=== PATIENT | female | born 1950 | race Caucasian/White ===

== ENCOUNTER 2025-06-10 11:03 | Outpatient (AMB) | payer OTHER, SELFPAY ==
--- NOTE | 2025-06-10 11:08 | MHC.PC.OV ---
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: No Accompanied by: Self / Same As Patient Allergies Sulfa (Sulfonamide Antibiotics) Allergy (Mild, Verified 06/10/25 11:14) Hives Medication List - Last Reconciled 06/10/25 by Jcarlos Ogden MD cholecalciferol (vitamin D3) 50 mcg PO DAILY letrozole 2.5 mg PO DAILY metoprolol succinate ER 50 mg PO DAILY nystatin topical BID oxycodone 5 mg PO Q3H PRN torsemide 20 mg PO DAILY Tobacco use date assessed: 06/10/25 Fall risk assessment: No Falls in past year Dental Screening Dental Screen Date: 06/10/25 Did you have a dental visit in the last 12 months?: Yes Did you have a dental problem in the last 6 months where you did not have access to dental care?: Yes Was dental information given to patient?: Patient has dentist HPI HPI Comments History of Present Illness Details History of Present Illness The patient is a 74-year-old female presenting to [facility] for management of multiple chronic conditions. Lymphedema: The patient has lymphedema affecting her right arm, the same side as her prior lumpectomies and lymph node removal, and she wears a compression sleeve. She also experiences lymphedema in her legs; it was previously worse in the left leg but is now more prominent in the right leg. 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 Aortic Valve Disease: The patient has a history of a heart murmur, identified as aortic valve stenosis and insufficiency. About a month ago, an EKG suggested a possible past myocardial infarction, but a subsequent echocardiogram showed no problems. Her previous water plant pump operator supervisor did not believe the condition was concerning at that time. Generalized Debility and Impaired Mobility: The patient reports having low stamina, which limits her activities. She has improved from being wheelchair-bound to using a walker and has recently transitioned to using a 3-point cane. History of Breast Cancer: The patient has a history of cancer, for which she underwent right-sided lumpectomies and lymph node removal. She is on letrozole, a hormone-based medication, and another medication referred to as Pasquali, which she states makes her feel anxious. Past Medical History: The patient has no history of diabetes, hypertension, or seizures. Surgical History: - Right-sided lumpectomies - Right-sided lymph node removal Medications: - Letrozole, indication: cancer - Pasquali, indication: cancer Social History: - Housing: The patient lives with a friend, who is her [id number]. - Functional Status: The patient has low stamina, which limits her from partaking in activities. - Mobility: The patient uses a 3-point cane, having previously used a wheelchair and a walker. Diagnostic Results: - Echocardiogram (one month ago): Reportedly showed no problems. - EKG (one month ago): Reportedly suggested a possible past myocardial infarction. Past Medical History - History of cancer, status post right lumpectomies and lymph node removal - Lymphedema of the right arm and bilateral lower extremities - Aortic valve stenosis and insufficiency with associated heart murmur - The patient denies a history of diabetes, hypertension, or seizures. Health Maintenance - A comprehensive lab panel was ordered, including a complete blood count, comprehensive metabolic panel, hemoglobin A1c, lipid panel, TSH, folate, B12, vitamin D, hepatitis B, hepatitis C, and HIV screening. - Discussed need for a handicap parking placard. - Discussed obtaining a lymphedema compression device. [facility] Medical History (Updated 06/10/25 @ 12:44 by Jcarlos Ogden MD) Weakness of both lower extremities Gait abnormality Lymphedema Aortic valve disease Breast cancer in female Family History (Updated 06/10/25 @ 11:21 by Kumar Vera MA) Father No problems noted. Mother Heart problem Social History Housing: House Patient Tobacco Use Status: Never used Tobacco service: No Current occupational status: retired Cognitive needs: No Hearing needs: No Vision needs: Yes (reading glasses) Questionnaire PHQ-9 Over the last 2 weeks, how often have you been bothered by any of the following problems? 1. Little interest or pleasure in doing things: not at all 2. Feeling down, depressed, or hopeless: not at all 3. Trouble falling or staying asleep, or sleeping too much: more than half the days 4. Feeling tired or having little energy: more than half the days 5. Poor appetite or overeating: not at all 6. Feeling bad about yourself - or that you are a failure or have let yourself or your family down: not at all 7. Trouble concentrating on things, such as reading the newspaper or watching television: not at all 8. Moving or speaking so slowly that other people could have noticed. Or the opposite - being so fidgety or restless that you have been moving around a lot more than usual: not at all 9. Thoughts that you would be better off or of hurting yourself in some way: not at all Total score: 4 Source: Developed by Drs. Ranjith Campo, Andra Lopez, Ramses Mckeon and colleagues, with an educational scot from [employer]. Thrive Questionnaire Date Thrive assessed: 06/05/25 I am a: Patient What is your living situation today?: I have a steady place to live Within the past 12 months, did the food you bought not last and you didn't have the money to get more?: Sometimes True Within the past 12 months, did you worry whether your food would run out before you got money to buy more?: Often true Do you have trouble paying for medicines?: Yes Do you have trouble getting transportation to medical appointments?: No Do you have trouble paying your heating and electricity bill?: Yes Do you have trouble taking care of your child, family member or friend?: I choose not to answer this question Do you have trouble with day-to-day activities such as bathing, preparing meals, shopping, managing finances, etc.?: Yes Are you currently unemployed and looking for a job?: No Are you interested in more education?: No Please select the resources that you would like help with: Utilities, Care for elder or disabled and Daily support Currently or been in a relationship where the following occur: No concerns reported THRIVE Score: 3 AUDIT C Alcohol Use Questionnaire (AUDIT-C) 3. How often do you have six or more drinks on one occasion?: Never Total Score: 0 TOM-7 AMB Questionnaire TOM-7 Feeling nervous, anxious, or on edge: 0 = Not at all Not being able to stop or control worryin = Not at all Worrying too much about different things: 0 = Not at all Trouble relaxin = Not at all Being so restless that it is hard to sit still: 0 = Not at all Becoming easily annoyed or irritable: 0 = Not at all Feeling afraid as if something awful might happen: 0 = Not at all Total TOM-7 score (0-4 normal; 5-9 mild; 10-14 moderate; 15-21 severe): 0 Source: Developed by Drs. Ranjith Campo, Andra Lopez, Ramses Mckeon and colleagues, with an educational scot from [employer]. Review of Systems Narrative Review of Systems - Constitutional: Reports low stamina. - Psychiatric: Reports feeling anxious, attributed to a side effect of her medication. - Neurological: Denies a history of seizures. - Sleep: Reports variable sleep quality; some nights are good and some are not. - Integumentary: Reports lines on her nails. - Genitourinary: Reports urinary urgency, sometimes requiring briefs. - Gastrointestinal: Reports bowel function is perfect. - Cardiovascular: Denies history of hypertension. - Endocrine: Denies history of diabetes. 10-point ROS reviewed and negative except as noted in HPI Physical exam (Primary Care) BMI result Body Mass Index 33.8 Tobacco/Smoking Status: Tobacco use Status Tobacco use date assessed 06/10/25 06/10/25 11:10 Patient Tobacco Use Status Never used Tobacco 06/10/25 11:10 PHQ-9: PHQ-9 Score PHQ-9: Total score 4 06/10/25 11:10 Thrive Assessment: Date of Thrive Assessment Date Thrive assessed 06/05/25 06/10/25 11:10 Currently or been in a relationship where the following occur: No concerns reported Narrative Physical Exam General: Well-appearing, in no acute distress. Uses a 3-point cane for mobility. Vital signs: Within normal limits. HEENT: Normocephalic, atraumatic. PERRLA, EOMI. Conjunctiva clear, sclera anicteric. Oropharynx clear, mucous membranes moist. TMs intact bilaterally. Neck: Supple, no lymphadenopathy, no thyromegaly, no JVD or carotid bruits. Cardiovascular: RRR, normal S1/S2, no murmurs, rubs, or gallops. Peripheral pulses 2+ and symmetric. No edema. Heart murmur present. History of aortic valve stenosis and insufficiency. Respiratory: Lungs clear to auscultation bilaterally, no wheezes, rales, or rhonchi. Normal effort. Abdomen: Soft, non-tender, non-distended. Normoactive bowel sounds. No hepatosplenomegaly, no masses. MSK: Full range of motion, no joint swelling or deformity. high stepping gait. Uses a 3-point cane. lymphedema sleeve on right arm Skin: Warm, dry, intact. No rashes, lesions, or pallor. Neuro: Alert and oriented x3. Cranial nerves II-XII intact. Strength 5/5 throughout. Sensation intact. Reflexes 2+ symmetric. Normal coordination and gait. Psych: Appropriate mood and affect. Normal judgment and insight. Coding Level of Care Code New Pt Level 4 (30800) Diagnoses Breast cancer in female C50.919 Aortic valve disease I35.9 Lymphedema I89.0 Gait abnormality R26.9 Weakness of both lower extremities R29.898 Assessment & Plan Assessment & Plan (1) Breast cancer in female: Code(s): C50.919 - Malignant neoplasm of unspecified site of unspecified female breast Category: Medical (2) Aortic valve disease: Code(s): I35.9 - Nonrheumatic aortic valve disorder, unspecified Category: Medical (3) Lymphedema: Code(s): I89.0 - Lymphedema, not elsewhere classified Category: Medical (4) Gait abnormality: Code(s): R26.9 - Unspecified abnormalities of gait and mobility Category: Medical (5) Weakness of both lower extremities: Code(s): R29.898 - Other symptoms and signs involving the musculoskeletal system Category: Medical Plan Consent The patient and her tuyere fitter were advised of the plan to perform comprehensive lab work, and they consented to proceed with the blood draw today. Patient was informed and verbally consented to the use of an ambient scribe for clinic note documentation during this visit. Plan 1. Establishment Of Care / Health Maintenance - Will obtain comprehensive baseline labs today, including CBC, CMP, electrolytes, HbA1c, lipids, TSH, folate, B12, vitamin D, and screening for Hepatitis B, Hepatitis C, and HIV. - Forms for release of information from previous providers Dr. Yessy Perez and Dr. Boyd Disla will be provided to the patient to sign. - Will complete paperwork for a handicap parking placard. - Patient to follow-up in two weeks to review lab results and medical records. 2. Lymphedema - Will monitor for and respond to any requests from the insurance company to provide clinical justification for a lymphedema compression machine. - Patient to continue current management, including wearing her right arm compression sleeve. 3. Aortic Valve Disease - The patient's history of aortic stenosis and insufficiency is noted. - Further management is deferred pending review of water plant pump operator supervisor records and new lab results, given the recent reassuring echocardiogram. 4. History Of Breast Cancer - Patient will continue her current oncology treatment regimen. - The patient was advised to share the results of today's blood work with her oncologist. Discussion Notes I discussed with the patient and her tuyere fitter that this visit would focus on establishing care, understanding her complex history, and gathering necessary information. I explained the rationale for ordering a comprehensive lab panel to get a baseline on her overall health, including blood counts, organ function, and vitamin levels. We reviewed the need to obtain records from her previous providers to ensure continuity of care and addressed the paperwork for a handicap placard. I acknowledged their concerns about obtaining the lymphedema compression machine through her new insurance and agreed to assist if contacted for medical information. I recommended she follow up in two weeks, at which point I hope to have the lab results and her prior records to develop a more complete plan. Patient Instructions - Please go to the lab here in the office today to have your blood drawn for the ordered tests. - At the checkout desk, please sign the release of information forms so we can request your medical records from your previous doctors. - We will provide you with the completed paperwork for a handicap parking placard. - We will assist with providing information to your insurance company for the lymphedema compression machine if they contact us. - Please schedule a follow-up appointment to return in two weeks to review your lab results. Medical Decision Making The patient is a 74-year-old female with a complex medical history presenting to establish primary care. Olivares issues include sequelae of breast cancer treatment, such as chronic lymphedema, and comorbid aortic valve disease. Given her recent change in providers and insurance, the initial goal is to gather comprehensive baseline data and obtain outside records for continuity. A comprehensive lab panel was ordered to assess for hematologic, metabolic, endocrine, or nutritional abnormalities that could contribute to her reported debility. Her cardiac status with aortic stenosis and insufficiency is noted; however, given a recent unremarkable echocardiogram, immediate cardiology referral is deferred pending review of specialist records. Support will be provided for durable medical equipment authorization for her lymphedema and for a handicap placard to address her limited mobility. Follow-up in two weeks is scheduled to review all collected data and formulate a comprehensive, long-term care plan. Total Time Statement 30 min Total time spent caring for the patient today includes pre-visit chart review, documentation, review of laboratory and diagnostic imaging results, medication reconciliation, medically necessary evaluation, counseling on diagnoses, care coordination, ordering appropriate tests and medications, review of tests performed by other providers, reporting test results to the patient, and communication with other healthcare providers. Orders: Orders Complete Blood Count Auto Diff Today Z13.9 - Encounter for screening, unspecified Syphilis Screen Today Z13.9 - Encounter for screening, unspecified TSH reflex Free T4 Today Z13.9 - Encounter for screening, unspecified UA CC w/rflx Micro + Cult Today Z13.9 - Encounter for screening, unspecified Hemoglobin A1c Today Z13.9 - Encounter for screening, unspecified Vitamin D 1,25 dihydroxy Today Z13.9 - Encounter for screening, unspecified Hepatitis B Surface Antibody Today Z13.9 - Encounter for screening, unspecified Hepatitis B Surface Antigen Today Z13.9 - Encounter for screening, unspecified Comprehensive Met. Panel Today Z13.9 - Encounter for screening, unspecified Hepatitis C Antibody Today Z13.9 - Encounter for screening, unspecified HIV Ab/Ag Today Z13.9 - Encounter for screening, unspecified Lipid Panel Today Z13.9 - Encounter for screening, unspecified Vitamin B12 and Folate Today Z13.9 - Encounter for screening, unspecified Magnesium Today Z13.9 - Encounter for screening, unspecified
[2025-06-10 11:13] VITALS: BP 139/65; PULSE 67; RESP 16; TEMP 36.5; O2SAT 95; BMI 33.8
== END 2025-06-10 11:56 | disposition home or self-care (01) ==
PROVIDERS: PCP Student in an Organized Health Care Education/Training Program; Visit Provider Student in an Organized Health Care Education/Training Program
DX: C50.919 Malignant neoplasm of unspecified site of unspecified female breast (principal); I35.9 Nonrheumatic aortic valve disorder, unspecified; I89.0 Lymphedema, not elsewhere classified; R26.9 Unspecified abnormalities of gait and mobility; R29.898 Other symptoms and signs involving the musculoskeletal system

== ENCOUNTER 2025-06-10 11:03 | Outpatient (REF) | payer OTHER, SELFPAY ==
[2025-06-10 18:03] LABS: MANUAL DIFF FLAG NO
[2025-06-10 18:15] LABS: Appearance Urine Clear; Glucose Urine UA Negative (Negative); PH 5.0 (5.0-9.0); Specific Gravity - Urine 1.015 (1.005-1.025); UMIC TRIGGER UACC YES
[2025-06-10 18:23] LABS: Hematocrit 37.8 % (37.0-47.0); Hemoglobin 12.7 g/dl (12.0-16.0); Imm Gran Abs Auto 0.02 X10*3/uL (0.00-0.03); Imm Gran Pct Auto 0.3 % (0.0-0.4); Lymphocytes Absolute Auto 1.8 X10*3/uL (1.2-4.9); Mean Corpuscular HGB Conc 33.6 g/dl (31.0-35.0); Mean Corpuscular Hemoglobin 31.1 pg (27.0-33.0); Mean Corpuscular Volume 92.4 fL (80.0-98.0); NRBC Abs Auto 0.000 X10*3/uL (0.0-0.012); NRBC Pct Auto 0.0 /100WBC (0.0-0.2); Platelet Count 307 X10*3/uL (160-400); Red Blood Count 4.09 X10*6/uL (4.20-5.50); White Blood Count 7.0 X10*3/uL (4.8-10.8)
[2025-06-10 18:57] LABS: Alanine Aminotransferase 27 U/L (0-31); Albumin Level 4.6 g/dL (3.5-5.0); Alkaline Phosphatase 142 U/L (39-117); Anion Gap 13 (12-20); Aspartate Amino Transferase 28 U/L (5-31); Blood Urea Nitrogen 17 mg/dL (9-16); Calcium 8.8 mg/dL (8.4-10.2); Carbon Dioxide 27 mmol/L (22-29); Chloride 95 mmol/L (96-108); Cholesterol 268 mg/dL (<200); Estimated Glomerular Filt Rate > 60; HDL Cholesterol 44 mg/dL (>40); Magnesium 2.3 mg/dL (1.6-2.6); Potassium 4.4 mmol/L (3.3-5.1); Sodium 131 mmol/L (135-145); Total Protein 7.4 g/dL (6.5-8.0); Triglycerides 277 mg/dL (<150)
[2025-06-10 19:08] LABS: Folate 11.0 ng/mL (> or = 4.0); Vitamin B12 363 pg/mL (200-900)
[2025-06-11 06:43] LABS: Syphilis Screen Nonreactive (Nonreactive)
[2025-06-11 07:32] LABS: HBS Num1 0.06 mIU/mL (0-7.99); HBsAGNum1 0.50 S/CO (0.00-0.99); HIV Num 1 0.08 S/CO (0.00-0.99); Hepatitis B Surface Antigen Negative (Negative); ~HepC Num1 0.10 S/CO (0.00-0.79); ~Hepatitis B Surface Antibody NONREACTIVE (Nonreactive); ~Hepatitis C Antibody Nonreactive (Nonreactive)
[2025-06-15 16:09] LABS: VITAMIN D (1,25 OH) D3 69 pg/mL; Vit D (1,25-Dihydroxy) Total 69 pg/mL (18-72); Vitamin D (1,25 OH) D2 <8 pg/mL
== END 2025-06-10 11:04 | disposition home or self-care (01) ==
LOC: HO.HKASLDS 11:03
PROVIDERS: PCP Student in an Organized Health Care Education/Training Program; Visit Provider Student in an Organized Health Care Education/Training Program
DX: I89.0 Lymphedema, not elsewhere classified (principal); I35.9 Nonrheumatic aortic valve disorder, unspecified; R26.9 Unspecified abnormalities of gait and mobility; R29.898 Other symptoms and signs involving the musculoskeletal system; Z85.3 Personal history of malignant neoplasm of breast; Z13.1 Encounter for screening for diabetes mellitus
CPT/HCPCS: 36415; 80053; 80061; 81001; 82607; 82652; 82746; 83036; 83735; 84443; 85025; 86706; 86780; 86803; 87340; 87389; 96127; 99202

== ENCOUNTER 2025-06-26 14:52 | Outpatient (AMB) | payer OTHER, SELFPAY ==
--- NOTE | 2025-06-26 14:55 | MHC.PC.OV ---
Vital Signs 06/26/25 15:02 Height 5 ft 1.42 in Weight 185 lb BMI 34.5 BP 122/57 L Blood Pressure Location Lt brachial Position Sitting Respiration 16 Pulse 64 Pulse Source Pulse Oximeter Temp 98.1 F Temp Source Oral Pulse Oximetry (%) 96 Oxygen Delivery Method Room Air Intake Visit Reasons: 2 wk - lab review Intake Note: Patient present for lab review follow up. Specialist Icu Required: No Allergies Sulfa (Sulfonamide Antibiotics) Allergy (Mild, Verified 06/26/25 14:59) Hives Tobacco use date assessed: 06/10/25 Fall risk assessment: No Falls in past year Last assessed Fall Risk: 06/26/25 Dental Screening Dental Screen Date: 06/10/25 HPI HPI Comments History of Present Illness Details History of Present Illness The patient is a 74 year old female presenting for a follow-up visit to review laboratory results. Metastatic cancer to bone: The patient has a history of cancer that has metastasized to her bones. She is under the care of an oncologist, Dr. Disla, and recently underwent her 3-month follow-up scans. A recent CAT scan showed her vital organs, including heart, intestines, kidneys, and liver, are all clear of disease. She is awaiting comparison of her new scans to old scans, which were done at a different facility, to determine disease stability. For bone strengthening, she receives infusions of a medication referred to as Cosmex, and has had one treatment so far, after which she experienced transient flu-like symptoms. Lymphedema: The patient has a history of lymphedema and previously used an air pump system with sleeves for her arms, torso, and legs under a prior insurance plan. Following a change in insurance, the treatment was discontinued, and there is a need to re-initiate the process to obtain the device. Hyperlipidemia: Recent labs revealed elevated triglycerides, total cholesterol, and LDL cholesterol. Statin medication has not been initiated due to her age and overall clinical picture. Hyponatremia: The patient has a history of hyponatremia, with levels normally around 128-129 mEq/L. Her most recent sodium level was 131 mEq/L, which is an improvement. Medications: - Cosmex infusion for bone strengthening Social History: - Functional Status: The patient reports feeling great and good. - Supports: The patient is accompanied to her appointments by a clinical education manager. Diagnostic Results: - Labs (06/10): - White blood cells: Normal. - Red blood cells: 4.09 (low, reference range >4.20). - Hemoglobin, hematocrit, MCV: Normal. - Sodium: 131 mEq/L (low, reference range begins at 135). - Potassium: Normal. - Renal function: Normal. - Hemoglobin A1c: 5.5%. - Calcium: 8.8 mg/dL. - Magnesium: 2.3 mg/dL. - Liver function tests: Total bilirubin, AST, ALT are normal; alkaline phosphatase is elevated at 142 U/L (normal 39-117). - Total protein, albumin: Normal. - Lipids: Triglycerides, total cholesterol, and LDL are elevated. - HDL cholesterol: 44 mg/dL (normal >40). - Vitamin B12: 363 pg/mL (normal 200-900). - Vitamin D: 69 ng/mL (normal 18-72). - Folate: Normal. - Thyroid function tests: Normal. - Urinalysis: Normal. - Infectious disease screen: Negative for syphilis, hepatitis B, hepatitis C, and HIV. - Imaging: - Recent 3-month follow-up scans were completed; results are pending comparison with prior images by her oncologist. - CAT scan shows no metastasis to vital organs. Past Medical History - Metastatic cancer to bone - Lymphedema Health Maintenance - Status: Her laboratory results are noted to be excellent for her age. - Cancer Surveillance: Undergoes imaging scans every 3 months. - Bone Health: Receives Cosmex infusions for bone strengthening. - Hyperlipidemia management: Deferring statin therapy is recommended at this time due to age and overall clinical context. - Infectious Disease Screening: Negative for syphilis, hepatitis B, hepatitis C, and HIV. - Follow-up: Recommended to follow up in 3 months. [facility] Medical History (Updated 06/26/25 @ 16:01 by Jcarlos Ogden MD) Hyperlipidemia Hyponatremia Metastatic cancer to bone Weakness of both lower extremities Gait abnormality Lymphedema Aortic valve disease Breast cancer in female Family History Father No problems noted. Mother Heart problem Social History (Updated 06/26/25 @ 15:02 by Dhaavl Zapata CMA) Housing: House Alcohol intake: never Patient Tobacco Use Status: Never used Tobacco e-Cigarette/Vaping Use: Never Used service: No Current occupational status: retired Cognitive needs: No Hearing needs: No Vision needs: Yes (reading glasses) Questionnaire Thrive Questionnaire Date Thrive assessed: 06/05/25 I am a: Patient What is your living situation today?: I have a steady place to live Within the past 12 months, did the food you bought not last and you didn't have the money to get more?: Sometimes True Within the past 12 months, did you worry whether your food would run out before you got money to buy more?: Often true Do you have trouble paying for medicines?: Yes Do you have trouble getting transportation to medical appointments?: No Do you have trouble paying your heating and electricity bill?: Yes Do you have trouble taking care of your child, family member or friend?: I choose not to answer this question Do you have trouble with day-to-day activities such as bathing, preparing meals, shopping, managing finances, etc.?: Yes Are you currently unemployed and looking for a job?: No Are you interested in more education?: No Currently or been in a relationship where the following occur: No concerns reported THRIVE Score: 3 Review of Systems Narrative Review of Systems - General: Reports feeling great and good. 10-point ROS reviewed and negative except as noted in HPI Physical exam (Primary Care) Vital Signs: Last Vital Signs Temp 98.1 F 06/26/25 15:02 Pulse 64 06/26/25 15:02 Resp 16 06/26/25 15:02 BP 122/57 L 06/26/25 15:02 Pulse Ox 96 06/26/25 15:02 Oxygen Delivery Method Room Air 06/26/25 15:02 BMI result Body Mass Index 34.5 Tobacco/Smoking Status: Tobacco use Status Tobacco use date assessed 06/10/25 06/26/25 14:58 Patient Tobacco Use Status Never used Tobacco 06/26/25 15:02 e-Cigarette/Vaping Use Never Used 06/26/25 15:04 Thrive Assessment: Date of Thrive Assessment Date Thrive assessed 06/05/25 06/26/25 14:58 Currently or been in a relationship where the following occur: No concerns reported Narrative Physical Exam General: Well-appearing, in no acute distress. Vital signs: Within normal limits. HEENT: Normocephalic, atraumatic. PERRLA, EOMI. Conjunctiva clear, sclera anicteric. Oropharynx clear, mucous membranes moist. TMs intact bilaterally. Neck: Supple, no lymphadenopathy, no thyromegaly, no JVD or carotid bruits. Cardiovascular: RRR, normal S1/S2, no murmurs, rubs, or gallops. Peripheral pulses 2+ and symmetric. No edema. Respiratory: Lungs clear to auscultation bilaterally, no wheezes, rales, or rhonchi. Normal effort. Abdomen: Soft, non-tender, non-distended. Normoactive bowel sounds. No hepatosplenomegaly, no masses. MSK: Full range of motion, no joint swelling or deformity. Normal gait. Skin: Warm, dry, intact. No rashes, lesions, or pallor. Neuro: Alert and oriented x3. Cranial nerves II-XII intact. Strength 5/5 throughout. Sensation intact. Reflexes 2+ symmetric. Normal coordination and gait. Psych: Appropriate mood and affect. Normal judgment and insight. Coding Level of Care Code Est Pt Level 3 (63181) Diagnoses Breast cancer in female C50.919 Metastatic cancer to bone C79.51 Lymphedema I89.0 Hyponatremia E87.1 Hyperlipidemia E78.5 Assessment & Plan Assessment & Plan (1) Breast cancer in female: Code(s): C50.919 - Malignant neoplasm of unspecified site of unspecified female breast Category: Medical (2) Metastatic cancer to bone: Code(s): C79.51 - Secondary malignant neoplasm of bone Category: Medical (3) Lymphedema: Code(s): I89.0 - Lymphedema, not elsewhere classified Category: Medical (4) Hyponatremia: Code(s): E87.1 - Hypo-osmolality and hyponatremia Category: Medical (5) Hyperlipidemia: Code(s): E78.5 - Hyperlipidemia, unspecified Category: Medical Plan Consent The patient discussed her upcoming second bone-strengthening infusion ( Cosmex ). She recalled that after her first infusion, she felt lousy with flu-like symptoms for a day but was fine afterward. Understanding the temporary nature of the side effects, she agreed to proceed with the next treatment. Patient was informed and verbally consented to the use of an ambient scribe for clinic note documentation during this visit. Plan 1. Metastatic Cancer To Bone - The patient will continue to follow with her oncologist, Dr. Disla. - Recent lab results will be faxed to Dr. Disla's office. - Awaiting review of recent 3-month scans by her oncologist, who will compare them to prior imaging to assess for disease progression. - The patient will proceed with her second Cosmex bone-strengthening infusion. 2. Hyperlipidemia - No pharmacologic intervention with statins will be initiated at this time, given the patient's age and overall clinical context. - The patient was advised to continue her current lifestyle and regimen, as it is proving effective. 3. Lymphedema - Will re-initiate the process to obtain a lymphedema air pump system. - The patient/caregiver was instructed to set up the practice's patient portal to facilitate communication and documentation for the equipment request. 4. Follow-Up Care - The patient was advised to schedule a follow-up appointment in three months to continue monitoring. - The patient was also informed she could return sooner if any issues arise. Discussion Notes I reviewed the recent laboratory results with the patient and her clinical education manager. I emphasized that her overall results are excellent, particularly for her age, with normal WBC, renal function, and hemoglobin A1c. I noted the improved sodium level at 131, up from her baseline of 128-129, a mildly low RBC count with otherwise normal indices, and an expectedly elevated alkaline phosphatase due to her bone metastases. We discussed her elevated cholesterol, and I recommended against initiating statin therapy given her age and overall clinical picture, to which she was agreeable. We discussed her upcoming second bone-strengthening infusion ( Cosmex ). I acknowledged her previous experience of feeling lousy with flu-like symptoms for a day post-treatment, and she confirmed she is prepared for and agrees to proceed with the next round. I advised her to continue her current health regimen as it is clearly effective and recommended a follow-up visit in three months for continued monitoring. Patient Instructions - Please set up an account on our patient portal. This will make it easier for us to communicate and handle requests, such as for your lymphedema pump. - Continue with your current diet and activities. Whatever you are doing is working very well, as shown by your excellent lab results. - We will proceed with restarting the process to get you a lymphedema pump. - Proceed with your next scheduled Cosmex infusion to help keep your bones strong. Remember that you may feel lousy with flu-like symptoms for about a day afterward, just like last time. - Make sure to follow up with your cancer doctor, Dr. Disla, to go over the results of your recent scans. - Please schedule a follow-up appointment to see me again in about three months. You can always come in sooner if you need anything. Medical Decision Making The patient is a 74-year-old female with a history of metastatic cancer to the bone who presents for a review of her recent lab work. Her laboratory results are remarkably stable and, in many cases, excellent, showing no evidence of diabetes, stable renal function, and improved hyponatremia (131 mEq/L from a baseline of 128-129). The mildly low RBC count is noted but is not clinically significant at this time, with normal hemoglobin and MCV. Her elevated alkaline phosphatase is an expected finding consistent with her known bone metastases. Regarding her hyperlipidemia, the decision was made to defer statin therapy. Given her age and complex oncologic history, the risks and potential side effects of statins are not justified for primary prevention, and the focus remains on her overall quality of life and management of her existing conditions. The plan is to continue supportive care, including bone-strengthening infusions to reduce fracture risk and re-initiating the request for a lymphedema pump to manage symptoms. A close follow-up interval of three months is appropriate to monitor her complex medical issues. Total Time Statement 20 min Total time spent caring for the patient today includes pre-visit chart review, documentation, review of laboratory and diagnostic imaging results, medication reconciliation, medically necessary evaluation, counseling on diagnoses, care coordination, ordering appropriate tests and medications, review of tests performed by other providers, reporting test results to the patient, and communication with other healthcare providers.
[2025-06-26 15:02] VITALS: BP 122/57; PULSE 64; RESP 16; TEMP 36.7; O2SAT 96; BMI 34.5
== END 2025-06-26 15:21 | disposition home or self-care (01) ==
PROVIDERS: PCP Student in an Organized Health Care Education/Training Program; Visit Provider Student in an Organized Health Care Education/Training Program
DX: C50.919 Malignant neoplasm of unspecified site of unspecified female breast (principal); C79.51 Secondary malignant neoplasm of bone; I89.0 Lymphedema, not elsewhere classified; E87.1 Hypo-osmolality and hyponatremia; E78.5 Hyperlipidemia, unspecified

== ENCOUNTER → 2025-06-26 14:52 | Outpatient (BNVA) | payer OTHER, SELFPAY | PROVIDERS: Visit Provider Student in an Organized Health Care Education/Training Program | DX: Z71.2 Person consulting for explanation of examination or test findings (principal); C50.919 Malignant neoplasm of unspecified site of unspecified female breast; C79.51 Secondary malignant neoplasm of bone; I89.0 Lymphedema, not elsewhere classified; E87.1 Hypo-osmolality and hyponatremia | CPT/HCPCS: 99212 ==

== ENCOUNTER 2025-07-07 13:24 | Outpatient (AMB) | payer OTHER, SELFPAY ==
[2025-07-07 13:27] VITALS: BP 179/74; PULSE 75; RESP 16; TEMP 36.8; O2SAT 96; BMI 33.9
--- NOTE | 2025-07-07 13:27 | AM.OFFWIN_ITS ---
Intake Vital Signs 07/07/25 13:27 07/07/25 13:44 Height 5 ft 1.42 in Weight 182 lb BMI 33.9 BP 179/74 H 158/60 H Blood Pressure Location Lt brachial Lt brachial Position Sitting Sitting Respiration 16 Pulse 75 Pulse Source Pulse Oximeter Temp 98.2 F Temp Source Oral Pulse Oximetry (%) 96 Oxygen Delivery Method Room Air Intake Visit Reasons: EP - Yellow Phlegm, Coughing, SinusDiscomfort Intake Note: EP complains of productive coughing with (sputum yellow), chest congestion, nasal block and discharge since last Monday. Patient Tobacco Use Status: Never used Tobacco Allergies Sulfa (Sulfonamide Antibiotics) Allergy (Mild, Verified 07/07/25 13:38) Hives Do you need a note to return to daycare/school/sports/work: No HPI HPI Comments History of Present Illness Details History of Present Illness The patient is a 74 year old female with a past medical history of metastatic breast cancer and aortic valve disease who presents with a family friend for cough and congestion. - The patient has been feeling unwell si nce Saturday 06/30, with symptoms worsening on Monday. - She reports a very bad cough productiv e of yellow mucus, chest pressure, sinus pressure and pain - She also reports yellow nasal discharg e as well. - She denies any fevers, shortness of br eath, nausea, vomiting, or diarrhea. - She is unaware of any sick contacts. - For symptom management, she has been t aking Tylenol and Coricidin Cold and Cough every six hours, with the last dose at 6 a.m. - She also reports left ear discomfort - Family friend, Esteban, requesting a course of antibiotics due to her immunocompromised state Review of Systems Constitutional: Negative for fevers, chills HENT: Reports congestion, rhinorrhea, and right ear discomfort. Denies sore throat Respiratory: Reports cough and chest tightness. Denies shortness of breath Gastrointestinal: Negative for abdominal pain, nausea, vomiting, diarrhea Musculoskeletal: Negative for myalgias Neurological: Reports headaches Physical Exam General Appearance: Normal appearance, well developed. No acute distress ENT: External ears normal. Right ear canal fully impacted with ear wax, unable to visualize tympanic membrane. Left ear canal clear with middle ear effusion present. No erythema or bulging of TM. Clear nasal drainage noted. Oropharynx clear without erythema or exudate. Head: Normocephalic, atraumatic Pulmonary: No respiratory distress. Speaking in full sentences. Patient noted to have ronchi of the right upper and middle lobes. Cardiac: Regular rate and rhythm. Systolic murmur auscultated. Musculoskeletal: Moving all extremities spontaneously and against gravity Mental Status: Alert and Oriented x 3 Psychiatric: Normal mood. Normal affect. [facility] Medical History (Updated 06/26/25 @ 16:01 by Jcarlos Ogden MD) Hyperlipidemia Hyponatremia Metastatic cancer to bone Weakness of both lower extremities Gait abnormality Lymphedema Aortic valve disease Breast cancer in female Family History Father No problems noted. Mother Heart problem Social History (Updated 06/26/25 @ 15:02 by Dhaval Zapata CMA) Housing: House Alcohol intake: never Patient Tobacco Use Status: Never used Tobacco e-Cigarette/Vaping Use: Never Used service: No Current occupational status: retired Cognitive needs: No Hearing needs: No Vision needs: Yes (reading glasses) Physical Exam Vital Signs: Last Vital Signs Temp 98.2 F 07/07/25 13:27 Pulse 75 07/07/25 13:27 Resp 16 07/07/25 13:27 BP 158/60 H 07/07/25 13:44 Pulse Ox 96 07/07/25 13:27 Oxygen Delivery Method Room Air 07/07/25 13:27 BMI result Body Mass Index 33.9 Assessment & Plan Assessment & Plan (1) Acute respiratory infection: Code(s): J22 - Unspecified acute lower respiratory infection (2) Right ear impacted cerumen: Code(s): H61.21 - Impacted cerumen, right ear Plan - The patient is a 74-year-old female presenting with a productive cough and congestion - Auscultation reveals rhonchi in the right upper and middle lobe - Chest xray performed shows an elevated right hemidiaphragm with increased density projecting over the proximal thoracic spine on the lateral view, questionable upper lobe infiltrate versus nodule versus bone finding. - Reviewed chest CT report from [facility] performed on 06/17/2025. At that time she was noted to have right upper lobe subpleural scarring and right middle lobe linear atelectasis. - Discussed with patient and family friend that findings from chest xray may be related to findings from Chest CT. - Given her symptoms, immunocompromised state, and patient request, will treat with a 5 day course of Doxycycline to cover for potential infiltrates - Patient advised to avoid direct sunlight while taking medication and to sit up for 30 minutes post administration of medication. Advised to avoid taking antacids, multivitamis, and supplements containing iron, calcium, Mg, or zinc within 2 hour of taking Doxycycline. - Recommended follow up with her PCP to consider repeat imaging - Given that the onset of symptoms was more than six days ago, testing for COVID, flu, or RSV is not considered beneficial as it would not alter the treatment plan. - Advised if new fevers, worsening cough, or shortness of breath develop, recommended preop medical evaluation. 2. Cerumen Impaction - Patient noted to have right impacted cerumen - Will avoiding irrigation of the ear as she is not feeling well currently - It was recommended she use Debrox drops to help soften the wax. - Advised to return for ear irrigation if she develops ear discomfort or hearing difficulty Patient was informed and verbally consented to the use of an ambient scribe for clinic note documentation during the visit. Orders: Orders XR chest 2V Today R05.9 - Cough, unspecified Medications: New doxycycline hyclate 100 mg PO BID 10 tabs 0RF Coding Level of Care Code Est Pt Level 3 (75791) Diagnoses Acute respiratory infection J22 Right ear impacted cerumen H61.21
[2025-07-07 13:44] VITALS: BP 158/60
--- OUTSIDE RECORDS SUMMARY | 2025-07-07 19:25 | XMS_ITS | Encounter Summary ---
Author Organization [facility] Address [address] [place] [address] Care Team Providers Care Code Official Name Role Phone Mehdi Nugent MD Unavailable [phone] Yessy Faustin DO Primary Care Provider Olga Dodson MD Unavailable [phone] Yessy Faustin DO Unavailable Yessy Faustin DO Unavailable Encounter Details Date Type Department Care Team (Late st Contact Info) Description 11/28/2024 Scanned Document [facility] at Home 12[address] [facility] [address] [place] [address] Provider, Generic Social History Tobacco Use Types Packs/Day Years Used Date Smoking Tobacco: Never Smokeless Tobacco: Never Alcohol Use Standard Drinks/Week Comments Never 0 (1 standard drink = 0.6 oz pur e alcohol) Comments No Sex and Gender Information Value Date Recorded Sex Assigned at Female 08/21/2022 1:23 PM EST Legal Sex Female 12:24 AM EDT Gender Identity Female 08/21/2022 1:23 PM EST Sexual Orientation Choose not to disclose 2022 1:23 PM EST documented as of this encounter Plan of Treatment Upcoming Encounters Date Type Department Care Team (Late st Contact Info) Description 11/10/2025 11:30 AM EDT Office Visit [facility] Department of Cardiology [place] [address] [facility] [address] [place] [phone] Onofre Malik PA [address] [place] [address] 11/14/2025 2:00 PM EDT Office Visit [facility] Department of Internal Medicine [address] 1st [place] [address] Yessy Faustin DO [address] [address] documented as of this encounter Visit Diagnoses Not on filedocumented in this encounter Care Teams Code Official Relationship Specialty Start Date End Date Yessy Faustin DO [address] [place] [address] PCP - General Internal Medicine 08/21/22 Yessy Faustin DO [address] [place] [address] PCP - Carson [facility] ELISHA Attributed 01/22/24 02/20/25 Yessy Faustin DO [address] [place] [address] PCP - Carson Strickland MA Attributed 02/21/25 Mehdi Nugent MD [address] [address] Physician Hematology Oncology 06/08/21 Olga Dodson MD [address] [place] [address] Surgery, General 08/24/22 documented as of this encounter
--- OUTSIDE RECORDS SUMMARY | 2025-07-07 19:25 | XMS_ITS | Encounter Summary ---
Author Organization [facility] Address [address] [place] [address] Care Team Providers Care Monkey Breeder Name Role Phone Mehdi Nugent MD Unavailable Yessy Faustin DO Primary Care Provider Olga Dodson MD Unavailable [phone] Yessy Faustin DO Unavailable Yessy Faustin DO Unavailable Encounter Details Date Type Department Care Team (Late st Contact Info) Description 11/26/2024 Scanned Document [facility] at Home 1290 [facility] [address] [place] [phone] Sparkle Castle, DIRECTOR OF VOCATIONAL GUIDANCE 18 [facility] 1 [place], [place] [id number] Social History Tobacco Use Types Packs/Day Years [...] Description 11/10/2025 11:30 AM EDT Office Visit [facility] Department of Cardiology [place] [address] [facility] [address] [place] [address] Onofre Malik PA [address] [place] [address] 11/14/2025 2:00 PM EDT Office Visit [facility] Department of Internal Medicine [address] 1st [place] [address] Yessy Faustin DO 18 [place] [address] documented as of this encounter Procedures Procedure Name Priority Date/Time Associated Diagnosis Comments HOME CARE SIGNED ORDERS 11/26/2024 3:12 PM EDT HOME CARE SIGNED ORDERS 11/26/2024 3:12 PM EDT documented in this encounter Results * HOME CARE SIGNED ORDERS (11/26/2024 3:12 PM EDT) Sparkle Castle DIRECTOR OF VOCATIONAL GUIDANCE HX AMB PROCEDURES NO RESULTS RO UTING Final Result * HOME CARE SIGNED ORDERS (11/26/2024 3:12 PM EDT) Sparkle Castle DIRECTOR OF VOCATIONAL GUIDANCE HX AMB PROCEDURES NO RESULTS RO UTING Final Result documented in this encounter Visit Diagnoses Not on filedocumented in this encounter Care Teams Monkey Breeder Relationship Specialty Start Date End Date Yessy Faustin DO [address] [place], [place] [address] PCP - General Internal Medicine 08/21/22 Yessy Faustin DO [address] [place] [address] PCP - [facility] Attributed 01/22/24 02/20/25 Yessy Faustin DO [address] [place], [place] [phone] PCP - Carson Strickland MA Attributed 02/21/25 Mehdi Nugent MD 183 [place] [address] Physician Hematology Oncology 06/08/21 Olga Dodson MD [address] [place] [address] Surgery, General 08/24/22 documented as of this encounter
--- OUTSIDE RECORDS SUMMARY | 2025-07-07 19:25 | XMS_ITS | Encounter Summary ---
Author Organization [facility] Address [address] [place] [address] Care Team Providers Care Lockstitch Pocket Setter Name Role Phone Mehdi Nugent MD Unavailable [phone] Yessy Faustin DO Primary Care Provider Olga Dodson MD Unavailable [phone] Yessy Faustin DO Unavailable Yessy Faustin DO Unavailable Encounter Details Date Type Department Care Team (Late st Contact Info) Description 12/09/2024 Scanned Document [facility] at Home 1290 [facility] [address] [place] [address] Provider, Generic Social History Tobacco [...] Office Visit [facility] Department of Cardiology [place] 160 [facility] [place] [facility] [address] [place] [address] Onofre Malik PA [address] [place] [address] 11/14/2025 2:00 PM EDT Office Visit [facility] Department of Internal Medicine [address] 1st [place] [phone] Yessy Faustin DO [address] [address] documented as of this encounter Visit Diagnoses Not on filedocumented in this encounter Care Teams Lockstitch Pocket Setter Relationship Specialty Start Date End Date Yessy Faustin DO [address] [place] [address] PCP - General Internal Medicine 08/21/22 Yessy Faustin DO [address] [place] [address] PCP - Carson [facility] ELISHA Attributed 01/22/24 02/20/25 Yessy Faustin DO [address] [place] [address] PCP - Carson Strickland MA Attributed 02/21/25 Mehdi Nugent MD [address] [address] Physician Hematology Oncology 06/08/21 Olga Dodson MD 201 [place] [address] Surgery, General 08/24/22 documented as of this encounter
--- OUTSIDE RECORDS SUMMARY | 2025-07-07 19:25 | XMS_ITS | Encounter Summary ---
Author Organization [facility] Address [address] [place] [address] Care Team Providers Care Employee Development Director Name Role Phone Mehdi Nugent MD Unavailable [phone] Yessy Faustin DO Primary Care Provider [phone] Olga Dodson MD Unavailable [phone] Yessy Faustin DO Unavailable Yessy Faustin DO Unavailable Encounter Details Date Type Department Care Team (Late st Contact Info) Description 11/26/2024 Scanned Document [facility] at Home 1290 [facility] [address] [place] [address] Provider, Generic Social History Tobacco [...] Office Visit [facility] Department of Cardiology [place] [address] [facility] [address] [place] [phone] Onofre Malik PA [address] [place] [address] 11/14/2025 2:00 PM EDT Office Visit [facility] Department of Internal Medicine [address] 1st [place] [address] Yessy Faustin DO [address] [address] documented as of this encounter Visit Diagnoses Not on filedocumented in this encounter Care Teams Employee Development Director Relationship Specialty Start Date End Date Yessy Faustin DO [address] [place] [address] PCP - General Internal Medicine 08/21/22 Yessy Faustin DO [address] [place] [address] PCP - Carson [facility] ELISHA Attributed 01/22/24 02/20/25 Yessy Faustin DO [address] [place] [address] PCP - Carson Strickland MA Attributed 02/21/25 Mehdi Nugent MD [address] [address] Physician Hematology Oncology 06/08/21 Olga Dodson MD 201 [place] [address] Surgery, General 08/24/22 documented as of this encounter
--- OUTSIDE RECORDS SUMMARY | 2025-07-07 19:25 | XMS_ITS | Encounter Summary ---
Author Organization [facility] Address [address] [place] [address] Care Team Providers Care Toll Lineman Name Role Phone Mehdi Nugent MD Unavailable [phone] Yessy Faustin DO Primary Care Provider Olga Dodson MD Unavailable [phone] Yessy Faustin DO Unavailable Yessy Faustin DO Unavailable Encounter Details Date Type Department Care Team (Late st Contact Info) Description 11/27/2024 Scanned Document [facility] at Home 1290 [facility] [address] [place] [address] Provider, Generic Social History Tobacco [...] Office Visit [facility] Department of Cardiology [place] [address] [facility] [address] [place] [address] Onofre Malik PA [address] [place] [address] 11/14/2025 2:00 PM EDT Office Visit [facility] Department of Internal Medicine [address] 1st [place] [address] Yessy Faustin DO [address] [address] documented as of this encounter Visit Diagnoses Not on filedocumented in this encounter Care Teams Toll Lineman Relationship Specialty Start Date End Date Yessy Faustin DO [address] [place] [address] PCP - General Internal Medicine 08/21/22 Yessy Faustin DO [address] [place] [address] PCP - Carson [facility] ELISHA Attributed 01/22/24 02/20/25 Yessy Faustin DO [address] [place] [address] PCP - Carson Strickland MA Attributed 02/21/25 Mehdi Nugent MD [address] [address] Physician Hematology Oncology 06/08/21 Olga Dodson MD 201 [place] [address] Surgery, General 08/24/22 documented as of this encounter
--- OUTSIDE RECORDS SUMMARY | 2025-07-07 19:25 | XMS_ITS | Encounter Summary ---
Author Organization [facility] Address [address] [place] [address] Care Team Providers Care Maintenance Service Dispatcher Name Role Phone Mehdi Nugent MD Unavailable [phone] Yessy Faustin DO Primary Care Provider Olga Dodson MD Unavailable [phone] Yessy Faustin DO Unavailable Yessy Faustin DO Unavailable Encounter Details Date Type Department Care Team (Late st Contact Info) Description 12/05/2024 Scanned Document [facility] at Home 1290 [facility] [address] [place] [address] Provider, Generic Social History Tobacco [...] Office Visit [facility] Department of Cardiology [place] [address] [facility] [address] [place] [address] Onofre Malik PA [address] [place] [address] 11/14/2025 2:00 PM EDT Office Visit [facility] Department of Internal Medicine [address] 1st [place] [address] Yessy Faustin DO [address] [address] documented as of this encounter Visit Diagnoses Not on filedocumented in this encounter Care Teams Maintenance Service Dispatcher Relationship Specialty Start Date End Date Yessy Faustin DO [address] [place] [address] PCP - General Internal Medicine 08/21/22 Yessy Faustin DO [address] [place] [address] PCP - Carson [facility] ELISHA Attributed 01/22/24 02/20/25 Yessy Faustin DO [address] [place] [address] PCP - Carson Strickland MA Attributed 02/21/25 Mehdi Nugent MD [address] [address] Physician Hematology Oncology 06/08/21 Olga Dodson MD 201 [place] [address] Surgery, General 08/24/22 documented as of this encounter
--- OUTSIDE RECORDS SUMMARY | 2025-07-07 19:25 | XMS_ITS | Encounter Summary ---
Author Organization [facility] Address [address] [place] [address] Care Team Providers Care Program Trainer Name Role Phone Mehdi Nugent MD Unavailable [phone] Yessy Faustin DO Primary Care Provider [phone] Olga Dodson MD Unavailable [phone] Yessy Faustin DO Unavailable Yessy Faustin DO Unavailable Encounter Details Date Type Department Care Team (Late st Contact Info) Description 11/27/2024 Scanned Document [facility] at Home 1290 [facility] [address] [place] [phone] Yessy Faustin DO [address] [address] Social History Tobacco Use Types Packs/Day Years [...] Description 11/10/2025 11:30 AM EDT Office Visit [facility] Department of Cardiology [place] [address] [facility] [address] [place] [address] Onofre Malik PA [address] [place] [address] 11/14/2025 2:00 PM EDT Office Visit [facility] Department of Internal Medicine [address] 1st [place] [address] Yessy Faustin DO 18 [place] [address] documented as of this encounter Procedures Procedure Name Priority Date/Time Associated Diagnosis Comments HOME CARE SIGNED ORDERS 11/27/2024 4:01 PM EDT HOME CARE SIGNED ORDERS 11/27/2024 4:01 PM EDT documented in this encounter Results * HOME CARE SIGNED ORDERS (11/27/2024 4:01 PM EDT) us Yessy Faustin DO HX AMB PROCEDURES NO RESULTS ROU TING Final Result * HOME CARE SIGNED ORDERS (11/27/2024 4:01 PM EDT) us Yessy Faustin DO HX AMB PROCEDURES NO RESULTS ROU TING Final Result documented in this encounter Visit Diagnoses Not on filedocumented in this encounter Care Teams Program Trainer Relationship Specialty Start Date End Date Yessy Faustin DO [address] [place], [place] [address] PCP - General Internal Medicine 08/21/22 Yessy Faustin DO [address] [place] [address] PCP - Starailyn [facility] MA Attributed 01/22/24 02/20/25 Yessy Faustin DO [address] [place], [place] [address] PCP - Carson Strickland MA Attributed 02/21/25 Mehdi Nugent MD 183 [place] [address] Physician Hematology Oncology 06/08/21 Olga Dodson MD 201 [place] [address] Surgery, General 08/24/22 documented as of this encounter
--- OUTSIDE RECORDS SUMMARY | 2025-07-07 19:25 | XMS_ITS | Clinical Summary ---
Author Organization [address] Address [address] [facility] [address] [place] [address] Care Team Providers Care Transportation Attendant Name Role Phone Unavailable Primary Care Provider Unavailabl e Allergies Active Allergy Reactions Criticality Noted Date Comments Sulfa (Sulfonamide Antibiotics) Rash High 09/22 Medications metoprolol succinate XL (TOPROL-XL) 50 mg 24 hr tablet Take 1 tablet (50 mg total) by mouth daily. Take with or immediately following a meal. Active polyethylene glycol (MIRALAX) 17 gram packet Take 1 packet (17 g total) by mouth daily. Mix in 8 ounces of water, juice, soda, coffee or tea prior to taking. Active ondansetron (ZOFRAN-ODT) 8 mg disintegrating tabletIndications: Malignant neoplasm of overlapping sites of right breast in female, estrogen receptor positive (HC Code) (HC CODE) Place 1 tablet (8 mg total) onto the tongue every 8 (eight) hours as needed for nausea or vomiting. 60 tablet 1 09/18/19 25 Active letrozole (FEMARA) 2.5 mg tabletIndications: Malignant neoplasm of overlapping sites of right breast in female, estrogen receptor positive (HC Code) (HC CODE) Take 1 tablet (2.5 mg total) by mouth daily. 90 tablet 3 04/17/2025 10:20 AM EDT 09/19/19 25 Active cholecalciferol, vitamin D3, 25 mcg (1,000 unit) tablet Take 1 tablet (1,000 Units total) by mouth daily. Active MAGNESIUM ORAL Take by mouth. Active CALCIUM CARBONATE ORAL Take by mouth 2 (two) times daily. Active albuterol sulfate 90 mcg/actuation HFA aerosol inhaler INHALE 2 PUFFS INTO THE LUNGS EVERY 4 HOURS NEEDED FOR WHEEZE 6.7 g 12/21/19 25 Active ribociclib (KISQALI) 200 mg/day (200 mg x 1) tabletIndications: Malignant neoplasm of upper-outer quadrant of right breast in female, estrogen receptor positive (HC Code) (HC CODE) Take 1 tablet (200 mg total) by mouth daily for 21 days and 7 days off every 28 days. Swallow whole, do not crush. 21 tablet 12/27/2024 9:40 AM EDT 12/22/19 25 Active ribociclib (KISQALI) 200 mg/day (200 mg x 1) tabletIndications: Malignant neoplasm of upper-outer quadrant of right breast in female, estrogen receptor positive (HC Code) (HC CODE) Take 1 tablet (200 mg total) by mouth once daily for 21 days on and 7 days off every 28 days. Swallow whole, do not crush. 21 tablet 01/27/2025 9:36 AM EDT 01/23/20 25 Active nystatin (MYCOSTATIN) 100,000 unit/gram powder Apply 1 Application topically 2 (two) times daily. 60 g 1 02/08/20 25 Active furosemide (LASIX) 20 mg tablet Take 1 tablet (20 mg total) by mouth daily. X 3 days only. 10 tablet 02/08/20 25 Active ribociclib (KISQALI) 200 mg/day (200 mg x 1) tabletIndications: Malignant neoplasm of upper-outer quadrant of right breast in female, estrogen receptor positive (HC Code) (HC CODE) Take 1 tablet (200 mg total) by mouth daily for 21 days on and 7 days off every 28 days. Swallow whole, do not crush. 21 tablet 02/21/2025 9:08 AM EDT 02/14/20 25 Active ribociclib (KISQALI) 200 mg/day (200 mg x 1) tabletIndications: Malignant neoplasm of upper-outer quadrant of right breast in female, estrogen receptor positive (HC Code) (HC CODE) Take 1 tablet (200 mg total) by mouth daily for 21 days on and 7 days off every 28 days. Swallow whole, do not crush. 21 tablet 03/26/2025 12:52 PM EDT 03/18/20 25 Active ribociclib (KISQALI) 200 mg/day (200 mg x 1) tabletIndications: Malignant neoplasm of upper-outer quadrant of right breast in female, estrogen receptor positive (HC Code) (HC CODE) Take 1 tablet (200 mg total) by mouth daily for 21 days on and 7 days off every 28 days. Swallow whole, do not crush. 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 (HC Code) 10/13/2024 Malignant neoplasm of upper- outer quadrant of right breast in female, estrogen receptor positive (HC Code) 09/11/2024 Encounters Date Type Department Care Team Description 06/09/2025 Orders Only YANELY HEWITT [address] [address] Yanely Ponce MD Dementia, unspecified dementia severity, unspecified dementia type, unspecified whether behavioral, psychotic, or mood disturbance or anxiety (HC Code) (HC CODE) (Primary Dx) 06/03/[address] [address] Natividad Florentino APRN Advice Only 05/05/2025 Telephone Palliative Care Program at [address] [address] Natividad Florentino APRN Medication Problem 04/28/2025 Specialty Pharmacy [facility] [address] [place] [address] Calvin Zapata CPHT 04/25/2025 Telephone Cancer Center at [address] [address] Natividad Florentino APRN Results 04/24/2025 Orders Only [facility] at [place] [id number] Sheikh Yulissa Isabel, PharmD Malignant neoplasm of upper-outer quadrant of right breast in female, estrogen receptor positive (HC Code) (HC CODE) (Primary Dx) 04/23/2025 Orders Only [facility] at [facility] [address] [place] [address] Malik Jennings MD from Last 3 Months Family History Medical History Relation Name Comments Lung cancer Brother Relation Name Status Comments Brother Social History Tobacco Use Types Packs/Day Years Used Date Smoking Tobacco: Never Tobacco Cessation:Counseling Given: Not Answered Alcohol Use Standard Drinks/Week Comments Never 0 (1 standard drink = 0.6 oz pur e alcohol) [facility] Utilities Answer Date Recorded In the past 12 months has th e electric, gas, oil, or water company threatened to shut off services in your home? No 11/27/2024 Hunger Vital Sign Answer Date Recorded Within the past 12 months, y ou worried that your food would run out before you got the money to buy more. Never true 11/28/19 25 Within the past 12 months, t he food you bought just didn't last and you didn't have money to get more. Never true 11/27/2024 PRAPARE - Transportation Answer Date Re corded In the past 12 months, has l ack of transportation kept you from medical appointments or from getting medications? No 11/27/2024 Lack of Transportation (Non-Medical) Not on file 11/27/2024 Housing Stability Answer Date Recorded What is your living situation today? I h ave a place to live today, but I am worried about losing it in the future 11/27/2024 Housing Stability Not on file 11/27/2024 Interpersonal Safety Answer Date Record ed Is there anyone in your life that is hurting or threatening you in anyway? no 11/27/2024 Physical Indicators of Abuse Not on file 01/2025 Comments Unknown Sex and Gender Information Value Date Recorded Sex Assigned at Not on file Legal Sex Female 1:54 PM EST Gender Identity Not on file Sexual Orientation Not on file Last Filed Vital Signs Vital Sign Reading Time Taken Comments Blood Pressure 131/81 02/28/2025 9:27 AM EDT Pulse 66 02/28/2025 9:27 AM EDT Temperature 36.3 C (97.3 F) 02/28/2025 9:27 AM EDT Respiratory Rate 20 02/28/2025 9:27 AM EDT Oxygen Saturation 100% 02/28/2025 9:2 7 AM EDT Inhaled Oxygen Concentration - - Weight 80.8 kg (178 lb 2.1 oz) 02/28/2025 9:27 AM EDT patient weight 9 lbs up Height 153 cm (5' 0.24 ) 01/07/2025 2:1 9 PM EDT Body Mass Index 34.52 01/07/2025 2:19 PM EDT Plan of Treatment Health Maintenance Due Date Last Done Comments Covid-19 vaccine series (#1) 11/23/1955 HIV screening 11/23/1964 Lipid disorder screening 1991 Colon cancer screening, Colonoscopy 11/23/1996 RSV Immunization (1 - Risk 50-74 years 1-dose series) 11/23/2001 Shingles vaccine (Shingrix) (2 of 2 - Shingrix (RZV) 2 Dose Standard Series) 02/03/2015 12/04/2014 Breast cancer screening 05/07/2023 05/07/20 21, 05/07/2021, 05/07/2021, Additional history exists Tetanus adult (Td q 10,TDAP once) 11/20/2024 11/20/2014, 07/24/2014 Influenza vaccine 02/21/2025 Diabetes screening 02/29/2028 02/28/2025, 0 02/28/2025, 02/28/2025, Additional history exists Pneumococcal Vaccine (50+ years) Completed 02/19/2019, 07/24/2018, 12/01/2016, Additional history exists Osteoporosis screening (bone density) Completed 11/17/2022, 11/17/2022 Hepatitis C screening Completed 09/17/2024 Cervical cancer screening Discontinued Meningococcal B Vaccine Aged Out No l onger eligible based on patient's age to complete this topic Meningococcal Vaccine Aged Out No eric alannah eligible based on patient's age to complete this topic Goals Goal Patient Goal Type Associated Problems Recent Progress Patient-Stated? Author RxSp Therapeutic Goal General Not started(10/14 1:20 PM EDT) No Carey Matthews, PharmD Note: Oncology: Improve or maintain quality of life MTPs must be opened for patients not making appropriate progress towards their established therapeutic goals. Patient's progress towards goal: 09/20 new start kisqali/letrozole RxSp Therapeutic Goal General Not started(10/14 1:20 PM EDT) No Carey Matthews PharmD Note: Oncology: Minimize toxicity by monitoring labs, side effects and recommend preventive measures when appropriate (anemia, neutropenia, thrombocytopenia, etc.) MTPs must be opened for patients not making appropriate progress towards their established therapeutic goals. Patient's progress towards goal: 09/20 new start kisqali/letrozole RxSp Therapeutic Goal General Not started(10/14 1:20 PM EDT) No Carey Matthews PharmD Note: Oncology: Increase or maintain treatment adherence MTPs must be opened for patients not making appropriate progress towards their established therapeutic goals. Patient's progress towards goal: 09/20 new start kisqali/letrozole Procedures Procedure Name Priority Date/Time Associated Diagnosis Comments COMPREHENSIVE METABOLIC PANEL Routine 02/28/2025 9:15 AM EDT Malignant neoplasm of upper-outer quadrant of right breast in female, estrogen receptor positive (HC Code) HEPATITIS C AB WITH REFLEX TO HCV PCR Routine 09/17/2024 2:46 PM EST Malignant neoplasm of right breast in female, estrogen receptor positive, unspecified site of breast (HC Code) HM DEXA SCAN 11/17/2022 12:00 AM EDT MAMMO DIAGNOSTIC DILAN BILATERAL 05/07/2021 12:00 AM EDT from Last 3 Months or Most Recently Relevant to Health Maintenance Results * (ABNORMAL) Comprehensive metabolic panel (02/28/2025 9:15 AM EDT) Sodium 129(L) 136 - 144 mmol/L 02/28/2025 9:37 AM EDT [facility] Potassium 4.4 3.3 - 5.1 mmol/L 02/28/2025 9:37 AM EDT [facility] Chloride 96(L) 98 - 107 mmol/L 02/28/2025 9:37 AM EDT [facility] CO2 23 20 - 30 mmol/L 02/28/2025 9:37 AM [facility] Anion Gap 10 7 - 17 02/28/2025 9:37 AM [facility] Glucose 98 70 - 100 mg/dL 02/28/2025 9:37 AM [facility] BUN 11 8 - 23 mg/dL 02/28/2025 9:37 AM [facility] Creatinine 0.62 0.40 - 1.30 mg/dL 02/28/2025 9:37 AM [facility] Calcium 8.9 8.8 - 10.2 mg/dL 02/28/2025 9:37 AM [facility] BUN/Creatinine Ratio 17.7 8.0 - 23.0 02/28/2025 9:37 AM [facility] Total Protein 6.5 5.9 - 8.3 g/dL 9:37 AM [facility] Albumin 3.8 3.6 - 5.1 g/dL 02/28/2025 9:37 AM [facility] Total Bilirubin 0.5 <=1.2 mg/dL 02/29/20 9:37 AM [facility] Alkaline Phosphatase 136(H) 9 - 122 U/L 02/28/2025 9:37 AM [facility] Alanine Aminotransferase (ALT) 10 10 - 35 U/L 02/28/2025 9:37 AM [facility] Comment:Calcium dobesilate c an cause artificially low ALT results at therapeutic concentrations Aspartate Aminotransferase (AST) 12 10 - 35 U/L 02/28/2025 9:37 AM [facility] Globulin 2.7 2.0 - 3.9 g/dL 02/28/2025 9:37 AM [facility] A/G Ratio 1.4 1.0 - 2.2 02/28/2025 9:37 AM [facility] AST/ALT Ratio 1.2 Reference Range Not Established 02/28/2025 9:37 AM [facility] eGFR (Creatinine) >60 >=60 mL/min/1.73m2 02/28/2025 9:37 AM [facility] Comment: [facility] utilizes CKD-EPI Creatinine 2020 to report eGFR. Values < 60 mL/min/1.73 m2 may indicate CKD if present for more than three months AND creatinine is at steady state. The eGFR provides a rough estimate of kidney function. For further guidance, please refer to the CKD: Adult Crack Off Person Signature pathway. Creatinine Delta 0.04 See Comment 9:37 AM EDT [facility] Comment: Delta creatinine is the difference between the current creatinine and the most recent prior creatinine (if available within the previous 12 months). It is intended to detect significant changes in kidney function for patients whose creatinine is <5 mg/dL. A delta is not calculated for patients whose baseline creatinine is >=5 mg/dL or those who do not have a baseline within the last year. The following deltas will flag as critical (triggering a call from the laboratory): a) Deltas >= +1.5 mg/dL for patients with baseline creatinine <= 1.5 mg/dL. b) Deltas >= +3 mg/dL for patients with baseline creatinine between 1.5 and 5 mg/dL. Blood Venipuncture / Unknown 02/28/2025 9:15 AM EDT 02/28/2025 9:18 AM EDT Malik Jennings MD LAB BLOOD ORDERABLES nal Result [facility] [address] [place] [address], [facility] [phone] * Hepatitis C Ab with reflex to HCV PCR (09/17/2024 2:46 PM EST) [facility] Hepatitis C Antibody Negative Negative 09/17/2024 9:27 PM EST [facility] Comment:A negative result do es not exclude HCV infection, since antibodies are not detectable for 4-8 weeks after initial infection, or may not develop in compromised hosts. In high-risk individuals, repeat antibody testing in 2 months and/or HCV RNA PCR should be considered. Blood Venipuncture / Unknown 09/17/2024 2:46 PM EST 09/17/2024 2:51 PM EST us Malik Jennings MD LAB BLOOD ORDERABLES Fi nal Result Performing Organization Address City/State/[facility] Co de Phone Number [facility]ICINE [address] [place] [id number] [place] [address] * HM DEXA SCAN (11/17/2022 12:00 AM EDT) Anatomical Region Laterality Modality Other us Provider Not In System HEALTH MAINTENANCE Final Result * Mammography Diagnostic Dilan Bilateral (05/07/2021 12:00 AM EDT) Anatomical Region Laterality Modality Breast Bilateral Mammography us Provider Not In System IMG MAMMOGRAPHY ORDERABLE S Final Result from Last 3 Months or Most Recently Relevant to Health Maintenance Insurance [facility] MEDIC[facility]
--- OUTSIDE RECORDS SUMMARY | 2025-07-07 19:25 | XMS_ITS | Encounter Summary ---
Author Organization [facility] Address [address] [place] [address] Care Team Providers Care Hydroelectric Operator Name Role Phone Unavailable Primary Care Provider Unavailabl e Encounter Details Date Type Department Care Team ([facility] st Contact Info) Description 09/17/2024 Abstract [facility] at [address] [id number] Malik Jennings MD [address] [place] [phone] Social History Tobacco Use Types Packs/Day Years Used Date Smoking Tobacco: Never Alcohol Use Standard Drinks/Week Comments Never 0 (1 standard drink = 0.6 oz pur e alcohol) Comments Unknown Sex and Gender Information Value Date Recorded Sex Assigned at Not on file Legal Sex Female 1:54 PM EST Gender Identity Not on file Sexual Orientation Not on file documented as of this encounter Plan of Treatment Not on file documented as of this encounter Goals Goal Patient Goal Type Associated Problems [...] EDT) No Carey Matthews, PharmD Note: Oncology: Minimize toxicity by monitoring labs, side effects and recommend preventive measures when appropriate (anemia, neutropenia, thrombocytopenia, etc.) MTPs must be opened for patients not making appropriate progress towards their established therapeutic goals. Patient's progress towards goal: 09/20 new start kisqali/letrozole RxSp Therapeutic Goal General Not started(10/14 1:20 PM EDT) Carey Bowman PharmD Note: Oncology: Increase or maintain treatment adherence MTPs must be opened for patients not making appropriate progress towards their established therapeutic goals. Patient's progress towards goal: 09/20 new start kisqali/letrozole documented as of this encounter Visit Diagnoses Not on filedocumented in this encounter
--- OUTSIDE RECORDS SUMMARY | 2025-07-07 19:25 | XMS_ITS | Encounter Summary ---
Author Organization [facility] Address [address] [place] [address] Care Team Providers Care Transportation Associate Name Role Phone Mehdi Nugent MD Unavailable [phone] Yessy Faustin DO Primary Care Provider Olga Dodson MD Unavailable [phone] Yessy Faustin DO Unavailable Yessy Faustin DO Unavailable Encounter Details Date Type Department Care Team (Late st Contact Info) Description 11/29/2024 Scanned Document [facility] Department of Internal Medicine [address] [place] [address] Yessy Faustin DO [address] [address] Social History Tobacco Use Types [...] Description 11/10/2025 11:30 AM EDT Office Visit [facility] Department of Cardiology [place] [address] [place] [address] Onofre Malik PA [address] [place] [address] 11/14/2025 2:00 PM EDT Office Visit [facility] Department of Internal Medicine [address] [place] [address] Yessy Faustin DO [address] [place] [address] documented as of this encounter Visit Diagnoses Not on filedocumented in this encounter Care Teams Transportation Associate Relationship Specialty Start Date End Date Yessy Faustin DO [address] [place] [address] PCP - General Internal Medicine 08/21/22 Yessy Faustin DO [address] [place] [address] PCP - Carson [facility] Attributed 01/22/24 02/20/25 Yessy Faustin DO [address] [place] [address] PCP - Carson Strickland MA Attributed 02/21/25 Mehdi Nugent MD [address] [address] Physician Hematology Oncology 06/08/21 Olga Dodson MD [address] [place] [address] Surgery, General 08/24/22 documented as of this encounter
--- OUTSIDE RECORDS SUMMARY | 2025-07-07 19:25 | XMS_ITS | Clinical Summary ---
Author Organization [employer] [facility] Prior to 12/21/[address] [place] [address] Care Team Providers Care Promotional Advertising Assistant Name Role Phone Unavailable Primary Care Provider Unavailabl e Social History Tobacco Use Types Packs/Day Years Used Date Smoking Tobacco: Never Assessed Sex and Gender Information Value Date Recorded Sex Assigned at Not on file Gender Identity Not on file Sexual Orientation Not on file Job Start Date Occupation Industry Not on file Not on file Not on file Plan of Treatment Health Maintenance Due Date Last Done Comments Hepatitis C Screening 1950 COVID-19 Vaccine (#1) 05/26/1951 Depression Screening 1963 Preventative Health Evaluation 11/23/1969 Colon Cancer Screening (Colonoscopy) 11/23/1996 Breast Cancer Screening (Mammogram) 11/23/2001 Shingrix-Zoster Vaccine (1 of 2) 11/23/2001 Fall Risk Assessment 11/23/2016 Osteoporosis Screening (DEXA Scan) 11/23/2016 Pneumococcal Vaccine (2 of 2 - PPSV23 or PCV20) 07/24/2017 07/24/2016 DTap / Tdap / Td (2 - Tdap) 07/24/2024 07/24/2014 Influenza Vaccine (#1) 2025 RSV Adult > 60+ Yrs or Pregn ant (1 - 1-dose 75+ series) 11/23/2026 Hepatitis B Vaccines Aged Out No long er eligible based on patient's age to complete this topic RSV Ped < 20 months Aged Out No longe r eligible based on patient's age to complete this topic
--- OUTSIDE RECORDS SUMMARY | 2025-07-07 19:25 | XMS_ITS | Encounter Summary ---
Author Organization [facility] Address [address] [place] [phone] Care Team Providers Care Waste Baler Name Role Phone Unavailable Primary Care Provider Unavailabl e Encounter Details Date Type Department Care Team ([facility] Contact Info) Description 09/25/2024 Scanned Document INTERFACE DEFAULT [address] [place] [phone] System, Provider Not In Social History Tobacco Use Types Packs/Day Years [...] started(10/14 1:20 PM EDT) No Carey Matthews, Ovidio Note: Oncology: Improve or maintain quality of life MTPs must be opened for patients not making appropriate progress towards their established therapeutic goals. Patient's progress towards goal: 09/20 new start kisqali/letrozole RxSp Therapeutic Goal General Not started(10/14 1:20 PM EDT) No Carey Matthews, PharmJez Note: Oncology: Minimize toxicity by monitoring labs, side effects and recommend preventive measures when appropriate (anemia, neutropenia, thrombocytopenia, etc.) MTPs must be opened for patients not making appropriate progress towards their established therapeutic goals. Patient's progress towards goal: 09/20 new start kisqali/letrozole RxSp Therapeutic Goal General Not started(10/14 1:20 PM EDT) Carey Bowman, Ovidio Note: Oncology: Increase or maintain treatment adherence MTPs must be opened for patients not making appropriate progress towards their established therapeutic goals. Patient's progress towards goal: 09/20 new start kisqali/letrozole documented as of this encounter Visit Diagnoses Not on filedocumented in this encounter
--- OUTSIDE RECORDS SUMMARY | 2025-07-07 19:25 | XMS_ITS | Encounter Summary ---
Author Organization [facility] Address [address] [place] [address] Care Team Providers Care Metal Sprayer Machined [employer] Name Role Phone Mehdi Nugent MD Unavailable Yessy Faustin DO Primary Care Provider Olga Dodson MD Unavailable [phone] Yessy Faustin DO Unavailable Yessy Faustin DO Unavailable Encounter Details Date Type Department Care Team (Late st Contact Info) Description 11/27/[address] [facility] [address] [facility] [address] [place] [phone] [place], [employer] [address] [facility] [place] [address] [place], [place] [phone] Social History Tobacco Use Types Packs/Day Years [...] Description 11/10/2025 11:30 AM EDT Office Visit [facility] Department of Cardiology [place] [address] [facility] [address] [place] [address] Onofre Malik PA [address] [place] [address] 11/14/2025 2:00 PM EDT Office Visit [facility] Department of Internal Medicine [address] [place] [address] Yessy Faustin DO 18 [place] [address] documented as of this encounter Procedures Procedure Name Priority Date/Time Associated Diagnosis Comments HOME CARE SIGNED ORDERS 11/27/2024 4:01 PM EDT HOME CARE SIGNED ORDERS 11/27/2024 4:01 PM EDT documented in this encounter Results * HOME CARE SIGNED ORDERS (11/27/2024 4:01 PM EDT) [employer] HX AMB PROCEDURES NO RESULTS RO UTING Final Result * HOME CARE SIGNED ORDERS (11/27/2024 4:01 PM EDT) [employer] HX AMB PROCEDURES NO RESULTS RO UTING Final Result documented in this encounter Visit Diagnoses Not on filedocumented in this encounter Care Teams Metal [employer] Relationship Specialty Start Date End Date Yessy Faustin DO [address] [place], [place] [phone] PCP - General Internal Medicine 08/21/22 Yessy Faustin DO [address] [place] [address] PCP - Carson [facility] MA Attributed 01/22/24 02/20/25 Yessy Faustin DO [address] [place], [place] [phone] PCP - Carson Strickland MA Attributed 02/21/25 Mehdi Nugent MD [address] [place] [address] Physician Hematology Oncology 06/08/21 Olga Dodson MD [address] [place] [address] Surgery, General 08/24/22 documented as of this encounter
--- OUTSIDE RECORDS SUMMARY | 2025-07-07 19:25 | XMS_ITS | Encounter Summary ---
Author Organization [facility] Address [address] [place] [address] Care Team Providers Care Inspector Electromechanical Name Role Phone Unavailable Primary Care Provider Unavailabl e Encounter Details Date Type Department Care Team ([facility] st Contact Info) Description 09/19/2024 Documentation [facility] ONC PHOTOENGRAVING PRINTER [address] [place] [address] Holly Chance, PharmD Social History Tobacco Use Types Packs/Day Years [...] on file documented as of this encounter Miscellaneous Notes * Pharmacy Note - Anticancer Treatment - Holly Chance, AtulD - 09/19/2024 10:53 AM EST PHARMACIST: ANTICANCER TREATMENT NOTE Hematology/Oncology Diagnosis: Breast Cancer Oncologist: Malik Jennings MD Oncology Treatment History: Lumpectomy, Chemotherapy, XRT, Letrozole Past Medical History: Past Medical History: Diagnosis Date Breast cancer (HC Code) Hypertension Status post chemotherapy Current Treatment Protocol/Regimen Name: Ribociclib and Letrozole Treatment plan medications: Letrozole 2.5mg daily Ribociclib 200mg day 1-21 Cycle repeats every 28 days Supportive Care: Emesis prophylaxis: Zofran Signed consent: Documented in [employer] media files Patient Description: 73 y.o. female Weight: 78.4 kg IBW: 47.846 kg Adj Wt: 60.0676 kg Height: 5'1.02 BSA: 1.84m2 BMI: 32.63 Monitoring Parameters CBC and CMP reviewed CBC: Recent Results (from the past 52 weeks) CBC auto differential Collection Time: 09/17/24 2:46 PM Result Value Ref Range WBC 17.6 (H) 4.0 - 11.0 x1000/??L RBC 4.52 4.00 - 6.00 M/??L Hemoglobin 13.3 11.7 - 15.5 g/dL Hematocrit 38.20 35.00 - 45.00 % MCV 84.5 80.0 - 100.0 fL MCH 29.4 27.0 - 33.0 pg MCHC 34.8 31.0 - 36.0 g/dL RDW-CV 11.9 11.0 - 15.0 % Platelets 413 150 - 420 x1000/??L MPV 9.0 8.0 - 12.0 fL Neutrophils 84.2 (H) 39.0 - 72.0 % Lymphocytes 8.1 (L) 17.0 - 50.0 % Monocytes 6.8 4.0 - 12.0 % Eosinophils 0.1 0.0 - 5.0 % Basophil 0.1 0.0 - 1.4 % Immature Granulocytes 0.7 0.0 - 1.0 % nRBC 0.0 0.0 - 1.0 % Absolute Lymphocyte Count 1.43 0.60 - 3.70 x 1000/??L Monocyte Absolute Count 1.20 (H) 0.00 - 1.00 x 1000/??L Eosinophil Absolute Count 0.01 0.00 - 1.00 x 1000/??L Basophil Absolute Count 0.02 0.00 - 1.00 x 1000/??L Absolute Immature Granulocyte Count 0.13 0.00 - 0.30 x 1000/??L Absolute nRBC 0.00 0.00 - 1.00 x 1000/??L ANC (Abs Neutrophil Count) 14.85 (H) 2.00 - 7.60 x 1000/??L CMP: Recent Results (from the past 52 weeks) Comprehensive metabolic panel Collection Time: 09/17/24 2:46 PM Result Value Ref Range Sodium 125 (L) 136 - 144 mmol/L Potassium 4.5 3.3 - 5.1 mmol/L Chloride 91 (L) 98 - 107 mmol/L CO2 22 20 - 30 mmol/L Anion Gap 12 7 - 17 Glucose 125 (H) 70 - 100 mg/dL BUN 17 8 - 23 mg/dL Creatinine 0.44 0.40 - 1.30 mg/dL Calcium 9.2 8.8 - 10.2 mg/dL BUN/Creatinine Ratio 38.6 (H) 8.0 - 23.0 Total Protein 6.9 5.9 - 8.3 g/dL Albumin 4.0 3.6 - 5.1 g/dL Total Bilirubin 0.3 <=1.2 mg/dL Alkaline Phosphatase 182 (H) 9 - 122 U/L Alanine Aminotransferase (ALT) 25 10 - 35 U/L Aspartate Aminotransferase (AST) 25 10 - 35 U/L Globulin 2.9 2.0 - 3.9 g/dL A/G Ratio 1.4 1.0 - 2.2 AST/ALT Ratio 1.0 Reference Range Not Established eGFR (Creatinine) >60 >=60 mL/min/1.73m2 Creatinine Delta eClCr = 68.9 ml/min (Cockcroft-Gault equation, wt = 60.0676 kg, SCr = 0.7) Medications: Current Outpatient Medications on File Prior to Visit Medication Sig Dispense Refill dexAMETHasone (DECADRON) 4 mg tablet Take 1 tablet (4 mg total) by mouth 2 (two) times daily with breakfast and dinner. Take with food. ezetimibe (ZETIA) 10 mg tablet Take 1 tablet (10 mg total) by mouth daily. gabapentin (NEURONTIN) 100 mg capsule Take 1 capsule (100 mg total) by mouth 3 (three) times daily with meals. lidocaine 4 % topical patch Place 1 patch onto the skin every 24 hours. Remove & Discard patch within 12 hours or as directed by metoprolol succinate XL (TOPROL-XL) 50 mg 24 hr tablet Take 1 tablet (50 mg total) by mouth daily. Take with or immediately following a meal. morphine (MS CONTIN) 15 mg 12 hr extended release tablet Take 1 tablet (15 mg total) by mouth 2 (two) times daily. ondansetron (ZOFRAN-ODT) [address] 1 tablet (8 mg total) onto the tongue every 8 (eight) hours as needed for nausea or vomiting. 60 tablet 1 oxyCODONE (OXY-IR) 5 mg capsule Take 1 capsule (5 mg total) by mouth every 4 (four) hours as needed. polyethylene glycol (MIRALAX) 17 gram packet Take 1 packet (17 g total) by mouth daily. Mix in 8 ounces of water, juice, soda, coffee or tea prior to taking. senna-docusate (SENNOSIDES-DOCUSATE SODIUM) 8.6-50 mg tablet Take 1 tablet by mouth daily. No current facility-administered medications on file prior to visit. Drug interaction assessment: Treatment plan and current medication list evaluated for drug-drug interactions. No clinically relevant interactions found at this time. Anticancer Therapy note completed by: Electronically Signed by Holly Chance PharmD, September 19, 2024 documented in this encounter Plan of Treatment Not on file documented as of this encounter Goals Goal Patient Goal Type Associated Problems Recent Progress Patient-Stated? Author RxSp Therapeutic Goal General Not started(10/14 1:20 PM EDT) No Carey Matthews PharmD Note: Oncology: Improve or maintain quality [...]
--- OUTSIDE RECORDS SUMMARY | 2025-07-07 19:25 | XMS_ITS | Encounter Summary ---
Author Organization [facility] Address [address] [place] [address] Care Team Providers Care Hop Weigher Name Role Phone Mehdi Nugent MD Unavailable [phone] Yessy Faustin DO Primary Care Provider [phone] Olga Dodson MD Unavailable [phone] Yessy Faustin DO Unavailable Yessy Faustin DO Unavailable Encounter Details Date Type Department Care Team (Late st Contact Info) Description 12/11/2024 Scanned Document [facility] 12[address] [facility] [address]B [place] [address] Provider, Generic Social History Tobacco [...] Office Visit [facility] Department of Cardiology [place] [address] [facility] [address] [place] [phone] Onofre Malik PA [address] [place] [address] 11/14/2025 2:00 PM EDT Office Visit [facility] Department of Internal Medicine [address] 1st [place] [address] Yessy Faustin DO [address] [address] documented as of this encounter Visit Diagnoses Not on filedocumented in this encounter Care Teams Hop Weigher Relationship Specialty Start Date End Date Yessy Faustin DO [address] [place] [address] PCP - General Internal Medicine 08/21/22 Yessy Faustin DO [address] [place] [address] PCP - Carson [facility] ELISHA Attributed 01/22/24 02/20/25 Yessy Faustin DO [address] [place] [address] PCP - [facility] Strickland MA Attributed 02/21/25 Mehdi Nugent MD [address] [address] Physician Hematology Oncology 06/08/21 Olga Dodson MD [address] [place] [address] Surgery, General 08/24/22 documented as of this encounter
--- OUTSIDE RECORDS SUMMARY | 2025-07-07 19:25 | XMS_ITS | Encounter Summary ---
Author Organization [facility] Address [address] [place] [address] Care Team Providers Care Cigar Packing Examiner Name Role Phone Mehdi Nugent MD Unavailable [phone] Yessy Faustin DO Primary Care Provider [phone] Olga Dodson MD Unavailable [phone] Yessy Faustin DO Unavailable Yessy Faustin DO Unavailable Encounter Details Date Type Department Care Team (Late st Contact Info) Description 12/19/[address] [facility] Department of Internal Medicine [address] 1st [place] [address] Yessy Faustin DO [address] [address] Social History Tobacco Use Types [...] Description 11/10/2025 11:30 AM EDT Office Visit [facility] Department of Cardiology [place] [address] [place] [address] Onofre Malik PA [address] [place] [address] 11/14/2025 2:00 PM EDT Office Visit [facility] Department of Internal Medicine [address] 1st [place] [address] Yessy Faustin DO [address] [place] [address] documented as of this encounter Visit Diagnoses Not on filedocumented in this encounter Care Teams Cigar Packing Examiner Relationship Specialty Start Date End Date Yessy Faustin DO [address] [place] [address] PCP - General Internal Medicine 08/21/22 Yessy Faustin DO [address] [place] [address] PCP - [facility] TELLO Attributed 01/22/24 02/20/25 Yessy Faustin DO [address] [place] [address] PCP - Carson Strickland MA Attributed 02/21/25 Mehdi Nugent MD [address] [address] Physician Hematology Oncology 06/08/21 Olga Dodson MD [address] [place] [address] Surgery, General 08/24/22 documented as of this encounter
--- OUTSIDE RECORDS SUMMARY | 2025-07-07 19:25 | XMS_ITS ---
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 No medications schedul ed. No medications scheduled. TH Ribociclib + Anastrozole or Exemestane* Plan Start Date:09/17/2024 Plan Provider:Malik Jennings MD Linked Problems Malignant neoplasm of upper- outer quadrant of right breast in female, estrogen receptor positive (HC Code) (HC CODE) Treatment Medications Current Day (Day 1 , Cycle 8 - Planned for 04/02/2025) Next Day (Day 1, Cycle 9 - Planned for 04/30/2025) letrozole (FEMARA)ribociclib (KISQALI) 200 mg/day (200 mg x 1) ribociclib (KISQALI) 200 mg/day (200 mg x 1) tablet ribociclib (KISQALI) 200 mg/day (200 mg x 1) tablet Past Treatment and Therapy Plans No past plan information found.
--- OUTSIDE RECORDS SUMMARY | 2025-07-07 19:25 | XMS_ITS | Encounter Summary ---
Author Organization [facility] Address [address] [place] [address] Care Team Providers Care Rail Car Repairer Name Role Phone Unavailable Primary Care Provider Unavailabl e Encounter Details Date Type Department Care Team ([facility] Contact Info) Description 10/02/2024 Scanned Document INTERFACE DEFAULT [address] [place] [id number] System, Provider Not In Social History Tobacco [...]
--- OUTSIDE RECORDS SUMMARY | 2025-07-07 19:25 | XMS_ITS | Encounter Summary ---
Author Organization [facility] Address [address] [place] [address] Care Team Providers Care Chief Engineer Waterworks Name Role Phone Mehdi Nugent MD Unavailable [phone] Yessy Faustin DO Primary Care Provider Olga Dodson MD Unavailable [phone] Yessy Faustin DO Unavailable Yessy Faustin DO Unavailable Encounter Details Date Type Department Care Team (Late st Contact Info) Description 11/28/2024 Scanned Document [facility] 1290 [facility] [address] [place] [phone] Yessy Faustin DO [address] [address] Social History Tobacco Use Types [...] Description 11/10/2025 11:30 AM EDT Office Visit [facility] Department of Cardiology [place] [address] [facility] [address] [place] [address] Onofre Malik PA [address] [place] [address] 11/14/2025 2:00 PM EDT Office Visit [facility] Department of Internal Medicine [address] 1st [place] [address] Yessy Faustin DO [address] [place] [address] documented as of this encounter Procedures Procedure Name Priority Date/Time Associated Diagnosis Comments HOME CARE SIGNED ORDERS 11/28/2024 3:34 PM EDT documented in this encounter Results * HOME CARE SIGNED ORDERS (11/28/2024 3:34 PM EDT) Yessy Faustin DO HX AMB PROCEDURES NO RESULTS ROU TING Final Result documented in this encounter Visit Diagnoses Not on filedocumented in this encounter Care Teams Chief Engineer Waterworks Relationship Specialty Start Date End Date Yessy Faustin DO [address] [place], [place] [phone] PCP - General Internal Medicine 08/21/22 Yessy Faustin DO [address] [place], [place] [phone] PCP - [facility] [place] TELLO Attributed 01/22/24 02/20/25 Yessy Faustin DO [address] [place] [address] PCP - [facility] Strickland MA Attributed 02/21/25 Mehdi Nugent MD [address] [place] [address] Physician Hematology Oncology 06/08/21 Olga Dodson MD [address] [place] [address] Surgery, General 08/24/22 documented as of this encounter
--- OUTSIDE RECORDS SUMMARY | 2025-07-07 19:25 | XMS_ITS | Encounter Summary ---
Author Organization [facility] Address [address] [place] [address] Care Team Providers Care Flatcar Whacker Name Role Phone Pcp, No Primary Care Provider Unavailabl e Mehdi Nugent MD Unavailable [phone] Yessy Faustin DO Primary Care Provider Olga Dodson MD Unavailable [phone] Yessy Faustin DO Unavailable Yessy Faustin DO Unavailable Encounter Details Date Type Department Care Team ([facility] Contact Info) Description 05/05/2021 Scanned Document [facility] Breast Care & Surgery [place] [address] [place] [phone] Olga Dodson MD [address] [address] Social History Tobacco Use Types Packs/Day Years Used Date Smoking Tobacco: Never Assessed Alcohol Use Standard Drinks/Week Comments Never 0 (1 standard drink = 0.6 oz pur e alcohol) Comments Unknown Sex and Gender Information Value Date Recorded Sex Assigned at Female 08/21/2022 1:23 PM EST Legal Sex Female 12:24 AM EDT Gender Identity Female 08/21/2022 1:23 PM EST Sexual Orientation Choose not to disclose 2022 1:23 PM EST COVID-19 Exposure Response Date Recorded In the last month, have you been in contact with someone who was confirmed or suspected to have Coronavirus / COVID-19? No / Unsure 05/04/2021 11:00 AM EDT documented as of this encounter Plan of Treatment Upcoming Encounters Date Type Department Care Team ([facility] Contact Info) Description 11/10/2025 11:30 AM EDT Office Visit [facility] Department of Cardiology [place] [address] [place] [address] Onofre Malik PA [address] [place] [address] 11/14/2025 2:00 PM EDT Office Visit [facility] Department of Internal Medicine [place] [address] 1st [place] [address] Yessy Faustin DO [address] [address] documented as of this encounter Visit Diagnoses Not on filedocumented in this encounter Care Teams Flatcar Whacker Relationship Specialty Start Date End Date Pcp, No [address] [place] [address] PCP - General 04/21/21 08/20/22 Yessy Faustin DO [address] [place] [address] PCP - General Internal Medicine 08/21/22 Yessy Faustin DO [address] [place] [address] PCP - [facility] ELISHA Attributed 01/22/24 02/20/25 Yessy Fasutin DO [address] [place] [address] PCP - Carson Strickland MA Attributed 02/21/25 Mehdi Nugent MD [address] [place] [address] Physician Hematology Oncology 06/08/21 Olga Dodson MD [address] [place] [address] Surgery, General 08/24/22 documented as of this encounter
--- OUTSIDE RECORDS SUMMARY | 2025-07-07 19:25 | XMS_ITS | Encounter Summary ---
Author Organization [facility] Address [address] [place] [address] Care Team Providers Care Plater Printed Circuit Board Panels Name Role Phone Mehdi Nugent MD Unavailable [phone] Yessy Faustin DO Primary Care Provider Olga Dodson MD Unavailable [phone] Yessy Faustin DO Unavailable Yessy Faustin DO Unavailable Encounter Details Date Type Department Care Team (Late st Contact Info) Description 11/28/2024 Scanned Document [facility] 1290 [facility] 4B [place] [phone] [place]le [place], PATIENT ACCOUNT SPECIALIST 18 [facility] 1 [place], [place] [address] Social History Tobacco Use Types Packs/Day Years [...] Description 11/10/2025 11:30 AM EDT Office Visit [facility] Department of Cardiology [place] [address] [facility] [address] [place] [address] Onofre Malik PA [address] [place] [address] 11/14/2025 2:00 PM EDT Office Visit [facility] Department of Internal Medicine [address] 1st [place] [address] Yessy Faustin DO 18 [place] [address] documented as of this encounter Procedures Procedure Name Priority Date/Time Associated Diagnosis Comments HOME CARE SIGNED ORDERS 11/28/2024 3:34 PM EDT HOME CARE SIGNED ORDERS 11/28/2024 3:34 PM EDT documented in this encounter Results * HOME CARE SIGNED ORDERS (11/28/2024 3:34 PM EDT) [place]le [place] PATIENT ACCOUNT SPECIALIST HX AMB PROCEDURES NO RESULTS RO UTING Final Result * HOME CARE SIGNED ORDERS (11/28/2024 3:34 PM EDT) [place] PATIENT ACCOUNT SPECIALIST HX AMB PROCEDURES NO RESULTS RO UTING Final Result documented in this encounter Visit Diagnoses Not on filedocumented in this encounter Care Teams Plater Printed Circuit Board Panels Relationship Specialty Start Date End Date Yessy Faustin DO [address] [place], [place] [phone] PCP - General Internal Medicine 08/21/22 Yessy Faustin DO [address] [place] [address] PCP - Carson [facility] MA Attributed 01/22/24 02/20/25 Yessy Faustin DO [address] [place], [place] [phone] PCP - [facility] Strickland MA Attributed 02/21/25 Mehdi Nugent MD 183 [place] [address] Physician Hematology Oncology 06/08/21 Olga Dodson MD [address] [place] [address] Surgery, General 08/24/22 documented as of this encounter
--- OUTSIDE RECORDS SUMMARY | 2025-07-07 19:25 | XMS_ITS | Encounter Summary ---
Author Organization [facility] Address [address] [place] [address] Care Team Providers Care Management Associate Name Role Phone Mehdi Nugent MD Unavailable [phone] Yessy Faustin DO Primary Care Provider [phone] Olga Dodson MD Unavailable [phone] Yessy Faustin DO Unavailable Yessy Faustin DO Unavailable Encounter Details Date Type Department Care Team (Late st Contact Info) Description 11/29/2024 Scanned Document [facility] Department of Internal Medicine [address] 1st [place] [address] Yessy Faustin DO [address] [address] Social History Tobacco Use Types [...] Description 11/10/2025 11:30 AM EDT Office Visit [facility] Department of Cardiology [place] [address] [place] [address] Onofre Malik PA [address] [place] [address] 11/14/2025 2:00 PM EDT Office Visit [facility] Department of Internal Medicine [address] 1st [place] [address] Yessy Faustin DO [address] [place] [address] documented as of this encounter Visit Diagnoses Not on filedocumented in this encounter Care Teams Management Associate Relationship Specialty Start Date End Date Yessy Faustin DO [address] [place] [address] PCP - General Internal Medicine 08/21/22 Yessy Faustin DO [address] [place] [address] PCP - Carson [place] TELLO Attributed 01/22/24 02/20/25 Yessy Faustin DO [address] [place] [address] PCP - Carson Strickland MA Attributed 02/21/25 Mehdi Nugent MD [address] [address] Physician Hematology Oncology 06/08/21 Olga Dodson MD 201 [place] [address] Surgery, General 08/24/22 documented as of this encounter
--- OUTSIDE RECORDS SUMMARY | 2025-07-07 19:26 | XMS_ITS | Encounter Summary ---
Author Organization [facility] Address [address] [place] [address] Care Team Providers Care Worksite Wellness Practitioner Name Role Phone Unavailable Primary Care Provider Unavailabl e Encounter Details Date Type Department Care Team ([facility] st Contact Info) Description 09/06/2024 Scanned Document INTERFACE DEFAULT [address] [place] [address] System, Provider Not In Social History Tobacco Use Types Packs/Day Years Used Date Smoking Tobacco: Never Assessed Comments Unknown Sex and Gender Information Value Date Recorded Sex Assigned at Not on file Legal Sex Female 1:54 PM EST Gender Identity Not on file Sexual Orientation Not on file documented as of this encounter Plan of Treatment Not on file documented as of this encounter Visit Diagnoses Not on filedocumented in this encounter
--- OUTSIDE RECORDS SUMMARY | 2025-07-07 19:26 | XMS_ITS | Encounter Summary ---
Author Organization [facility] Address [address] [place] [address] Care Team Providers Care Dumper Bulk System Name Role Phone Mehdi Nugent MD Unavailable [phone] Yessy Faustin DO Primary Care Provider Olga Dodson MD Unavailable [phone] Yessy Faustin DO Unavailable Yessy Faustin DO Unavailable Encounter Details Date Type Department Care Team (Late st Contact Info) Description 12/19/2024 Scanned Document [facility] 12[address] [facility] [address] [place] [address] Provider, Generic Social History Tobacco [...] Office Visit [facility] Department of Cardiology [place] 160 [facility] [address] [place] [phone] Onofre Malik PA [address] [place] [address] 11/14/2025 2:00 PM EDT Office Visit [facility] Department of Internal Medicine [address] 1st [place] [address] Yessy Faustin DO [address] [address] documented as of this encounter Visit Diagnoses Not on filedocumented in this encounter Care Teams Dumper Bulk System Relationship Specialty Start Date End Date Yessy Faustin DO [address] [place] [address] PCP - General Internal Medicine 08/21/22 Yessy Faustin DO [address] [place] [address] PCP - Carson [facility] ELISHA Attributed 01/22/24 02/20/25 Yessy Faustin DO [address] [place] [address] PCP - [facility] Strickland MA Attributed 02/21/25 Mehdi Nugent MD [address] [address] Physician Hematology Oncology 06/08/21 Olga Dodson MD [address] [place] [address] Surgery, General 08/24/22 documented as of this encounter
--- OUTSIDE RECORDS SUMMARY | 2025-07-07 19:26 | XMS_ITS | Encounter Summary ---
Author Organization [facility] Address [address] [place] [address] Care Team Providers Care Account Manager Trainee Name Role Phone Mehdi Nugent MD Unavailable [phone] Yessy Faustin DO Primary Care Provider [phone] Olga Dodson MD Unavailable [phone] Yessy Faustin DO Unavailable Yessy Faustin DO Unavailable Encounter Details Date Type Department Care Team (Late st Contact Info) Description 01/01/2025 External Communication [facility] at Home 1290 [facility] 4B [place] [phone] Yessy Faustin DO [address] [phone] Social History Tobacco Use Types Packs/Day Years [...] Description 11/10/2025 11:30 AM EDT Office Visit [facility] Department of Cardiology [place] 160 [facility] [address] [place] [address] Onofre Malik PA 289 [place] [address] 11/14/2025 2:00 PM EDT Office Visit [facility] Department of Internal Medicine [address] 1st [place] [address] Yessy Faustin DO [address] [place] [address] documented as of this encounter Visit Diagnoses Not on filedocumented in this encounter Care Teams Account Manager Trainee Relationship Specialty Start Date End Date Yessy Faustin DO [address] [place] [address] PCP - General Internal Medicine 08/21/22 Yessy Faustin DO [address] [place] [address] PCP - Carson Mark TELLO Attributed 01/22/24 02/20/25 Yessy Faustin DO [address] [place] [address] PCP - Carson Strickland MA Attributed 02/21/25 Mehdi Nugent MD [address] [address] Physician Hematology Oncology 06/08/21 Olga Dodson MD 201 [place] [address] Surgery, General 08/24/22 documented as of this encounter
--- OUTSIDE RECORDS SUMMARY | 2025-07-07 19:26 | XMS_ITS | Encounter Summary ---
Author Organization [facility] Address [address] [place] [address] Care Team Providers Care Geometry Teacher Name Role Phone Unavailable Primary Care Provider Unavailabl e Encounter Details Date Type Department Care Team ([facility] st Contact Info) Description 09/02/2020 [facility] En[facility] Medicine [address] [place] [id number] Steve Ponce MD 9 [facility] 204 [place] [address] Sclerosing mesenteritis (HC Code) (Primary Dx) Social History Tobacco Use Types Packs/Day Years Used Date Smoking Tobacco: Never Assessed Comments Unknown Sex and Gender Information Value Date Recorded Sex Assigned at Not on file Legal Sex Female 1:54 PM EST Gender Identity Not on file Sexual Orientation Not on file documented as of this encounter Plan of Treatment Not on file documented as of this encounter Visit Diagnoses Diagnosis 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
--- OUTSIDE RECORDS SUMMARY | 2025-07-07 19:26 | XMS_ITS | Encounter Summary ---
Author Organization [facility] Address [address] [place] [address] Care Team Providers Care Crew Team Member Name Role Phone Mehdi Nugent MD Unavailable Yessy Faustin DO Primary Care Provider Olga Dodson MD Unavailable [phone] Yessy Faustin DO Unavailable Yessy Faustin DO Unavailable Encounter Details Date Type Department Care Team (Late st Contact Info) Description 01/01/2025 Scanned Document [facility] at Home 1290 [facility] 4B [place] [phone] [place], ADDICTION PSYCHIATRIST 18 [facility] 1 [place], [place] [id number] Social History Tobacco Use Types Packs/Day Years [...] Description 11/10/2025 11:30 AM EDT Office Visit [facility] Department of Cardiology [place] 160 [facility] [address] [place] [address] Onofre Malik PA 289 [place] [address] 11/14/2025 2:00 PM EDT Office Visit [facility] Department of Internal Medicine [address] 1st [place] [address] Yessy Faustin DO 18 [place] [address] documented as of this encounter Procedures Procedure Name Priority Date/Time Associated Diagnosis Comments HOME CARE SIGNED ORDERS 01/01/2025 12:51 PM EDT HOME CARE SIGNED ORDERS 01/01/2025 12:51 PM EDT documented in this encounter Results * HOME CARE SIGNED ORDERS (01/01/2025 12:51 PM EDT) [place] ADDICTION PSYCHIATRIST HX AMB PROCEDURES NO RESULTS RO UTING Final Result * HOME CARE SIGNED ORDERS (01/01/2025 12:51 PM EDT) [place] ADDICTION PSYCHIATRIST HX AMB PROCEDURES NO RESULTS RO UTING Final Result documented in this encounter Visit Diagnoses Not on filedocumented in this encounter Care Teams Crew Team Member Relationship Specialty Start Date End Date Yessy Faustin DO [address] [place], [place] [address] PCP - General Internal Medicine 08/21/22 Yessy Faustin DO [address] [place] [address] PCP - Carson [facility] MA Attributed 01/22/24 02/20/25 Yessy Faustin DO [address] [place], [place] [phone] PCP - Carson Strickland MA Attributed 02/21/25 Mehdi Nugent MD 183 [place] [address] Physician Hematology Oncology 06/08/21 Olga Dodson MD [address] [place] [address] Surgery, General 08/24/22 documented as of this encounter
--- OUTSIDE RECORDS SUMMARY | 2025-07-07 19:26 | XMS_ITS | Encounter Summary ---
Author Organization [facility] Address 100 [place] [address] Care Team Providers Care Tobacco Stripper Hand Name Role Phone Mehdi Nugent MD Unavailable [phone] Yessy Faustin DO Primary Care Provider Olga Dodson MD Unavailable [phone] Yessy Faustin DO Unavailable Yessy Faustin DO Unavailable Encounter Details Date Type Department Care Team (Late st Contact Info) Description 12/23/2024 Scanned Document [facility] at Home 1290 [facility] 4B [place] [address] Provider, Generic Social History Tobacco [...] Office Visit [facility] Department of Cardiology [place] 160 [facility] [address] [place] [address] Onofre Malik PA [address] [place] [address] 11/14/2025 2:00 PM EDT Office Visit [facility] Department of Internal Medicine [address] 1st [place] [address] Yessy Faustin DO [address] [address] documented as of this encounter Visit Diagnoses Not on filedocumented in this encounter Care Teams Tobacco Stripper Hand Relationship Specialty Start Date End Date Yessy Faustin DO [address] [place] [address] PCP - General Internal Medicine 08/21/22 Yessy Faustin DO [address] [place] [address] PCP - Carson [facility] ELISHA Attributed 01/22/24 02/20/25 Yessy Faustin DO [address] [place] [address] PCP - Carson Strickland MA Attributed 02/21/25 Mehdi Nugent MD [address] [address] Physician Hematology Oncology 06/08/21 Olga Dodson MD 201 [place] [address] Surgery, General 08/24/22 documented as of this encounter
--- OUTSIDE RECORDS SUMMARY | 2025-07-07 19:26 | XMS_ITS | Encounter Summary ---
Author Organization [facility] Address 100 [place] [address] Care Team Providers Care Flash Developer Name Role Phone Mehdi Nugent MD Unavailable [phone] Yessy Faustin DO Primary Care Provider [phone] Olga Dodson MD Unavailable [phone] Yessy Faustin DO Unavailable Yessy Faustin DO Unavailable Encounter Details Date Type Department Care Team (Late st Contact Info) Description 12/03/2024 Scanned Document [facility] at Home 1290 [facility] 4B [place] [address] Provider, Generic Social History Tobacco [...] Office Visit [facility] Department of Cardiology [place] 160 [facility] [address] [place] [address] Onofre Malik PA [address] [place] [address] 11/14/2025 2:00 PM EDT Office Visit [facility] Department of Internal Medicine [address] 1st [place] [address] Yessy Faustin DO [address] [address] documented as of this encounter Visit Diagnoses Not on filedocumented in this encounter Care Teams Flash Developer Relationship Specialty Start Date End Date Yessy Faustin DO [address] [place] [address] PCP - General Internal Medicine 08/21/22 Yessy Faustin DO [address] [place] [address] PCP - Carson [facility] ELISHA Attributed 01/22/24 02/20/25 Yessy Faustin DO [address] [place] [address] PCP - Carson Strickland MA Attributed 02/21/25 Mehdi Nugent MD [address] [address] Physician Hematology Oncology 06/08/21 Olga Dodson MD 201 [place] [address] Surgery, General 08/24/22 documented as of this encounter
--- OUTSIDE RECORDS SUMMARY | 2025-07-07 19:26 | XMS_ITS | Encounter Summary ---
Author Organization [facility] Address [address] [place] [address] Care Team Providers Care Aviation Maintenance Instructor Name Role Phone Mehdi Nugent MD Unavailable [phone] Yessy Faustin DO Primary Care Provider [phone] Olga Dodson MD Unavailable [phone] Yessy Faustin DO Unavailable Yessy Faustin DO Unavailable Encounter Details Date Type Department Care Team (Late st Contact Info) Description 01/01/2025 Scanned Document [facility] Department of Internal Medicine [address] 1st [place] [address] Yessy Faustin DO [address] [address] Social History Tobacco Use Types [...] Visit [facility] Department of Cardiology [place] [address] [place] [address] Onofre Malik PA 289 [place] [address] 11/14/2025 2:00 PM EDT Office Visit [facility] Department of Internal Medicine [address] 1st [place] [address] Yessy Faustin DO [address] [place] [address] documented as of this encounter Visit Diagnoses Not on filedocumented in this encounter Care Teams Aviation Maintenance Instructor Relationship Specialty Start Date End Date Yessy Faustin DO [address] [place] [address] PCP - General Internal Medicine 08/21/22 Yessy Faustin DO [address] [place] [address] PCP - Carson Mark TELLO Attributed 01/22/24 02/20/25 Yessy Faustin DO [address] [place] [address] PCP - Carson Strickland MA Attributed 02/21/25 Mehdi Nugent MD [address] [address] Physician Hematology Oncology 06/08/21 Olga Dodson MD 201 [place] [address] Surgery, General 08/24/22 documented as of this encounter
--- OUTSIDE RECORDS SUMMARY | 2025-07-07 19:26 | XMS_ITS | Encounter Summary ---
Author Organization [facility] Address 100 [place] [address] Care Team Providers Care Chef Assistant Name Role Phone Mehdi Nugent MD Unavailable [phone] Yessy Faustin DO Primary Care Provider [phone] Olga Dodson MD Unavailable [phone] Yessy Faustin DO Unavailable Yessy Faustin DO Unavailable Encounter Details Date Type Department Care Team (Late st Contact Info) Description 01/01/2025 Scanned Document [facility] at Home 1290 [facility] 4B [place] [address] Provider, Generic Social History Tobacco [...] Office Visit [facility] Department of Cardiology [place] 160 [facility] [address] [place] [address] Onofre Malik PA [address] [place] [address] 11/14/2025 2:00 PM EDT Office Visit [facility] Department of Internal Medicine [address] 1st [place] [address] Yessy Faustin DO [address] [address] documented as of this encounter Visit Diagnoses Not on filedocumented in this encounter Care Teams Chef Assistant Relationship Specialty Start Date End Date Yessy Faustin DO [address] [place] [address] PCP - General Internal Medicine 08/21/22 Yessy Faustin DO [address] [place] [address] PCP - Carson [facility] ELISHA Attributed 01/22/24 02/20/25 Yessy Faustin DO [address] [place] [address] PCP - Carson Strickland MA Attributed 02/21/25 Mehdi Nugent MD [address] [address] Physician Hematology Oncology 06/08/21 Olga Dodson MD 201 [place] [address] Surgery, General 08/24/22 documented as of this encounter
--- OUTSIDE RECORDS SUMMARY | 2025-07-07 19:26 | XMS_ITS | Encounter Summary ---
Author Organization [facility] Address 100 [place] [address] Care Team Providers Care Jacquard Card Lacer Name Role Phone Mehdi Nugent MD Unavailable [phone] Yessy Faustin DO Primary Care Provider [phone] Olga Dodson MD Unavailable [phone] Yessy Faustin DO Unavailable Yessy Faustin DO Unavailable Encounter Details Date Type Department Care Team (Late st Contact Info) Description 10/11/2024 Scanned Document [facility] at Home 1290 [facility] 4B [place] [address] Provider, Generic Social History Tobacco [...] Office Visit [facility] Department of Cardiology [place] 160 [facility] [address] [place] [address] Onofre Malik PA [address] [place] [address] 11/14/2025 2:00 PM EDT Office Visit [facility] Department of Internal Medicine [address] 1st [place] [address] Yessy Faustin DO [address] [address] documented as of this encounter Visit Diagnoses Not on filedocumented in this encounter Care Teams Jacquard Card Lacer Relationship Specialty Start Date End Date Yessy Faustin DO [address] [place] [address] PCP - General Internal Medicine 08/21/22 Yessy Faustin DO [address] [place] [address] PCP - Carson [facility] ELISHA Attributed 01/22/24 02/20/25 Yessy Faustin DO [address] [place] [address] PCP - Carson Strickland MA Attributed 02/21/25 Mehdi Nugent MD [address] [address] Physician Hematology Oncology 06/08/21 Olga Dodson MD 201 [place] [address] Surgery, General 08/24/22 documented as of this encounter
--- OUTSIDE RECORDS SUMMARY | 2025-07-07 19:26 | XMS_ITS | Encounter Summary ---
Author Organization [facility] Address 100 [place] [address] Care Team Providers Care Sheet Metal Duct Installer Name Role Phone Mehdi Nugent MD Unavailable [phone] Yessy Faustin DO Primary Care Provider Olga Dodson MD Unavailable [phone] Yessy Faustin DO Unavailable Yessy Faustin DO Unavailable Encounter Details Date Type Department Care Team (Late st Contact Info) Description 12/04/2024 Scanned Document [facility] at Home 1290 [facility] 4B [place] [address] Provider, Generic Social History Tobacco [...] Office Visit [facility] Department of Cardiology [place] 160 [facility] [address] [place] [address] Onofre Malik PA [address] [place] [address] 11/14/2025 2:00 PM EDT Office Visit [facility] Department of Internal Medicine [address] 1st [place] [address] Yessy Faustin DO [address] [address] documented as of this encounter Visit Diagnoses Not on filedocumented in this encounter Care Teams Sheet Metal Duct Installer Relationship Specialty Start Date End Date Yessy Faustin DO [address] [place] [address] PCP - General Internal Medicine 08/21/22 Yessy Faustin DO [address] [place] [address] PCP - Carson [facility] ELISHA Attributed 01/22/24 02/20/25 Yessy Faustin DO [address] [place] [address] PCP - Carson Strickland MA Attributed 02/21/25 Mehdi Nugent MD [address] [address] Physician Hematology Oncology 06/08/21 Olga Dodson MD 201 [place] [address] Surgery, General 08/24/22 documented as of this encounter
--- OUTSIDE RECORDS SUMMARY | 2025-07-07 19:26 | XMS_ITS | Encounter Summary ---
Author Organization [facility] Address [address] [place] [address] Care Team Providers Care Double Needle Operator Name Role Phone Mehdi Nugent MD Unavailable [phone] Yessy Faustin DO Primary Care Provider [phone] Olga Dodson MD Unavailable [phone] Yessy Faustin DO Unavailable Encounter Details Date Type Department Care Team (Late st Contact Info) Description 06/10/[address] [facility] Department of Internal Medicine [address] 1st [place] [address] Yessy Faustin DO [address] [address] Social History Tobacco Use Types Packs/Day Years [...] AM EDT Office Visit [facility] Department of Cardiology [place] [address] [place] [address] Onofre Malik PA [address] [place] [address] 11/14/2025 2:00 PM EDT Office Visit [facility] Department of Internal Medicine [address] 1st [place] [address] Yessy Faustin DO 18 [place] [address] documented as of this encounter Visit Diagnoses Not on filedocumented in this encounter Care Teams Double Needle Operator Relationship Specialty Start Date End Date Yessy Faustin DO [address] [place] [address] PCP - General Internal Medicine 08/21/22 Yessy Faustin DO [address] [place] [address] PCP - Carson Strickland MA Attributed 02/21/25 Mehdi Nugent MD 183 [place] [address] Physician Hematology Oncology 06/08/21 Olga Dodson MD 201 [place] [address] Surgery, General 08/24/22 documented as of this encounter
--- OUTSIDE RECORDS SUMMARY | 2025-07-07 19:26 | XMS_ITS | Encounter Summary ---
Author Organization [facility] Address [address] [place] [address] Care Team Providers Care Legislative Correspondent Name Role Phone Unavailable Primary Care Provider Unavailabl e Encounter Details Date Type Department Care Team ([facility] st Contact Info) Description 09/13/2024 Scanned Document INTERFACE DEFAULT [address] [place] [address] System, Provider Not In Social History Tobacco [...]
--- OUTSIDE RECORDS SUMMARY | 2025-07-07 19:26 | XMS_ITS | Encounter Summary ---
Author Organization [facility] Address 100 [place] [address] Care Team Providers Care Sed Special Education Teacher Name Role Phone Mehdi Nugent MD Unavailable [phone] Yessy Faustin DO Primary Care Provider Olga Dodson MD Unavailable [phone] Yessy Faustin DO Unavailable Yessy Faustin DO Unavailable Encounter Details Date Type Department Care Team (Late st Contact Info) Description 12/24/2024 Scanned Document [facility] at Home 1290 [facility] 4B [place] [address] Provider, Generic Social History Tobacco [...] Office Visit [facility] Department of Cardiology [place] 160 [facility] [address] [place] [address] Onofre Malik PA [address] [place] [address] 11/14/2025 2:00 PM EDT Office Visit [facility] Department of Internal Medicine [address] 1st [place] [address] Yessy Faustin DO [address] [address] documented as of this encounter Visit Diagnoses Not on filedocumented in this encounter Care Teams Sed Special Education Teacher Relationship Specialty Start Date End Date Yessy Faustin DO [address] [place] [address] PCP - General Internal Medicine 08/21/22 Yessy Faustin DO [address] [place] [address] PCP - Carson [facility] ELISHA Attributed 01/22/24 02/20/25 Yessy Faustin DO [address] [place] [address] PCP - Carson Strickland MA Attributed 02/21/25 Mehdi Nugent MD [address] [address] Physician Hematology Oncology 06/08/21 Olga Dodson MD 201 [place] [address] Surgery, General 08/24/22 documented as of this encounter
--- OUTSIDE RECORDS SUMMARY | 2025-07-07 19:26 | XMS_ITS | Encounter Summary ---
Author Organization [facility] Address 100 [place] [address] Care Team Providers Care Kitman Name Role Phone Mehdi Nugent MD Unavailable [phone] Yessy Faustin DO Primary Care Provider [phone] Olga Dodson MD Unavailable [phone] Yessy Faustin DO Unavailable Yessy Faustin DO Unavailable Encounter Details Date Type Department Care Team (Late st Contact Info) Description 01/09/2025 Scanned Document [facility] at Home 1290 [facility] 4B [place] [address] Provider, Generic Social History Tobacco [...] Office Visit [facility] Department of Cardiology [place] 160 [facility] [address] [place] [address] Onofre Malik PA [address] [place] [address] 11/14/2025 2:00 PM EDT Office Visit [facility] Department of Internal Medicine [address] 1st [place] [address] Yessy Faustin DO [address] [address] documented as of this encounter Visit Diagnoses Not on filedocumented in this encounter Care Teams Kitman Relationship Specialty Start Date End Date Yessy Faustin DO [address] [place] [address] PCP - General Internal Medicine 08/21/22 Yessy Faustin DO [address] [place] [address] PCP - Carson [facility] ELISHA Attributed 01/22/24 02/20/25 Yessy Faustin DO [address] [place] [address] PCP - Carson Strickland MA Attributed 02/21/25 Mehdi Nugent MD [address] [address] Physician Hematology Oncology 06/08/21 Olga Dodson MD 201 [place] [address] Surgery, General 08/24/22 documented as of this encounter
--- OUTSIDE RECORDS SUMMARY | 2025-07-07 19:26 | XMS_ITS | Encounter Summary ---
Author Organization [facility] Address 100 [place] [address] Care Team Providers Care Auto Body Repair Estimator Name Role Phone Mehdi Nugent MD Unavailable [phone] Yessy Faustin DO Primary Care Provider Olga Dodson MD Unavailable [phone] Yessy Faustin DO Unavailable Yessy Faustin DO Unavailable Encounter Details Date Type Department Care Team (Late st Contact Info) Description 10/14/2024 Scanned Document [facility] at Home 1290 [facility] 4B [place] [address] Provider, Generic Social History Tobacco [...] Office Visit [facility] Department of Cardiology [place] 160 [facility] [address] [place] [address] Onofre Malik PA [address] [place] [address] 11/14/2025 2:00 PM EDT Office Visit [facility] Department of Internal Medicine [address] 1st [place] [address] Yessy Faustin DO [address] [address] documented as of this encounter Visit Diagnoses Not on filedocumented in this encounter Care Teams Auto Body Repair Estimator Relationship Specialty Start Date End Date Yessy Faustin DO [address] [place] [address] PCP - General Internal Medicine 08/21/22 Yessy Faustin DO [address] [place] [address] PCP - Carson [facility] ELISHA Attributed 01/22/24 02/20/25 Yessy Faustin DO [address] [place] [address] PCP - Carson Strickland MA Attributed 02/21/25 Mehdi Nugent MD [address] [address] Physician Hematology Oncology 06/08/21 Olga Dodson MD 201 [place] [address] Surgery, General 08/24/22 documented as of this encounter
--- OUTSIDE RECORDS SUMMARY | 2025-07-07 19:26 | XMS_ITS | Encounter Summary ---
Author Organization [facility] Address [address] [place] [address] Care Team Providers Care Sausage Meat Trimmer Name Role Phone Mehdi Nugent MD Unavailable [phone] Yessy Faustin DO Primary Care Provider Olga Dodson MD Unavailable [phone] Yessy Faustin DO Unavailable Yessy Faustin DO Unavailable Encounter Details Date Type Department Care Team (Late st Contact Info) Description 10/15/2024 Scanned Document [facility] 1290 [facility] 4B [place] [address] Provider, Generic Social History Tobacco [...] Office Visit [facility] Department of Cardiology [place] 160 [facility] [address] [place] [address] Onofre Malik PA [address] [place] [address] 11/14/2025 2:00 PM EDT Office Visit [facility] Department of Internal Medicine [address] 1st [place] [address] Yessy Faustin DO [address] [address] documented as of this encounter Visit Diagnoses Not on filedocumented in this encounter Care Teams Sausage Meat Trimmer Relationship Specialty Start Date End Date Yessy Faustin DO [address] [place] [address] PCP - General Internal Medicine 08/21/22 Yessy Faustin DO [address] [place] [address] PCP - Carson [facility] Attributed 01/22/24 02/20/25 Yessy Faustin DO [address] [place] [address] PCP - Carson Strickland MA Attributed 02/21/25 Mehdi Nugent MD [address] [address] Physician Hematology Oncology 06/08/21 Olga Dodson MD 201 [place] [address] Surgery, General 08/24/22 documented as of this encounter
--- OUTSIDE RECORDS SUMMARY | 2025-07-07 19:26 | XMS_ITS | Encounter Summary ---
Author Organization [facility] Address [address] [place] [address] Care Team Providers Care Cloth Inspector Name Role Phone Mehdi Nugent MD Unavailable [phone] Yessy Faustin DO Primary Care Provider Olga Dodosn MD Unavailable [phone] Yessy Faustin DO Unavailable Yessy Faustin DO Unavailable Encounter Details Date Type Department Care Team (Late st Contact Info) Description 12/02/[address] [facility] 1290 [facility] 4B [place] [address] Provider, Generic Social History Tobacco [...] Office Visit [facility] Department of Cardiology [place] 160 [facility] [address] [place] [address] Onofre Malik PA [address] [place] [address] 11/14/2025 2:00 PM EDT Office Visit [facility] Department of Internal Medicine [address] 1st [place] [address] Yessy Faustin DO [address] [address] documented as of this encounter Visit Diagnoses Not on filedocumented in this encounter Care Teams Cloth Inspector Relationship Specialty Start Date End Date Yessy Faustin DO [address] [place] [address] PCP - General Internal Medicine 08/21/22 Yessy Faustin DO [address] [place] [address] PCP - Carson [facility] Attributed 01/22/24 02/20/25 Yessy Faustin DO [address] [place] [address] PCP - Carson Strickland MA Attributed 02/21/25 Mehdi Nugent MD [address] [address] Physician Hematology Oncology 06/08/21 Olga Dodson MD 201 [place] [address] Surgery, General 08/24/22 documented as of this encounter
--- OUTSIDE RECORDS SUMMARY | 2025-07-07 19:26 | XMS_ITS | Encounter Summary ---
Author Organization [facility] Address [address] [place] [address] Care Team Providers Care Customer Success Associate Name Role Phone Mehdi Nugent MD Unavailable [phone] Yessy Faustin DO Primary Care Provider Olga Dodson MD Unavailable [phone] Yessy Faustin DO Unavailable Yessy Faustin DO Unavailable Encounter Details Date Type Department Care Team (Late st Contact Info) Description 11/29/2024 Scanned Document [facility] 1290 [facility] 4B [place] [address] Provider, Generic Social History Tobacco [...] Office Visit [facility] Department of Cardiology [place] 160 [facility] [address] [place] [address] Onofre Malik PA [address] [place] [address] 11/14/2025 2:00 PM EDT Office Visit [facility] Department of Internal Medicine [address] 1st [place] [address] Yessy Faustin DO [address] [address] documented as of this encounter Visit Diagnoses Not on filedocumented in this encounter Care Teams Customer Success Associate Relationship Specialty Start Date End Date Yessy Faustin DO [address] [place] [address] PCP - General Internal Medicine 08/21/22 Yessy Faustin DO [address] [place] [address] PCP - Carson [facility] EL[facility] Attributed 01/22/24 02/20/25 Yessy Faustin DO [address] [place] [address] PCP - Carson Strickland MA Attributed 02/21/25 Mehdi Nugent MD [address] [address] Physician Hematology Oncology 06/08/21 Olga Dodson MD 201 [place] [address] Surgery, General 08/24/22 documented as of this encounter
--- OUTSIDE RECORDS SUMMARY | 2025-07-07 19:27 | XMS_ITS | Encounter Summary ---
Author Organization [facility] Address 100 [place] [address] Care Team Providers Care Bleacher Operator Name Role Phone Mehdi Nugent MD Unavailable [phone] Yessy Faustin DO Primary Care Provider Olga Dodson MD Unavailable [phone] Yessy Faustin DO Unavailable Yessy Faustin DO Unavailable Encounter Details Date Type Department Care Team (Late st Contact Info) Description 10/17/2024 Scanned Document [facility] 1290 [facility] 4B [place] [address] Provider, Generic Social History Tobacco [...] Office Visit [facility] Department of Cardiology [place] 160 [facility] [address] [place] [address] Onofre Malik PA [address] [place] [address] 11/14/2025 2:00 PM EDT Office Visit [facility] Department of Internal Medicine [address] 1st [place] [address] Yessy Faustin DO [address] [address] documented as of this encounter Visit Diagnoses Not on filedocumented in this encounter Care Teams Bleacher Operator Relationship Specialty Start Date End Date Yessy Faustin DO [address] [place] [address] PCP - General Internal Medicine 08/21/22 Yessy Faustin DO [address] [place] [address] PCP - Carson [facility] Attributed 01/22/24 02/20/25 Yessy Faustin DO [address] [place] [address] PCP - Carson Strickland MA Attributed 02/21/25 Mehdi Nugent MD [address] [address] Physician Hematology Oncology 06/08/21 Olga Dodson MD 201 [place] [address] Surgery, General 08/24/22 documented as of this encounter
--- OUTSIDE RECORDS SUMMARY | 2025-07-07 19:27 | XMS_ITS | Encounter Summary ---
Author Organization [facility] Address [address] [place] [address] Care Team Providers Care Therapeutic Case Manager Name Role Phone Mehdi Nugent MD Unavailable [phone] Yessy Faustin DO Primary Care Provider [phone] Olga Dodson MD Unavailable [phone] Yessy Faustin DO Unavailable Yessy Faustin DO Unavailable Encounter Details Date Type Department Care Team (Late st Contact Info) Description 10/18/2024 Scanned Document [facility] at [facility] 1290 [facility] 4B [place] [address] Provider, Generic Social History Tobacco [...] Office Visit [facility] Department of Cardiology [place] 160 [facility] [address] [place] [address] Onofre Malik PA [address] [place] [address] 11/14/2025 2:00 PM EDT Office Visit [facility] Department of Internal Medicine [address] 1st [place] [address] Yessy Faustin DO [address] [address] documented as of this encounter Visit Diagnoses Not on filedocumented in this encounter Care Teams Therapeutic Case Manager Relationship Specialty Start Date End Date Yessy Faustin DO [address] [place] [address] PCP - General Internal Medicine 08/21/22 Yessy Faustin DO [address] [place] [address] PCP - Carson [facility] Attributed 01/22/24 02/20/25 Yessy Faustin DO [address] [place] [address] PCP - Carson Strickland MA Attributed 02/21/25 Mehdi Nugent MD [address] [address] Physician Hematology Oncology 06/08/21 Olga Dodson MD 201 [place] [address] Surgery, General 08/24/22 documented as of this encounter
--- OUTSIDE RECORDS SUMMARY | 2025-07-07 19:27 | XMS_ITS | Encounter Summary ---
Author Organization [facility] Address [address] [place] [address] Care Team Providers Care Broadcast Technician Name Role Phone Mehdi Nugent MD Unavailable [phone] Yessy Faustin DO Primary Care Provider Olga Dodson MD Unavailable [phone] Yessy Faustin DO Unavailable Yessy Faustin DO Unavailable Encounter Details Date Type Department Care Team (Late st Contact Info) Description 10/16/2024 Scanned Document [facility] 1290 [facility] 4B [place] [phone] Yessy Faustin DO [address] [address] Social History Tobacco Use Types [...] 11/10/2025 11:30 AM EDT Office Visit [facility] Department of Cardiology [place] 160 [facility] [address] [place] [address] Onofre Malik PA [address] [place] [address] 11/14/2025 2:00 PM EDT [facility] Department of Internal Medicine [address] 1st [place] [address] Yessy Faustin DO [address] [place] [address]265 documented as of this encounter Procedures Procedure Name Priority Date/Time Associated Diagnosis Comments HOME CARE SIGNED ORDERS 10/16/2024 7:59 AM EDT documented in this encounter Results * HOME CARE SIGNED ORDERS (10/16/2024 7:59 AM EDT) Yessy Faustin DO HX AMB PROCEDURES NO RESULTS ROU TING Final Result documented in this encounter Visit Diagnoses Not on filedocumented in this encounter Care Teams Broadcast Technician Relationship Specialty Start Date End Date Yessy Faustin DO [address] [place], [place] [phone] PCP - General Internal Medicine 08/21/22 Yessy Faustin DO [address] [place], [place] [address] PCP - Carson [facility] Attributed 01/22/24 02/20/25 Yessy Faustin DO [address] [place] [address] PCP - Carson Strickland MA Attributed 02/21/25 Mehdi Nugent MD [address] [place] [address] Physician Hematology Oncology 06/08/21 Olga Dodson MD [address] [place] [address] Surgery, General 08/24/22 documented as of this encounter
--- OUTSIDE RECORDS SUMMARY | 2025-07-07 19:27 | XMS_ITS | Encounter Summary ---
Author Organization [facility] Address [address] [place] [address] Care Team Providers Care Television Newscast Director Name Role Phone Mehdi Nugent MD Unavailable [phone] Yessy Faustin DO Primary Care Provider Olga Dodson MD Unavailable [phone] Yessy Faustin DO Unavailable Yessy Faustin DO Unavailable Encounter Details Date Type Department Care Team (Late st Contact Info) Description 10/10/2024 Scanned Document [facility] 1290 [facility] 4B [place] [address] Provider, Generic Social History Tobacco [...] Office Visit [facility] Department of Cardiology [place] 160 [facility] [address] [place] [address] Onofre Malik PA [address] [place] [address] 11/14/2025 2:00 PM EDT Office Visit [facility] Department of Internal Medicine [address] 1st [place] [address] Yessy Faustin DO [address] [address] documented as of this encounter Visit Diagnoses Not on filedocumented in this encounter Care Teams Television Newscast Director Relationship Specialty Start Date End Date Yessy Faustin DO [address] [place] [address] PCP - General Internal Medicine 08/21/22 Yessy Faustin DO [address] [place] [address] PCP - Carson [facility] EL[facility]HA Attributed 01/22/24 02/20/25 Yessy Faustin DO [address] [place] [address] PCP - Carson Strickland MA Attributed 02/21/25 Mehdi Nugent MD [address] [address] Physician Hematology Oncology 06/08/21 Olga Dodson MD 201 [place] [address] Surgery, General 08/24/22 documented as of this encounter
--- OUTSIDE RECORDS SUMMARY | 2025-07-07 19:27 | XMS_ITS | Encounter Summary ---
Author Organization [facility] Address [address] [place] [address] Care Team Providers Care Flavor Extractor Name Role Phone Mehdi Nugent MD Unavailable [phone] Yessy Faustin DO Primary Care Provider Olga Dodson MD Unavailable [phone] Yessy Faustin DO Unavailable Yessy Faustin DO Unavailable Encounter Details Date Type Department Care Team (Late st Contact Info) Description 10/16/2024 External Communication [facility] 1290 [facility] 4B [place] [address] Yessy Faustin DO [address] [address] Social History Tobacco Use Types [...] Description 11/10/2025 11:30 AM EDT Office Visit [facility] Department of Cardiology [place] 160 [facility] [address] [place] [address] Onofre Malik PA [address] [place] [address] 11/14/2025 2:00 PM EDT Office Visit [facility] Department of Internal Medicine [address] 1st [place] [address] Yessy Faustin DO [address] [place] [address] documented as of this encounter Visit Diagnoses Not on filedocumented in this encounter Care Teams Flavor Extractor Relationship Specialty Start Date End Date Yessy Faustin DO [address] [place] [address] PCP - General Internal Medicine 08/21/22 Yessy Faustin DO [address] [place] [address] PCP - Carson [facility] Attributed 01/22/24 02/20/25 Yessy Faustin DO [address] [place] [address] PCP - Carson Strickland MA Attributed 02/21/25 Mehdi Nugent MD [address] [address] [address] Physician Hematology Oncology 06/08/21 Olga Dodson MD 201 [place] [address] Surgery, General 08/24/22 documented as of this encounter
--- OUTSIDE RECORDS SUMMARY | 2025-07-07 19:29 | XMS_ITS | Encounter Summary ---
Author Organization [facility] Address [address] [place] [address] Care Team Providers Care Support Services Coordinator Name Role Phone Mehdi Nugent MD Unavailable [phone] Yessy Faustin DO Primary Care Provider [phone] Olga Dodson MD Unavailable [phone] Yessy Faustin DO Unavailable Yessy Faustin DO Unavailable Encounter Details Date Type Department Care Team (Late st Contact Info) Description 10/25/2024 Scanned Document [facility] 1290 [facility] 4B [place] [address] Provider, Generic Social History Tobacco [...] Office Visit [facility] Department of Cardiology [place] 160 [facility] [address] [place] [address] Onofre Malik PA [address] [place] [address] 11/14/2025 2:00 PM EDT Office Visit [facility] Department of Internal Medicine [address] 1st [place] [address] Yessy Faustin DO [address] [address] documented as of this encounter Visit Diagnoses Not on filedocumented in this encounter Care Teams Support Services Coordinator Relationship Specialty Start Date End Date Yessy Faustin DO [address] [place] [address] PCP - General Internal Medicine 08/21/22 Yessy Faustin DO [address] [place] [address] PCP - Carson [facility] EL[facility]HA Attributed 01/22/24 02/20/25 Yessy Faustin DO [address] [place] [address] PCP - Carson Strickland MA Attributed 02/21/25 Mehdi Nugent MD [address] [address] Physician Hematology Oncology 06/08/21 Olga Dodson MD 201 [place] [address] Surgery, General 08/24/22 documented as of this encounter
--- OUTSIDE RECORDS SUMMARY | 2025-07-07 19:29 | XMS_ITS | Encounter Summary ---
Author Organization [facility] Address [address] [place] [address] Care Team Providers Care Serials Librarian Name Role Phone Mehdi Nugent MD Unavailable [phone] Yessy Faustin DO Primary Care Provider [phone] Olga Dodson MD Unavailable [phone] Yessy Faustin DO Unavailable Yessy Faustin DO Unavailable Encounter Details Date Type Department Care Team (Late st Contact Info) Description 10/22/2024 Scanned Document [facility] 1290 [facility] 4B [place] [phone] Yessy Faustin DO [address] [id number] Social History Tobacco Use Types Packs/Day Years [...] Description 11/10/2025 11:30 AM EDT Office Visit [facility] Department of Cardiology [place] 160 [facility] [address] [place] [address] Onofre Malik PA [address] [place] [address] 11/14/2025 2:00 PM EDT Office Visit [facility] Department of Internal Medicine [address] 1st [place] [address] Yessy Faustin DO 18 [place] [phone] documented as of this encounter Procedures Procedure Name Priority Date/Time Associated Diagnosis Comments HOME CARE SIGNED ORDERS 10/22/2024 7:51 AM EDT documented in this encounter Results * HOME CARE SIGNED ORDERS (10/22/2024 7:51 AM EDT) Yessy Faustin DO HX AMB PROCEDURES NO RESULTS ROU TING Final Result documented in this encounter Visit Diagnoses Not on filedocumented in this encounter Care Teams Serials Librarian Relationship Specialty Start Date End Date Yessy Faustin DO [address] [place], [place] [phone] PCP - General Internal Medicine 08/21/22 Yessy Faustin DO [address] [place], [place] [phone] PCP - Carson Mark TELLO Attributed 01/22/24 02/20/25 Yessy Faustin DO [address] [place] [address] PCP - Carson Strickland MA Attributed 02/21/25 Mehdi Nugent MD [address] [place] [address] Physician Hematology Oncology 06/08/21 Olga Dodson MD [address] [place] [address] Surgery, General 08/24/22 documented as of this encounter
--- OUTSIDE RECORDS SUMMARY | 2025-07-07 19:29 | XMS_ITS | Encounter Summary ---
Author Organization [facility] Address [address] [place] [address] Care Team Providers Care Signaling Design Engineer Name Role Phone Mehdi Nugent MD Unavailable [phone] Yessy Faustin DO Primary Care Provider Olga Dodson MD Unavailable [phone] Yessy Faustin DO Unavailable Yessy Faustin DO Unavailable Encounter Details Date Type Department Care Team (Late st Contact Info) Description 10/23/2024 Scanned Document [facility] 1290 [facility] 4B [place] [address] Provider, Generic Social History Tobacco [...] Office Visit [facility] Department of Cardiology [place] 160 [facility] [address] [place] [address] Onofre Malik PA [address] [place] [address] 11/14/2025 2:00 PM EDT Office Visit [facility] Department of Internal Medicine [address] 1st [place] [address] Yessy Faustin DO [address] [address] documented as of this encounter Visit Diagnoses Not on filedocumented in this encounter Care Teams Signaling Design Engineer Relationship Specialty Start Date End Date Yessy Faustin DO [address] [place] [address] PCP - General Internal Medicine 08/21/22 Yessy Faustin DO [address] [place] [address] PCP - Carson [facility] EL[facility]HA Attributed 01/22/24 02/20/25 Yessy Faustin DO [address] [place] [address] PCP - Carson Strickland MA Attributed 02/21/25 Mehdi Nugent MD [address] [address] Physician Hematology Oncology 06/08/21 Olga Dodson MD 201 [place] [address] Surgery, General 08/24/22 documented as of this encounter
--- OUTSIDE RECORDS SUMMARY | 2025-07-07 19:32 | XMS_ITS | Encounter Summary ---
Author Organization [facility] Address [address] [place] [address] Care Team Providers Care Printing Grey Cloth Tender Name Role Phone Mehdi Nugent MD Unavailable [phone] Yessy Faustin DO Primary Care Provider Olga Dodson MD Unavailable [phone] Yessy Faustin DO Unavailable Yessy Faustin DO Unavailable Encounter Details Date Type Department Care Team (Late st Contact Info) Description 10/29/2024 Scanned Document [facility] Department of Internal Medicine [address] 1st [place] [address] Yessy Faustin DO [address] [address] Social History Tobacco Use Types [...] Visit [facility] Department of Cardiology [place] [address] [place] [address] Onofre Malik PA 289 [place] [address] 11/14/2025 2:00 PM EDT Office Visit [facility] Department of Internal Medicine [address] 1st [place] [address] Yessy Faustin DO [address] [place] [address] documented as of this encounter Visit Diagnoses Not on filedocumented in this encounter Care Teams Printing Grey Cloth Tender Relationship Specialty Start Date End Date Yessy Faustin DO [address] [place] [address] PCP - General Internal Medicine 08/21/22 Yessy Faustin DO [address] [place] [address] PCP - Carson Mark TELLO Attributed 01/22/24 02/20/25 Yessy Faustin DO [address] [place] [address] PCP - Carson Strickland MA Attributed 02/21/25 Mehdi Nugent MD [address] [address] Physician Hematology Oncology 06/08/21 Olga Dodson MD 201 [place] [address] Surgery, General 08/24/22 documented as of this encounter
--- OUTSIDE RECORDS SUMMARY | 2025-07-07 19:32 | XMS_ITS | Encounter Summary ---
Author Organization [facility] Address [address] [place] [address] Care Team Providers Care Loft Worker Name Role Phone Mehdi Nugent MD Unavailable [phone] Yessy Faustin DO Primary Care Provider Olga Dodson MD Unavailable [phone] Yessy Faustin DO Unavailable Yessy Faustin DO Unavailable Encounter Details Date Type Department Care Team (Late st Contact Info) Description 10/25/2024 External Communication [facility] at [facility] [address] [facility] 4B [place] [address] Yessy Faustin DO [address] [id number] Social History Tobacco Use Types Packs/Day Years [...] Visit [facility] Department of Cardiology [place] 160 [facility] [address] [place] [address] Onofre Malik PA 289 [place] [address] 11/14/2025 2:00 PM EDT Office Visit [facility] Department of Internal Medicine [address] 1st [place] [address] Yessy Faustin DO [address] [place] [address] documented as of this encounter Visit Diagnoses Not on filedocumented in this encounter Care Teams Loft Worker Relationship Specialty Start Date End Date Yessy Faustin DO [address] [place] [address] PCP - General Internal Medicine 08/21/22 Yessy Faustin DO [address] [place] [address] PCP - Carson Mark TELLO Attributed 01/22/24 02/20/25 Yessy Faustin DO [address] [place] [address] PCP - Carson Strickland MA Attributed 02/21/25 Mehdi Nugent MD [address] [address] Physician Hematology Oncology 06/08/21 Olga Dodson MD 201 [place] [address] Surgery, General 08/24/22 documented as of this encounter
--- OUTSIDE RECORDS SUMMARY | 2025-07-07 19:33 | XMS_ITS | Encounter Summary ---
Author Organization [facility] Address [address] [place] [address] Care Team Providers Care Optical Technician Name Role Phone Mehdi Nugent MD Unavailable [phone] Yessy Faustin DO Primary Care Provider [phone] Olga Dodson MD Unavailable [phone] Yessy Faustin DO Unavailable Yessy Faustin DO Unavailable Encounter Details Date Type Department Care Team (Late st Contact Info) Description 10/29/2024 Scanned Document [facility] at Home [address] [facility] [address] [place] [address] Provider, Generic Social History Tobacco [...] Office Visit [facility] Department of Cardiology [place] 160 [facility] [address] [place] [address] Onofre Malik PA [address] [place] [address] 11/14/2025 2:00 PM EDT Office Visit [facility] Department of Internal Medicine [address] 1st [place] [address] Yessy Faustin DO [address] [address] documented as of this encounter Visit Diagnoses Not on filedocumented in this encounter Care Teams Optical Technician Relationship Specialty Start Date End Date Yessy Faustin DO [address] [place] [address] PCP - General Internal Medicine 08/21/22 Yesys Faustin DO [address] [place] [address] PCP - Carson [facility] ELISHA Attributed 01/22/24 02/20/25 Yessy Faustin DO [address] [place] [address] PCP - Carson Strickland MA Attributed 02/21/25 Mehdi Nugent MD [address] [address] Physician Hematology Oncology 06/08/21 Olga Dodson MD [address] [place] [address] Surgery, General 08/24/22 documented as of this encounter
--- OUTSIDE RECORDS SUMMARY | 2025-07-07 19:33 | XMS_ITS | Clinical Summary ---
Author Organization [facility] Address [address] [facility] [address] [place] [address] Phone Care Team Providers Care Cylinder Loader Name Role Phone Natalia Yi MD Primary Care Provide r Natalia Yi MD Unavailable Allergies Active Allergy Reactions Criticality Noted Date Comments Sulfa (Sulfonamide Antibiotics) 05/24 Medications multivitamins capsule Take 1 capsule by mouth daily. Active Active Problems Problem Noted Date Diagnosed Date Malignant neoplasm of right breast 06/10/2015 Family History Medical History Relation Comments Breast cancer Neg Hx Ovarian cancer Neg Hx Social History Tobacco Use Types Packs/Day Years Used Date Smoking Tobacco: Never Smokeless Tobacco: Never Alcohol Use Standard Drinks/Week Comments No 0 (1 standard drink = 0.6 oz pur e alcohol) Education Answer Date Recorded Are you interested in more education? Not on esthela e 11/18/2022 Are you concerned about learning? Not on file 11/18/2022 No 11/18/2022 No 11/18/2022 Digital Access Answer Date Recorded No 12/19/2022 No 12/19/2022 Reliable internet access at home? Not on file 12/19/2022 Device with a working camera? Not on file Comments Unknown Sex and Gender Information Value Date Recorded Sex Assigned at Not on file Legal Sex Female 4:11 PM EST Gender Identity Not on file Sexual Orientation Not on file Last Filed Vital Signs Vital Sign Reading Time Taken Comments Blood Pressure 149/86 06/10/2015 3:07 PM EST Pulse 77 06/10/2015 3:07 PM EST Temperature 36.5 C (97.7 F) 06/10/2015 3:07 PM EST Respiratory Rate - - Oxygen Saturation - - Inhaled Oxygen Concentration - - Weight 71 kg (156 lb 8 oz) 06/10/2015 3:18 PM ES T Height 162.6 cm (5' 4 ) 06/10/2015 3:18 PM EST Body Mass Index 26.86 06/10/2015 3:18 PM EST Plan of Treatment Health Maintenance Due Date Last Done Comments Adult Td,Tdap Booster 1950 LIPID PANEL 1951 DEPRESSION SCREENING 1963 SMOKING Hx and SMOKELESS TOBACCO SCREENING 11/23/1964 HEPATITIS C SCREENING 11/23/1969 PNEUMOCOCCAL VACCINES (50+ years) (1 of 2 - PCV) 11/23/1970 ZOSTER VACCINES (1 of 2) 11/23/1970 COLOGUARD 11/23/1996 COLONOSCOPY 11/23/1996 COLORECTAL CANCER SCREENING 11/23/1996 FIT TEST 11/23/1996 FOBT 11/23/1996 SIGMOIDOSCOPY 11/23/1996 VIRTUAL COLONOSCOPY 11/23/1996 OSTEOPOROSIS SCREENING INITIAL (ONE-TIME) 11/23/2016 MAMMOGRAM 06/10/2017 06/10/2015, 05/24, 06/10/2015, Additional history exists INFLUENZA VACCINE (#1) 2025 COVID-19 VACCINE ( - season) 2025 RSV VACCINE (1 - 1-dose 75+ series) 11/23/2026 HEPATITIS A VACCINES Aged Out No long er eligible based on patient's age to complete this topic HIB VACCINES Aged Out No longer eligi ble based on patient's age to complete this topic MENINGOCOCCAL VACCINES (ACWY) Aged Out No longer eligible based on patient's age to complete this topic MENINGOCOCCAL VACCINES (B) Aged Out N o longer eligible based on patient's age to complete this topic Medical Devices Not on file Procedures Procedure Name Priority Date/Time Associated Diagnosis Comments BI MAMMOGRAM OUTSIDE (NO INTERPRETATION) Routine 06/10/2015 10:45 AM EST from Last 3 Months or Most Recently Relevant to Health Maintenance Results * Mammogram Outside (No Interpretation) (06/10/2015 10:45 AM EST) Narrative KRIS - 06/10/2015 10:40 AM EST This study is for PACS storage only and not for interpretation. us Holly Segundo MD IMG OUTSIDE IMAGING W/ OUT INTERPRETATION Final Result MICHAEL_ELISABETHH from Last 3 Months or Most Recently Relevant to Health Maintenance Insurance [employer] [place] [address] [place] [address] [employer] [facility] [place] [address] [place] [address] [place] [address] [employer] Advance Directives For more information, please contact: [phone] (9AM - 5PM [facility], Monday-Monday) Documents on File Type Date Recorded Patient Rehabilitation Services Counselor Expl [facility] [employer] Proxy 06/10/2015 10:42 AM Care Teams Cylinder Loader Relationship Specialty Start Date End Date Natalia Yi MD [address] [place] [address] PCP - General Internal Medicine 05/26/15 Natalia Yi MD [address] [place] [address] Referring Physician Internal Medicine 11/06/15 Additional Source Comments The information contained in this document represents components of the legal health record. It is not the complete legal health record.[facility]
--- OUTSIDE RECORDS SUMMARY | 2025-07-07 19:33 | XMS_ITS | Encounter Summary ---
Author Organization [facility] Address [address] [place] [address] Care Team Providers Care Ems Educator Name Role Phone Mehdi Nugent MD Unavailable [phone] Yessy Faustin DO Primary Care Provider Olga Dodson MD Unavailable [phone] Yessy Faustin DO Unavailable Yessy Faustin DO Unavailable Encounter Details Date Type Department Care Team (Late st Contact Info) Description 10/31/2024 Scanned Document [facility] at Home [address] [facility] [address]B [place] [phone] Yessy Faustin DO [address] [id number] Social History Tobacco Use Types Packs/Day Years [...] Description 11/10/2025 11:30 AM EDT Office Visit [facility] Department of Cardiology [place] 160 [facility] [address] [place] [address] Onofre Malik PA [address] [place] [address] 11/14/2025 2:00 PM EDT [facility] Department of Internal Medicine [address] 1st [place] [address] Yessy Faustin DO [address] [place] [id number] documented as of this encounter Procedures Procedure Name Priority Date/Time Associated Diagnosis Comments HOME CARE SIGNED ORDERS 10/31/2024 9:41 AM EDT documented in this encounter Results * HOME CARE SIGNED ORDERS (10/31/2024 9:41 AM EDT) Yessy Faustin DO HX AMB PROCEDURES NO RESULTS ROU TING Final Result documented in this encounter Visit Diagnoses Not on filedocumented in this encounter Care Teams Ems Educator Relationship Specialty Start Date End Date Yessy Faustin DO [address] [place], [place] [phone] PCP - General Internal Medicine 08/21/22 Yessy Faustin DO [address] [place], [place] [phone] PCP - Carson [facility] Attributed 01/22/24 02/20/25 Yessy Faustin DO [address] [place] [address] PCP - Carson Strickland MA Attributed 02/21/25 Mehdi Nugent MD [address] [place] [address] Physician Hematology Oncology 06/08/21 Olga Dodson MD [address] [place] [address] Surgery, General 08/24/22 documented as of this encounter
--- OUTSIDE RECORDS SUMMARY | 2025-07-07 19:33 | XMS_ITS | Encounter Summary ---
Author Organization [facility] Address [address] [place] [address] Care Team Providers Care Mechanical Maintenance Instructor Name Role Phone Unavailable Primary Care Provider Unavailabl e Encounter Details Date Type Department Care Team ([facility] Contact Info) Description 10/18/2024 Scanned Document INTERFACE DEFAULT [address] [place] [phone] System, Provider Not In Social History Tobacco [...]
--- OUTSIDE RECORDS SUMMARY | 2025-07-07 19:33 | XMS_ITS | Encounter Summary ---
Author Organization [facility] Address [address] [place] [address] Care Team Providers Care Cytology Technologist Name Role Phone Mehdi Nugent MD Unavailable [phone] Yessy Faustin DO Primary Care Provider [phone] Olga Dodson MD Unavailable [phone] Yessy Faustin DO Unavailable Yessy Faustin DO Unavailable Encounter Details Date Type Department Care Team (Late st Contact Info) Description 11/21/2024 Scanned Document [facility] at Home 12[address] [facility] [address] [place] [address] Provider, Generic Social History Tobacco [...] Office Visit [facility] Department of Cardiology [place] 160 [facility] [address] [place] [address] Onofre Malik PA [address] [place] [address] 11/14/2025 2:00 PM EDT Office Visit [facility] Department of Internal Medicine [address] 1st [place] [address] Yessy Faustin DO [address] [address] documented as of this encounter Visit Diagnoses Not on filedocumented in this encounter Care Teams Cytology Technologist Relationship Specialty Start Date End Date Yessy Faustin DO [address] [place] [address] PCP - General Internal Medicine 08/21/22 Yessy Faustin DO [address] [place] [address] PCP - Carson [facility] ELISHA Attributed 01/22/24 02/20/25 Yessy Faustin DO [address] [place] [address] PCP - Carson Strickland MA Attributed 02/21/25 Mehdi Nugent MD [address] [address] Physician Hematology Oncology 06/08/21 Olga Dodson MD 201 [place] [address] Surgery, General 08/24/22 documented as of this encounter
--- OUTSIDE RECORDS SUMMARY | 2025-07-07 19:33 | XMS_ITS | Encounter Summary ---
Author Organization [facility] Address [address] [place] [address] Care Team Providers Care Unhairing Inspector Name Role Phone Mehdi Nugent MD Unavailable [phone] Yessy Faustin DO Primary Care Provider Olga Dodson MD Unavailable [phone] Yessy Faustin DO Unavailable Yessy Faustin DO Unavailable Encounter Details Date Type Department Care Team (Late st Contact Info) Description 10/03/2024 Scanned Document [facility] at Home 12[address] [facility] [address] [place] [address] Provider, Generic Social History Tobacco [...] Office Visit [facility] Department of Cardiology [place] 160 [facility] [address] [place] [phone] Onofre Malik PA [address] [place] [address] 11/14/2025 2:00 PM EDT Office Visit [facility] Department of Internal Medicine [address] 1st [place] [address] Yessy Faustin DO [address] [address] documented as of this encounter Visit Diagnoses Not on filedocumented in this encounter Care Teams Unhairing Inspector Relationship Specialty Start Date End Date Yessy Faustin DO [address] [place] [address] PCP - General Internal Medicine 08/21/22 Yessy Faustin DO [address] [place] [address] PCP - Carson [facility] ELISHA Attributed 01/22/24 02/20/25 Yessy Faustin DO [address] [place] [address] PCP - Carson Strickland MA Attributed 02/21/25 Mehdi Nugent MD [address] [address] Physician Hematology Oncology 06/08/21 Olga Dodson MD 201 [place] [address] Surgery, General 08/24/22 documented as of this encounter
--- OUTSIDE RECORDS SUMMARY | 2025-07-07 19:33 | XMS_ITS | Encounter Summary ---
Author Organization [facility] Address [address] [place] [address] Care Team Providers Care Accredited Pharmacy Technician Name Role Phone Mehdi Nugent MD Unavailable [phone] Yessy Faustin DO Primary Care Provider Olga Dodson MD Unavailable [phone] Yessy Faustin DO Unavailable Yessy Faustin DO Unavailable Encounter Details Date Type Department Care Team (Late st Contact Info) Description 11/08/2024 Scanned Document [facility] Department of Internal Medicine [address] 1st [place] [address] Yessy Faustin DO [address] [address] Social History Tobacco Use Types [...] Description 11/10/2025 11:30 AM EDT Office Visit [facility] Department of Cardiology [place] [address] [place] [address] Onofre Malik PA [address] [place] [address] 11/14/2025 2:00 PM EDT Office Visit [facility] Department of Internal Medicine [address] 1st [place] [address] Yessy Faustin DO [address] [place] [address] documented as of this encounter Visit Diagnoses Not on filedocumented in this encounter Care Teams Accredited Pharmacy Technician Relationship Specialty Start Date End Date Yessy Faustin DO [address] [place] [address] PCP - General Internal Medicine 08/21/22 Yessy Faustin DO [address] [place] [address] PCP - Carson [facility] Attributed 01/22/24 02/20/25 Yessy Faustin DO [address] [place] [address] PCP - Carson Strickland MA Attributed 02/21/25 Mehdi Nugent MD [address] [address] Physician Hematology Oncology 06/08/21 Olga Dodson MD 201 [place] [address] Surgery, General 08/24/22 documented as of this encounter
--- OUTSIDE RECORDS SUMMARY | 2025-07-07 19:33 | XMS_ITS | Encounter Summary ---
Author Organization [facility] Address [address] [place] [address] Care Team Providers Care Validation Software Facilitator Name Role Phone Mehdi Nugent MD Unavailable [phone] Yessy Faustin DO Primary Care Provider Olga Dodson MD Unavailable [phone] Yessy Faustin DO Unavailable Yessy Faustin DO Unavailable Encounter Details Date Type Department Care Team (Late st Contact Info) Description 10/01/2024 Scanned Document [facility] at Home 1290 [facility] [address] [place] [address] Provider, Generic Social History [...] Office Visit [facility] Department of Cardiology [place] 160 [facility] [address] [place] [address] Onofre Malik PA [address] [place] [address] 11/14/2025 2:00 PM EDT Office Visit [facility] Department of Internal Medicine [address] 1st [place] [address] Yessy Faustin DO [address] [address] documented as of this encounter Visit Diagnoses Not on filedocumented in this encounter Care Teams Validation Software Facilitator Relationship Specialty Start Date End Date Yessy Faustin DO [address] [place] [address] PCP - General Internal Medicine 08/21/22 Yessy Faustin DO [address] [place] [address] PCP - Carson [facility] ELISHA Attributed 01/22/24 02/20/25 Yessy Faustin DO [address] [place] [address] PCP - Carson Strickland MA Attributed 02/21/25 Mehdi Nugent MD [address] [address] Physician Hematology Oncology 06/08/21 Olga Dodson MD 201 [place] [address] Surgery, General 08/24/22 documented as of this encounter
--- OUTSIDE RECORDS SUMMARY | 2025-07-07 19:33 | XMS_ITS | Encounter Summary ---
Author Organization [facility] Address [address] [place] [address] Care Team Providers Care Garbage Stoker Name Role Phone Mehdi Nugent MD Unavailable [phone] Yessy Faustin DO Primary Care Provider Olga Dodson MD Unavailable [phone] Yessy Faustin DO Unavailable Yessy Faustin DO Unavailable Encounter Details Date Type Department Care Team (Late st Contact Info) Description 11/18/2024 Scanned Document [facility] at Home 12[address] [facility] [address]B [place] [address] Provider, Generic Social History Tobacco [...] Office Visit [facility] Department of Cardiology [place] 160 [facility] [address] [place] [address] Onofre Malik PA [address] [place] [address] 11/14/2025 2:00 PM EDT Office Visit [facility] Department of Internal Medicine [address] 1st [place] [address] Yessy Faustin DO [address] [address] documented as of this encounter Visit Diagnoses Not on filedocumented in this encounter Care Teams Garbage Stoker Relationship Specialty Start Date End Date Yessy Faustin DO [address] [place] [address] PCP - General Internal Medicine 08/21/22 Yessy Faustin DO [address] [place] [address] PCP - Carson [facility] ELISHA Attributed 01/22/24 02/20/25 Yessy Faustin DO [address] [place] [address] PCP - Carson Strickland MA Attributed 02/21/25 Mehdi Nugent MD [address] [address] Physician Hematology Oncology 06/08/21 Olga Dodson MD 201 [place] [address] Surgery, General 08/24/22 documented as of this encounter
--- OUTSIDE RECORDS SUMMARY | 2025-07-07 19:33 | XMS_ITS | Encounter Summary ---
Author Organization [facility] Address [address] [place] [address] Care Team Providers Care Computer Terminal Operator Name Role Phone Mehdi Nugent MD Unavailable [phone] Yessy Faustin DO Primary Care Provider Olga Dodson MD Unavailable [phone] Yessy Faustin DO Unavailable Yessy Faustin DO Unavailable Encounter Details Date Type Department Care Team (Late st Contact Info) Description 10/04/2024 Scanned Document [facility] at Home 1290 [facility] [address]B [place] [address] Provider, Generic Social History Tobacco [...] Office Visit [facility] Department of Cardiology [place] 160 [facility] [address] [place] [address] Onofre Malik PA [address] [place] [address] 11/14/2025 2:00 PM EDT Office Visit [facility] Department of Internal Medicine [address] 1st [place] [address] Yessy Faustin DO [address] [address] documented as of this encounter Visit Diagnoses Not on filedocumented in this encounter Care Teams Computer Terminal Operator Relationship Specialty Start Date End Date Yessy Faustin DO [address] [place] [address] PCP - General Internal Medicine 08/21/22 Yessy Faustin DO [address] [place] [address] PCP - Carson [facility] ELISHA Attributed 01/22/24 02/20/25 Yessy Faustin DO [address] [place] [address] PCP - Carson Strickland MA Attributed 02/21/25 Mehdi Nugent MD [address] [address] Physician Hematology Oncology 06/08/21 Olga Dodson MD 201 [place] [address] Surgery, General 08/24/22 documented as of this encounter
--- OUTSIDE RECORDS SUMMARY | 2025-07-07 19:33 | XMS_ITS | Encounter Summary ---
Author Organization [facility] Address [address] [place] [address] Care Team Providers Care Vtc Technician Name Role Phone Mehdi Nugent MD Unavailable [phone] Yessy Faustin DO Primary Care Provider Olga Dodson MD Unavailable [phone] Yessy Faustin DO Unavailable Yessy Faustin DO Unavailable Encounter Details Date Type Department Care Team (Late st Contact Info) Description 11/16/2024 Scanned Document [facility] at Home 12[address] [facility] [address] [place] [address] Provider, Generic Social History Tobacco [...] Office Visit [facility] Department of Cardiology [place] 160 [facility] [address] [place] [address] Onofre Malik PA [address] [place] [address] 11/14/2025 2:00 PM EDT Office Visit [facility] Department of Internal Medicine [address] 1st [place] [address] Yessy Faustin DO [address] [address] documented as of this encounter Visit Diagnoses Not on filedocumented in this encounter Care Teams Vtc Technician Relationship Specialty Start Date End Date Yessy Faustin DO [address] [place] [address] PCP - General Internal Medicine 08/21/22 Yessy Faustin DO [address] [place] [address] PCP - Carson [facility] ELISHA Attributed 01/22/24 02/20/25 Yessy Faustin DO [address] [place] [address] PCP - Carson Strickland MA Attributed 02/21/25 Mehdi Nugent MD [address] [address] Physician Hematology Oncology 06/08/21 Olga Dodson MD 201 [place] [address] Surgery, General 08/24/22 documented as of this encounter
--- OUTSIDE RECORDS SUMMARY | 2025-07-07 19:33 | XMS_ITS | Encounter Summary ---
Author Organization [facility] Address [address] [place] [address] Care Team Providers Care Pressing Machine Operator Name Role Phone Mehdi Nugent MD Unavailable [phone] Yessy Faustin DO Primary Care Provider [phone] Olga Dodson MD Unavailable [phone] Yessy Faustin DO Unavailable Yessy Faustin DO Unavailable Encounter Details Date Type Department Care Team (Late st Contact Info) Description 11/20/[address] [facility] at Home 1290 [facility] [address] [place] [address] Provider, Generic Social History Tobacco [...] Office Visit [facility] Department of Cardiology [place] 160 [facility] [address] [place] [address] Onofre Malik PA [address] [place] [address] 11/14/2025 2:00 PM EDT Office Visit [facility] Department of Internal Medicine [address] 1st [place] [address] Yessy Faustin DO [address] [address] documented as of this encounter Visit Diagnoses Not on filedocumented in this encounter Care Teams Pressing Machine Operator Relationship Specialty Start Date End Date Yessy Faustin DO [address] [place] [address] PCP - General Internal Medicine 08/21/22 Yessy Faustin DO [address] [place] [address] PCP - Carson [facility] ELISHA Attributed 01/22/24 02/20/25 Yessy Faustin DO [address] [place] [address] PCP - Carson Strickland MA Attributed 02/21/25 Mehdi Nugent MD [address] [address] Physician Hematology Oncology 06/08/21 Olga Dodson MD 201 [place] [address] Surgery, General 08/24/22 documented as of this encounter
--- OUTSIDE RECORDS SUMMARY | 2025-07-07 19:33 | XMS_ITS | Encounter Summary ---
Author Organization [facility] Address [address] [place] [address] Care Team Providers Care Biofuels Engineering Manager Name Role Phone Mehdi Nugent MD Unavailable [phone] Yessy Faustin DO Primary Care Provider Olga Dodson MD Unavailable [phone] Yessy Faustin DO Unavailable Yessy Faustin DO Unavailable Encounter Details Date Type Department Care Team (Late st Contact Info) Description 11/06/2024 Scanned Document [facility] Department of Internal Medicine [address] 1st [place] [address] Yessy Faustin DO [address] [address] Social History Tobacco Use Types [...] 11:30 AM EDT Office Visit [facility] Department of Cardiology [place] [address] [place] [address] Onofre Malik PA 289 [place] [address] 11/14/2025 2:00 PM EDT Office Visit [facility] Department of Internal Medicine [address] 1st [place] [address] Yessy Faustin DO [address] [place] [address] documented as of this encounter Visit Diagnoses Not on filedocumented in this encounter Care Teams Biofuels Engineering Manager Relationship Specialty Start Date End Date Yessy Faustin DO [address] [place] [address] PCP - General Internal Medicine 08/21/22 Yessy Faustin DO [address] [place] [address] PCP - [facility] TELLO Attributed 01/22/24 02/20/25 Yessy Faustin DO [address] [place] [address] PCP - [facility] Strickland MA Attributed 02/21/25 Mehdi Nugent MD [address] [address] Physician Hematology Oncology 06/08/21 Olga Dodson MD 201 [place] [address] Surgery, General 08/24/22 documented as of this encounter
--- OUTSIDE RECORDS SUMMARY | 2025-07-07 19:33 | XMS_ITS | Encounter Summary ---
Author Organization [facility] Address [address] [place] [address] Care Team Providers Care Pmo Lead Name Role Phone Mehdi Nugent MD Unavailable [phone] Yessy Faustin DO Primary Care Provider Olga Dodson MD Unavailable [phone] Yessy Faustin DO Unavailable Yessy Faustin DO Unavailable Encounter Details Date Type Department Care Team (Late st Contact Info) Description 11/26/2024 Scanned Document [facility] at [facility] 1290 [facility] 4B [place] [phone] Yessy Faustin DO [address] [address] Social History Tobacco Use Types [...] Description 11/10/2025 11:30 AM EDT Office Visit [facility] Department of Cardiology [place] 160 [facility] [address] [place] [address] Onofre Malik PA 289 [place] [address] 11/14/2025 2:00 PM EDT Office Visit [facility] Department of Internal Medicine [address] 1st [place] [address] Yessy Faustin DO 18 [place] [address] documented as of this encounter Procedures Procedure Name Priority Date/Time Associated Diagnosis Comments HOME CARE SIGNED ORDERS 11/26/2024 3:12 PM EDT HOME CARE SIGNED ORDERS 11/26/2024 3:12 PM EDT documented in this encounter Results * HOME CARE SIGNED ORDERS (11/26/2024 3:12 PM EDT) us Yessy Faustin DO HX AMB PROCEDURES NO RESULTS ROU TING Final Result * HOME CARE SIGNED ORDERS (11/26/2024 3:12 PM EDT) us Yessy Faustin DO HX AMB PROCEDURES NO RESULTS ROU TING Final Result documented in this encounter Visit Diagnoses Not on filedocumented in this encounter Care Teams Pmo Lead Relationship Specialty Start Date End Date Yessy Faustin DO [address] [place], [place] [phone] PCP - General Internal Medicine 08/21/22 Yessy Faustin DO [address] [place] [address] PCP - Carson [facility] MA Attributed 01/22/24 02/20/25 Yessy Faustin DO [address] [place], [place] [address] PCP - [facility] Strickland MA Attributed 02/21/25 Mehdi Nugent MD 183 [place] [address] Physician Hematology Oncology 06/08/21 Olga Dodson MD 201 [place] [address] Surgery, General 08/24/22 documented as of this encounter
--- OUTSIDE RECORDS SUMMARY | 2025-07-07 19:33 | XMS_ITS | Encounter Summary ---
Author Organization [facility] Address [address] [place] [address] Care Team Providers Care Pick Pulling Machine Tender Name Role Phone Mehdi Nugent MD Unavailable [phone] Yessy Faustin DO Primary Care Provider [phone] Olga Dodson MD Unavailable [phone] Yessy Faustin DO Unavailable Yessy Faustin DO Unavailable Encounter Details Date Type Department Care Team (Late st Contact Info) Description 10/25/2024 Scanned Document [facility] 1290 [facility] 4B [place] [phone] Yessy Faustin DO [address] [id number] Social History Tobacco Use Types Packs/Day Years [...] Description 11/10/2025 11:30 AM EDT Office Visit [facility] Department of Cardiology [place] 160 [facility] [address] [place] [address] Onofre Malik PA 289 [place] [address] 11/14/2025 2:00 PM EDT Office Visit [facility] Department of Internal Medicine [address] 1st [place] [address] Yessy Faustin DO 18 [place] [address] documented as of this encounter Procedures Procedure Name Priority Date/Time Associated Diagnosis Comments HOME CARE SIGNED ORDERS 10/25/2024 5:06 PM EDT documented in this encounter Results * HOME CARE SIGNED ORDERS (10/25/2024 5:06 PM EDT) Yessy Faustin DO HX AMB PROCEDURES NO RESULTS ROU TING Final Result documented in this encounter Visit Diagnoses Not on filedocumented in this encounter Care Teams Pick Pulling Machine Tender Relationship Specialty Start Date End Date Yessy Faustin DO [address] [place], [place] [phone] PCP - General Internal Medicine 08/21/22 Yessy Faustin DO [address] [place], [place] [phone] PCP - Carson Mark TELLO Attributed 01/22/24 02/20/25 Yessy Faustin DO [address] [place] [address] PCP - Carson Strickland MA Attributed 02/21/25 Mehdi Nugent MD [address] [place] [address] Physician Hematology Oncology 06/08/21 Olga Dodson MD [address] [place] [address] Surgery, General 08/24/22 documented as of this encounter
--- OUTSIDE RECORDS SUMMARY | 2025-07-07 19:33 | XMS_ITS | Encounter Summary ---
Author Organization [facility] Address [address] [place] [address] Care Team Providers Care Criminal Lawyer Name Role Phone Mehdi Nugent MD Unavailable [phone] Yessy Faustin DO Primary Care Provider Olga Dodson MD Unavailable [phone] Yessy Faustin DO Unavailable Yessy Faustin DO Unavailable Encounter Details Date Type Department Care Team (Late st Contact Info) Description 10/31/2024 External Communication [facility] at Home 1290 [facility] 4B [place] [phone] Yessy Faustin DO [address] [phone] Social History Tobacco Use Types Packs/Day Years [...] Description 11/10/2025 11:30 AM EDT Office Visit [facility] Department of Cardiology [place] 160 [facility] [address] [place] [address] Onofre Malik PA 289 [place] [address] 11/14/2025 2:00 PM EDT Office Visit [facility] Department of Internal Medicine [address] 1st [place] [address] Yessy Faustin DO [address] [place] [address] documented as of this encounter Visit Diagnoses Not on filedocumented in this encounter Care Teams Criminal Lawyer Relationship Specialty Start Date End Date Yessy Faustin DO [address] [place] [address] PCP - General Internal Medicine 08/21/22 Yessy Faustin DO [address] [place] [address] PCP - Carson Mark TELLO Attributed 01/22/24 02/20/25 Yessy Faustin DO [address] [place] [address] PCP - Carson Strickland MA Attributed 02/21/25 Mehdi Nugent MD [address] [address] Physician Hematology Oncology 06/08/21 Olga Dodson MD 201 [place] [address] Surgery, General 08/24/22 documented as of this encounter
--- OUTSIDE RECORDS SUMMARY | 2025-07-07 19:33 | XMS_ITS | Encounter Summary ---
Author Organization [facility] Address 100 [place] [address] Care Team Providers Care Vice President And Portfolio Manager Name Role Phone Mehid Nugent MD Unavailable [phone] Yessy Faustin DO Primary Care Provider Olga Dodson MD Unavailable [phone] Yessy Faustin DO Unavailable Yessy Faustin DO Unavailable Encounter Details Date Type Department Care Team (Late st Contact Info) Description 11/19/2024 Scanned Document [facility] at Home 1290 [facility] 4B [place] [address] Provider, Generic Social History Tobacco [...] Office Visit [facility] Department of Cardiology [place] 160 [facility] [address] [place] [address] Onofre Malik PA [address] [place] [address] 11/14/2025 2:00 PM EDT Office Visit [facility] Department of Internal Medicine [address] 1st [place] [address] Yessy Faustin DO [address] [address] documented as of this encounter Visit Diagnoses Not on filedocumented in this encounter Care Teams Vice President And Portfolio Manager Relationship Specialty Start Date End Date Yessy Faustin DO [address] [place] [address] PCP - General Internal Medicine 08/21/22 Yessy Faustin DO [address] [place] [address] PCP - Carson [facility] EL[facility]HA Attributed 01/22/24 02/20/25 Yessy Faustin DO [address] [place] [address] PCP - Carson Strickland MA Attributed 02/21/25 Mehdi Nugent MD [address] [address] Physician Hematology Oncology 06/08/21 Olga Dodson MD 201 [place] [address] Surgery, General 08/24/22 documented as of this encounter
--- OUTSIDE RECORDS SUMMARY | 2025-07-07 19:33 | XMS_ITS | Encounter Summary ---
Author Organization [facility] Address 100 [place] [address] Care Team Providers Care Manager Home Improvement Name Role Phone Mehdi Nugent MD Unavailable [phone] Yessy Faustin DO Primary Care Provider Olga Dodson MD Unavailable [phone] Yessy Faustin DO Unavailable Yessy Faustin DO Unavailable Encounter Details Date Type Department Care Team (Late st Contact Info) Description 11/01/2024 Scanned Document [facility] 1290 [facility] 4B [place] [address] Provider, Generic Social History Tobacco [...] Office Visit [facility] Department of Cardiology [place] 160 [facility] [address] [place] [address] Onofre Malik PA [address] [place] [address] 11/14/2025 2:00 PM EDT Office Visit [facility] Department of Internal Medicine [address] 1st [place] [address] Yessy Faustin DO [address] [address] documented as of this encounter Visit Diagnoses Not on filedocumented in this encounter Care Teams Manager Home Improvement Relationship Specialty Start Date End Date Yessy Faustin DO [address] [place] [address] PCP - General Internal Medicine 08/21/22 Yessy Faustin DO [address] [place] [address] PCP - Carson [facility] ELISHA Attributed 01/22/24 02/20/25 Yessy Faustin DO [address] [place] [address] PCP - Carson Strickland MA Attributed 02/21/25 Mehdi Nugent MD [address] [address] Physician Hematology Oncology 06/08/21 Olga Dodson MD 201 [place] [address] Surgery, General 08/24/22 documented as of this encounter
--- OUTSIDE RECORDS SUMMARY | 2025-07-07 19:33 | XMS_ITS | Encounter Summary ---
Author Organization [facility] Address [address] [place] [address] Care Team Providers Care Stockroom Supervisor Name Role Phone Mehdi Nugent MD Unavailable [phone] Yessy Faustin DO Primary Care Provider Olga Dodson MD Unavailable [phone] Yessy Faustin DO Unavailable Yessy Faustin DO Unavailable Encounter Details Date Type Department Care Team (Late st Contact Info) Description 10/04/2024 Scanned Document [facility] at Home 1290 [facility] 4B [place] [address] Yessy Faustin DO [address] [address] Social History Tobacco Use Types [...] Description 11/10/2025 11:30 AM EDT Office Visit [facility] Department of Cardiology [place] 160 [facility] [address] [place] [address] Onofre Malik PA 289 [place] [address] 11/14/2025 2:00 PM EDT Office Visit [facility] Department of Internal Medicine [address] 1st [place] [address] Yessy Faustin DO 18 [place] [phone] documented as of this encounter Procedures Procedure Name Priority Date/Time Associated Diagnosis Comments HOME CARE SIGNED ORDERS 10/04/2024 8:02 AM EDT documented in this encounter Results * HOME CARE SIGNED ORDERS (10/04/2024 8:02 AM EDT) Yessy Faustin DO HX AMB PROCEDURES NO RESULTS ROU TING Final Result documented in this encounter Visit Diagnoses Not on filedocumented in this encounter Care Teams Stockroom Supervisor Relationship Specialty Start Date End Date Yessy Faustin DO [address] [place], [place] [phone] PCP - General Internal Medicine 08/21/22 Yessy Faustin DO [address] [place], [place] [phone] PCP - Carson Mark TELLO Attributed 01/22/24 02/20/25 Yessy Faustin DO [address] [place] [address] PCP - Carson Strickland MA Attributed 02/21/25 Mehdi Nugent MD [address] [place] [address] Physician Hematology Oncology 06/08/21 Olga Dodson MD [address] [place] [address] Surgery, General 08/24/22 documented as of this encounter
--- OUTSIDE RECORDS SUMMARY | 2025-07-07 19:33 | XMS_ITS | Encounter Summary ---
Author Organization [facility] Address [address] [place] [address] Care Team Providers Care Bead Wire Taper Name Role Phone Unavailable Primary Care Provider Unavailabl e Encounter Details Date Type Department Care Team ([facility] Contact Info) Description 11/01/2024 Scanned Document INTERFACE DEFAULT [address] [place] [phone] System, Provider Not In Social History Tobacco [...]
--- OUTSIDE RECORDS SUMMARY | 2025-07-07 19:33 | XMS_ITS | Encounter Summary ---
Author Organization [facility] Address [address] [place] [address] Care Team Providers Care Plan Checker Name Role Phone Unavailable Primary Care Provider Unavailabl e Encounter Details Date Type Department Care Team ([facility] Contact Info) Description 10/22/2024 Scanned Document INTERFACE DEFAULT [address] [place] [id number] System, Provider Not In Social History Tobacco [...]
--- OUTSIDE RECORDS SUMMARY | 2025-07-07 19:33 | XMS_ITS | Encounter Summary ---
Author Organization [facility] Address [address] [place] [address] Care Team Providers Care Tube Turner Name Role Phone Mehdi Nugent MD Unavailable [phone] Yessy Faustin DO Primary Care Provider Olga Dodson MD Unavailable [phone] Yessy Faustin DO Unavailable Yessy Faustin DO Unavailable Encounter Details Date Type Department Care Team (Late st Contact Info) Description 11/13/2024 Scanned Document [facility] 1290 [facility] 4[address] [place] [phone] Yessy Faustin DO [address] [phone] Social History Tobacco Use Types Packs/Day Years [...] [facility] Department of Cardiology [place] 160 [facility] [address] [place] [address] Onofre Malik PA 289 [place] [address] 11/14/2025 2:00 PM EDT Office Visit [facility] Department of Internal Medicine [address] 1st [place] [address] Yessy Faustin DO 18 [place] [address] documented as of this encounter Procedures Procedure Name Priority Date/Time Associated Diagnosis Comments HOME CARE SIGNED ORDERS 11/13/2024 2:49 PM EDT documented in this encounter Results * HOME CARE SIGNED ORDERS (11/13/2024 2:49 PM EDT) Yessy Faustin DO HX AMB PROCEDURES NO RESULTS ROU TING Final Result documented in this encounter Visit Diagnoses Not on filedocumented in this encounter Care Teams Tube Turner Relationship Specialty Start Date End Date Yessy Faustin DO [address] [place], [place] [phone] PCP - General Internal Medicine 08/21/22 Yessy Faustin DO [address] [place], [place] [phone] PCP - Carson Mark TELLO Attributed 01/22/24 02/20/25 Yessy Faustin DO [address] [place] [address] PCP - Carson Strickland MA Attributed 02/21/25 Mehdi Nugent MD [address] [place] [address] Physician Hematology Oncology 06/08/21 Olga Dodson MD [address] [place] [address] Surgery, General 08/24/22 documented as of this encounter
--- OUTSIDE RECORDS SUMMARY | 2025-07-07 19:33 | XMS_ITS | Clinical Summary ---
Author Organization [facility] Address [address] [place] [id number] Care Team Providers Care Volunteer Recruitment Coordinator Name Role Phone Mehdi Nugent MD Unavailable [phone] Yessy Faustin DO Primary Care Provider Olga Dodson MD Unavailable [phone] Yessy Faustin DO Unavailable Allergies Active Allergy Reactions Criticality Noted Date Comments Chlorthalidone Myalgia/Myositis/Art hralgia/Arthritis Low 07/03/2024 Lisinopril Cough Low 07/03/2024 Losartan Potassium-Hctz Myalgia/Myositis /Art hralgia/Arthritis Low 07/03/2024 Sulfa Antibiotics Hives Medium 05/04/2021 Its been several years Medications letrozole (FEMARA) 2.5 MG tabletIndication s:Malignant neoplasm of right breast in female, estrogen receptor positive, unspecified site of breast (HCC) Take 1 tablet (2.5 mg total) by mouth daily 90 tablet 3 2 Active oxyCODONE (OXY-IR) 5 MG capsule Take 5 mg by mouth every 4 (four) hours as needed. 5 Active dexAMETHasone (DECADRON) 4 MG tablet Please see attached for detailed directions 5 Active morphine (MS CONTIN) 15 MG ER (extended release) tablet 1 tablet by Mouth/Oral Cavity route every 12 hours. 5 Active traZODone (DESYREL) 50 MG tablet Take 25-50 mg by mouth. 5 Active ribociclib (KISQALI) 200 mg tablet Take 200 mg by mouth 5 Active torsemide (DEMADEX) 20 MG tabletIndication s:Localized edema Take 1 tablet (20 mg total) by mouth daily. 90 tablet 3 Active metoPROLOL SUCCINATE (TOPROL-XL) 50 MG 24 hr tabletIndication s:Hypertension, unspecified type Take 1 tablet (50 mg total) by mouth daily. 90 tablet 1 5 Active Active Problems Problem Noted Date Diagnosed Date Malignant neoplasm metastatic to bone 11/10/2024 Statin intolerance 11/10/2024 Compression fracture of L5 vertebra with routine healing 11/10/2024 Lumbar radiculopathy 09/04/2024 Atherosclerosis of aorta 05/05/2024 Mixed hyperlipidemia 05/05/2024 Hyponatremia 04/03/2023 SIADH (syndrome of inappropriate ADH production) 03/07/2023 Carpal tunnel syndrome 10/03/2022 HTN (hypertension) 10/03/2022 Nonrheumatic aortic valve stenosis 10/03/2022 Regional lymph node metastasis present Invasive lobular carcinoma of breast in female 0 09/14/2022 Resolved Problems Problem Noted Date Diagnosed Date Resolved Date Medicare annual wellness visit, subsequent 11/10/2024 12/09/2024 BMI 29.0-29.9,adult 11/10/2024 05/15/20 Compression fracture of L5 v ertebra with routine healing 11/10/2024 05/15/2025 Compression fracture of L5 v ertebra with routine healing 11/10/2024 05/15/2025 Compression fracture of L5 v ertebra with routine healing 11/10/2024 05/15/2025 Compression fracture of L5 v ertebra with routine healing 11/10/2024 05/15/2025 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 09/25/2024 09/25/2024 Hospital discharge follow-up 09/25/2024 05/15/2025 Acute cystitis without hematuria 10/05/2023 05/15/2025 UTI symptoms 10/05/2023 09/25/2024 Medicare annual wellness visit, subsequent 10/05/2023 11/06/2023 BMI 34.0-34.9,adult 10/05/2023 09/26/19 Chest pain 10/19/2022 09/25/2024 Right knee pain 10/03/2022 09/25/2024 Malignant neoplasm of right breast 06/10/2015 05/15/2025 Encounters Date Type Department Care Team Description 06/10/2025 Scanned Document [facility] Department of Internal Medicine [address] 1[address] [place] [address] Yessy Faustin DO 05/12/2025 2:45 PM EDT Office Visit [facility] [address] [place] [address] Yessy Faustin, Invasive lobular carcinoma of breast in female (HCC) (Primary Dx); Nonrheumatic aortic valve stenosis; Primary hypertension; Hyponatremia; Mixed hyperlipidemia; Atherosclerosis of aorta; Statin intolerance; Compression fracture of L5 vertebra with routine healing 05/12/2025 11:00 AM EDT Office Visit [facility] Department of Cardiology [place] [address] [place] [phone] Onofre Malik PA Lymphedema (Primary Dx); Aortic valve stenosis, etiology of cardiac valve disease unspecified; Aortic valve insufficiency, etiology of cardiac valve disease unspecified from Last 3 Months Immunizations Immunization Administration Dates Next Due DTaP 07/24/2014 Pneumococcal Conjugate 13-Valent 07/24/2016 Pneumococcal Polysaccharide 23-Valent 07/24/2018 Zoster Vaccine Live/Attenuated (Zostavax) 2014 Family History Medical History Relation Name Comments No Known Problems Brother No Known Problems Daughter No Known Problems Father No Known Problems Maternal Aunt No Known Problems Maternal Grandfather No Known Problems Maternal Grandmother No Known Problems Maternal Uncle Heart disease Mother No Known Problems Paternal Aunt No Known Problems Paternal Grandfather No Known Problems Paternal Grandmother No Known Problems Paternal Uncle No Known Problems Sister No Known Problems Son Relation Name Status Comments Brother Daughter Father Maternal Aunt Maternal Grandfather Maternal Grandmother Maternal Uncle Mother Paternal Aunt Paternal Grandfather Paternal Grandmother Paternal Uncle Sister Son Social History Tobacco Use Types Packs/Day Years Used Date Smoking Tobacco: Never Smokeless Tobacco: Never Tobacco Cessation:Counseling Given: Not Answered Alcohol Use Standard Drinks/Week Comments Never 0 (1 standard drink = 0.6 oz pur e alcohol) Comments No Sex and Gender Information Value Date Recorded Sex Assigned at Female 08/21/2022 1:23 PM EST Legal Sex Female 12:24 AM EDT Gender Identity Female 08/21/2022 1:23 PM EST Sexual Orientation Choose not to disclose 2022 1:23 PM EST Last Filed Vital Signs Vital Sign Reading Time Taken Comments Blood Pressure 120/70 05/12/2025 3:07 PM EDT Pulse 70 05/12/2025 2:51 PM EDT Temperature 36.3 C (97.3 F) 05/12/2025 2:51 PM EDT Respiratory Rate 18 03/29/2023 12:50 PM EDT Oxygen Saturation 98% 05/12/2025 11:14 AM EDT Inhaled Oxygen Concentration - - Weight 82.6 kg (182 lb) 05/12/2025 2:51 PM EDT Height 154.9 cm (5' 1 ) 03/19/2025 8:16 AM EDT Body Mass Index 34.39 03/19/2025 8:16 AM EDT Plan of Treatment Upcoming Encounters Date Type Department Care Team (Late st Contact Info) Description 11/10/2025 11:30 AM EDT Office Visit [facility] Department of Cardiology [place] [address] [place] [address] Onofre Malik PA [address] [place] [address] 11/14/2025 2:00 PM EDT Office Visit [facility] Department of Internal Medicine [place] [address]st [place] [phone] Yessy Faustin DO 18 [facility] 1 [place] [address] Health Maintenance Due Date Last Done Comments Advance Care Planning 1950 COVID-19 Vaccine (#1) 05/26/1952 Chronic Controlled Substance Toxicology Screening 11/23/1969 Controlled Substance Agreement Initial and Annual Review 11/23/1969 Colonoscopy 11/23/1996 RSV Vaccine 50 years and older and Patients (1 - Risk 50-74 years 1-dose series) 11/23/2001 Zoster (Shingles) Vaccine (1 of 2) 09/18/2014 07/24/2014 Mammogram 05/07/2023 05/07/2021, 04/23, 05/06/2021, Additional history exists DTaP/Tdap/Td Vaccines (2 - Tdap) 07/24/2024 07/24/2014 DXA Bone Density (Females,Ages 65 and older) 11/17/2024 11/17/2022 Influenza Vaccine 02/21/2025 Chronic Controlled Substance User PDMP Review 08/10/2025 05/12/2025, 01/31/2025, 01/05/2025 Pneumococcal Vaccines 50+ Completed 07/24/2018, 07/2016 Hepatitis C Virus Screening Completed 09/17/2024 Hepatitis B Vaccines Aged Out No long er eligible based on patient's age to complete this topic Procedures Procedure Name Priority Date/Time Associated Diagnosis Comments ECHOCARDIOGRAM (TTE) COMPREHENSIVE (CONTRAST PRN) Routine 04/15/2025 9:45 AM EDT Localized edema DEXA BONE DENSITY AXIAL SKELETON, 1 OR MORE SITES Routine 11/17/2022 5:26 PM EDT Screening for osteoporosis MM MAMMO DIAGNOSTIC W/ TOMOSYNTHESIS-BILATERA L Routine 05/07/2021 1:53 PM EDT Lump or mass in breast Personal history of malignant neoplasm of breast from Last 3 Months or Most Recently Relevant to Health Maintenance Results * ECHOCARDIOGRAM COMPREHENSIVE (04/15/2025 9:45 AM EDT) Anatomical Region Laterality Modality Heart Ultrasound 04/15/2025 4:26 PM EDT Narrative 04/15/2025 4:26 PM EDT To view the final report click the scan hyperlink below. Procedure Note Zora Crum MD - 04/15/2025 To view the final report click the scan hyperlink below. us Zora Crum MD CV ECHO ORDERABLES Final Resul t * DEXA Bone Density axial skeleton, 1 or more sites (11/17/2022 5:26 PM EDT) Anatomical Region Laterality Modality Digital Radiogra phy 11/16/2022 3:00 PM EDT 11/16/2022 3:00 PM EDT Impressions 11/17/2022 5:26 PM EDT 1. DIAGNOSIS: Osteopenia based on the lowest T-score value of -1.1 in the femoral neck applying World Health Organization criteria. 2. 10-YEAR FRACTURE RISK PREDICTION, FRAX: Major osteoporotic fracture (clinical spine, forearm, hip or shoulder) 8.7%. Hip fracture 1.0%. 3. Treatment Recommendations: NOF guidelines recommend consideration for treatment in postmenopausal women and men age 50 and older presenting with the following: -A hip or vertebral (clinical or morphometric) fracture. -T-score less than or equal to -2.5 at the femoral neck or spine after appropriate evaluation to exclude secondary causes. -Low bone mass at the hip or spine and a 10-year fracture probability by FRAX of greater than or equal to 3% for hip fracture or greater than or equal to 20% for major osteoporotic fracture based on the [place] adapted WHO algorithm. 4. Other Recommendations: All treatment decisions require clinical judgment and consideration of individual patient factors, including patient preferences, comorbidities, previous drug use, risk factors not captured in the FRAX model (e.g. frailty, falls, vitamin D deficiency, increased bone turnover, interval significant decline in bone density) and possible under or overestimation of fracture risk by FRAX. Additional medical evaluation for secondary cause of low bone mineral density may be appropriate. FUTURE SCAN RECOMMENDATION: People with diagnosed cases of osteoporosis or at high risk for fracture should have regular bone mineral density tests. For patients eligible for Medicare, routine testing is allowed once every 2 years. The testing frequency can be increased to one year for patients who have rapidly progressing disease, those who are receiving or discontinuing medical therapy to restore bone mass, or have additional risk factors. Thank you for referring your patient to us, Kelle Jessica MD [phone] (Electronically Signed - 11/17/2022 17:26) Narrative 11/17/2022 5:26 PM EDT EXAMINATION: BONE DENSITOMETRY CLINICAL INDICATION: Encounter for screening for osteoporosis. COMPARISON: This is the patients baseline examination. TECHNIQUE: Using a [employer] Advance DXA system (software version: 14.10) manufactured by [employer], dual-energy x-ray absorptiometry was performed of the lumbar spine and left hip. The images are of good technical quality. Summary results are attached. FINDINGS: AP SPINE L1-L2 (excluding L3 and L4): The data of L1-L4 has been changed to exclude the L3 and L4 vertebral bodies, because significant degenerative change at these levels may cause overestimation of lumbar spine density. BMD 1.245 g/cm2, Z-score 2.3, T-score 0.6, normal. LEFT FEMUR, NECK: BMD 0.882 g/cm2, Z-score 0.6, T-score -1.1, osteopenia. LEFT FEMUR, TOTAL: BMD 1.072 g/cm2, Z-score 2.0, T-score 0.5, normal. IDENTIFIED RISK FACTORS: Early menopause, height loss, low calcium intake, secondary osteoporosis. HISTORY OF FRACTURE: None listed. MEDICATIONS: Calcium supplements or multivitamin, vitamin D. Procedure Note Kelle Jessica MD - 11/17/2022 EXAMINATION: BONE DENSITOMETRY CLINICAL INDICATION: Encounter for screening for osteoporosis. COMPARISON: This is the patients baseline examination. TECHNIQUE: Using a [employer] DXA system (software version:14.10) manufactured by [employer], dual-energy x-ray absorptiometrywas performed of the lumbar spine and left hip. The images are of goodtechnical quality. Summary results are attached. FINDINGS: AP SPINE L1-L2 (excluding L3 and L4): The data of L1-L4 has been changedto exclude the L3 and L4 vertebral bodies, because significant degenerative change at these levels may cause overestimation of lumbar spine density. BMD 1.245 g/cm2, Z-score 2.3, T-score 0.6, normal. LEFT FEMUR, NECK: BMD 0.882 g/cm2, Z-score 0.6, T-score -1.1, osteopenia. LEFT FEMUR, TOTAL: BMD 1.072 g/cm2, Z-score 2.0, T-score 0.5, normal. IDENTIFIED RISK FACTORS: Early menopause, height loss, low calcium intake, secondary osteoporosis. HISTORY OF FRACTURE: None listed. MEDICATIONS: Calcium supplements or multivitamin, vitamin D. IMPRESSION: 1. DIAGNOSIS: Osteopenia based on the lowest T-score value of -1.1 inthe femoral neck applying World Health Organization criteria. 2. 10-YEAR FRACTURE RISK PREDICTION, FRAX: Major osteoporotic fracture (clinical spine, forearm, hip or shoulder) 8.7%. Hip fracture 1.0%. 3. Treatment Recommendations: NOF guidelines recommend consideration for treatment in postmenopausal women and men age 50 and older presenting withthe following: -A hip or vertebral (clinical or morphometric) fracture. -T-score less than or equal to -2.5 at the femoral neck or spine after appropriate evaluation to exclude secondary causes. -Low bone mass at the hip or spine and a 10-year fracture probability byFRAX of greater than or equal to 3% for hip fracture or greater than or equalto 20% for major osteoporotic fracture based on the [place] adapted WHOalgorithm. 4. Other Recommendations: All treatment decisions require clinicaljudgment and consideration of individual patient factors, including patient preferences, comorbidities, previous drug use, risk factors not capturedin the FRAX model (e.g. frailty, falls, vitamin D deficiency, increasedbone turnover, interval significant decline in bone density) and possible underor overestimation of fracture risk by FRAX. Additional medical evaluationfor secondary cause of low bone mineral density may be appropriate. FUTURE SCAN RECOMMENDATION: People with diagnosed cases of osteoporosis or at high risk for fracture should have regular bone mineral density tests. For patients eligiblefor Medicare, routine testing is allowed once every 2 years. The testingfrequency can be increased to one year for patients who have rapidly progressing disease, those who are receiving or discontinuing medical therapy torestore bone mass, or have additional risk factors. Thank you for referring your patient to us, Kelle Jessica MD [phone] (Electronically Signed - 11/17/2022 17:26) us Yessy Faustin DO G DXA ORDERABLES Final Result * (ABNORMAL) MM Breast w/ tomosynthesis diagnostic-Bilateral (05/07/2021 1:53 PM EDT) Anatomical Region Laterality Modality Breast Bilateral Mammography 05/07/2021 2:55 PM EDT Addenda Addendum by Steve Mcbride MD on 05/07/2021 4:28 PM EDT ADDENDUM: Left mammography finding should in fact state: On the left, no suspicious findings. Benign calcifications AND one to two stable asymmetries when compared with 2015. Impressions 05/07/2021 3:45 PM EDT Widespread malignancy throughout the right breast extending into the axilla with nipple retraction, skin retraction, and skin involvement. In this patient with previously biopsy-proven, essentially untreated (homeopathic measures only), invasive lobular carcinoma, the appearance is consistent with extensive invasive lobular malignancy throughout the right breast. Probably benign findings in the left breast. I discussed the case and findings with Dr. Dodson immediately upon completion of the examination while the patient was in our department. Decision has been made to biopsy the right breast to confirm continued invasive lobular carcinoma, as well as the left 4 o'clock periareolar region to confirm a benign etiology here. This was discussed in person with the patient on the day of the examination, and the patient is pending bilateral biopsy for today. BI-RADS CATEGORY 5: HIGHLY SUGGESTIVE OF MALIGNANCY Narrative 05/07/2021 3:45 PM EDT MM MAMMO DIAGNOSTIC TOMOSYNTHESIS-BILATERAL, US BREAST DIAGNOSTIC COMPLETE- BILATERAL: 05/07/2021 1:10 PM CLINICAL HISTORY: Palpable mass in right axilla with history of right breast cancer. Lump or mass in breast, personal history of malignant neoplasm of breast. In addition to the above, the patient has a very complex, somewhat lengthy history. She reportedly was diagnosed with right breast cancer back in 1991 and underwent surgery and lymph node dissection. Subsequently developed a recurrence in approximately 2014 which was detected by MRI and biopsy proven by two separate biopsies. She opted to forego standard of care treatment and instead underwent homeopathic therapy with diet. A follow-up MRI reportedly revealed that the cancer had resolved. Patient now returns with new abnormalities in the right breast including skin retraction and palpable mass as well as new right axillary mass. Routine screening left breast. COMPARISON: Prior imaging. TECHNIQUE: Digital views were obtained. Tomosynthesis performed. Computer-aided detection performed. FINDINGS: BILATERAL MAMMOGRAPHY: The mammary parenchyma is heterogeneously dense, which may obscure small masses. New, 2.7 cm, ill-defined right axillary mass with surrounding distortion consistent with malignancy. This corresponds with a site of palpable abnormality localized by the patient. Increasing tissue asymmetry and subtle distortion in the retroareolar aspect of the breast and central aspect of the breast with new right-sided nipple retraction and skin retraction. This area is difficult to accurately measure. This is in the area where the biopsy clips from the MR guided biopsy proven invasive lobular carcinoma are present. As a whole, the right breast is shrinking over time. This pattern is consistent with progressive invasive lobular carcinoma and new right axillary metastatic disease. On the left, no suspicious findings. Benign calcifications in one to two stable asymmetries when compared with 2015. BILATERAL SONOGRAPHY: Very ill-defined, infiltrative, hypoechoic mass/process throughout a large portion of the right breast centered in the retroareolar aspect tracking both towards the 5 o'clock radian and out lateral and into the axillary aspect of the breast. The overlying skin and nipple is retracted. The mass measures at least 5 cm, but likely is much larger than this. Ill-defined hypoechoic tissue extending out a bandlike fashion towards the axilla where an ill-defined hypoechoic mass in the axilla measures 2.9 cm and extends to involve the skin. This process likely is in direct continuity with the extensive malignancy throughout the remainder of the breast as well. The overall pattern is consistent with extensive invasive lobular malignancy throughout the right breast in keeping with the patient's previously pathologically proven invasive lobular carcinoma. On the left, there are two adjacent wider than tall subtle isoechoic sites. I am not certain whether these represent masses or localized locules of breast tissue. The larger measures up to 1.6 cm. [place] [facility] MAMMOGRAPHY ORDERABLES Ed ited Result - Final from Last 3 Months or Most Recently Relevant to Health Maintenance Insurance [employer] MED[employer] Care Teams Volunteer Recruitment Coordinator Relationship Specialty Start Date End Date Yessy Faustin DO [address] [phone] PCP - General Internal Medicine 08/21/22 Yessy Faustin DO [address] [phone] PCP - Carson Strickland MA Attributed 02/21/25 Mehdi Nugent MD [address] [place] [address] Physician Hematology Oncology 06/08/21 Olga Dodson MD [address] [place] [address] Surgery, General 08/24/22
--- OUTSIDE RECORDS SUMMARY | 2025-07-07 19:33 | XMS_ITS | Encounter Summary ---
Author Organization [facility] Address [address] [place] [address] Care Team Providers Care Sustainability Director Name Role Phone Mehdi Nugent MD Unavailable [phone] Yessy Faustin DO Primary Care Provider Olga Dodson MD Unavailable [phone] Yessy Faustin DO Unavailable Yessy Faustin DO Unavailable Encounter Details Date Type Department Care Team (Late st Contact Info) Description 11/22/2024 Scanned Document [facility] [address] [facility] [address] [place] [address] Provider, Generic Social History Tobacco [...] Office Visit [facility] Department of Cardiology [place] [address] [facility] [address] [place] [phone] Onofre Malik PA [address] [place] [address] 11/14/2025 2:00 PM EDT Office Visit [facility] Department of Internal Medicine [address] 1st [place] [phone] Yessy Faustin DO [address] [phone] documented as of this encounter Visit Diagnoses Not on filedocumented in this encounter Care Teams Sustainability Director Relationship Specialty Start Date End Date Yessy Faustin DO [address] [place] [id number] PCP - General Internal Medicine 08/21/22 Yessy Faustin DO [address] [place] [address] PCP - Carson [facility] EL[facility]HA Attributed 01/22/24 02/20/25 Yessy Faustin DO [address] [place] [address] PCP - Carson Strickland MA Attributed 02/21/25 Mehdi Nugent MD [address] [address] Physician Hematology Oncology 06/08/21 Olga Dodson MD [address] [place] [address] Surgery, General 08/24/22 documented as of this encounter
--- OUTSIDE RECORDS SUMMARY | 2025-07-07 19:33 | XMS_ITS | Encounter Summary ---
Author Organization [facility] Address [address] [place] [address] Care Team Providers Care Senior Rd Engineer Name Role Phone Mehdi Nugent MD Unavailable [phone] Yessy Faustin DO Primary Care Provider Olga Dodson MD Unavailable [phone] Yessy Faustin DO Unavailable Yessy Faustin DO Unavailable Encounter Details Date Type Department Care Team (Late st Contact Info) Description 10/30/2024 Scanned Document [facility] [address] [facility] [address] [place] [address] Provider, Generic Social History Tobacco [...] Office Visit [facility] Department of Cardiology [place] [address] [facility] [address] [place] [phone] Onofre Malik PA [address] [place] [address] 11/14/2025 2:00 PM EDT Office Visit [facility] Department of Internal Medicine [address] 1st [place] [phone] Yessy Faustin DO [address] [address] documented as of this encounter Visit Diagnoses Not on filedocumented in this encounter Care Teams Senior Rd Engineer Relationship Specialty Start Date End Date Yessy Faustin DO [address] [place] [address] PCP - General Internal Medicine 08/21/22 Yessy Faustin DO [address] [place] [address] PCP - Carson [facility] EL[facility] Attributed 01/22/24 02/20/25 Yessy Faustin DO [address] [place] [address] PCP - Carson Strickland MA Attributed 02/21/25 Mehdi Nugent MD [address] [address] Physician Hematology Oncology 06/08/21 Olga Dodson MD [address] [place] [address] Surgery, General 08/24/22 documented as of this encounter
--- OUTSIDE RECORDS SUMMARY | 2025-07-07 19:33 | XMS_ITS | Encounter Summary ---
Author Organization [facility] Address [address] [place] [address] Care Team Providers Care Hot Mill Shearer Name Role Phone Mehdi Nugent MD Unavailable [phone] Yessy Faustin DO Primary Care Provider Olga Dodson MD Unavailable [phone] Yessy Faustin DO Unavailable Yessy Faustin DO Unavailable Encounter Details Date Type Department Care Team (Late st Contact Info) Description 11/13/2024 External Communication [facility] at [facility] 1290 [facility] 4B [place] [phone] Yessy Faustin DO [address] [id number] Social History Tobacco Use Types Packs/Day Years [...] Description 11/10/2025 11:30 AM EDT Office Visit [facility] Department of Cardiology [place] 160 [facility] [address] [place] [address] Onofre Malik PA 289 [place] [address] 11/14/2025 2:00 PM EDT Office Visit [facility] Department of Internal Medicine [address] 1st [place] [address] Yessy Faustin DO [address] [place] [address] documented as of this encounter Visit Diagnoses Not on filedocumented in this encounter Care Teams Hot Mill Shearer Relationship Specialty Start Date End Date Yessy Faustin DO [address] [place] [address] PCP - General Internal Medicine 08/21/22 Yessy Faustin DO [address] [place] [address] PCP - Carson Mark TELLO Attributed 01/22/24 02/20/25 Yessy Faustin DO [address] [place] [address] PCP - Carson Strickland MA Attributed 02/21/25 Mehdi Nugent MD [address] [address] Physician Hematology Oncology 06/08/21 Olga Dodson MD 201 [place] [address] Surgery, General 08/24/22 documented as of this encounter
--- OUTSIDE RECORDS SUMMARY | 2025-07-07 19:33 | XMS_ITS | Encounter Summary ---
Author Organization [facility] Address [address] [place] [address] Care Team Providers Care Fellmongering Machine Operator Name Role Phone Unavailable Primary Care Provider Unavailabl e Encounter Details Date Type Department Care Team ([facility] Contact Info) Description 10/29/2024 Scanned Document INTERFACE DEFAULT [address] [place] [id number] System, Provider Not In Social History Tobacco [...]
--- OUTSIDE RECORDS SUMMARY | 2025-07-07 19:33 | XMS_ITS | Encounter Summary ---
Author Organization [facility] Address 100 [place] [address] Care Team Providers Care Relief Map Modeler Name Role Phone Mehdi Nugent MD Unavailable [phone] Yessy Faustin DO Primary Care Provider Olga Dodson MD Unavailable [phone] Yessy Faustin DO Unavailable Yessy Faustin DO Unavailable Encounter Details Date Type Department Care Team (Late st Contact Info) Description 10/21/2024 Scanned Document [facility] at Home 1290 [facility] 4B [place] [address] Provider, Generic Social History Tobacco [...] Office Visit [facility] Department of Cardiology [place] 160 [facility] [address] [place] [address] Onofre Malik PA [address] [place] [address] 11/14/2025 2:00 PM EDT Office Visit [facility] Department of Internal Medicine [address] 1st [place] [address] Yessy Faustin DO [address] [address] documented as of this encounter Visit Diagnoses Not on filedocumented in this encounter Care Teams Relief Map Modeler Relationship Specialty Start Date End Date Yessy Faustin DO [address] [place] [address] PCP - General Internal Medicine 08/21/22 Yessy Faustin DO [address] [place] [address] PCP - Carson [facility] ELISHA Attributed 01/22/24 02/20/25 Yessy Faustin DO [address] [place] [address] PCP - Carson Strickland MA Attributed 02/21/25 Mehdi Nugent MD [address] [address] Physician Hematology Oncology 06/08/21 Olga Dodson MD 201 [place] [address] Surgery, General 08/24/22 documented as of this encounter
--- OUTSIDE RECORDS SUMMARY | 2025-07-07 19:33 | XMS_ITS | Encounter Summary ---
Author Organization [facility] Address 100 [place] [address] Care Team Providers Care Groover Runner Name Role Phone Mehdi Nugent MD Unavailable [phone] Yessy Faustin DO Primary Care Provider Olga Dodson MD Unavailable [phone] Yessy Faustin DO Unavailable Yessy Faustin DO Unavailable Encounter Details Date Type Department Care Team (Late st Contact Info) Description 09/27/2024 Scanned Document [facility] at Home 1290 [facility] 4B [place] [address] Provider, Generic Social History Tobacco [...] Office Visit [facility] Department of Cardiology [place] 160 [facility] [address] [place] [address] Onofre Malik PA [address] [place] [address] 11/14/2025 2:00 PM EDT Office Visit [facility] Department of Internal Medicine [address] 1st [place] [address] Yessy Faustin DO [address] [address] documented as of this encounter Visit Diagnoses Not on filedocumented in this encounter Care Teams Groover Runner Relationship Specialty Start Date End Date Yessy Faustin DO [address] [place] [address] PCP - General Internal Medicine 08/21/22 Yessy Faustin DO [address] [place] [address] PCP - Carson [facility] ELISHA Attributed 01/22/24 02/20/25 Yessy Faustin DO [address] [place] [address] PCP - Carson Strickland MA Attributed 02/21/25 Mehdi Nugent MD [address] [address] Physician Hematology Oncology 06/08/21 Olga Dodson MD 201 [place] [address] Surgery, General 08/24/22 documented as of this encounter
--- OUTSIDE RECORDS SUMMARY | 2025-07-07 19:33 | XMS_ITS | Encounter Summary ---
Author Organization [facility] Address 100 [place] [address] Care Team Providers Care Shuttle Route Vehicle Operator Name Role Phone Mehdi Nugent MD Unavailable [phone] Yessy Faustin DO Primary Care Provider Olga Dodson MD Unavailable [phone] Yessy Faustin DO Unavailable Yessy Faustin DO Unavailable Encounter Details Date Type Department Care Team (Late st Contact Info) Description 09/30/2024 Scanned Document [facility] at Home 1290 [facility] 4B [place] [address] Provider, Generic Social History Tobacco [...] Office Visit [facility] Department of Cardiology [place] 160 [facility] [address] [place] [address] Onofre Malik PA [address] [place] [address] 11/14/2025 2:00 PM EDT Office Visit [facility] Department of Internal Medicine [address] 1st [place] [address] Yessy Faustin DO [address] [address] documented as of this encounter Visit Diagnoses Not on filedocumented in this encounter Care Teams Shuttle Route Vehicle Operator Relationship Specialty Start Date End Date Yessy Faustin DO [address] [place] [address] PCP - General Internal Medicine 08/21/22 Yessy Faustin DO [address] [place] [address] PCP - Carson [facility] ELISHA Attributed 01/22/24 02/20/25 Yessy Faustin DO [address] [place] [address] PCP - Carson Strickland MA Attributed 02/21/25 Mehdi Nugent MD [address] [address] Physician Hematology Oncology 06/08/21 Olga Dodson MD 201 [place] [address] Surgery, General 08/24/22 documented as of this encounter
--- OUTSIDE RECORDS SUMMARY | 2025-07-07 19:33 | XMS_ITS | Encounter Summary ---
Author Organization [facility] Address 100 [place] [address] Care Team Providers Care Director Sales Support Name Role Phone Mehdi Nugent MD Unavailable [phone] Yessy Faustin DO Primary Care Provider Olga Dodson MD Unavailable [phone] Yessy Faustin DO Unavailable Yessy Faustin DO Unavailable Encounter Details Date Type Department Care Team (Late st Contact Info) Description 11/14/2024 Scanned Document [facility] at Home 1290 [facility] 4B [place] [address] Provider, Generic Social History Tobacco [...] Office Visit [facility] Department of Cardiology [place] 160 [facility] [address] [place] [address] Onofre Malik PA [address] [place] [address] 11/14/2025 2:00 PM EDT Office Visit [facility] Department of Internal Medicine [address] 1st [place] [address] Yessy Faustin DO [address] [address] documented as of this encounter Visit Diagnoses Not on filedocumented in this encounter Care Teams Director Sales Support Relationship Specialty Start Date End Date Yessy Faustin DO [address] [place] [address] PCP - General Internal Medicine 08/21/22 Yessy Faustin DO [address] [place] [address] PCP - Carson [facility] ELISHA Attributed 01/22/24 02/20/25 Yessy Faustin DO [address] [place] [address] PCP - Carson Strickland MA Attributed 02/21/25 Mehdi Nugent MD [address] [address] Physician Hematology Oncology 06/08/21 Olga Dodson MD 201 [place] [address] Surgery, General 08/24/22 documented as of this encounter
--- OUTSIDE RECORDS SUMMARY | 2025-07-07 19:33 | XMS_ITS | Encounter Summary ---
Author Organization [facility] Address 100 [place] [address] Care Team Providers Care Testing And Regulating Chief Name Role Phone Mehdi Nugent MD Unavailable [phone] Yessy Faustin DO Primary Care Provider Olga Dodson MD Unavailable [phone] Yessy Faustin DO Unavailable Yessy Faustin DO Unavailable Encounter Details Date Type Department Care Team (Late st Contact Info) Description 09/25/2024 Scanned Document [facility] at Home 1290 [facility] 4B [place] [address] Provider, Generic Social History Tobacco [...] Office Visit [facility] Department of Cardiology [place] 160 [facility] [address] [place] [address] Onofre Malik PA [address] [place] [address] 11/14/2025 2:00 PM EDT Office Visit [facility] Department of Internal Medicine [address] 1st [place] [address] Yessy Faustin DO [address] [address] documented as of this encounter Visit Diagnoses Not on filedocumented in this encounter Care Teams Testing And Regulating Chief Relationship Specialty Start Date End Date Yessy Faustin DO [address] [place] [address] PCP - General Internal Medicine 08/21/22 Yessy Faustin DO [address] [place] [address] PCP - Carson [facility] ELISHA Attributed 01/22/24 02/20/25 Yessy Faustin DO [address] [place] [address] PCP - Carson Strickland MA Attributed 02/21/25 Mehdi Nugent MD [address] [address] Physician Hematology Oncology 06/08/21 Olga Dodson MD 201 [place] [address] Surgery, General 08/24/22 documented as of this encounter
--- OUTSIDE RECORDS SUMMARY | 2025-07-07 19:33 | XMS_ITS | Encounter Summary ---
Author Organization [facility] Address [address] [place] [address] Care Team Providers Care Business Process Expert Name Role Phone Mehdi Nugent MD Unavailable [phone] Yessy Faustin DO Primary Care Provider Olga Dodson MD Unavailable [phone] Yessy Faustin DO Unavailable Yessy Faustin DO Unavailable Encounter Details Date Type Department Care Team (Late st Contact Info) Description 10/22/2024 External Communication [facility] at Home 1290 [facility] 4B [place] [address] Yessy Faustin DO [address] [phone] Social History Tobacco Use Types Packs/Day Years [...] Description 11/10/2025 11:30 AM EDT Office Visit [facility] Department of Cardiology [place] 160 [facility] [address] [place] [address] Onofre Malik PA 289 [place] [address] 11/14/2025 2:00 PM EDT Office Visit [facility] Department of Internal Medicine [address] 1st [place] [address] Yessy Faustin DO [address] [place] [address] documented as of this encounter Visit Diagnoses Not on filedocumented in this encounter Care Teams Business Process Expert Relationship Specialty Start Date End Date Yessy Faustin DO [address] [place] [address] PCP - General Internal Medicine 08/21/22 Yessy Faustin DO [address] [place] [address] PCP - Carson Mark TELLO Attributed 01/22/24 02/20/25 Yessy Faustin DO [address] [place] [address] PCP - Carson Strickland MA Attributed 02/21/25 Mehdi Nugent MD [address] [address] Physician Hematology Oncology 06/08/21 Olga Dodson MD 201 [place] [address] Surgery, General 08/24/22 documented as of this encounter
--- OUTSIDE RECORDS SUMMARY | 2025-07-07 19:34 | XMS_ITS | Encounter Summary ---
Author Organization [facility] Address [address] [place] [address] Care Team Providers Care Quality Control Assessor Name Role Phone Mehdi Nugent MD Unavailable [phone] Yessy Faustin DO Primary Care Provider [phone] Olga Dodson MD Unavailable [phone] Yessy Faustin DO Unavailable Yessy Faustin DO Unavailable Encounter Details Date Type Department Care Team (Late st Contact Info) Description 09/06/2024 Scanned Document [facility] Department of Internal Medicine [address] 1st [place] [address] Yessy Faustin DO [address] [address] Social History Tobacco Use Types [...] Description 11/10/2025 11:30 AM EDT Office Visit [facility] Department of Cardiology [place] [address] [place] [address] Onofre Malik PA 289 [place] [address] 11/14/2025 2:00 PM EDT Office Visit [facility] Department of Internal Medicine [address] 1st [place] [address] Yessy Faustin DO [address] [place] [address] documented as of this encounter Visit Diagnoses Not on filedocumented in this encounter Care Teams Quality Control Assessor Relationship Specialty Start Date End Date Yessy Faustin DO [address] [place] [address] PCP - General Internal Medicine 08/21/22 Yessy Faustin DO [address] [place] [address] PCP - Carson Mark TELLO Attributed 01/22/24 02/20/25 Yessy Faustin DO [address] [place] [address] PCP - Carson Strickland MA Attributed 02/21/25 Mehdi Nugent MD [address] [address] Physician Hematology Oncology 06/08/21 Olga Dodson MD 201 [place] [address] Surgery, General 08/24/22 documented as of this encounter
--- OUTSIDE RECORDS SUMMARY | 2025-07-07 19:34 | XMS_ITS | Encounter Summary ---
Author Organization [facility] Address [address] [place] [address] Care Team Providers Care Registered Nurse Maternal Child Name Role Phone Mehdi Nugent MD Unavailable [phone] Yessy Faustin DO Primary Care Provider Olga Dodson MD Unavailable [phone] eYssy Faustin DO Unavailable Yessy Faustin DO Unavailable Encounter Details Date Type Department Care Team (Late st Contact Info) Description 09/23/2024 Scanned Document [facility] at Home 1290 [facility] 4B [place] [address] Yessy Faustin DO [address] [phone] Social History Tobacco Use Types Packs/Day Years [...] Description 11/10/2025 11:30 AM EDT Office Visit [facility] Department of Cardiology [place] 160 [facility] [address] [place] [address] Onofre Malik PA 289 [place] [address] 11/14/2025 2:00 PM EDT Office Visit [facility] Department of Internal Medicine [address] 1st [place] [address] Yessy Faustin DO 18 [place] [address] documented as of this encounter Procedures Procedure Name Priority Date/Time Associated Diagnosis Comments HOME CARE SIGNED ORDERS 09/23/2024 2:06 PM EST documented in this encounter Results * HOME CARE SIGNED ORDERS (09/23/2024 2:06 PM EST) Yessy Faustin DO HX AMB PROCEDURES NO RESULTS ROU TING Final Result documented in this encounter Visit Diagnoses Not on filedocumented in this encounter Care Teams Registered Nurse Maternal Child Relationship Specialty Start Date End Date Yessy Faustin DO [address] [place] [address] PCP - General Internal Medicine 08/21/22 Yessy Faustin DO [address] [place], [place] [phone] PCP - Carson Mark TELLO Attributed 01/22/24 02/20/25 Yessy Faustin DO [address] [place], [place] [address] PCP - Carson Strickland MA Attributed 02/21/25 Mehdi Nugent MD [address] [place] [address] Physician Hematology Oncology 06/08/21 Olga Dodson MD [address] [place] [address] Surgery, General 08/24/22 documented as of this encounter
--- OUTSIDE RECORDS SUMMARY | 2025-07-07 19:34 | XMS_ITS | Encounter Summary ---
Author Organization [facility] Address 100 [place] [address] Care Team Providers Care Gre Tutor Name Role Phone Mehdi Nugent MD Unavailable [phone] Yessy Faustin DO Primary Care Provider [phone] Olga Dodson MD Unavailable [phone] Yessy Faustin DO Unavailable Yessy Faustin DO Unavailable Encounter Details Date Type Department Care Team (Late st Contact Info) Description 09/12/2024 Scanned Document [facility] at Home 1290 [facility] 4B [place] [address] Provider, Generic Social History Tobacco [...] Office Visit [facility] Department of Cardiology [place] 160 [facility] [address] [place] [address] Onofre Malik PA [address] [place] [address] 11/14/2025 2:00 PM EDT Office Visit [facility] Department of Internal Medicine [address] 1st [place] [address] Yessy Faustin DO [address] [address] documented as of this encounter Visit Diagnoses Not on filedocumented in this encounter Care Teams Gre Tutor Relationship Specialty Start Date End Date Yessy Faustin DO [address] [place] [address] PCP - General Internal Medicine 08/21/22 Yessy Faustin DO [address] [place] [address] PCP - Carson [facility] ELISHA Attributed 01/22/24 02/20/25 Yessy Faustin DO [address] [place] [address] PCP - Carson Strickland MA Attributed 02/21/25 Mehdi Nugent MD [address] [address] Physician Hematology Oncology 06/08/21 Olga Dodson MD 201 [place] [address] Surgery, General 08/24/22 documented as of this encounter
--- OUTSIDE RECORDS SUMMARY | 2025-07-07 19:34 | XMS_ITS | Encounter Summary ---
Author Organization [facility] Address [address] [place] [address] Care Team Providers Care Color Sprayer Name Role Phone Mehdi Nugent MD Unavailable [phone] Yessy Faustin DO Primary Care Provider Olga Dodson MD Unavailable [phone] Yessy Faustin DO Unavailable Yessy Faustin DO Unavailable Encounter Details Date Type Department Care Team (Late st Contact Info) Description 09/23/2024 External Communication [facility] at Home 1290 [facility] 4B [place] [address] Yessy Faustin DO [address] [phone] Social History Tobacco Use Types Packs/Day Years [...] [facility] Department of Cardiology [place] 160 [facility] [address] [place] [address] Onofre Malik PA 289 [place] [address] 11/14/2025 2:00 PM EDT Office Visit [facility] Department of Internal Medicine [address] 1st [place] [address] Yessy Faustin DO [address] [place] [address] documented as of this encounter Visit Diagnoses Not on filedocumented in this encounter Care Teams Color Sprayer Relationship Specialty Start Date End Date Yessy Faustin DO [address] [place] [address] PCP - General Internal Medicine 08/21/22 Yessy Faustin DO [address] [place] [address] PCP - Carson Mark TELLO Attributed 01/22/24 02/20/25 Yessy Faustin DO [address] [place] [address] PCP - Carson Strickland MA Attributed 02/21/25 Mehdi Nugent MD [address] [address] Physician Hematology Oncology 06/08/21 Olga Dodson MD 201 [place] [address] Surgery, General 08/24/22 documented as of this encounter
--- OUTSIDE RECORDS SUMMARY | 2025-07-07 19:34 | XMS_ITS | Encounter Summary ---
Author Organization [facility] Address 100 [place] [address] Care Team Providers Care Lens Maker Name Role Phone Mehdi Nugent MD Unavailable [phone] Yessy Faustin DO Primary Care Provider [phone] Olga Dodson MD Unavailable [phone] Yessy Faustin DO Unavailable Yessy Faustin DO Unavailable Encounter Details Date Type Department Care Team (Late st Contact Info) Description 09/16/2024 Scanned Document [facility] 1290 [facility] [address] [place] [address] Provider, Generic Social History Tobacco [...] Office Visit [facility] Department of Cardiology [place] 160 [facility] [address] [place] [address] Onofre Malik PA [address] [place] [address] 11/14/2025 2:00 PM EDT Office Visit [facility] Department of Internal Medicine [address] 1st [place] [address] Yessy Faustin DO [address] [address] documented as of this encounter Visit Diagnoses Not on filedocumented in this encounter Care Teams Lens Maker Relationship Specialty Start Date End Date Yessy Faustin DO [address] [place] [address] PCP - General Internal Medicine 08/21/22 Yessy Faustin DO [address] [place] [address] PCP - Carson [facility] ELISHA Attributed 01/22/24 02/20/25 Yesys Faustin DO [address] [place] [address] PCP - Carson Strickland MA Attributed 02/21/25 Mehdi Nugent MD [address] [address] Physician Hematology Oncology 06/08/21 Olga Dodson MD 201 [place] [address] Surgery, General 08/24/22 documented as of this encounter
--- OUTSIDE RECORDS SUMMARY | 2025-07-07 19:34 | XMS_ITS | Encounter Summary ---
Author Organization [facility] Address [address] [place] [address] Care Team Providers Care Reverse Unit Operator Name Role Phone Mehdi Nugent MD Unavailable [phone] Yessy Faustin DO Primary Care Provider Olga Dodson MD Unavailable [phone] Yessy Faustin DO Unavailable Yessy Faustin DO Unavailable Encounter Details Date Type Department Care Team (Late st Contact Info) Description 09/14/2024 Scanned Document [facility] at Home 1290 [facility] [address]B [place] [address] Provider, Generic Social History Tobacco [...] Office Visit [facility] Department of Cardiology [place] 160 [facility] [address] [place] [address] Onofre Malik PA [address] [place] [address] 11/14/2025 2:00 PM EDT Office Visit [facility] Department of Internal Medicine [address] 1st [place] [address] Yessy Faustin DO [address] [address] documented as of this encounter Visit Diagnoses Not on filedocumented in this encounter Care Teams Reverse Unit Operator Relationship Specialty Start Date End Date Yessy Faustin DO [address] [place] [address] PCP - General Internal Medicine 08/21/22 Yessy Faustin DO [address] [place] [address] PCP - Carson [facility] ELISHA Attributed 01/22/24 02/20/25 Yessy Faustin DO [address] [place] [address] PCP - Carson Strickland MA Attributed 02/21/25 Mehdi Nugent MD [address] [address] Physician Hematology Oncology 06/08/21 Olga Dodson MD [address] [place] [address] Surgery, General 08/24/22 documented as of this encounter
--- OUTSIDE RECORDS SUMMARY | 2025-07-07 19:34 | XMS_ITS | Clinical Summary ---
Author Organization [facility] Address [address] [place] [address] Phone Care Team Providers Care Sat Act Instructor Name Role Phone RaminYessy Primary Care Provider Social History Tobacco Use Types Packs/Day Years Used Date Smoking Tobacco: Never Assessed Comments Unknown Sex and Gender Information Value Date Recorded Sex Assigned at Not on file Legal Sex Female 8:49 PM EST Gender Identity Not on file Sexual Orientation Not on file Plan of Treatment Health Maintenance Due Date Last Done Comments Colorectal Cancer Screening: Colonoscopy 1950 COVID-19 Vaccine (#1) 11/23/1956 Zoster Vaccines (1 of 2) 09/18/2014 07/24/2014 Breast Cancer Screening 05/07/2023 05/07/2021 Cholesterol Screening (Lipid Panel) 08/18/2023 Falls Risk Assessment 08/18/2023 Medicare Annual Wellness Visit 08/18/2023 Social Influencers of Health Screening 08/18/2023 DTaP,Tdap,and Td Vaccines (2 - Tdap) 07/24/2024 07/24/2014 Depression Screening 07/24/2024 Influenza Vaccine (#1) 2025 Hypertension/CHF/CAD Annual BMP Blood Test 01/07/2026 01/07/2025, 12/10/2024, 11/19/2024, Additional history exists RSV Immunization Adult Patients (1 - 1-dose 75+ series) 11/23/2026 Osteoporosis Screening (Bone Density Screening) 11/17/2032 11/17/2022 Pneumococcal Vaccine: 50+ Years Completed 07/24/2018, 07/24/2016 Hepatitis C Screening Completed 09/17/2024 HIB Vaccines Aged Out No longer eligi ble based on patient's age to complete this topic HPV Vaccines Aged Out No longer eligi ble based on patient's age to complete this topic Hepatitis A Vaccines Aged Out No long er eligible based on patient's age to complete this topic Hepatitis B Vaccines Aged Out No long er eligible based on patient's age to complete this topic IPV Vaccines Aged Out No longer eligi ble based on patient's age to complete this topic MMR Vaccines Aged Out No longer eligi ble based on patient's age to complete this topic Meningococcal ACWY Vaccine Aged Out N o longer eligible based on patient's age to complete this topic Meningococcal B Vaccine Aged Out No l onger eligible based on patient's age to complete this topic RSV Immunization Patients Under 20 months Aged Out No longer eligible based on patient's age to complete this topic Varicella Vaccines Aged Out No longer eligible based on patient's age to complete this topic Insurance [place] MEDICARE ADVANTAGE Care Teams Sat Act Instructor Relationship Specialty Start Date End Date Yessy Faustin DO [address] [address] PCP - General Family Medicine 01/09/25
--- OUTSIDE RECORDS SUMMARY | 2025-07-07 19:34 | XMS_ITS | Encounter Summary ---
Author Organization [facility] Address [address] [place] [address] Care Team Providers Care Electrifier Operator Name Role Phone Unavailable Primary Care Provider Unavailabl e Encounter Details Date Type Department Care Team ([facility] st Contact Info) Description 12/09/2024 Scanned Document INTERFACE DEFAULT [address] [place] [id number] System, Provider Not In Social History Tobacco Use Types Packs/Day Years Used Date Smoking Tobacco: Never Alcohol Use Standard Drinks/Week Comments Never 0 (1 standard drink = 0.6 oz pur e alcohol) [facility] Utilities Answer Date Recorded In the [...]
--- OUTSIDE RECORDS SUMMARY | 2025-07-07 19:34 | XMS_ITS | Encounter Summary ---
Author Organization [facility] Address [address] [place] [address] Care Team Providers Care Materials Planning Manager Name Role Phone Mehdi Nugent MD Unavailable [phone] Yessy Faustin DO Primary Care Provider Olga Dodson MD Unavailable [phone] Yessy Faustin DO Unavailable Yessy Faustin DO Unavailable Encounter Details Date Type Department Care Team (Late st Contact Info) Description 10/04/2024 External Communication [facility] at Home 1290 [facility] [address]B [place] [phone] Yessy Faustin DO [address] [id number] Social History Tobacco Use Types Packs/Day Years [...] Description 11/10/2025 11:30 AM EDT Office Visit [facility] Department of Cardiology [place] 160 [facility] [address] [place] [address] Onofre Malik PA [address] [place] [address] 11/14/2025 2:00 PM EDT Office Visit [facility] Department of Internal Medicine [address] 1st [place] [address] Yessy Faustin DO [address] [place] [address] documented as of this encounter Visit Diagnoses Not on filedocumented in this encounter Care Teams Materials Planning Manager Relationship Specialty Start Date End Date Yessy Faustin DO [address] [place] [address] PCP - General Internal Medicine 08/21/22 Yessy Faustin DO [address] [place] [address] PCP - Carson [facility] TE[facility] Attributed 01/22/24 02/20/25 Yessy Faustin DO [address] [place] [address] PCP - Carson Strickland MA Attributed 02/21/25 Mehdi Nugent MD [address] [address] Physician Hematology Oncology 06/08/21 Olga Dodson MD 201 [place] [address] Surgery, General 08/24/22 documented as of this encounter
--- OUTSIDE RECORDS SUMMARY | 2025-07-07 19:34 | XMS_ITS | Encounter Summary ---
Author Organization [facility] Address [address] [place] [address] Care Team Providers Care Architecture Technician Name Role Phone Mehdi Nugent MD Unavailable [phone] Yessy Faustin DO Primary Care Provider Olga Dodson MD Unavailable [phone] Yessy Faustin DO Unavailable Yessy Faustin DO Unavailable Encounter Details Date Type Department Care Team (Late st Contact Info) Description 04/25/[address] [facility] Department of Internal Medicine [address] 1st [place] [address] Yessy Faustin DO [address] [address] Social History Tobacco Use Types [...] [facility] Department of Cardiology [place] [address] [place] [address] Onofre Malik PA [address] [place] [address] 11/14/2025 2:00 PM EDT Office Visit [facility] Department of Internal Medicine [address] 1st [place] [address] Yessy Faustin DO [address] [place] [address] documented as of this encounter Visit Diagnoses Not on filedocumented in this encounter Care Teams Architecture Technician Relationship Specialty Start Date End Date Yessy Faustin DO [address] [place] [address] PCP - General Internal Medicine 08/21/22 Yessy Faustin DO [address] [place] [address] PCP - Carson [facility] Attributed 01/22/24 02/20/25 Yessy Faustin DO [address] [place] [address] PCP - Carson Strickland MA Attributed 02/21/25 Mehdi Nugent MD [address] [address] Physician Hematology Oncology 06/08/21 Olga Dodson MD 201 [place] [address] Surgery, General 08/24/22 documented as of this encounter
--- OUTSIDE RECORDS SUMMARY | 2025-07-07 19:34 | XMS_ITS | Encounter Summary ---
Author Organization [facility] Address [address] [place] [address] Care Team Providers Care Straw Hat Machine Operator Name Role Phone Mehdi Nugent MD Unavailable [phone] Yessy Faustin DO Primary Care Provider [phone] Olga Dodson MD Unavailable [phone] Yessy Faustin DO Unavailable Yessy Faustin DO Unavailable Encounter Details Date Type Department Care Team (Late st Contact Info) Description 09/18/2024 Scanned Document [facility] at Home 1290 [facility] [address]B [place] [address] Provider, Generic Social History Tobacco [...] Office Visit [facility] Department of Cardiology [place] 160 [facility] [address] [place] [address] Onofre Malik PA [address] [place] [address] 11/14/2025 2:00 PM EDT Office Visit [facility] Department of Internal Medicine [address] 1st [place] [address] Yessy Faustin DO [address] [address] documented as of this encounter Visit Diagnoses Not on filedocumented in this encounter Care Teams Straw Hat Machine Operator Relationship Specialty Start Date End Date Yessy Faustin DO [address] [place] [address] PCP - General Internal Medicine 08/21/22 Yessy Faustin DO [address] [place] [address] PCP - Carson [facility] ELISHA Attributed 01/22/24 02/20/25 Yessy Faustin DO [address] [place] [address] PCP - Carson Strickland MA Attributed 02/21/25 Mehdi Nugent MD [address] [address] Physician Hematology Oncology 06/08/21 Olga Dodson MD 201 [place] [address] Surgery, General 08/24/22 documented as of this encounter
--- OUTSIDE RECORDS SUMMARY | 2025-07-07 19:34 | XMS_ITS | Encounter Summary ---
Author Organization [facility] Address [address] [place] [address] Care Team Providers Care Slack Line Yarder Name Role Phone Mehdi Nugent MD Unavailable [phone] Yessy Faustin DO Primary Care Provider Olga Dodson MD Unavailable [phone] Yessy Faustin DO Unavailable Yessy Faustin DO Unavailable Encounter Details Date Type Department Care Team (Late st Contact Info) Description 09/13/2024 Scanned Document [facility] Department of Internal Medicine [address] 1st [place] [address] Yessy Faustin DO [address] [address] Social History Tobacco Use Types [...] Description 11/10/2025 11:30 AM EDT Office Visit [facility] Department of Cardiology [place] [address] [place] [address] Onofre Malik PA [address] [place] [address] 11/14/2025 2:00 PM EDT Office Visit [facility] Department of Internal Medicine [address] 1st [place] [address] Yessy Faustin DO [address] [place] [address] documented as of this encounter Visit Diagnoses Not on filedocumented in this encounter Care Teams Slack Line Yarder Relationship Specialty Start Date End Date Yessy Faustin DO [address] [place] [address] PCP - General Internal Medicine 08/21/22 Yessy Faustin DO [address] [place] [address] PCP - Carson Mark TELLO Attributed 01/22/24 02/20/25 Yessy Faustin DO [address] [place] [address] PCP - Carson Strickland MA Attributed 02/21/25 Mehdi Nugent MD [address] [address] Physician Hematology Oncology 06/08/21 Olga Dodson MD 201 [place] [address] Surgery, General 08/24/22 documented as of this encounter
--- OUTSIDE RECORDS SUMMARY | 2025-07-07 19:34 | XMS_ITS | Encounter Summary ---
Author Organization [facility] Address [address] [place] [address] Care Team Providers Care Associate Loan Officer Name Role Phone Unavailable Primary Care Provider Unavailabl e Reason for Visit * Reason Onset Date Comments Medication Problem 02/18/2025 Encounter Details Date Type Department Care Team ([facility] st Contact Info) Description 02/18/2025 Telephone Palliative Care Program at [address] [address] Natividad Florentino, DELLA [address] [address] Medication Problem Social History Tobacco Use Types Packs/Day Years Used Date Smoking Tobacco: Never Alcohol Use Standard Drinks/Week Comments Never 0 (1 standard drink = 0.6 oz pur e alcohol) [facility] Utilities Answer Date Recorded In the past 12 months has e electric, gas, oil, or water company [...] as of this encounter Miscellaneous Notes * Telephone Encounter - Ghazal Delarosa - 02/18/2025 10:51 AM EDT Pts pharmacy called stating Oxy Codone 5mg cap is not covered by pts insurance please call pts pharmacy [facility] [phone] documented in this encounter Plan of Treatment [...] EDT) No Carey Matthews, PharmJez Note: Oncology: Increase or maintain treatment adherence MTPs must be opened for patients not making appropriate progress towards their established therapeutic goals. Patient's progress towards goal: 09/20 new start kisqali/letrozole documented as of this encounter Visit Diagnoses Diagnosis Cancer related pain Neoplasm related pain (acute) (chronic) documented in this encounter
--- OUTSIDE RECORDS SUMMARY | 2025-07-07 19:34 | XMS_ITS | Encounter Summary ---
Author Organization [facility] Address [address] [place] [address] Care Team Providers Care Charge Aide Name Role Phone Mehdi Nugent MD Unavailable [phone] Yessy Faustin DO Primary Care Provider [phone] Olga Dodson MD Unavailable [phone] Yessy Faustin DO Unavailable Yessy Faustin DO Unavailable Encounter Details Date Type Department Care Team (Late st Contact Info) Description 10/07/2024 Scanned Document [facility] at Home 1290 [facility] [address] [place] [address] Provider, Generic Social History Tobacco [...] Office Visit [facility] Department of Cardiology [place] 160 [facility] [address] [place] [address] Onofre Malik PA [address] [place] [address] 11/14/2025 2:00 PM EDT Office Visit [facility] Department of Internal Medicine [address] 1st [place] [address] Yessy Faustin DO [address] [address] documented as of this encounter Visit Diagnoses Not on filedocumented in this encounter Care Teams Charge Aide Relationship Specialty Start Date End Date Yessy Faustin DO [address] [place] [address] PCP - General Internal Medicine 08/21/22 Yessy Faustin DO [address] [place] [address] PCP - Carson [facility] ELISHA Attributed 01/22/24 02/20/25 Yessy Faustin DO [address] [place] [address] PCP - Carson Strickland MA Attributed 02/21/25 Mehdi Nugent MD [address] [address] Physician Hematology Oncology 06/08/21 Olga Dodson MD 201 [place] [address] Surgery, General 08/24/22 documented as of this encounter
--- OUTSIDE RECORDS SUMMARY | 2025-07-07 19:34 | XMS_ITS | Encounter Summary ---
Author Organization [facility] Address [address] [place] [address] Care Team Providers Care Sr. Strategic Sourcing Manager Name Role Phone Mehdi Nugent MD Unavailable [phone] Yessy Faustin DO Primary Care Provider [phone] Olga Dodson MD Unavailable [phone] Yessy Faustin DO Unavailable Yessy Faustin DO Unavailable Encounter Details Date Type Department Care Team (Late st Contact Info) Description 09/25/2024 Scanned Document [facility] Department of Internal Medicine [address] 1st [place] [address] Yessy Faustin DO [address] [address] Social History Tobacco Use Types [...] Description 11/10/2025 11:30 AM EDT Office Visit [facility] Department of Cardiology [place] [address] [place] [address] Onofre Malik PA [address] [place] [address] 11/14/2025 2:00 PM EDT Office Visit [facility] Department of Internal Medicine [address] 1st [place] [address] Yessy Faustin DO [address] [place] [address] documented as of this encounter Visit Diagnoses Not on filedocumented in this encounter Care Teams Sr. Strategic Sourcing Manager Relationship Specialty Start Date End Date Yessy Faustin DO [address] [place] [address] PCP - General Internal Medicine 08/21/22 Yessy Faustin DO [address] [place] [address] PCP - Carson Mark TELLO Attributed 01/22/24 02/20/25 Yessy Faustin DO [address] [place] [address] PCP - Carson Strickland MA Attributed 02/21/25 Mehdi Nugent MD [address] [address] Physician Hematology Oncology 06/08/21 Olga Dodson MD 201 [place] [address] Surgery, General 08/24/22 documented as of this encounter
--- OUTSIDE RECORDS SUMMARY | 2025-07-07 19:34 | XMS_ITS | Encounter Summary ---
Author Organization [facility] Address [address] [place] [address] Care Team Providers Care Adventure Therapist Name Role Phone Mehdi Nugent MD Unavailable [phone] Yessy Faustin DO Primary Care Provider Olga Dodson MD Unavailable [phone] Yessy Faustin DO Unavailable Yessy Faustin DO Unavailable Encounter Details Date Type Department Care Team (Late st Contact Info) Description 09/20/2024 Scanned Document [facility] at Home 1290 [facility] [address]B [place] [address] Provider, Generic Social History Tobacco [...] Office Visit [facility] Department of Cardiology [place] 160 [facility] [address] [place] [address] Onofre Malik PA [address] [place] [address] 11/14/2025 2:00 PM EDT Office Visit [facility] Department of Internal Medicine [address] 1st [place] [address] Yessy Faustin DO [address] [address] documented as of this encounter Visit Diagnoses Not on filedocumented in this encounter Care Teams Adventure Therapist Relationship Specialty Start Date End Date Yessy Faustin DO [address] [place] [address] PCP - General Internal Medicine 08/21/22 Yessy Faustin DO [address] [place] [address] PCP - Carson [facility] ELISHA Attributed 01/22/24 02/20/25 Yessy Faustin DO [address] [place] [address] PCP - Carson Strickland MA Attributed 02/21/25 Mehdi Nugent MD [address] [address] Physician Hematology Oncology 06/08/21 Olga Dodson MD 201 [place] [address] Surgery, General 08/24/22 documented as of this encounter
--- OUTSIDE RECORDS SUMMARY | 2025-07-07 19:34 | XMS_ITS | Encounter Summary ---
Author Organization [facility] Address [address] [place] [address] Care Team Providers Care Thread Winder Automatic Name Role Phone Mehdi Nugent MD Unavailable [phone] Yessy Faustin DO Primary Care Provider [phone] Olga Dodson MD Unavailable [phone] Yessy Faustin DO Unavailable Yessy Faustin DO Unavailable Encounter Details Date Type Department Care Team (Late st Contact Info) Description 09/24/2024 Scanned Document [facility] at Home 1290 [facility] [address] [place] [address] Provider, Generic Social History Tobacco [...] Office Visit [facility] Department of Cardiology [place] 160 [facility] [address] [place] [address] Onofre Malik PA [address] [place] [address] 11/14/2025 2:00 PM EDT Office Visit [facility] Department of Internal Medicine [address] 1st [place] [address] Yessy Faustin DO [address] [address] documented as of this encounter Visit Diagnoses Not on filedocumented in this encounter Care Teams Thread Winder Automatic Relationship Specialty Start Date End Date Yessy Faustin DO [address] [place] [address] PCP - General Internal Medicine 08/21/22 Yessy Faustin DO [address] [place] [address] PCP - Carson [facility] ELISHA Attributed 01/22/24 02/20/25 Yessy Faustin DO [address] [place] [address] PCP - Carson Strickland MA Attributed 02/21/25 Mehdi Nugent MD [address] [address] Physician Hematology Oncology 06/08/21 Olga oDdson MD 201 [place] [address] Surgery, General 08/24/22 documented as of this encounter
--- OUTSIDE RECORDS SUMMARY | 2025-07-07 19:34 | XMS_ITS | Encounter Summary ---
Author Organization [facility] Address [address] [place] [address] Care Team Providers Care Tunnel Kiln Firer Name Role Phone Mehdi Nugent MD Unavailable [phone] Yessy Faustin DO Primary Care Provider Olga Dodson MD Unavailable [phone] Yessy Faustin DO Unavailable Yessy Faustin DO Unavailable Encounter Details Date Type Department Care Team (Late st Contact Info) Description 09/23/2024 Scanned Document [facility] at Home 1290 [facility] [address]B [place] [address] Provider, Generic Social History Tobacco [...] Office Visit [facility] Department of Cardiology [place] 160 [facility] [address] [place] [address] Onofre Malik PA [address] [place] [address] 11/14/2025 2:00 PM EDT Office Visit [facility] Department of Internal Medicine [address] 1st [place] [address] Yessy Faustin DO [address] [address] documented as of this encounter Visit Diagnoses Not on filedocumented in this encounter Care Teams Tunnel Kiln Firer Relationship Specialty Start Date End Date Yessy Faustin DO [address] [place] [address] PCP - General Internal Medicine 08/21/22 Yessy Faustin DO [address] [place] [address] PCP - Carson [facility] ELISHA Attributed 01/22/24 02/20/25 Yessy Faustin DO [address] [place] [address] PCP - Carson Strickland MA Attributed 02/21/25 Mehdi Nugent MD [address] [address] Physician Hematology Oncology 06/08/21 Olga Dodson MD 201 [place] [address] Surgery, General 08/24/22 documented as of this encounter
--- OUTSIDE RECORDS SUMMARY | 2025-07-07 19:34 | XMS_ITS | Encounter Summary ---
Author Organization [facility] Address [address] [place] [address] Care Team Providers Care Environmental Research Project Manager Name Role Phone Mehdi Nugent MD Unavailable [phone] Yessy Faustin DO Primary Care Provider Olga Dodson MD Unavailable [phone] Yessy Faustin DO Unavailable Yessy Faustin DO Unavailable Encounter Details Date Type Department Care Team (Late st Contact Info) Description 10/08/2024 Scanned Document [facility] at Home [address] [facility] [address] [place] [address] Provider, Generic Social History Tobacco [...] Visit [facility] Department of Cardiology [place] [address] [facility] [address] [place] [address] Onofre Malik PA [address] [place] [address] 11/14/2025 2:00 PM EDT Office Visit [facility] Department of Internal Medicine [address] 1st [place] [address] Yessy Faustin DO [address] [address] documented as of this encounter Visit Diagnoses Not on filedocumented in this encounter Care Teams Environmental Research Project Manager Relationship Specialty Start Date End Date Yessy Faustin DO [address] [place] [address] PCP - General Internal Medicine 08/21/22 Yessy Faustin DO [address] [place] [address] PCP - Carson [facility] EL[facility]HA Attributed 01/22/24 02/20/25 Yessy Faustin DO [address] [place] [address] PCP - Carson Strickland MA Attributed 02/21/25 Mehdi Nugent MD [address] [address] Physician Hematology Oncology 06/08/21 Olga Dodson MD [address] [place] [address] Surgery, General 08/24/22 documented as of this encounter
== END 2025-07-07 14:00 | disposition home or self-care (01) ==
LOC: HO.HMCWIS 13:24
PROVIDERS: PCP Student in an Organized Health Care Education/Training Program; Visit Provider Family Medicine
DX: J22 Unspecified acute lower respiratory infection (principal); H61.21 Impacted cerumen, right ear

== ENCOUNTER 2025-07-07 13:24 | Outpatient (REF) | payer OTHER, SELFPAY ==
--- OUTSIDE RECORDS SUMMARY | 2025-07-04 23:59 | XMS_ITS | Continuity of Care Document ---
Author Organization [facility] Address [address] [place] [address]- Care Team Providers Care Music Executive Name Role Phone Alin CASTELLON, Jcarlos Primary Care Physician [id number] Date(s): 06/04/25 - 07/04/25 [facility] [address] [place] [id number] Encounter Type: Triage Allergies, Adverse Reactions, Alerts Substance Criticality Severity Reaction Reaction Severity Status sulfa drugs Active Immunizations Given and Recorded Vaccine Date Status Refusal Reason pneumococcal 23-valent vaccine 1 02/19/19 Given pneumococcal 13-valent vaccine 12/01/16 Recorded zoster vaccine, inactivated 12/04/14 Recorded diphtheria/tetanus/pertussis, acel(DTaP) 11/20/14 Recorded 1Result Comment: [id number] Medications aspirin 81 mg oral tablet 1 tablet = 81 mg, By Mouth, Daily, 0 Refills, Maintenance, 03/07/14 9:10:33 AM EDT Start Date: 03/07/14 Status: Ordered Medication Dispense Status: Completed Total Allowed Fills: 1 Fills Dispensed: 0 Compression- Upper Extremity w/Gloves See Instructions, # 1 each, Maintenance, For daytime: compression sleeve 20-30 mmHg, compression glove 20-30 mmHg For nighttime: Comfiwave sleeve and mitten, 05/01/25 2:45:00 PM EDT, Supply, 161, cm, 04/22/25 15:49:00 EDT, Height, 79, kg, 04/22/25 10:33:00 EDT, Dry Weight Start Date: 05/01/25 Status: Ordered Medication Dispense Status: Completed Quantity: 1.0 Unit: each Total Allowed Fills: 1 Fills Dispensed: 0 Crestor 5 mg oral tablet 1 tablet = 5 mg, By Mouth, Daily, # 30 tablet, 1 Refills, Maintenance, 06/22/20 8:49:00 AM EST, Tablet, [facility]/pharmacy #[id number], 161, cm, 02/24/20 14:23:00 EDT, Height Start Date: 06/22/20 Status: Ordered Medication Dispense Status: Completed Quantity: 30.0 Unit: tablet Total Allowed Fills: 2 Fills Dispensed: 0 Indications: Hyperlipidemia, unspecified; Kisqali By Mouth, 0 Refills, Maintenance, 05/27/25 3:34:00 PM EST, Partial fill upon patient request if the prescription is for a schedule II opioid drug. Start Date: 05/27/25 Status: Ordered Medication Dispense Status: Completed Total Allowed Fills: 1 Fills Dispensed: 0 Letrozole = 2.5 mg, By Mouth, 0 Refills, Maintenance, 05/27/25 3:34:00 PM EST, Partial fill upon patient request if the prescription is for a schedule II opioid drug. Start Date: 05/27/25 Status: Ordered Medication Dispense Status: Completed Total Allowed Fills: 1 Fills Dispensed: 0 lisinopril 10 mg oral tablet 1, tablet, By Mouth, Daily, # 90 tablet, Refills 0, Route to Pharmacy Electronically, [id number], 161, cm, 02/24/20 14:23:00 EDT, Height Start Date: 07/08/21 Status: Ordered Medication Dispense Status: Completed Quantity: 90.0 Unit: tablet Total Allowed Fills: 1 Fills Dispensed: 0 metoprolol 50 mg oral tablet 50 mg, 1, tablet, By Mouth, Refills 0, Maintenance, 05/27/25 3:34:00 PM EST, Partial fill upon patient request if the prescription is for a schedule II opioid drug. Start Date: 05/27/25 Status: Ordered Medication Dispense Status: Completed Total Allowed Fills: 1 Fills Dispensed: 0 [place]rance-3 Polyunsaturated Fatty Acids By Mouth, 0 Refills, Maintenance, 03/07/14 9:10:46 AM EDT Start Date: 03/07/14 Status: Ordered Medication Dispense Status: Completed Total Allowed Fills: 1 Fills Dispensed: 0 oxyCODONE 5 mg oral capsule 1 capsule = 5 mg, By Mouth, Every 3 hours, PRN as needed for pain, # 240 capsule, 0 Refills, Maintenance, 05/20/25 12:37:00 PM EDT, Capsule, [facility]/pharmacy #[id number], Partial fill upon patient request if the prescription is for a schedule II opioid drug., 161, cm, 04/22/25 15:49:00 EDT, Height, 79, kg, 04/22/25 10:33:00 EDT, Dry Weight Start Date: 05/20/25 Stop Date: 06/04/25 Status: Ordered Medication Dispense Status: Completed Quantity: 240.0 Unit: capsule Total Allowed Fills: 1 Fills Dispensed: 0 ribociclib 200 mg (600 mg daily-dose) oral tablet 1 tablet = 200 mg, By Mouth, Daily, take for 21 days followed by a 7 day rest period, # 21 tablet, 2 Refills, Maintenance, 06/03/25 11:23:00 AM EST, Tablet, [facility], Partial fill upon patient request if the prescription is for a schedule II opioid drug., 161, cm, 05/27/25 14:57:00 EST, Height, 81.8, kg, 05/27/25 14:57:00 EST, Dry Weight Start Date: 06/03/25 Status: Ordered Medication Dispense Status: Completed Quantity: 21.0 Unit: tablet Total Allowed Fills: 3 Fills Dispensed: 0 torsemide 20 mg oral tablet 1 tablet = 20 mg, By Mouth, 0 Refills, Maintenance, 05/27/25 3:34:00 PM EST, Partial fill upon patient request if the prescription is for a schedule II opioid drug. Start Date: 05/27/25 Status: Ordered Medication Dispense Status: Completed Total Allowed Fills: 1 Fills Dispensed: 0 Tylenol Tylenol, 500 mg, By Mouth, Refills 0, Maintenance, 05/27/25 3:34:00 PM EST, Supply Start Date: 05/27/25 Status: Ordered Medication Dispense Status: Completed Total Allowed Fills: 1 Fills Dispensed: 0 Vitamin D3 2000 intl units oral tablet 1 tablet = 2,000 International_Units, By Mouth, Daily, 0 Refills, Maintenance, 03/07/14 9:10:24 AM EDT Start Date: 03/07/14 Status: Ordered Medication Dispense Status: Completed Total Allowed Fills: 1 Fills Dispensed: 0 Problem List Condition Confirmation Course Effective Dates Status H ealth Status Informant Breast lump Confirmed Active History of malignant neoplasm of breast Confirmed Active Hyperlipidemia Confirmed Active Hypertensive disorder Confirmed Active Obese class I Confirmed Active Breast carcinoma metastatic to multiple sites Confirmed Active Venous varices Confirmed Active Social History Social History Type Response Sexual Sexually involved in last 6 months: No. Smoking Status Never (less than 100 in lifetime) entered on: 12/26/18 Sex Sex Representation Female (finding) Patient Care team information Care Team Personnel Name: Jcarlos Ogden MD Position: Reference Physician Member Role: PCP [address]: [address] [place] [address] Telecom: Care Team Related Persons Name: TULIO CLARK Name: GIRISH CLARK Insurance Providers Guarantor name: TULIO CLARK Health Plan Information #: 1 Payer: [employer] Payer Identifier: NA Member Number: [id number] Group Number: [id number] Subscriber Identifier: NA Relationship to Subscriber: self Coverage Type: Medicare Managed Care (Includes Medicare Advantage Plans) Coverage Verification Date: FELIX Telecom: NA Address:
--- NOTE | ~2025-07-07 | XR_ITS ---
EXAMINATION: XR CHEST CLINICAL INFORMATION: R05.9 - Cough, unspecified COMPARISON: None available. TECHNIQUE: 2 views of the chest were obtained. FINDINGS: Elevated right hemidiaphragm. Increased density seen on the lateral projecting over the proximal thoracic spine. Question infiltrate or nodule versus bone findings. Follow-up chest x-ray recommended. Lungs are otherwise clear. No pleural effusion or thorax. Cardiac and mediastinal contours are normal. Degenerative changes spine and shoulders. XR/XR chest 2V IMPRESSION: Increased density projecting over the proximal thoracic spine seen on the lateral view, question upper lobe infiltrate or nodule versus bone finding. Recommend follow-up chest x-ray to see if this is a persistent finding. Electronically signed by: Ana Jerome MD 07/07/2025 02:58 PM AMRITA
== END 2025-07-07 13:25 | disposition home or self-care (01) ==
LOC: HO.HMGCX 13:24
PROVIDERS: PCP Student in an Organized Health Care Education/Training Program; Visit Provider Family Medicine
DX: J22 Unspecified acute lower respiratory infection (principal); H61.21 Impacted cerumen, right ear
CPT/HCPCS: 71046; 99212

== ENCOUNTER → 2025-07-07 14:30 | Outpatient (BNV) | payer OTHER, SELFPAY | PROVIDERS: PCP Student in an Organized Health Care Education/Training Program; Visit Provider Radiology Diagnostic Radiology | DX: R05.9 Cough, unspecified (principal) | CPT/HCPCS: 71046 ==

== ENCOUNTER 2025-07-14 13:13 | Outpatient (AMB) | payer OTHER, SELFPAY ==
--- NOTE | 2025-07-14 13:22 | AM.OFFWIN_ITS ---
Intake Vital Signs 07/14/25 13:23 Height 5 ft 1.42 in Weight 181 lb BMI 33.7 BP 151/67 H Blood Pressure Location Lt brachial Position Sitting Pulse 65 Pulse Source Pulse Oximeter Temp 98.2 F Temp Source Oral Intake Visit Reasons: EP- ? Shingles Intake Note: Started with rash on left eye yesterday. Started to worsen today. Patient Tobacco Use Status: Never used Tobacco Allergies Sulfa (Sulfonamide Antibiotics) Allergy (Mild, Verified 07/07/25 13:38) Hives HPI HPI Comments History of Present Illness Details History of Present Illness The patient is a 74 year old female past medical history of metastatic breast cancer and aortic valve disease who presents for evaluation of a new-onset facial rash near the eye. - The patient noticed a rash along the r ight upper and lower eyelid yesterday morning which has since worsened. - Prior to the rash's appearance, she ex perienced a burning sensation in the affected area. - The rash is characterized as itchy and causing a burning sensation. - She denies any eye pain, changes in vi mat, or foreign body sensation in the eye. - She reports no history of shingles. - She has applied Neosporin to the rash. - She is currently on treatment with Rib ociclib for breast cancer. Review of Systems - Constitutional: Denies fevers - Skin: Reports a new, itchy, burning ra sh near her eye. - She denies rash elsewhere on her body. - Eyes: Denies eye pain, changes in visi on, and foreign body sensation. - Respiratory: Reports recent recovery f rom an upper respiratory infection and resolution of cough. Physical Exam General Appearance: Normal appearance, well developed. No acute distress Head: Normocephalic, atraumatic Eyes: Erythematous vesicular rash present along the right upper inner eyelid and right lower outer eyelid. PERRLA. EOM intact. No conjunctival injection or discharge. Fluroscein staining did not reveal any dendritic lesions. Pulmonary: No respiratory distress. Speaking in full sentences Mental Status: Alert and Oriented x 3 Psychiatric: Normal mood. Normal affect. [facility] Medical History (Updated 06/26/25 @ 16:01 by Jcarlos Ogden MD) Hyperlipidemia Hyponatremia Metastatic cancer to bone Weakness of both lower extremities Gait abnormality Lymphedema Aortic valve disease Breast cancer in female Family History Father No problems noted. Mother Heart problem Social History (Updated 06/26/25 @ 15:02 by Dhaval Zapata CMA) Housing: House Alcohol intake: never Patient Tobacco Use Status: Never used Tobacco e-Cigarette/Vaping Use: Never Used service: No Current occupational status: retired Cognitive needs: No Hearing needs: No Vision needs: Yes (reading glasses) Physical Exam Vital Signs: Last Vital Signs Temp 98.2 F 07/14/25 13:23 Pulse 65 07/14/25 13:23 BP 151/67 H 07/14/25 13:23 BMI result Body Mass Index 33.7 Office Procedures Fluorescein eye exam Details: No topical anesthetic agents used. Fluorescein staining did not reveal any dendritic lesions consistent with herpes keratitis Vision Screening Right Eye: 20/25 Left Eye: 20/20 Bilateral: 20/20 20413 - Vision Screening Assessment & Plan Assessment & Plan (1) Shingles of eyelid: Code(s): B02.39 - Other herpes zoster eye disease Plan - The patient is a 74-year-old immunocompromised female presenting with a new vesicular rash in a V1 distribution, consistent with shingles. - Although her eye exam is currently unremarkable, with no pain, vision changes, or dendritic lesions on fluorescein staining, the location of the rash poses a high risk for ophthalmologic complications. - Her recent lab work shows CrCl >60, allowing for standard dosing of antiviral medication. - Start valacyclovir three times a day for one week. - Educated the patient on the importance of starting the antiviral medication immediately - Instructed to monitor for and immediately report any new eye pain, vision changes, redness, or foreign body sensation, which would necessitate an ophthalm ology consultation. - Patient was warned to watch for signs of disseminated shingles - Advised on contagion precautions. - Patient was provided with educational material containing information about shingles. Patient was informed and verbally consented to the use of an ambient scribe for clinic note documentation during the visit. Orders: Orders AMB Vision Screening 07/14/25 R21 - Rash and other nonspecific skin eruption AMB Fluorescein eye exam 07/14/25 S05.01XA - Injury of conjunctiva and corneal abrasion without foreign body, right eye, initial encounter Medications: New valacyclovir 1,000 mg PO Q8H 21 tabs 0RF 7 days Coding Level of Care Code Est Pt Level 3 (08619) Diagnoses Shingles of eyelid B02.39 CPT Codes Vision Screening - Vision Screenin - Vision Screening ([id number])
[2025-07-14 13:23] VITALS: BP 151/67; PULSE 65; TEMP 36.8; BMI 33.7
--- OUTSIDE RECORDS SUMMARY | 2025-07-14 16:35 | XMS_ITS | Encounter Summary ---
Author Organization [facility] Address [address] [place] [address] Care Team Providers Care Plasma Processor Name Role Phone Mehdi Nugent MD Unavailable [phone] Yessy Faustin DO Primary Care Provider Olga Dodson MD Unavailable [phone] Yessy Faustin DO Unavailable Yessy Faustin DO Unavailable Encounter Details Date Type Department Care Team (Late st Contact Info) Description 12/24/2024 Scanned Document [facility] at Home 12[address] [facility] [address]B [place] [address] Provider, Generic Social History Tobacco [...] Office Visit [facility] Department of Cardiology [place] 160 [facility] [address] [place] [phone] Onofre Malik PA [address] [place] [address] 11/14/2025 2:00 PM EDT Office Visit [facility] Department of Internal Medicine [address] 1st [place] [address] Yessy Faustin DO [address] [address] documented as of this encounter Visit Diagnoses Not on filedocumented in this encounter Care Teams Plasma Processor Relationship Specialty Start Date End Date Yessy Faustin DO [address] [place] [address] PCP - General Internal Medicine 08/21/22 Yessy Faustin DO [address] [place] [address] PCP - Carson [facility] ELISHA Attributed 01/22/24 02/20/25 Yessy Faustin DO [address] [place] [address] PCP - Carson Strickland MA Attributed 02/21/25 Mehdi Nugent MD [address] [address] Physician Hematology Oncology 06/08/21 Olga Dodson MD 201 [place] [address] Surgery, General 08/24/22 documented as of this encounter
--- OUTSIDE RECORDS SUMMARY | 2025-07-14 16:35 | XMS_ITS | Encounter Summary ---
Author Organization [facility] Address [address] [place] [address] Care Team Providers Care Tv Technician Name Role Phone Mehdi Nugent MD Unavailable [phone] Yessy Faustin DO Primary Care Provider Olga Dodson MD Unavailable [phone] Yessy Faustin DO Unavailable Yessy Faustin DO Unavailable Encounter Details Date Type Department Care Team (Late st Contact Info) Description 12/23/2024 Scanned Document [facility] at Home 12[address] [facility] [address] [place] [address] Provider, Generic Social History Tobacco [...] Office Visit [facility] Department of Cardiology [place] 160 [facility] [address] [place] [phone] Onofre Malik PA [address] [place] [address] 11/14/2025 2:00 PM EDT Office Visit Carson [facility] Department of Internal Medicine [address] 1st [place] [address] Yessy Faustin DO [address] [address] documented as of this encounter Visit Diagnoses Not on filedocumented in this encounter Care Teams Tv Technician Relationship Specialty Start Date End Date Yessy Faustin DO [address] [place] [address] PCP - General Internal Medicine 08/21/22 Yessy Faustin DO [address] [place] [address] PCP - Carson [facility] ELISHA Attributed 01/22/24 02/20/25 Yessy Faustin DO [address] [place] [address] PCP - Carson Strickland MA Attributed 02/21/25 Mehdi Nugent MD [address] [address] Physician Hematology Oncology 06/08/21 Olga Dodson MD 201 [place] [address] Surgery, General 08/24/22 documented as of this encounter
--- OUTSIDE RECORDS SUMMARY | 2025-07-14 16:35 | XMS_ITS | Encounter Summary ---
Author Organization [facility] Address [address] [place] [address] Care Team Providers Care Crude Tester Name Role Phone Mehdi Nugent MD Unavailable [phone] Yessy Faustin DO Primary Care Provider Olga Dodson MD Unavailable [phone] Yessy Faustin DO Unavailable Yessy Faustin DO Unavailable Encounter Details Date Type Department Care Team (Late st Contact Info) Description 12/19/2024 Scanned Document [facility] at Home 12[address] [facility] [address] [place] [address] Provider, Generic Social History Tobacco [...] Office Visit [facility] Department of Cardiology [place] [address] [facility] [address] [place] [phone] Onofre Malik PA [address] [place] [address] 11/14/2025 2:00 PM EDT Office Visit [facility] Department of Internal Medicine [address] 1st [place] [address] Yessy Faustin DO [address] [address] documented as of this encounter Visit Diagnoses Not on filedocumented in this encounter Care Teams Crude Tester Relationship Specialty Start Date End Date Yessy Faustin DO [address] [place] [address] PCP - General Internal Medicine 08/21/22 Yessy Faustin DO [address] [place] [address] PCP - Carson [facility] ELISHA Attributed 01/22/24 02/20/25 Yessy Faustin DO [address] [place] [address] PCP - Carson Strickland MA Attributed 02/21/25 Mehdi Nugent MD [address] [address] Physician Hematology Oncology 06/08/21 Olga Dodson MD 201 [place] [address] Surgery, General 08/24/22 documented as of this encounter
--- OUTSIDE RECORDS SUMMARY | 2025-07-14 16:35 | XMS_ITS | Encounter Summary ---
Author Organization [facility] Address [address] [place] [address] Care Team Providers Care Husbandry Person Name Role Phone Mehdi Nugent MD Unavailable [phone] Yessy Faustin DO Primary Care Provider Olga Dodson MD Unavailable [phone] Yessy Faustin DO Unavailable Yessy Faustin DO Unavailable Encounter Details Date Type Department Care Team (Late st Contact Info) Description 12/09/2024 Scanned Document [facility] at Home 12[address] [facility] [address] [place] [address] Provider, Generic Social History Tobacco [...] Office Visit [facility] Department of Cardiology [place] [address] [facility] [address] [place] [phone] Onofre Malik PA [address] [place] [address] 11/14/2025 2:00 PM EDT Office Visit Carson [facility] Department of Internal Medicine [address] 1st [place] [address] Yessy Faustin DO [address] [address] documented as of this encounter Visit Diagnoses Not on filedocumented in this encounter Care Teams Husbandry Person Relationship Specialty Start Date End Date Yessy Faustin DO [address] [place] [address] PCP - General Internal Medicine 08/21/22 Yessy Faustin DO [address] [place] [address] PCP - Carson [facility] ELISHA Attributed 01/22/24 02/20/25 Yessy Faustin DO [address] [place] [address] PCP - Carson Strickland MA Attributed 02/21/25 Mehdi Nugent MD [address] [address] Physician Hematology Oncology 06/08/21 Olga Dodson MD 201 [place] [address] Surgery, General 08/24/22 documented as of this encounter
--- OUTSIDE RECORDS SUMMARY | 2025-07-14 16:35 | XMS_ITS | Encounter Summary ---
Author Organization [facility] Address [address] [place] [address] Care Team Providers Care Laboratory Mechanical Technician Name Role Phone Mehdi Nugent MD Unavailable [phone] Yessy Faustin DO Primary Care Provider Olga Dodson MD Unavailable [phone] Yessy Faustin DO Unavailable Yessy Faustin DO Unavailable Encounter Details Date Type Department Care Team (Late st Contact Info) Description 12/04/2024 Scanned Document [facility] at Home 12[address] [facility] [address] [place] [address] Provider, Generic Social History Tobacco [...] Office Visit [facility] Department of Cardiology [place] 160 [facility] [address] [place] [phone] Onofre Malik PA [address] [place] [address] 11/14/2025 2:00 PM EDT Office Visit Carson Jim[facility]nez Department of Internal Medicine [address] 1st [place] [address] Yessy Faustin DO [address] [address] documented as of this encounter Visit Diagnoses Not on filedocumented in this encounter Care Teams Laboratory Mechanical Technician Relationship Specialty Start Date End Date Yessy Faustin DO [address] [place] [address] PCP - General Internal Medicine 08/21/22 Yessy Faustin DO [address] [place] [address] PCP - Carson [facility] EL[facility]HA Attributed 01/22/24 02/20/25 Yessy Faustin DO [address] [place] [address] PCP - Carson Strickland MA Attributed 02/21/25 Mehdi Nugent MD [address] [address] Physician Hematology Oncology 06/08/21 Olga Dodson MD 201 [place] [address] Surgery, General 08/24/22 documented as of this encounter
--- OUTSIDE RECORDS SUMMARY | 2025-07-14 16:35 | XMS_ITS | Clinical Summary ---
Author Organization [address] Address [address] [address] [place] [address] Care Team Providers Care Sand Filler Name Role Phone Unavailable Primary Care Provider [...] Description 06/09/2025 Orders Only YANELY HEWITT [address] [address] Yanely Ponce MD Dementia, unspecified dementia severity, unspecified dementia type, unspecified whether behavioral, psychotic, or mood disturbance or anxiety (HC Code) (HC CODE) (Primary Dx) 06/03/[address] [address] Natividad Florentino APRN Advice Only 05/05/2025 Telephone Palliative Care Program at [address] [address] Natividad Florentino APRN Medication Problem 04/28/2025 Specialty Pharmacy [facility] [address] [place] [address] Calvin Zapata CPHT 04/25/2025 Telephone Cancer Center at [address] [address] Natividad Florentino APRN Results 04/24/2025 Orders Only [facility] at [place] [id number] Sheikh Yulissa Isabel, PharmD Malignant neoplasm of upper-outer quadrant of right breast in female, estrogen receptor positive (HC Code) (HC CODE) (Primary Dx) 04/23/2025 Orders Only Cancer Center at [facility] [address] [facility] [place] [address] Malik Jennings MD from Last 3 Months Family History Medical History Relation Name Comments Lung cancer Brother Relation Name Status Comments Brother Social History Tobacco Use Types Packs/Day Years Used Date Smoking Tobacco: Never Tobacco Cessation:Counseling Given: Not Answered Alcohol Use Standard Drinks/Week Comments Never 0 (1 standard drink = 0.6 oz pur e alcohol) [facility] Utilities Answer Date Recorded In the [...] - 144 mmol/L 02/28/2025 9:37 AM EDT [facility] Potassium 4.4 3.3 - 5.1 mmol/L 02/28/2025 9:37 AM EDT [facility] Chloride 96(L) 98 - 107 mmol/L 02/28/2025 9:37 AM EDT [facility] CO2 23 20 - 30 mmol/L 02/28/2025 9:37 AM [facility] Anion Gap 10 7 - 17 02/28/2025 9:37 AM [facility] Glucose 98 70 - 100 mg/dL 02/28/2025 9:37 AM [facility] BUN 11 8 - 23 mg/dL 02/28/2025 9:37 AM [facility] Creatinine 0.62 0.40 - 1.30 mg/dL 02/28/2025 9:37 AM [facility] Calcium 8.9 8.8 - 10.2 mg/dL 02/28/2025 9:37 AM [facility] BUN/Creatinine Ratio 17.7 8.0 - 23.0 02/28/2025 9:37 AM [facility] Total Protein 6.5 5.9 - 8.3 g/dL 9:37 AM [facility] Albumin 3.8 3.6 - 5.1 g/dL 02/28/2025 9:37 AM [facility] Total Bilirubin 0.5 <=1.2 mg/dL 02/29/20 9:37 AM [facility] Alkaline Phosphatase 136(H) 9 - 122 U/L 02/28/2025 9:37 AM [facility] Alanine Aminotransferase (ALT) 10 10 - 35 U/L 02/28/2025 9:37 AM [facility] Comment:Calcium dobesilate c an cause artificially low ALT results at therapeutic concentrations Aspartate Aminotransferase (AST) 12 10 - 35 U/L 02/28/2025 9:37 AM [facility] Globulin 2.7 2.0 - 3.9 g/dL 02/28/2025 9:37 AM [facility] A/G Ratio 1.4 1.0 - 2.2 02/28/2025 9:37 AM [facility] AST/ALT Ratio 1.2 Reference Range Not Established 02/28/2025 9:37 AM [facility] eGFR (Creatinine) >60 >=60 mL/min/1.73m2 02/28/2025 9:37 AM [facility] Comment: [facility] utilizes CKD-EPI Creatinine 2020 to report eGFR. Values < 60 mL/min/1.73 m2 may indicate CKD if present for more than three months AND creatinine is at steady state. The eGFR provides a rough estimate of kidney function. For further guidance, please refer to the CKD: Adult E Commerce Solution Architect Signature pathway. Creatinine Delta 0.04 See Comment 9:37 AM EDT [facility] Comment: Delta creatinine is the difference [...] Jennings MD LAB BLOOD ORDERABLES nal Result [facility] [address] [place] [address], [facility] [phone] * Hepatitis C Ab with reflex to HCV PCR (09/17/2024 2:46 PM EST) [facility] Hepatitis C Antibody Negative Negative 09/17/2024 9:27 PM EST [facility] Comment:A negative result [...] ORDERABLES Fi nal Result Performing Organization Address City/State/[facility] Co de Phone Number [facility] [address] [place] [id number] [place] [address] * HM DEXA SCAN (11/17/2022 12:00 AM EDT) Anatomical Region Laterality Modality Other us Provider Not In System HEALTH MAINTENANCE Final Result * Mammography Diagnostic Dilan Bilateral (05/07/2021 12:00 AM EDT) Anatomical Region Laterality Modality Breast Bilateral Mammography us Provider Not In System IMG MAMMOGRAPHY ORDERABLE S Final Result from Last 3 Months or Most Recently Relevant to Health Maintenance [facility] MED[facility]
--- OUTSIDE RECORDS SUMMARY | 2025-07-14 16:35 | XMS_ITS | Encounter Summary ---
Author Organization [facility] Address [address] [place] [address] Care Team Providers Care Administrative Law Judge Name Role Phone Mehdi Nugent MD Unavailable [phone] Yessy Faustin DO Primary Care Provider Olga Dodson MD Unavailable [phone] Yessy Faustin DO Unavailable Yessy Faustin DO Unavailable Encounter Details Date Type Department Care Team (Late st Contact Info) Description 11/27/2024 Scanned Document [facility] at Home 1290 [facility] [address] [place] [address] Provider, Generic Social History Tobacco [...] [facility] Department of Cardiology [place] 160 [facility] [address] [place] [phone] Onofre Malik PA [address] [place] [address] 11/14/2025 2:00 PM EDT Office Visit [facility] Department of Internal Medicine [address] 1st [place] [address] Yessy Faustin DO [address] [address] documented as of this encounter Visit Diagnoses Not on filedocumented in this encounter Care Teams Administrative Law Judge Relationship Specialty Start Date End Date Yessy Faustin DO [address] [place] [address] PCP - General Internal Medicine 08/21/22 Yessy Faustin DO [address] [place] [address] PCP - Carson [facility] EL[facility]HA Attributed 01/22/24 02/20/25 Yessy Faustin DO [address] [place] [address] PCP - Carson Strickland MA Attributed 02/21/25 Mehdi Nugent MD [address] [address] Physician Hematology Oncology 06/08/21 Olga Dodson MD [address] [place] [address] Surgery, General 08/24/22 documented as of this encounter
--- OUTSIDE RECORDS SUMMARY | 2025-07-14 16:35 | XMS_ITS | Encounter Summary ---
Author Organization Formerly [facility] Address [address] [place] [address] Care Team Providers Care Cement Storage Worker Name Role Phone Mehdi Nugent MD Unavailable Yessy Faustin DO Primary Care Provider Olga Dodson MD Unavailable Yessy Faustin DO Unavailable Yessy Faustin DO Unavailable Encounter Details Date Type Department Care Team (Late st Contact Info) Description 11/26/2024 Scanned Document [facility] at Home 1290 [facility] 4B [place] [phone] Sparkle Castle, NEONATAL ICU COORDINATOR 18 [facility] 1 [place], [place] [phone] Social History Tobacco Use Types Packs/Day Years [...] Description 11/10/2025 11:30 AM EDT Office Visit [facility] Department of Cardiology [place] 160 [facility] [address] [place] [address] Onofre Malik PA 289 [place] [address] 11/14/2025 2:00 PM EDT Office Visit [facility] Department of Internal Medicine [address] 1st [place] [address] Yessy Faustin DO 18 [place] [address] documented as of this encounter Procedures Procedure Name Priority Date/Time Associated Diagnosis Comments HOME CARE SIGNED ORDERS 11/26/2024 3:12 PM EDT HOME CARE SIGNED ORDERS 11/26/2024 3:12 PM EDT documented in this encounter Results * HOME CARE SIGNED ORDERS (11/26/2024 3:12 PM EDT) Sparkle Castle NEONATAL ICU COORDINATOR HX AMB PROCEDURES NO RESULTS RO UTING Final Result * HOME CARE SIGNED ORDERS (11/26/2024 3:12 PM EDT) Sparkle Castle NEONATAL ICU COORDINATOR HX AMB PROCEDURES NO RESULTS RO UTING Final Result documented in this encounter Visit Diagnoses Not on filedocumented in this encounter Care Teams Cement Storage Worker Relationship Specialty Start Date End Date Yessy Faustin DO [address] [place], [place] [address] PCP - General Internal Medicine 08/21/22 Yessy Faustin DO [address] [place] [address] PCP - Carson [facility] MA Attributed 01/22/24 02/20/25 Yessy Faustin DO [address] [place], [place] [phone] PCP - Carson Strickland MA Attributed 02/21/25 Mehdi Nugent MD 183 [place] [address] Physician Hematology Oncology 06/08/21 Olga Dodson MD [address] [place] [address] Surgery, General 08/24/22 documented as of this encounter
--- OUTSIDE RECORDS SUMMARY | 2025-07-14 16:35 | XMS_ITS | Clinical Summary ---
Author Organization [email or web address] [facility] Prior to 12/21/[address] [place] [address] Care Team Providers Care Insulation Technician Name Role Phone Unavailable Primary Care Provider [...]
--- OUTSIDE RECORDS SUMMARY | 2025-07-14 16:35 | XMS_ITS | Encounter Summary ---
Author Organization [facility] Address 100 [place] [address] Care Team Providers Care Service Team Leader Name Role Phone Mehdi Nugent MD Unavailable [phone] Yessy Faustin DO Primary Care Provider Olga Dodson MD Unavailable [phone] Yessy Faustin DO Unavailable Yessy Faustin DO Unavailable Encounter Details Date Type Department Care Team (Late st Contact Info) Description 01/09/2025 Scanned Document [facility] at Home 1290 [facility] 4B [place] [address] Provider, Generic Social History Tobacco [...] Office Visit [facility] Department of Cardiology [place] 160 [facility] [address] [place] [address] Onofre Malik PA [address] [place] [address] 11/14/2025 2:00 PM EDT Office Visit [facility] Department of Internal Medicine [address] 1st [place] [address] Yessy Faustin DO [address] [address] documented as of this encounter Visit Diagnoses Not on filedocumented in this encounter Care Teams Service Team Leader Relationship Specialty Start Date End Date Yessy Faustin DO [address] [place] [address] PCP - General Internal Medicine 08/21/22 Yessy Faustin DO [address] [place] [address] PCP - Carson [facility] ELISHA Attributed 01/22/24 02/20/25 Yessy Faustin DO [address] [place] [address] PCP - Casron Strickland MA Attributed 02/21/25 Mehdi Nugent MD [address] [address] Physician Hematology Oncology 06/08/21 Olga Dodson MD 201 [place] [address] Surgery, General 08/24/22 documented as of this encounter
--- OUTSIDE RECORDS SUMMARY | 2025-07-14 16:35 | XMS_ITS | Encounter Summary ---
Author Organization [facility] Address 100 [place] [address] Care Team Providers Care Yard Brakeman Name Role Phone Mehdi Nugent MD Unavailable [phone] Yessy Faustin DO Primary Care Provider Olga Dodson MD Unavailable [phone] Yessy Faustin DO Unavailable Yessy Faustin DO Unavailable Encounter Details Date Type Department Care Team (Late st Contact Info) Description 12/11/2024 Scanned Document [facility] at Home 1290 [facility] 4B [place] [address] Provider, Generic Social History Tobacco [...] Visit [facility] Department of Cardiology [place] 160 [facility] [address] [place] [phone] Onofre Malik PA [address] [place] [address] 11/14/2025 2:00 PM EDT Office Visit [facility] Department of Internal Medicine [address] 1st [place] [address] Yessy Faustin DO [address] [address] documented as of this encounter Visit Diagnoses Not on filedocumented in this encounter Care Teams Yard Brakeman Relationship Specialty Start Date End Date Yessy Faustin DO [address] [place] [address] PCP - General Internal Medicine 08/21/22 Yessy Faustin DO [address] [place] [address] PCP - Carson [facility] ELISHA Attributed 01/22/24 02/20/25 Yessy Faustin DO [address] [place] [address] PCP - Carson Strickland MA Attributed 02/21/25 Mehdi Nugent MD [address] [address] Physician Hematology Oncology 06/08/21 Olga Dodson MD 201 [place] [address] Surgery, General 08/24/22 documented as of this encounter
--- OUTSIDE RECORDS SUMMARY | 2025-07-14 16:35 | XMS_ITS | Encounter Summary ---
Author Organization [facility] Address [address] [place] [address] Care Team Providers Care Pastry Supervisor Name Role Phone Mehdi Nugent MD Unavailable [phone] Yessy Faustin DO Primary Care Provider Olga Dodson MD Unavailable [phone] Yessy Faustin DO Unavailable Yessy Faustin DO Unavailable Encounter Details Date Type Department Care Team (Late st Contact Info) Description 01/01/2025 Scanned Document [facility] Department of Internal Medicine [address] 1st [place] [phone] Yessy Faustin DO [address] [phone] Social History Tobacco Use Types Packs/Day Years [...] 11/10/2025 11:30 AM EDT Office Visit [facility] Department of Cardiology [place] [address] [place] [address] Onofre Malik PA 289 [place] [address] 11/14/2025 2:00 PM EDT Office Visit [facility] Department of Internal Medicine [address] 1st [place] [address] Yessy Faustin DO [address] [place] [address] documented as of this encounter Visit Diagnoses Not on filedocumented in this encounter Care Teams Pastry Supervisor Relationship Specialty Start Date End Date Yessy Faustin DO [address] [place] [address] PCP - General Internal Medicine 08/21/22 Yessy Faustin DO [address] [place] [address] PCP - Carson [facility] Attributed 01/22/24 02/20/25 Yessy Faustin DO [address] [place] [address] PCP - Carson Strickland MA Attributed 02/21/25 Mehdi Nugent MD [address] [address] Physician Hematology Oncology 06/08/21 Olga Dodson MD 201 [place] [address] Surgery, General 08/24/22 documented as of this encounter
--- OUTSIDE RECORDS SUMMARY | 2025-07-14 16:35 | XMS_ITS | Encounter Summary ---
Author Organization [facility] Address [address] [place] [address] Care Team Providers Care Material Assistant Name Role Phone Pcp, No Primary Care Provider Unavailabl e Mehdi Nugent MD Unavailable [phone] Yessy Faustin DO Primary Care Provider Olga Dodson MD Unavailable [phone] Yessy Faustin DO Unavailable Yessy Faustin DO Unavailable Encounter Details Date Type Department Care Team ([facility] Contact Info) Description 05/05/2021 Scanned Document [facility] [place] [address] [place] [phone] Olga Dodson MD [address] [address] Social History Tobacco Use Types Packs/Day Years [...] 11/10/2025 11:30 AM EDT Office Visit [facility] Department of Cardiology [place] [address] [place] [address] Onofre Malik PA [address] [place] [address] 11/14/2025 2:00 PM EDT Office Visit Carson [facility] Department of Internal Medicine [place] [address] 1st [place] [address] Yessy Faustin DO [address] [address] documented as of this encounter Visit Diagnoses Not on filedocumented in this encounter Care Teams Material Assistant Relationship Specialty Start Date End Date Pcp, No 80 [place] [address] PCP - General 04/21/21 08/20/22 Yessy Faustin DO [address] [place] [address] PCP - General Internal Medicine 08/21/22 Yessy Faustin DO [address] [place] [address] PCP - [place] [facility] ELISHA Attributed 01/22/24 02/20/25 Yessy Faustin DO [address] [place] [address] PCP - Carson Strickland MA Attributed 02/21/25 Mehdi Nugent MD [address] [place] [address] Physician Hematology Oncology 06/08/21 Olga Dodson MD [address] [place] [address] Surgery, General 08/24/22 documented as of this encounter
--- OUTSIDE RECORDS SUMMARY | 2025-07-14 16:35 | XMS_ITS | Encounter Summary ---
Author Organization [facility] Address [address] [place] [address] Care Team Providers Care Sea Air Land Officer Name Role Phone Unavailable Primary Care Provider Unavailabl e Encounter Details Date Type Department Care Team ([facility] Contact Info) Description 10/02/2024 Scanned Document INTERFACE DEFAULT [address] [place] [phone] System, Provider Not In Social History Tobacco [...]
--- OUTSIDE RECORDS SUMMARY | 2025-07-14 16:35 | XMS_ITS | Encounter Summary ---
Author Organization [facility] Address [address] [place] [address] Care Team Providers Care Resistor Inspector Name Role Phone Mehdi Nugent MD Unavailable [phone] Yessy Faustin DO Primary Care Provider Olga Dodson MD Unavailable [phone] Yessy Faustin DO Unavailable Yessy Faustin DO Unavailable Encounter Details Date Type Department Care Team (Late st Contact Info) Description 01/01/2025 External Communication [facility] at Home 1290 [facility] 4B [place] [phone] Yessy Faustin DO [address] [phone] Social History Tobacco Use Types Packs/Day Years [...] Description 11/10/2025 11:30 AM EDT Office Visit [facility] Department of Cardiology [place] [address] [facility] [address] [place] [address] Onofre Malik PA 289 [place] [address] 11/14/2025 2:00 PM EDT Office Visit [facility] Department of Internal Medicine [address] 1st [place] [address] Yessy Faustin DO [address] [place] [address] documented as of this encounter Visit Diagnoses Not on filedocumented in this encounter Care Teams Resistor Inspector Relationship Specialty Start Date End Date Yessy Faustin DO [address] [place] [address] PCP - General Internal Medicine 08/21/22 Yessy Faustin DO [address] [place] [address] PCP - Carson [facility] Attributed 01/22/24 02/20/25 Yessy Faustin DO [address] [place] [address] PCP - Carson Strickland MA Attributed 02/21/25 Mehdi Nugent MD [address] [address] Physician Hematology Oncology 06/08/21 Olga Dodson MD 201 [place] [address] Surgery, General 08/24/22 documented as of this encounter
--- OUTSIDE RECORDS SUMMARY | 2025-07-14 16:35 | XMS_ITS | Encounter Summary ---
Author Organization [facility] Address 100 [place] [address] Care Team Providers Care Information Technology Security Analyst Name Role Phone Mehdi Nugent MD Unavailable [phone] Yessy Faustin DO Primary Care Provider Olga Dodson MD Unavailable [phone] Yessy Faustin DO Unavailable Yessy Faustin DO Unavailable Encounter Details Date Type Department Care Team (Late st Contact Info) Description 11/29/2024 Scanned Document [facility] at Home [address] [facility] [address] [facility] [address]B [place] [address] Provider, Generic Social History Tobacco [...] Office Visit [facility] Department of Cardiology [place] 160 [facility] [address] [place] [address] Onofre Malik PA [address] [place] [address] 11/14/2025 2:00 PM EDT Office Visit [facility] Department of Internal Medicine [address] 1st [place] [address] Yessy Faustin DO [address] [address] documented as of this encounter Visit Diagnoses Not on filedocumented in this encounter Care Teams Information Technology Security Analyst Relationship Specialty Start Date End Date Yessy Faustin DO [address] [place] [address] PCP - General Internal Medicine 08/21/22 Yessy Faustin DO [address] [place] [address] PCP - Carson [facility] ELISHA Attributed 01/22/24 02/20/25 Yessy Faustin DO [address] [place] [address] PCP - Carson Strickland MA Attributed 02/21/25 Mehdi Nugent MD [address] [address] Physician Hematology Oncology 06/08/21 Olga Dodson MD 201 [place] [address] Surgery, General 08/24/22 documented as of this encounter
--- OUTSIDE RECORDS SUMMARY | 2025-07-14 16:35 | XMS_ITS | Encounter Summary ---
Author Organization [facility] Address 100 [place] [address] Care Team Providers Care Independent Living Instructor Name Role Phone Mehdi Nugent MD Unavailable [phone] Yessy Faustin DO Primary Care Provider Olga Dodson MD Unavailable [phone] Yessy Faustin DO Unavailable Yessy Faustin DO Unavailable Encounter Details Date Type Department Care Team (Late st Contact Info) Description 12/03/2024 Scanned Document [facility] at Home 1290 [facility] 4B [place] [address] Provider, Generic Social History Tobacco [...] Office Visit [facility] Department of Cardiology [place] 160 [facility] [address] [place] [address] Onofre Malik PA [address] [place] [address] 11/14/2025 2:00 PM EDT Office Visit [facility] Department of Internal Medicine [address] 1st [place] [address] Yessy Faustin DO [address] [address] documented as of this encounter Visit Diagnoses Not on filedocumented in this encounter Care Teams Independent Living Instructor Relationship Specialty Start Date End Date Yessy Faustin DO [address] [place] [address] PCP - General Internal Medicine 08/21/22 Yessy Faustin DO [address] [place] [address] PCP - Carson [facility] ELISHA Attributed 01/22/24 02/20/25 Yessy Faustin DO [address] [place] [address] PCP - Carson Strickland MA Attributed 02/21/25 Mehdi Nugent MD [address] [address] Physician Hematology Oncology 06/08/21 Olga Dodson MD 201 [place] [address] Surgery, General 08/24/22 documented as of this encounter
--- OUTSIDE RECORDS SUMMARY | 2025-07-14 16:35 | XMS_ITS | Encounter Summary ---
Author Organization [facility] Address [address] [place] [address] Care Team Providers Care Assistant Signal Maintainer Name Role Phone Mehdi Nugent MD Unavailable Yessy Faustin DO Primary Care Provider Olga Dodson MD Unavailable Yessy Faustin DO Unavailable eYssy Faustin DO Unavailable Encounter Details Date Type Department Care Team (Late st Contact Info) Description 11/28/2024 Scanned Document [facility] at Home 1290 [facility] 4B [place] [address] Sparkle Castle, HAND INSERTER OPERATOR 18 [facility] 1 [place], [place] [address] Social History Tobacco Use Types Packs/Day Years [...] Description 11/10/2025 11:30 AM EDT Office Visit [facility] Department of Cardiology [place] 160 [facility] [address] [place] [address] Onofre Malik PA 289 [place] [address] 11/14/2025 2:00 PM EDT Office Visit [facility] Department of Internal Medicine [address] 1st [place] [address] Yessy Fautsin DO 18 [place] [address] documented as of this encounter Procedures Procedure Name Priority Date/Time Associated Diagnosis Comments HOME CARE SIGNED ORDERS 11/28/2024 3:34 PM EDT HOME CARE SIGNED ORDERS 11/28/2024 3:34 PM EDT documented in this encounter Results * HOME CARE SIGNED ORDERS (11/28/2024 3:34 PM EDT) Sparkle Castle HAND INSERTER OPERATOR HX AMB PROCEDURES NO RESULTS RO UTING Final Result * HOME CARE SIGNED ORDERS (11/28/2024 3:34 PM EDT) Sparkle Castle HAND INSERTER OPERATOR HX AMB PROCEDURES NO RESULTS RO UTING Final Result documented in this encounter Visit Diagnoses Not on filedocumented in this encounter Care Teams Assistant Signal Maintainer Relationship Specialty Start Date End Date Yessy Faustin DO [address] [place], [place] [address] PCP - General Internal Medicine 08/21/22 Yessy Faustin DO [address] [place] [address] PCP - Carson [facility] MA Attributed 01/22/24 02/20/25 Yessy Faustin DO [address] [place], [place] [phone] PCP - Carson Strickland MA Attributed 02/21/25 Mehdi Nugent MD 183 [place] [address] Physician Hematology Oncology 06/08/21 Olga Dodson MD [address] [place] [address] Surgery, General 08/24/22 documented as of this encounter
--- OUTSIDE RECORDS SUMMARY | 2025-07-14 16:35 | XMS_ITS | Encounter Summary ---
Author Organization [facility] Address 100 [place] [address] Care Team Providers Care Information Strategist Name Role Phone Mehdi Nugent MD Unavailable [phone] Yessy Faustin DO Primary Care Provider Olga Dodson MD Unavailable [phone] Yessy Faustin DO Unavailable Yessy Faustin DO Unavailable Encounter Details Date Type Department Care Team (Late st Contact Info) Description 11/28/2024 Scanned Document [facility] at Home 1290 [facility] 4B [place] [address] Provider, Generic Social History Tobacco [...] Office Visit [facility] Department of Cardiology [place] 160 [facility] [address] [place] [address] Onofre Malik PA [address] [place] [address] 11/14/2025 2:00 PM EDT Office Visit [facility] Department of Internal Medicine [address] 1st [place] [address] Yessy Faustin DO [address] [address] documented as of this encounter Visit Diagnoses Not on filedocumented in this encounter Care Teams Information Strategist Relationship Specialty Start Date End Date Yessy Faustin DO [address] [place] [address] PCP - General Internal Medicine 08/21/22 Yessy Faustin DO [address] [place] [address] PCP - Carson [facility] ELISHA Attributed 01/22/24 02/20/25 Yessy Faustin DO [address] [place] [address] PCP - Carson Strickland MA Attributed 02/21/25 Mehdi Nugent MD [address] [address] Physician Hematology Oncology 06/08/21 Olga Dodson MD 201 [place] [address] Surgery, General 08/24/22 documented as of this encounter
--- OUTSIDE RECORDS SUMMARY | 2025-07-14 16:35 | XMS_ITS | Encounter Summary ---
Author Organization [facility] Address [address] [place] [address] Care Team Providers Care Geriatric Case Manager Name Role Phone Mehdi Nugent MD Unavailable [phone] Yessy Faustin DO Primary Care Provider Olga Dodson MD Unavailable Yessy Faustin DO Unavailable Yessy Faustin DO Unavailable Encounter Details Date Type Department Care Team (Late st Contact Info) Description 01/01/2025 Scanned Document [facility] at Home 1290 [facility] 4B [place] [phone] Sparkle Castle, CYCLE MANAGER 18 [facility] 1 [place], [place] [address] Social History Tobacco Use Types Packs/Day Years [...] [facility] Department of Cardiology [place] 160 [facility] [address] [place] [address] Onofre Malik PA 289 [place] [address] 11/14/2025 2:00 PM EDT Office Visit [facility] Department of Internal Medicine [address] 1st [place] [address] Yessy Faustin DO 18 [place] [address] documented as of this encounter Procedures Procedure Name Priority Date/Time Associated Diagnosis Comments HOME CARE SIGNED ORDERS 01/01/2025 12:51 PM EDT HOME CARE SIGNED ORDERS 01/01/2025 12:51 PM EDT documented in this encounter Results * HOME CARE SIGNED ORDERS (01/01/2025 12:51 PM EDT) Sparkle Castle CYCLE MANAGER HX AMB PROCEDURES NO RESULTS RO UTING Final Result * HOME CARE SIGNED ORDERS (01/01/2025 12:51 PM EDT) Sparkle Castle CYCLE MANAGER HX AMB PROCEDURES NO RESULTS RO UTING Final Result documented in this encounter Visit Diagnoses Not on filedocumented in this encounter Care Teams Geriatric Case Manager Relationship Specialty Start Date End Date Yessy Faustin DO [address] [place], [place] [address] PCP - General Internal Medicine 08/21/22 Yessy Faustin DO [address] [place] [address] PCP - Carson [facility] MA Attributed 01/22/24 02/20/25 Yessy Faustin DO [address] [place], [place] [address] PCP - Carson Strickland MA Attributed 02/21/25 Mehdi Nugent MD 183 [place] [address] Physician Hematology Oncology 06/08/21 Olga Dodson MD [address] [place] [address] Surgery, General 08/24/22 documented as of this encounter
--- OUTSIDE RECORDS SUMMARY | 2025-07-14 16:35 | XMS_ITS | Encounter Summary ---
Author Organization [facility] Address [address] [place] [phone] Care Team Providers Care Health And Safety Director Name Role Phone Unavailable Primary Care Provider Unavailabl e Encounter Details Date Type Department Care Team ([facility] st Contact Info) Description 09/17/2024 Abstract [facility] at [address] [phone] Malik Jennings MD [address] [place] [phone] Social History Tobacco Use Types Packs/Day [...]
--- OUTSIDE RECORDS SUMMARY | 2025-07-14 16:35 | XMS_ITS | Encounter Summary ---
Author Organization [facility] Address [address] [place] [phone] Care Team Providers Care Shredded Filler Cutter Operator Name Role Phone Unavailable Primary Care Provider Unavailabl e Encounter Details Date Type Department Care Team ([facility] st Contact Info) Description 09/19/2024 Documentation [facility] HALF SECTION IRONER [address] [place] [address] Holly Chance, PharmD Social History Tobacco Use [...] Emesis prophylaxis: Zofran Signed consent: Documented in [employer] media files Patient Description: 73 y.o. female [...]
--- OUTSIDE RECORDS SUMMARY | 2025-07-14 16:35 | XMS_ITS | Encounter Summary ---
Author Organization [facility] Address [address] [place] [address] Care Team Providers Care Sweeper Driver Name Role Phone Mehdi Nugent MD Unavailable [phone] Yessy Faustin DO Primary Care Provider [phone] Olga Dodson MD Unavailable [phone] Yessy Faustin DO Unavailable Yessy Faustin DO Unavailable Encounter Details Date Type Department Care Team (Late st Contact Info) Description 11/29/2024 Scanned Document [facility] Department of Internal Medicine [address] 1st [place] [address] Yessy Faustin DO [address] [address] Social History Tobacco Use Types [...] Description 11/10/2025 11:30 AM EDT Office Visit [facility] Department of Cardiology [place] [address] [place] [address] Onofre Malik PA 289 [place] [address] 11/14/2025 2:00 PM EDT Office Visit [facility] Department of Internal Medicine [address] 1st [place] [address] Yessy Faustin DO [address] [place] [address] documented as of this encounter Visit Diagnoses Not on filedocumented in this encounter Care Teams Sweeper Driver Relationship Specialty Start Date End Date Yessy Faustin DO [address] [place] [address] PCP - General Internal Medicine 08/21/22 Yessy Faustin DO [address] [place] [address] PCP - Carson Mark TELLO Attributed 01/22/24 02/20/25 Yessy Faustin DO [address] [place] [address] PCP - Carson Strickland MA Attributed 02/21/25 Mehdi Nugent MD [address] [address] Physician Hematology Oncology 06/08/21 Olga Dodson MD 201 [place] [address] Surgery, General 08/24/22 documented as of this encounter
--- OUTSIDE RECORDS SUMMARY | 2025-07-14 16:35 | XMS_ITS | Encounter Summary ---
Author Organization [facility] Address [address] [place] [address] Care Team Providers Care Drafter Landscape Name Role Phone Mehdi Nugent MD Unavailable [phone] Yessy Faustin DO Primary Care Provider Olga Dodson MD Unavailable [phone] Yessy Faustin DO Unavailable Yessy Faustin DO Unavailable Encounter Details Date Type Department Care Team (Late st Contact Info) Description 11/29/2024 Scanned Document [facility] Department of Internal Medicine [address] 1st [place] [address] Yessy Faustin DO [address] [address] Social History Tobacco Use Types [...] [facility] Department of Cardiology [place] [address] [place] [address] Onofre Malik PA 289 [place] [address] 11/14/2025 2:00 PM EDT Office Visit [facility] Department of Internal Medicine [address] 1st [place] [address] Yessy Faustin DO [address] [place] [address] documented as of this encounter Visit Diagnoses Not on filedocumented in this encounter Care Teams Drafter Landscape Relationship Specialty Start Date End Date Yessy Faustin DO [address] [place] [address] PCP - General Internal Medicine 08/21/22 Yessy Faustin DO [address] [place] [address] PCP - Carson Mark TELLO Attributed 01/22/24 02/20/25 Yessy Faustin DO [address] [place] [address] PCP - Carson Strickland MA Attributed 02/21/25 Mehdi Nugent MD [address] [address] Physician Hematology Oncology 06/08/21 Olga Dodson MD 201 [place] [address] Surgery, General 08/24/22 documented as of this encounter
--- OUTSIDE RECORDS SUMMARY | 2025-07-14 16:35 | XMS_ITS | Encounter Summary ---
Author Organization [facility] Address [address] [place] [address] Care Team Providers Care School Health Assistant Name Role Phone Mehdi Nugent MD Unavailable [phone] Yessy Faustin DO Primary Care Provider Olga Dodson MD Unavailable [phone] Yessy Faustin DO Unavailable Yessy Faustin DO Unavailable Encounter Details Date Type Department Care Team (Late st Contact Info) Description 11/27/2024 Scanned Document [facility] 1290 [facility] 4B [place] [phone] Yessy Faustin DO [address] [address] Social History Tobacco Use Types [...] Description 11/10/2025 11:30 AM EDT Office Visit [facility] Department of Cardiology [place] 160 [facility] [address] [place] [address] Onofre Malik PA 289 [place] [address] 11/14/2025 2:00 PM EDT Office Visit [facility] Department of Internal Medicine [address] 1st [place] [address] Yessy Faustin DO 18 [place] [address] documented as of this encounter Procedures Procedure [...] on filedocumented in this encounter Care Teams School Health Assistant Relationship Specialty Start Date End Date Yessy Faustin DO [address] [place], [place] [address] PCP - General Internal Medicine 08/21/22 Yessy Faustin DO [address] [place] [address] PCP - Starailyn [facility] MA Attributed 01/22/24 02/20/25 Yessy Faustin DO [address] [place], [place] [address] PCP - Carson Strickland MA Attributed 02/21/25 Mehdi Nugent MD 183 [place] [address] Physician Hematology Oncology 06/08/21 Olga Dodson MD 201 [place] [address] Surgery, General 08/24/22 documented as of this encounter
--- OUTSIDE RECORDS SUMMARY | 2025-07-14 16:35 | XMS_ITS ---
Author Organization [address] [facility] Address [facility] [facility] [address] [place] [address] Care Team Providers Care Residential Program Coordinator Name Role Phone Unavailable Primary Care Provider [...]
--- OUTSIDE RECORDS SUMMARY | 2025-07-14 16:35 | XMS_ITS | Encounter Summary ---
Author Organization [facility] Address [address] [place] [address] Care Team Providers Care Truck Crane Operator Helper Name Role Phone Mehdi Nugent MD Unavailable Yessy Faustin DO Primary Care Provider Olga Dodson MD Unavailable Yessy Faustin DO Unavailable Yessy Faustin DO Unavailable Encounter Details Date Type Department Care Team (Late st Contact Info) Description 11/27/2024 Scanned Document [facility] 1290 [facility] 4B [place] [phone] [place], MARZIPAN MOLDER 18 [facility] 1 [place], [place] [address] Social History Tobacco Use Types Packs/Day Years [...] 11/10/2025 11:30 AM EDT Office Visit [facility] Department of Cardiology [place] 160 [facility] [address] [place] [address] Onofre Malik PA 289 [place] [address] 11/14/2025 2:00 PM EDT Office Visit [facility] Department of Internal Medicine [address] 1st [place] [address] Yessy Faustin DO 18 [place] [address] documented as of this encounter Procedures Procedure Name Priority Date/Time Associated Diagnosis Comments HOME CARE SIGNED ORDERS 11/27/2024 4:01 PM EDT HOME CARE SIGNED ORDERS 11/27/2024 4:01 PM EDT documented in this encounter Results * HOME CARE SIGNED ORDERS (11/27/2024 4:01 PM EDT) [place] MARZIPAN MOLDER HX AMB PROCEDURES NO RESULTS RO UTING Final Result * HOME CARE SIGNED ORDERS (11/27/2024 4:01 PM EDT) [place] MARZIPAN MOLDER HX AMB PROCEDURES NO RESULTS RO UTING Final Result documented in this encounter Visit Diagnoses Not on filedocumented in this encounter Care Teams Truck Crane Operator Helper Relationship Specialty Start Date End Date Yessy Faustin DO [address] [place], [place] [address] PCP - General Internal Medicine 08/21/22 Yessy Faustin DO [address] [place] [address] PCP - Carson [facility] MA Attributed 01/22/24 02/20/25 Yessy Faustin DO [address] [place], [place] [address] PCP - Carson Strickland MA Attributed 02/21/25 Mehdi Nugent MD 183 [place] [address] Physician Hematology Oncology 06/08/21 Olga Dodson MD [address] [place] [address] Surgery, General 08/24/22 documented as of this encounter
--- OUTSIDE RECORDS SUMMARY | 2025-07-14 16:35 | XMS_ITS | Encounter Summary ---
Author Organization [facility] Address [address] [place] [address] Care Team Providers Care Machine Fancy Stitcher Name Role Phone Mehdi Nugent MD Unavailable [phone] Yessy Faustin DO Primary Care Provider Olga Dodson MD Unavailable [phone] Yessy Faustin DO Unavailable Yessy Faustin DO Unavailable Encounter Details Date Type Department Care Team (Late st Contact Info) Description 12/19/2024 Scanned Document [facility] Department of Internal Medicine [address] 1st [place] [address] Yessy Faustin DO [address] [address] Social History Tobacco Use Types [...] Description 11/10/2025 11:30 AM EDT Office Visit [facility] Department of Cardiology [place] [address] [place] [address] Onofre Malik PA 289 [place] [address] 11/14/2025 2:00 PM EDT Office Visit [facility] Department of Internal Medicine [address] 1st [place] [address] Yessy Faustin DO [address] [place] [address] documented as of this encounter Visit Diagnoses Not on filedocumented in this encounter Care Teams Machine Fancy Stitcher Relationship Specialty Start Date End Date Yessy Faustin DO [address] [place] [address] PCP - General Internal Medicine 08/21/22 Yessy Faustin DO [address] [place] [address] PCP - Carson Mark TELLO Attributed 01/22/24 02/20/25 Yessy Faustin DO [address] [place] [address] PCP - Carson Strickland MA Attributed 02/21/25 Mehdi Nugent MD [address] [address] Physician Hematology Oncology 06/08/21 Olga Dodson MD 201 [place] [address] Surgery, General 08/24/22 documented as of this encounter
--- OUTSIDE RECORDS SUMMARY | 2025-07-14 16:35 | XMS_ITS | Encounter Summary ---
Author Organization [facility] Address 100 [place] [address] Care Team Providers Care Toolroom Keeper Name Role Phone Mehdi Nugent MD Unavailable [phone] Yessy Faustin DO Primary Care Provider Olga Dodson MD Unavailable [phone] Yessy Faustin DO Unavailable Yessy Faustin DO Unavailable Encounter Details Date Type Department Care Team (Late st Contact Info) Description 11/26/2024 Scanned Document [facility] 1290 [facility] 4B [place] [address] Provider, Generic Social History Tobacco [...] Office Visit [facility] Department of Cardiology [place] 160 [facility] [address] [place] [address] Onofre Malik PA [address] [place] [address] 11/14/2025 2:00 PM EDT Office Visit [facility] Department of Internal Medicine [address] 1st [place] [address] Yessy Faustin DO [address] [address] documented as of this encounter Visit Diagnoses Not on filedocumented in this encounter Care Teams Toolroom Keeper Relationship Specialty Start Date End Date Yessy Faustin DO [address] [place] [address] PCP - General Internal Medicine 08/21/22 Yessy Faustin DO [address] [place] [address] PCP - Carson [facility] ELISHA Attributed 01/22/24 02/20/25 Yessy Faustin DO [address] [place] [address] PCP - Carson Strickland MA Attributed 02/21/25 Mehdi Nugent MD [address] [address] Physician Hematology Oncology 06/08/21 Olga Dodson MD 201 [place] [address] Surgery, General 08/24/22 documented as of this encounter
--- OUTSIDE RECORDS SUMMARY | 2025-07-14 16:35 | XMS_ITS | Encounter Summary ---
Author Organization [facility] Address [address] [place] [address] Care Team Providers Care Hose Mender Name Role Phone Unavailable Primary Care Provider Unavailabl e Encounter Details Date Type Department Care Team ([facility] Contact Info) Description 09/25/2024 Scanned Document INTERFACE DEFAULT [address] [place] [id number] System, Provider Not In Social History Tobacco [...]
--- OUTSIDE RECORDS SUMMARY | 2025-07-14 16:35 | XMS_ITS | Encounter Summary ---
Author Organization [facility] Address 100 [place] [address] Care Team Providers Care Assembler Type Bar And Segment Name Role Phone Mehdi Nugent MD Unavailable [phone] Yessy Faustin DO Primary Care Provider Olga Dodson MD Unavailable [phone] Yessy Faustin DO Unavailable Yessy Faustin DO Unavailable Encounter Details Date Type Department Care Team (Late st Contact Info) Description 12/02/2024 Scanned Document [facility] 1290 [facility] 4B [place] [address] Provider, Generic Social History Tobacco [...] Office Visit [facility] Department of Cardiology [place] 160 [facility] [address] [place] [address] Onofre Malik PA [address] [place] [address] 11/14/2025 2:00 PM EDT Office Visit [facility] Department of Internal Medicine [address] 1st [place] [address] Yessy Faustin DO [address] [address] documented as of this encounter Visit Diagnoses Not on filedocumented in this encounter Care Teams Assembler Type Bar And Segment Relationship Specialty Start Date End Date Yessy Faustin DO [address] [place] [address] PCP - General Internal Medicine 08/21/22 Yessy Faustin DO [address] [place] [address] PCP - Carson [facility] EL[facility]HA Attributed 01/22/24 02/20/25 Yessy Faustin DO [address] [place] [address] PCP - Carson Strickland MA Attributed 02/21/25 Mehdi Nugent MD [address] [address] Physician Hematology Oncology 06/08/21 Olga Dodson MD 201 [place] [address] Surgery, General 08/24/22 documented as of this encounter
--- OUTSIDE RECORDS SUMMARY | 2025-07-14 16:35 | XMS_ITS | Encounter Summary ---
Author Organization [facility] Address [address] [place] [address] Care Team Providers Care E Learning Specialist Name Role Phone Mehdi Nugent MD Unavailable [phone] Yessy Faustin DO Primary Care Provider Olga Dodson MD Unavailable [phone] Yessy Faustin DO Unavailable Yessy Faustin DO Unavailable Encounter Details Date Type Department Care Team (Late st Contact Info) Description 11/28/2024 Scanned Document [facility] 1290 [facility] 4B [place] [address] Yessy Faustin DO [address] [address] Social History Tobacco Use Types [...] Description 11/10/2025 11:30 AM EDT Office Visit [facility] Department of Cardiology [place] 160 [facility] [address] [place] [address] Onofre Malik PA [address] [place] [address] 11/14/2025 2:00 PM EDT Office Visit [facility] Department of Internal Medicine [address] 1st [place] [address] Yessy Faustin DO 18 [place] [address] documented as of this encounter Procedures Procedure Name Priority Date/Time Associated Diagnosis Comments HOME CARE SIGNED ORDERS 11/28/2024 3:34 PM EDT documented in this encounter Results * HOME CARE SIGNED ORDERS (11/28/2024 3:34 PM EDT) Yessy Faustin DO HX AMB PROCEDURES NO RESULTS ROU TING Final Result documented in this encounter Visit Diagnoses Not on filedocumented in this encounter Care Teams E Learning Specialist Relationship Specialty Start Date End Date Yessy Faustin DO [address] [place], [place] [phone] PCP - General Internal Medicine 08/21/22 Yessy Faustin DO [address] [place], [place] [address] PCP - Carson Mark TELLO Attributed 01/22/24 02/20/25 Yessy Faustin DO [address] [place] [address] PCP - Carson Strickland MA Attributed 02/21/25 Mehdi Nugent MD [address] [place] [address] Physician Hematology Oncology 06/08/21 Olga Dodson MD [address] [place] [address] Surgery, General 08/24/22 documented as of this encounter
--- OUTSIDE RECORDS SUMMARY | 2025-07-14 16:35 | XMS_ITS | Encounter Summary ---
Author Organization [facility] Address [address] [place] [address] Care Team Providers Care Picker And Sorter Load And Unload Name Role Phone Mehdi Nugent MD Unavailable [phone] Yessy Faustin DO Primary Care Provider Olga Dodson MD Unavailable [phone] Yessy Faustin DO Unavailable Yessy Faustin DO Unavailable Encounter Details Date Type Department Care Team (Late st Contact Info) Description 12/05/2024 Scanned Document [facility] at Home 1290 [facility] 4B [place] [address] Provider, Generic Social History Tobacco [...] Office Visit [facility] Department of Cardiology [place] 160 [facility] [address] [place] [address] Onofre Malik PA [address] [place] [address] 11/14/2025 2:00 PM EDT Office Visit [facility] Department of Internal Medicine [address] 1st [place] [address] Yessy Faustin DO [address] [address] documented as of this encounter Visit Diagnoses Not on filedocumented in this encounter Care Teams Picker And Sorter Load And Unload Relationship Specialty Start Date End Date Yessy Faustin DO [address] [place] [address] PCP - General Internal Medicine 08/21/22 Yessy Faustin DO [address] [place] [address] PCP - Carson [facility] ELISHA Attributed 01/22/24 02/20/25 Yessy Faustin DO [address] [place] [address] PCP - Carson Strickland MA Attributed 02/21/25 Mehdi Nugent MD [address] [address] Physician Hematology Oncology 06/08/21 Olga Dodson MD 201 [place] [address] Surgery, General 08/24/22 documented as of this encounter
--- OUTSIDE RECORDS SUMMARY | 2025-07-14 16:36 | XMS_ITS | Encounter Summary ---
Author Organization [facility] Address [address] [place] [address] Care Team Providers Care Project Crew Worker Name Role Phone Unavailable Primary Care Provider Unavailabl e Encounter Details Date Type Department Care Team ([facility] Contact Info) Description 10/18/2024 Scanned Document INTERFACE DEFAULT [address] [place] [id number] System, Provider Not In Social History Tobacco [...]
--- OUTSIDE RECORDS SUMMARY | 2025-07-14 16:36 | XMS_ITS | Encounter Summary ---
Author Organization [facility] Address [address] [place] [address] Care Team Providers Care Bulking Machine Operator Name Role Phone Mehdi Nugent MD Unavailable [phone] Yessy Faustin DO Primary Care Provider Olga Dodson MD Unavailable [phone] Yessy Faustin DO Unavailable Yessy Faustin DO Unavailable Encounter Details Date Type Department Care Team (Late st Contact Info) Description 11/18/2024 Scanned Document [facility] 1290 [facility] 4B [place] [address] Provider, Generic Social History Tobacco [...] Office Visit [facility] Department of Cardiology [place] 160 [facility] [address] [place] [address] Onofre Malik PA [address] [place] [address] 11/14/2025 2:00 PM EDT Office Visit [facility] Department of Internal Medicine [address] 1st [place] [address] Yessy Faustin DO [address] [address] documented as of this encounter Visit Diagnoses Not on filedocumented in this encounter Care Teams Bulking Machine Operator Relationship Specialty Start Date End Date Yessy Faustin DO [address] [place] [address] PCP - General Internal Medicine 08/21/22 Yessy Faustin DO [address] [place] [address] PCP - Carson [facility]HA Attributed 01/22/24 02/20/25 Yessy Faustin DO [address] [place] [address] PCP - Carson Strickland MA Attributed 02/21/25 Mehdi Nugent MD [address] [address] Physician Hematology Oncology 06/08/21 Olga Dodson MD 201 [place] [address] Surgery, General 08/24/22 documented as of this encounter
--- OUTSIDE RECORDS SUMMARY | 2025-07-14 16:36 | XMS_ITS | Encounter Summary ---
Author Organization [facility] Address [address] [place] [address] Care Team Providers Care Television Parts Tester Name Role Phone Mehdi Nugent MD Unavailable [phone] Yessy Faustin DO Primary Care Provider [phone] Olga Dodson MD Unavailable [phone] Yessy Faustin DO Unavailable Yessy Faustin DO Unavailable Encounter Details Date Type Department Care Team (Late st Contact Info) Description 11/08/2024 Scanned Document [facility] Department of Internal Medicine [address] 1st [place] [address] Yessy Faustin DO [address] [address] Social History Tobacco Use Types [...] 11/10/2025 11:30 AM EDT Office Visit [facility] Department of Cardiology [place] [address] [place] [address] Onofre Malik PA 289 [place] [address] 11/14/2025 2:00 PM EDT Office Visit [facility] Department of Internal Medicine [address] 1st [place] [address] Yessy Faustin DO [address] [place] [address] documented as of this encounter Visit Diagnoses Not on filedocumented in this encounter Care Teams Television Parts Tester Relationship Specialty Start Date End Date Yessy Faustin DO [address] [place] [address] PCP - General Internal Medicine 08/21/22 Yessy Faustin DO [address] [place] [address] PCP - Carson Mark TELLO Attributed 01/22/24 02/20/25 Yessy Faustin DO [address] [place] [address] PCP - Carson Strickland MA Attributed 02/21/25 Mehdi Nugent MD [address] [address] Physician Hematology Oncology 06/08/21 Olga Dodson MD 201 [place] [address] Surgery, General 08/24/22 documented as of this encounter
--- OUTSIDE RECORDS SUMMARY | 2025-07-14 16:36 | XMS_ITS | Encounter Summary ---
Author Organization [facility] Address [address] [place] [address] Care Team Providers Care Belt Splicer Name Role Phone Mehdi Nugent MD Unavailable [phone] Yessy Faustin DO Primary Care Provider Olga Dodson MD Unavailable [phone] Yessy Faustin DO Unavailable Yessy Faustin DO Unavailable Encounter Details Date Type Department Care Team (Late st Contact Info) Description 10/22/2024 Scanned Document [facility] 1290 [facility] 4B [place] [address] Provider, Generic Social History Tobacco [...] Office Visit [facility] Department of Cardiology [place] 160 [facility] [address] [place] [address] Onofre Malik PA [address] [place] [address] 11/14/2025 2:00 PM EDT Office Visit [facility] Department of Internal Medicine [address] 1st [place] [address] Yessy Faustin DO [address] [address] documented as of this encounter Visit Diagnoses Not on filedocumented in this encounter Care Teams Belt Splicer Relationship Specialty Start Date End Date Yessy Faustin DO [address] [place] [address] PCP - General Internal Medicine 08/21/22 Yessy Faustin DO [address] [place] [address] PCP - Carson [facility] EL[facility]HA Attributed 01/22/24 02/20/25 Yessy Faustin DO [address] [place] [address] PCP - Carson Strickland MA Attributed 02/21/25 Mehdi Nugent MD [address] [address] Physician Hematology Oncology 06/08/21 Olga Dodson MD 201 [place] [address] Surgery, General 08/24/22 documented as of this encounter
--- OUTSIDE RECORDS SUMMARY | 2025-07-14 16:36 | XMS_ITS | Encounter Summary ---
Author Organization [facility] and [facility] Address [address] [place] [id number] Care Team Providers Care Glass Production Machine Operator Name Role Phone Unavailable Primary Care Provider Unavailabl e Encounter Details Date Type Department Care Team (Late st Contact Info) Description 11/27/2024 Orders Only Palliative Care Program at [address] [place] [address] Natividad Florentino APRN [address] [place] [phone] Therapeutic drug monitoring Social History Tobacco Use Types Packs/Day Years Used Date Smoking Tobacco: Never Alcohol Use Standard Drinks/Week Comments Never 0 (1 standard drink = 0.6 oz pur e alcohol) [facility] Utilities Answer Date Recorded In the [...] EDT) No Carey Matthews, Ovidio Note: Oncology: Increase or maintain treatment adherence MTPs must be opened for patients not making appropriate progress towards their established therapeutic goals. Patient's progress towards goal: 09/20 new start kisqali/letrozole documented as of this encounter Procedures Procedure Name Priority Date/Time Associated Diagnosis Comments URINE DRUG SCREEN, WITH CONFIRMATION ([facility]) Routine 11/27/2024 3:19 PM EDT Therapeutic drug monitoring documented in this encounter Results * Urine drug screening, w conf. ([facility]) (11/27/2024 3:19 PM EDT) [facility] Drugs Of Abuse Note 11/27 8:57 PM [facility] DEPARTMENT OF LABORATORY MEDICINE Comment: Formal chain of custody documentation not maintained on clinical specimens. Results are intended for medical management purposes only. Amphetamine Screen, Urine, w/ Conf. Negative Negative 11/27/2024 8:57 PM [facility] OF LABORATORY MEDICINE Comment: No confirmation is performed on specimens that are negative in the screening test. This immunoassay is reported as negative if the reactivity is below that of a 1000 ng/mL calibrator. Barbiturate Screen, Urine, No Conf. Negative Negative 11/27/2024 8:57 PM [facility] OF LABORATORY MEDICINE Comment: This immunoassay is reported as negative if the reactivity is below that of a 200 ng/mL calibrator. Benzodiazepines Screen, Urine, No Conf. Negative Negative 11/27/2024 8:57 PM [facility] OF LABORATORY MEDICINE Comment: This immunoassay is reported as negative if the reactivity is below that of a 200 ng/mL calibrator. Cannabinoids Screen, Urine, No Conf. Negative Negative 11/27/2024 8:57 PM [facility] DEPARTMENT OF LABORATORY MEDICINE Comment: This immunoassay is reported as negative if the reactivity is below that of a 50 ng/mL calibrator. Cocaine Screen, Urine, w/ Conf. Negative Negative 11/27/2024 8:57 PM [facility] DEPARTMENT OF LABORATORY MEDICINE Comment: No confirmation is performed on specimens that are negative in the screening test. This immunoassay is reported as negative if the reactivity is below that of a 300 ng/mL calibrator. Methadone Metabolite Screen, Urine, w/ Conf. Negative Negative 11/27/2024 8:57 PM [facility] DEPARTMENT OF LABORATORY MEDICINE Comment: No confirmation is performed on specimens that are negative in the screening test. This immunoassay is reported as negative if the reactivity is below that of a 100 ng/mL calibrator. Opiates Screen, Urine, w/ Conf. Negative Negative 11/27/2024 8:57 PM [facility] DEPARTMENT OF LABORATORY MEDICINE Comment: No confirmation is performed on specimens that are negative in the screening test. This immunoassay is reported as negative if the reactivity is below that of a 300 ng/mL calibrator. Oxycodone Screen, Urine, w/ Conf. Negative Negative 11/27/2024 8:57 PM EDT [facility] DEPARTMENT OF LABORATORY MEDICINE Comment: No confirmation is performed on specimens that are negative in the screening test. This immunoassay is reported as negative if the reactivity is below that of a 100 ng/mL calibrator. Fentanyl Screen, Urine Negative Negative 11/27/2024 8:57 PM EDT [facility] DEPARTMENT OF LABORATORY MEDICINE Comment: No confirmation is performed on specimens that are negative in the screening test. This immunoassay is reported as negative if the reactivity is below that of a 5 ng/mL calibrator. Effective 01/10/23, the Clinical Chemistry Laboratory at [facility] is running the urine fentanyl immunoassay test using Kaci recommended reagents. Phencyclidine (PCP) Screen, Urine, w/ Conf. Negative Negative 11/27/2024 8:57 PM EDT [facility] DEPARTMENT OF LABORATORY MEDICINE Comment: No confirmation is performed on specimens that are negative in the screening test. This immunoassay is reported as negative if the reactivity is below that of a 25 ng/mL calibrator. Urine Collection / Unknown 11/27/2024 3:19 PM EDT 11/27/2024 3:19 PM EDT us Natividad Florentino APRN URINE ORDERABLES Final R esult [facility] DEPARTMENT OF LABORATORY MEDICINE [address] [place] [address], [facility] [phone] documented in this encounter Visit Diagnoses Diagnosis Therapeutic drug monitoring Encounter for therapeutic drug monitoring documented in this encounter
--- OUTSIDE RECORDS SUMMARY | 2025-07-14 16:36 | XMS_ITS | Encounter Summary ---
Author Organization [facility] Address [address] [place] [address] Care Team Providers Care Hooker Operator Name Role Phone Mehdi Nugent MD Unavailable [phone] Yessy Faustin DO Primary Care Provider Olga Dodson MD Unavailable [phone] Yessy Faustin DO Unavailable Yessy Faustin DO Unavailable Encounter Details Date Type Department Care Team (Late st Contact Info) Description 10/25/2024 Scanned Document [facility] at Home 12[address] [facility] [address] [place] [address] Provider, Generic Social History Tobacco [...] Office Visit [facility] Department of Cardiology [place] 160 [facility] [address] [place] [address] Onofre Malik PA [address] [place] [address] 11/14/2025 2:00 PM EDT Office Visit [facility] Department of Internal Medicine [address] 1st [place] [address] Yessy Faustin DO [address] [address] documented as of this encounter Visit Diagnoses Not on filedocumented in this encounter Care Teams Hooker Operator Relationship Specialty Start Date End Date Yessy Faustin DO [address] [place] [address] PCP - General Internal Medicine 08/21/22 Yessy Faustin DO [address] [place] [address] PCP - Carson [facility] Attributed 01/22/24 02/20/25 Yessy Faustin DO [address] [place] [address] PCP - [facility] Strickland MA Attributed 02/21/25 Mehdi Nugent MD [address] [address] Physician Hematology Oncology 06/08/21 Olga Dodson MD [address] [place] [address] Surgery, General 08/24/22 documented as of this encounter
--- OUTSIDE RECORDS SUMMARY | 2025-07-14 16:36 | XMS_ITS | Encounter Summary ---
Author Organization [facility] Address [address] [place] [address] Care Team Providers Care Fisheries Manager Name Role Phone Mehdi Nugent MD Unavailable [phone] Yessy Faustin DO Primary Care Provider Olga Dodson MD Unavailable [phone] Yessy Faustin DO Unavailable Yessy Faustin DO Unavailable Encounter Details Date Type Department Care Team (Late st Contact Info) Description 10/11/2024 Scanned Document [facility] at Home 1290 [facility] [address] [place] [address] Provider, Generic Social History Tobacco [...] Office Visit [facility] Department of Cardiology [place] 160 [facility] [address] [place] [phone] Onofre Malik PA [address] [place] [address] 11/14/2025 2:00 PM EDT Office Visit [facility] Department of Internal Medicine [address] 1st [place] [address] Yessy Faustin DO [address] [address] documented as of this encounter Visit Diagnoses Not on filedocumented in this encounter Care Teams Fisheries Manager Relationship Specialty Start Date End Date Yessy Faustin DO [address] [place] [address] PCP - General Internal Medicine 08/21/22 Yessy Faustin DO [address] [place] [address] PCP - Carson [facility] Attributed 01/22/24 02/20/25 Yessy Faustin DO [address] [place] [address] PCP - [facility] Strickland MA Attributed 02/21/25 Mehdi Nugent MD [address] [address] Physician Hematology Oncology 06/08/21 Olga Dodson MD [address] [place] [address] Surgery, General 08/24/22 documented as of this encounter
--- OUTSIDE RECORDS SUMMARY | 2025-07-14 16:36 | XMS_ITS | Encounter Summary ---
Author Organization [facility] Address [address] [place] [address] Care Team Providers Care Factory Supervisor Name Role Phone Mehdi Nugent MD Unavailable [phone] Yessy Faustin DO Primary Care Provider [phone] Olga Dodson MD Unavailable [phone] Yessy Faustin DO Unavailable Yessy Faustin DO Unavailable Encounter Details Date Type Department Care Team (Late st Contact Info) Description 11/22/2024 Scanned Document [facility] at Home 1290 [facility] [address] [place] [address] Provider, Generic Social History Tobacco [...] Office Visit [facility] Department of Cardiology [place] 160 [facility] [address] [place] [address] Onofre Malik PA [address] [place] [address] 11/14/2025 2:00 PM EDT Office Visit [facility] Department of Internal Medicine [address] 1st [place] [address] Yessy Faustin DO [address] [address] documented as of this encounter Visit Diagnoses Not on filedocumented in this encounter Care Teams Factory Supervisor Relationship Specialty Start Date End Date Yessy Faustin DO [address] [place] [address] PCP - General Internal Medicine 08/21/22 Yessy Faustin DO [address] [place] [address] PCP - Carson [facility] Attributed 01/22/24 02/20/25 Yessy Faustin DO [address] [place] [address] PCP - Carson Strickland MA Attributed 02/21/25 Mehdi Nugent MD [address] [address] Physician Hematology Oncology 06/08/21 Olga Dodson MD 201 [place] [address] Surgery, General 08/24/22 documented as of this encounter
--- OUTSIDE RECORDS SUMMARY | 2025-07-14 16:36 | XMS_ITS | Encounter Summary ---
Author Organization [facility] Address [address] [place] [address] Care Team Providers Care Pulp And Paper Tester Name Role Phone Mehdi Nugent MD Unavailable [phone] Yessy Faustin DO Primary Care Provider Olga Dodson MD Unavailable [phone] Yessy Faustin DO Unavailable Yessy Faustin DO Unavailable Encounter Details Date Type Department Care Team (Late st Contact Info) Description 10/31/2024 Scanned Document [facility] at Home 1290 [facility] [address] [place] [phone] Yessy Faustin DO [address] [id number] Social History Tobacco Use Types Packs/Day Years [...] Description 11/10/2025 11:30 AM EDT Office Visit [facility] Department of Cardiology [place] 160 [facility] [address] [place] [address] Onofre Malik PA [address] [place] [address] 11/14/2025 2:00 PM EDT [facility] Department of Internal Medicine [address] 1st [place] [address] Yessy Faustin DO 18 [place] [address] documented as of this encounter Procedures Procedure Name Priority Date/Time Associated Diagnosis Comments HOME CARE SIGNED ORDERS 10/31/2024 9:41 AM EDT documented in this encounter Results * HOME CARE SIGNED ORDERS (10/31/2024 9:41 AM EDT) Yessy Faustin DO HX AMB PROCEDURES NO RESULTS ROU TING Final Result documented in this encounter Visit Diagnoses Not on filedocumented in this encounter Care Teams Pulp And Paper Tester Relationship Specialty Start Date End Date Yessy Faustin DO [address] [place], [place] [phone] PCP - General Internal Medicine 08/21/22 Yessy Faustin DO [address] [place], [place] [phone] PCP - Carson [facility] Attributed 01/22/24 02/20/25 Yessy Faustin DO [address] [place] [address] PCP - Carson Strickland MA Attributed 02/21/25 Mehdi Nugent MD [address] [place] [address] Physician Hematology Oncology 06/08/21 Olga Dodson MD [address] [place] [address] Surgery, General 08/24/22 documented as of this encounter
--- OUTSIDE RECORDS SUMMARY | 2025-07-14 16:36 | XMS_ITS | Encounter Summary ---
Author Organization [facility] Address [address] [place] [address] Care Team Providers Care Fish Pitcher Name Role Phone Mehdi Nugent MD Unavailable [phone] Yessy Faustin DO Primary Care Provider [phone] Olga Dodson MD Unavailable [phone] Yessy Faustin DO Unavailable Yessy Faustin DO Unavailable Encounter Details Date Type Department Care Team (Late st Contact Info) Description 10/21/2024 Scanned Document [facility] 1290 [facility] [address] [place] [address] Provider, Generic Social History Tobacco [...] Office Visit [facility] Department of Cardiology [place] 160 [facility] [address] [place] [address] Onofre Malik PA [address] [place] [address] 11/14/2025 2:00 PM EDT Office Visit [facility] Department of Internal Medicine [address] 1st [place] [address] Yessy Faustin DO [address] [address] documented as of this encounter Visit Diagnoses Not on filedocumented in this encounter Care Teams Fish Pitcher Relationship Specialty Start Date End Date Yessy Faustin DO [address] [place] [address] PCP - General Internal Medicine 08/21/22 Yessy Faustin DO [address] [place] [address] PCP - Carson [facility] Attributed 01/22/24 02/20/25 Yessy Faustin DO [address] [place] [address] PCP - Carson Strickland MA Attributed 02/21/25 Mehdi Nugent MD [address] [address] Physician Hematology Oncology 06/08/21 Olga Dodson MD 201 [place] [address] Surgery, General 08/24/22 documented as of this encounter
--- OUTSIDE RECORDS SUMMARY | 2025-07-14 16:36 | XMS_ITS | Encounter Summary ---
Author Organization [facility] Address [address] [place] [address] Care Team Providers Care Rotary Lithographic Press Operator Name Role Phone Mehdi Nugent MD Unavailable [phone] Yessy Faustin DO Primary Care Provider Olga Dodson MD Unavailable [phone] Yessy Faustin DO Unavailable Yessy Faustin DO Unavailable Encounter Details Date Type Department Care Team (Late st Contact Info) Description 11/01/2024 Scanned Document [facility] at Home 1290 [facility] 4B [place] [address] Provider, Generic Social History Tobacco [...] Office Visit [facility] Department of Cardiology [place] 160 [facility] [address] [place] [address] Onofre Malik PA [address] [place] [address] 11/14/2025 2:00 PM EDT Office Visit [facility] Department of Internal Medicine [address] 1st [place] [address] Yessy Faustin DO [address] [address] documented as of this encounter Visit Diagnoses Not on filedocumented in this encounter Care Teams Rotary Lithographic Press Operator Relationship Specialty Start Date End Date Yessy Faustin DO [address] [place] [address] PCP - General Internal Medicine 08/21/22 Yessy Faustin DO [address] [place] [address] PCP - Carson [facility] Attributed 01/22/24 02/20/25 Yessy Faustin DO [address] [place] [address] PCP - Carson Strickland MA Attributed 02/21/25 Mehdi Nugent MD [address] [address] Physician Hematology Oncology 06/08/21 Olga Dodson MD 201 [place] [address] Surgery, General 08/24/22 documented as of this encounter
--- OUTSIDE RECORDS SUMMARY | 2025-07-14 16:36 | XMS_ITS | Encounter Summary ---
Author Organization [facility] Address [address] [place] [address] Care Team Providers Care Sprinkler Helper Name Role Phone Mehdi Nugent MD Unavailable [phone] Yessy Faustin DO Primary Care Provider [phone] Olga Dodson MD Unavailable [phone] Yessy Faustin DO Unavailable Yessy Faustin DO Unavailable Encounter Details Date Type Department Care Team (Late st Contact Info) Description 10/29/2024 Scanned Document [facility] at Home 1290 [facility] [address]B [place] [address] Provider, Generic Social History Tobacco [...] Office Visit [facility] Department of Cardiology [place] 160 [facility] [address] [place] [address] Onofre Malik PA [address] [place] [address] 11/14/2025 2:00 PM EDT Office Visit [facility] Department of Internal Medicine [address] 1st [place] [address] Yessy Faustin DO [address] [address] documented as of this encounter Visit Diagnoses Not on filedocumented in this encounter Care Teams Sprinkler Helper Relationship Specialty Start Date End Date Yessy Faustin DO [address] [place] [address] PCP - General Internal Medicine 08/21/22 Yessy Faustin DO [address] [place] [address] PCP - Carson [facility] Attributed 01/22/24 02/20/25 Yessy Faustin DO [address] [place] [address] PCP - Carson Strickland MA Attributed 02/21/25 Mehdi Nugent MD [address] [address] Physician Hematology Oncology 06/08/21 Olga Dodson MD 201 [place] [address] Surgery, General 08/24/22 documented as of this encounter
--- OUTSIDE RECORDS SUMMARY | 2025-07-14 16:36 | XMS_ITS | Encounter Summary ---
Author Organization [facility] Address [address] [place] [address] Care Team Providers Care Veneer Sheet Repairer Name Role Phone Mehdi Nugent MD Unavailable [phone] Yessy Faustin DO Primary Care Provider Olga Dodson MD Unavailable [phone] Yessy Faustin DO Unavailable Yessy Faustin DO Unavailable Encounter Details Date Type Department Care Team (Late st Contact Info) Description 10/18/2024 Scanned Document [facility] at Home 1290 [facility] [address]B [place] [address] Provider, Generic Social History Tobacco [...] Office Visit [facility] Department of Cardiology [place] 160 [facility] [address] [place] [address] Onofre Malik PA [address] [place] [address] 11/14/2025 2:00 PM EDT Office Visit [facility] Department of Internal Medicine [address] 1st [place] [address] Yessy Faustin DO [address] [address] documented as of this encounter Visit Diagnoses Not on filedocumented in this encounter Care Teams Veneer Sheet Repairer Relationship Specialty Start Date End Date Yessy Faustin DO [address] [place] [address] PCP - General Internal Medicine 08/21/22 Yessy Faustin DO [address] [place] [address] PCP - Carson [facility] Attributed 01/22/24 02/20/25 Yessy Faustin DO [address] [place] [address] PCP - Carson Strickland MA Attributed 02/21/25 Mehdi Nugent MD [address] [address] Physician Hematology Oncology 06/08/21 Olga Dodson MD 201 [place] [address] Surgery, General 08/24/22 documented as of this encounter
--- OUTSIDE RECORDS SUMMARY | 2025-07-14 16:36 | XMS_ITS | Encounter Summary ---
Author Organization [facility] Address [address] [place] [address] Care Team Providers Care Medical Typist Name Role Phone Mehdi Nugent MD Unavailable [phone] Yessy Faustin DO Primary Care Provider Olga Dodson MD Unavailable [phone] Yessy Faustin DO Unavailable Yessy Faustin DO Unavailable Encounter Details Date Type Department Care Team (Late st Contact Info) Description 11/19/2024 Scanned Document [facility] at Home 1290 [facility] 4B [place] [address] Provider, Generic Social History Tobacco [...] Office Visit [facility] Department of Cardiology [place] 160 [facility] [address] [place] [address] Onofre Malik PA [address] [place] [address] 11/14/2025 2:00 PM EDT Office Visit [facility] Department of Internal Medicine [address] 1st [place] [address] Yessy Faustin DO [address] [address] documented as of this encounter Visit Diagnoses Not on filedocumented in this encounter Care Teams Medical Typist Relationship Specialty Start Date End Date Yessy Faustin DO [address] [place] [address] PCP - General Internal Medicine 08/21/22 Yessy Faustin DO [address] [place] [address] PCP - Carson [facility] Attributed 01/22/24 02/20/25 Yessy Faustin DO [address] [place] [address] PCP - Carson Strickland MA Attributed 02/21/25 Mehdi Nugent MD [address] [address] Physician Hematology Oncology 06/08/21 Olga Dodson MD 201 [place] [address] Surgery, General 08/24/22 documented as of this encounter
--- OUTSIDE RECORDS SUMMARY | 2025-07-14 16:36 | XMS_ITS | Patient Health Record ---
Author Organization [facility] Address [address] [place] [id number] Care Team Providers Care Air Brake Rigger Name Role Phone Catalina Chou [place] Unavailable [phone] Allergies No Known Allergies Reason For Referral No Information Medications Medication SIG (Take, Route, Fr equency, Duration) Notes Start Date End Date Status Lisinopril 10 MG 1 tablet Orally Once a day Active Plan Of Treatment No Information Insurance Providers Payer Name Payer Address Payer Phone Subscriber Number Group Number Insured Name Patient Relationship to Insured Coverage Start Date Coverage End Date [facility] Medicare [address] [address] [place] [address] [phone] [id number] Meena Butts Self - patient is the insured Medical (General) History Medical History History ICD Code Hypertension Breast Cancer-1991 Surgical History Surgery Date(Month/Year) lumpectomy 1991
--- OUTSIDE RECORDS SUMMARY | 2025-07-14 16:36 | XMS_ITS | Encounter Summary ---
Author Organization [facility] Address [address] [place] [address] Care Team Providers Care Carpet Weaver Name Role Phone Mehdi Nugent MD Unavailable [phone] Yessy Faustin DO Primary Care Provider Olga Dodson MD Unavailable [phone] Yessy Faustin DO Unavailable Yessy Faustin DO Unavailable Encounter Details Date Type Department Care Team (Late st Contact Info) Description 10/25/2024 External Communication [facility] [address] [facility] 4[address] [place] [phone] Yessy Faustin DO [address] [id number] Social History Tobacco Use Types Packs/Day Years [...] Description 11/10/2025 11:30 AM EDT Office Visit [facility] Department of Cardiology [place] [address] [facility] [address] [place] [address] Onofre Malik PA 289 [place] [address] 11/14/2025 2:00 PM EDT Office Visit [facility] Department of Internal Medicine [address] 1st [place] [address] Yessy Faustin DO [address] [place] [address] documented as of this encounter Visit Diagnoses Not on filedocumented in this encounter Care Teams Carpet Weaver Relationship Specialty Start Date End Date Yessy Faustin DO [address] [place] [address] PCP - General Internal Medicine 08/21/22 Yessy Faustin DO [address] [place] [address] PCP - Carson Mark TELLO Attributed 01/22/24 02/20/25 Yessy Faustin DO [address] [place] [address] PCP - Carson Strickland MA Attributed 02/21/25 Mehdi Nugent MD [address] [address] Physician Hematology Oncology 06/08/21 Olga Dodson MD 201 [place] [address] Surgery, General 08/24/22 documented as of this encounter
--- OUTSIDE RECORDS SUMMARY | 2025-07-14 16:36 | XMS_ITS | Encounter Summary ---
Author Organization [facility] Address [address] [place] [address] Care Team Providers Care Market Editor Name Role Phone Unavailable Primary Care Provider Unavailabl e Encounter Details Date Type Department Care Team ([facility] st Contact Info) Description 09/13/2024 Scanned Document INTERFACE DEFAULT [address] [place] [address] System, Provider Not In Social History Tobacco [...]
--- OUTSIDE RECORDS SUMMARY | 2025-07-14 16:36 | XMS_ITS | Encounter Summary ---
Author Organization [facility] Address [address] [place] [address] Care Team Providers Care Lasting Machine Operator Hand Method Name Role Phone Unavailable Primary Care Provider Unavailabl e Encounter Details Date Type Department Care Team ([facility] st Contact Info) Description 09/06/2024 Scanned Document INTERFACE DEFAULT [address] [place] [address] System, Provider Not In Social History Tobacco [...]
--- OUTSIDE RECORDS SUMMARY | 2025-07-14 16:36 | XMS_ITS | Encounter Summary ---
Author Organization [facility] Address [address] [place] [address] Care Team Providers Care Link Fabric Machine Operator Name Role Phone Mehdi Nugent MD Unavailable [phone] Yessy Faustin DO Primary Care Provider [phone] Olga Dodson MD Unavailable [phone] Yessy Faustin DO Unavailable Yessy Faustin DO Unavailable Encounter Details Date Type Department Care Team (Late st Contact Info) Description 10/30/2024 Scanned Document [facility] 1290 [facility] 4B [place] [address] Provider, Generic Social History Tobacco [...] Office Visit [facility] Department of Cardiology [facility] [facility] 160 [facility] [address] [place] [address] Onofre Malik PA [address] [place] [address] 11/14/2025 2:00 PM EDT Office Visit [facility] Department of Internal Medicine [address] 1st [place] [address] Yessy Faustin DO [address] [address] documented as of this encounter Visit Diagnoses Not on filedocumented in this encounter Care Teams Link Fabric Machine Operator Relationship Specialty Start Date End Date Yessy Faustin DO [address] [place] [address] PCP - General Internal Medicine 08/21/22 Yessy Faustin DO [address] [place] [address] PCP - Carson [facility] ELISHA Attributed 01/22/24 02/20/25 Yessy aFustin DO [address] [place] [address] PCP - Carson Strickland MA Attributed 02/21/25 Mehdi Nugent MD [address] [address] Physician Hematology Oncology 06/08/21 Olga Dodson MD 201 [place] [address] Surgery, General 08/24/22 documented as of this encounter
--- OUTSIDE RECORDS SUMMARY | 2025-07-14 16:36 | XMS_ITS | Encounter Summary ---
Author Organization [facility] Address [address] [place] [address] Care Team Providers Care Range Manager Name Role Phone Mehdi Nugent MD Unavailable [phone] Yessy Faustin DO Primary Care Provider [phone] Olga Dodson MD Unavailable [phone] Yessy Faustin DO Unavailable Encounter Details Date Type Department Care Team (Late st Contact Info) Description 06/10/2025 Scanned Document [facility] Department of Internal Medicine [address] 1st [place] [phone] Yessy Faustin DO [address] [address] Social History Tobacco Use Types Packs/Day Years [...] [facility] Department of Cardiology [place] [address] [place] [address] Onofre Malik PA [address] [place] [address] 11/14/2025 2:00 PM EDT Office Visit [facility] Department of Internal Medicine [address] 1st [place] [address] Yessy Faustin DO 18 [place] [address] documented as of this encounter Visit Diagnoses Not on filedocumented in this encounter Care Teams Range Manager Relationship Specialty Start Date End Date Yessy Faustin DO [address] [place] [address] PCP - General Internal Medicine 08/21/22 Yessy Faustin DO [address] [place] [address] PCP - Carson Strickland MA Attributed 02/21/25 Mehdi Nugent MD 183 [place] [address] Physician Hematology Oncology 06/08/21 Olga Dodson MD 201 [place] [address] Surgery, General 08/24/22 documented as of this encounter
--- OUTSIDE RECORDS SUMMARY | 2025-07-14 16:36 | XMS_ITS | Clinical Summary ---
Author Organization [facility] Address [address] [facility] [address] [place] [address] Phone Care Team Providers Care Accounting Instructor Name Role Phone Natalia Yi MD Primary [...] Most Recently Relevant to Health Maintenance Insurance [employer] [place] [address] [place] [address] [employer] [facility] [address] [address] [id number] [place] [id number] [place] [id number] [employer] Advance Directives For more information, please contact: [phone] (9AM - 5PM [facility], Monday-Monday) Documents on File Type Date Recorded Patient Child Development Director Expl [facility] Proxy 06/10/2015 10:42 AM Care Teams Accounting Instructor Relationship Specialty Start Date End Date Natalia Yi MD [address] [place] [address] PCP - General Internal Medicine 05/26/15 Natalia Yi MD [address] [place] [address] Referring Physician Internal Medicine 11/06/15 Additional Source Comments The information contained in this document represents components of the legal health record. It is not the complete legal health record.[facility]
--- OUTSIDE RECORDS SUMMARY | 2025-07-14 16:36 | XMS_ITS | Encounter Summary ---
Author Organization [facility] Address [address] [place] [address] Care Team Providers Care Dental Hygiene Teacher Name Role Phone Mehdi Nugent MD Unavailable [phone] Yessy Faustin DO Primary Care Provider Olga Dodson MD Unavailable [phone] Yessy Faustin DO Unavailable Yessy Faustin DO Unavailable Encounter Details Date Type Department Care Team (Late st Contact Info) Description 10/16/2024 Scanned Document [facility] at [facility] 1290 [facility] 4B [place] [phone] Yessy Faustin DO [address] [address] Social History Tobacco Use Types [...] Office Visit [facility] Department of Cardiology [place] 160 [facility] [address] [place] [address] Onofre Malik PA 289 [place] [address] 11/14/2025 2:00 PM EDT Office Visit [facility] Department of Internal Medicine [address] 1st [place] [address] Yessy Faustin DO 18 [place] [id number] documented as of this encounter Procedures Procedure Name Priority Date/Time Associated Diagnosis Comments HOME CARE SIGNED ORDERS 10/16/2024 7:59 AM EDT documented in this encounter Results * HOME CARE SIGNED ORDERS (10/16/2024 7:59 AM EDT) Yessy Faustin DO HX AMB PROCEDURES NO RESULTS ROU TING Final Result documented in this encounter Visit Diagnoses Not on filedocumented in this encounter Care Teams Dental Hygiene Teacher Relationship Specialty Start Date End Date Yessy Faustin DO [address] [place], [place] [phone] PCP - General Internal Medicine 08/21/22 Yessy Faustin DO [address] [place], [place] [phone] PCP - Carson Mark TELLO Attributed 01/22/24 02/20/25 Yessy Faustin DO [address] [place] [address] PCP - Carson Strickland MA Attributed 02/21/25 Mehdi Nugent MD [address] [place] [address] Physician Hematology Oncology 06/08/21 Olga Dodson MD [address] [place] [address] Surgery, General 08/24/22 documented as of this encounter
--- OUTSIDE RECORDS SUMMARY | 2025-07-14 16:36 | XMS_ITS | Encounter Summary ---
Author Organization [facility] Address 100 [place] [address] Care Team Providers Care Progress Man Name Role Phone Mehdi Nugent MD Unavailable [phone] Yessy Faustin DO Primary Care Provider [phone] Olga Dodson MD Unavailable [phone] Yessy Faustin DO Unavailable Yessy Faustin DO Unavailable Encounter Details Date Type Department Care Team (Late st Contact Info) Description 10/23/2024 Scanned Document [facility] at Home 1290 [facility] 4B [place] [address] Provider, Generic Social History Tobacco [...] Office Visit [facility] Department of Cardiology [place] 160 [facility] [address] [place] [address] Onofre Malik PA [address] [place] [address] 11/14/2025 2:00 PM EDT Office Visit [facility] Department of Internal Medicine [address] 1st [place] [address] Yessy Faustin DO [address] [address] documented as of this encounter Visit Diagnoses Not on filedocumented in this encounter Care Teams Progress Man Relationship Specialty Start Date End Date Yessy Faustin DO [address] [place] [address] PCP - General Internal Medicine 08/21/22 Yessy Faustin DO [address] [place] [address] PCP - Carson [facility] ELISHA Attributed 01/22/24 02/20/25 Yessy Faustin DO [address] [place] [address] PCP - Carson Strickland MA Attributed 02/21/25 Mehdi Nugent MD [address] [address] Physician Hematology Oncology 06/08/21 Olga Dodson MD 201 [place] [address] Surgery, General 08/24/22 documented as of this encounter
--- OUTSIDE RECORDS SUMMARY | 2025-07-14 16:36 | XMS_ITS | Encounter Summary ---
Author Organization [facility] Address 100 [place] [address] Care Team Providers Care Internship Name Role Phone Mehdi Nugent MD Unavailable [phone] Yessy Faustin DO Primary Care Provider Olga Dodson MD Unavailable [phone] Yessy Faustin DO Unavailable Yessy Faustin DO Unavailable Encounter Details Date Type Department Care Team (Late st Contact Info) Description 10/15/2024 Scanned Document [facility] at Home 1290 [facility] 4B [place] [address] Provider, Generic Social History Tobacco [...] Office Visit [facility] Department of Cardiology [place] [address] [facility] [address] [place] [address] Onofre Malik PA [address] [place] [address] 11/14/2025 2:00 PM EDT Office Visit [facility] Department of Internal Medicine [address] 1st [place] [address] Yessy Faustin DO [address] [address] documented as of this encounter Visit Diagnoses Not on filedocumented in this encounter Care Teams Internship Relationship Specialty Start Date End Date Yessy Faustin DO [address] [place] [address] PCP - General Internal Medicine 08/21/22 Yessy Faustin DO [address] [place] [address] PCP - Carson [facility] ELISHA Attributed 01/22/24 02/20/25 Yessy Faustin DO [address] [place] [address] PCP - Carson Strickland MA Attributed 02/21/25 Mehdi Nugent MD [address] [address] Physician Hematology Oncology 06/08/21 Olga Dodson MD 201 [place] [address] Surgery, General 08/24/22 documented as of this encounter
--- OUTSIDE RECORDS SUMMARY | 2025-07-14 16:36 | XMS_ITS | Encounter Summary ---
Author Organization [facility] Address 100 [place] [address] Care Team Providers Care Car Retarder Operator Name Role Phone Mehdi Nugent MD Unavailable [phone] Yessy Faustin DO Primary Care Provider Olga Dodson MD Unavailable [phone] Yessy Faustin DO Unavailable Yessy Faustin DO Unavailable Encounter Details Date Type Department Care Team (Late st Contact Info) Description 10/17/2024 Scanned Document [facility] at Home 1290 [facility] 4B [place] [address] Provider, Generic Social History Tobacco [...] Office Visit [facility] Department of Cardiology [place] 160 [facility] [address] [place] [address] Onofre Malik PA [address] [place] [address] 11/14/2025 2:00 PM EDT Office Visit [facility] Department of Internal Medicine [address] 1st [place] [address] Yessy Faustin DO [address] [address] documented as of this encounter Visit Diagnoses Not on filedocumented in this encounter Care Teams Car Retarder Operator Relationship Specialty Start Date End Date Yessy Faustin DO [address] [place] [address] PCP - General Internal Medicine 08/21/22 Yessy Faustin DO [address] [place] [address] PCP - Carson [facility] ELISHA Attributed 01/22/24 02/20/25 Yessy Faustin DO [address] [place] [address] PCP - Carson Strickland MA Attributed 02/21/25 Mehdi Nugent MD [address] [address] Physician Hematology Oncology 06/08/21 Olga Dodson MD 201 [place] [address] Surgery, General 08/24/22 documented as of this encounter
--- OUTSIDE RECORDS SUMMARY | 2025-07-14 16:36 | XMS_ITS | Encounter Summary ---
Author Organization [facility] Address [address] [place] [address] Care Team Providers Care Correctional Supervisor Lieutenant Name Role Phone Unavailable Primary Care Provider Unavailabl e Encounter Details Date Type Department Care Team ([facility] Contact Info) Description 10/29/2024 Scanned Document INTERFACE DEFAULT [address] [place] [phone] System, Provider Not In Social History Tobacco [...]
--- OUTSIDE RECORDS SUMMARY | 2025-07-14 16:36 | XMS_ITS | Encounter Summary ---
Author Organization [facility] Address 100 [place] [address] Care Team Providers Care Restaurant Crew Member Name Role Phone Mehdi Nugent MD Unavailable [phone] Yessy Faustin DO Primary Care Provider Olga Dodson MD Unavailable [phone] Yessy Faustin DO Unavailable Yessy Faustin DO Unavailable Encounter Details Date Type Department Care Team (Late st Contact Info) Description 11/20/2024 Scanned Document [facility] at Home 1290 [facility] 4B [place] [address] Provider, Generic Social History Tobacco [...] Office Visit [facility] Department of Cardiology [place] 160 [facility] [address] [place] [address] Onofre Malik PA [address] [place] [address] 11/14/2025 2:00 PM EDT Office Visit [facility] Department of Internal Medicine [address] 1st [place] [address] Yessy Faustin DO [address] [address] documented as of this encounter Visit Diagnoses Not on filedocumented in this encounter Care Teams Restaurant Crew Member Relationship Specialty Start Date End Date Yessy Faustin DO [address] [place] [address] PCP - General Internal Medicine 08/21/22 Yessy Faustin DO [address] [place] [address] PCP - Carson [facility] ELISHA Attributed 01/22/24 02/20/25 Yessy Faustin DO [address] [place] [address] PCP - Carson Strickland MA Attributed 02/21/25 Mehdi Nugent MD [address] [address] Physician Hematology Oncology 06/08/21 Olga Dodson MD 201 [place] [address] Surgery, General 08/24/22 documented as of this encounter
--- OUTSIDE RECORDS SUMMARY | 2025-07-14 16:36 | XMS_ITS | Encounter Summary ---
Author Organization [facility] Address 100 [place] [address] Care Team Providers Care Laundry Machine Mechanic Name Role Phone Mehdi Nugent MD Unavailable [phone] Yessy Faustin DO Primary Care Provider [phone] Olga Dodson MD Unavailable [phone] Yessy Faustin DO Unavailable Yessy Faustin DO Unavailable Encounter Details Date Type Department Care Team (Late st Contact Info) Description 10/10/2024 Scanned Document [facility] at Home 1290 [facility] 4B [place] [address] Provider, Generic Social History Tobacco [...] Visit [facility] Department of Cardiology [place] 160 [facility] [address] [place] [address] Onofre Malik PA [address] [place] [address] 11/14/2025 2:00 PM EDT Office Visit [facility] Department of Internal Medicine [address] 1st [place] [address] Yessy Faustin DO [address] [address] documented as of this encounter Visit Diagnoses Not on filedocumented in this encounter Care Teams Laundry Machine Mechanic Relationship Specialty Start Date End Date Yessy Faustin DO [address] [place] [address] PCP - General Internal Medicine 08/21/22 Yessy Faustin DO [address] [place] [address] PCP - Carson [facility] ELISHA Attributed 01/22/24 02/20/25 Yessy Faustin DO [address] [place] [address] PCP - Carson Strickland MA Attributed 02/21/25 Mehdi Nugent MD [address] [address] Physician Hematology Oncology 06/08/21 Olga Dodson MD 201 [place] [address] Surgery, General 08/24/22 documented as of this encounter
--- OUTSIDE RECORDS SUMMARY | 2025-07-14 16:36 | XMS_ITS | Encounter Summary ---
Author Organization [facility] Address [address] [place] [address] Care Team Providers Care Phlebotomy Manager Name Role Phone Mehdi Nugent MD Unavailable [phone] Yessy Faustin DO Primary Care Provider Olga Dodson MD Unavailable [phone] Yessy Faustin DO Unavailable Yessy Faustin DO Unavailable Encounter Details Date Type Department Care Team (Late st Contact Info) Description 10/25/2024 Scanned Document [facility] at Home [address] [facility] 4B [place] [address] Yessy Faustin DO [address] [phone] Social History Tobacco Use Types Packs/Day Years [...] Office Visit [facility] Department of Cardiology [place] 160 [facility] [address] [place] [address] Onofre Malik PA 289 [place] [address] 11/14/2025 2:00 PM EDT Office Visit [facility] Department of Internal Medicine [address] 1st [place] [address] Yessy Faustin DO 18 [place] [address] documented as of this encounter Procedures Procedure Name Priority Date/Time Associated Diagnosis Comments HOME CARE SIGNED ORDERS 10/25/2024 5:06 PM EDT documented in this encounter Results * HOME CARE SIGNED ORDERS (10/25/2024 5:06 PM EDT) Yessy Faustin DO HX AMB PROCEDURES NO RESULTS ROU TING Final Result documented in this encounter Visit Diagnoses Not on filedocumented in this encounter Care Teams Phlebotomy Manager Relationship Specialty Start Date End Date Yessy Faustin DO [address] [place], [place] [phone] PCP - General Internal Medicine 08/21/22 Yessy Faustin DO [address] [place], [place] [phone] PCP - Carson Mark TELLO Attributed 01/22/24 02/20/25 Yessy Faustin DO [address] [place] [address] PCP - Carson Strickland MA Attributed 02/21/25 Mehdi Nugent MD [address] [place] [address] Physician Hematology Oncology 06/08/21 Olga Dodson MD [address] [place] [address] Surgery, General 08/24/22 documented as of this encounter
--- OUTSIDE RECORDS SUMMARY | 2025-07-14 16:36 | XMS_ITS | Encounter Summary ---
Author Organization [facility] [place] Address [address] [place] [address] Care Team Providers Care Merchandise Buyer Name Role Phone Mehdi Nugent MD Unavailable [phone] Yessy Faustin DO Primary Care Provider [phone] Olga Dodson MD Unavailable [phone] Yessy Faustin DO Unavailable Yessy Faustin DO Unavailable Encounter Details Date Type Department Care Team (Late st Contact Info) Description 10/31/2024 External Communication [facility] [place] at Home 1290 [facility] 4B [place] [address] Yessy Faustin DO [address] [phone] Social History Tobacco Use Types Packs/Day Years [...] 11/10/2025 11:30 AM EDT Office Visit [facility] Department of Cardiology [place] 160 [facility] [address] [place] [address] Onofre Malik PA 289 [place] [address] 11/14/2025 2:00 PM EDT Office Visit [facility] Department of Internal Medicine [address] 1st [place] [address] Yessy Faustin DO [address] [place] [address] documented as of this encounter Visit Diagnoses Not on filedocumented in this encounter Care Teams Merchandise Buyer Relationship Specialty Start Date End Date Yessy Faustin DO [address] [place] [address] PCP - General Internal Medicine 08/21/22 Yessy Faustin DO [address] [place] [address] PCP - Carson Mark TELLO Attributed 01/22/24 02/20/25 Yessy Faustin DO [address] [place] [address] PCP - Carson Strickland MA Attributed 02/21/25 Mehdi Nugent MD [address] [address] Physician Hematology Oncology 06/08/21 Olga Dodson MD 201 [place] [address] Surgery, General 08/24/22 documented as of this encounter
--- OUTSIDE RECORDS SUMMARY | 2025-07-14 16:36 | XMS_ITS | Encounter Summary ---
Author Organization [facility] Address [address] [place] [address] Care Team Providers Care Narrow Fabric Loom Fixer Name Role Phone Unavailable Primary Care Provider Unavailabl e Encounter Details Date Type Department Care Team ([facility] Contact Info) Description 10/22/2024 Scanned Document INTERFACE DEFAULT [address] [place] [phone] System, Provider Not In Social History Tobacco [...]
--- OUTSIDE RECORDS SUMMARY | 2025-07-14 16:36 | XMS_ITS | Encounter Summary ---
Author Organization [facility] Address [address] [place] [address] Care Team Providers Care Catalyst Impregnator Name Role Phone Mhedi Nugent MD Unavailable [phone] Yessy Faustin DO Primary Care Provider [phone] Olga Dodson MD Unavailable [phone] Yessy Faustin DO Unavailable Yessy Faustin DO Unavailable Encounter Details Date Type Department Care Team (Late st Contact Info) Description 10/16/2024 External Communication [facility] at Home 1290 [facility] 4B [place] [phone] Yessy Faustin DO [address] [id number] Social History Tobacco Use Types Packs/Day Years [...] [facility] Department of Cardiology [place] 160 [facility] [address] [place] [address] Onofre Malik PA 289 [place] [address] 11/14/2025 2:00 PM EDT Office Visit [facility] Department of Internal Medicine [address] 1st [place] [address] Yessy Faustni DO [address] [place] [address] documented as of this encounter Visit Diagnoses Not on filedocumented in this encounter Care Teams Catalyst Impregnator Relationship Specialty Start Date End Date Yessy Faustin DO [address] [place] [address] PCP - General Internal Medicine 08/21/22 Yessy Faustin DO [address] [place] [address] PCP - Carson Mark TELLO Attributed 01/22/24 02/20/25 Yessy Faustin DO [address] [place] [address] PCP - Carson Strickland MA Attributed 02/21/25 Mehdi Nugent MD [address] [address] Physician Hematology Oncology 06/08/21 Olga Dodson MD 201 [place] [address] Surgery, General 08/24/22 documented as of this encounter
--- OUTSIDE RECORDS SUMMARY | 2025-07-14 16:36 | XMS_ITS | Encounter Summary ---
Author Organization [facility] Address [address] [place] [address] Care Team Providers Care Technical Instructor Course Developer Name Role Phone Unavailable Primary Care Provider Unavailabl e Encounter Details Date Type Department Care Team ([facility] st Contact Info) Description 09/02/2020 [facility] Encounter Medicine [address] [place] [address] [id number] Steve Ponce MD [address] [place] [address] 204 [place] [address] Sclerosing mesenteritis (HC Code) (Primary [...]
--- OUTSIDE RECORDS SUMMARY | 2025-07-14 16:36 | XMS_ITS | Encounter Summary ---
Author Organization [facility] Address [address] [place] [address] Care Team Providers Care Caustic Strength Inspector Name Role Phone Mehdi Nugent MD Unavailable [phone] Yessy Faustin DO Primary Care Provider Olga Dodson MD Unavailable [phone] Yessy Faustin DO Unavailable Yessy Faustin DO Unavailable Encounter Details Date Type Department Care Team (Late st Contact Info) Description 10/22/2024 External Communication [facility] at Home 1290 [facility] 4B [place] [address] Yessy Faustin DO [address] [id number] Social History Tobacco Use Types Packs/Day Years [...] 11/10/2025 11:30 AM EDT Office Visit [facility] Department of Cardiology [place] 160 [place] [facility] [address] [place] [address] Onofre Malik PA 289 [place] [address] 11/14/2025 2:00 PM EDT Office Visit [facility] Department of Internal Medicine [address] 1st [place] [address] Yessy Faustin DO [address] [place] [address] documented as of this encounter Visit Diagnoses Not on filedocumented in this encounter Care Teams Caustic Strength Inspector Relationship Specialty Start Date End Date Yessy Faustin DO [address] [place] [address] PCP - General Internal Medicine 08/21/22 Yessy Faustin DO [address] [place] [address] PCP - Carson Mark TELLO Attributed 01/22/24 02/20/25 Yessy Faustin DO [address] [place] [address] PCP - Carson Strickland MA Attributed 02/21/25 Mehdi Nugent MD [address] [address] Physician Hematology Oncology 06/08/21 Olga Dodson MD 201 [place] [address] Surgery, General 08/24/22 documented as of this encounter
--- OUTSIDE RECORDS SUMMARY | 2025-07-14 16:36 | XMS_ITS | Encounter Summary ---
Author Organization [facility] Address [address] [place] [address] Care Team Providers Care Lgsw Name Role Phone Mehdi Nugent MD Unavailable [phone] Yessy Faustin DO Primary Care Provider Olga Dodson MD Unavailable [phone] Yessy Faustin DO Unavailable Yessy Faustin DO Unavailable Encounter Details Date Type Department Care Team (Late st Contact Info) Description 11/06/2024 Scanned Document [facility] Department of Internal Medicine [address] 1st [place] [address] Yessy Faustin DO [address] [address] Social History Tobacco Use Types [...] [facility] Department of Cardiology [place] [address] [place] [address] Onofre Malik PA 289 [place] [address] 11/14/2025 2:00 PM EDT Office Visit [facility] Department of Internal Medicine [address] 1st [place] [address] Yessy Faustin DO [address] [place] [address] documented as of this encounter Visit Diagnoses Not on filedocumented in this encounter Care Teams Lgsw Relationship Specialty Start Date End Date Yessy Faustin DO [address] [place] [address] PCP - General Internal Medicine 08/21/22 Yessy Faustin DO [address] [place] [address] PCP - Carson Mark TELLO Attributed 01/22/24 02/20/25 Yessy Faustin DO [address] [place] [address] PCP - Carson Strickland MA Attributed 02/21/25 Mehdi Nugent MD [address] [address] Physician Hematology Oncology 06/08/21 Olga Dodson MD 201 [place] [address] Surgery, General 08/24/22 documented as of this encounter
--- OUTSIDE RECORDS SUMMARY | 2025-07-14 16:36 | XMS_ITS | Encounter Summary ---
Author Organization [facility] Address [address] [place] [address] Care Team Providers Care Auto Mechanic Supervisor Name Role Phone Mehdi Nugent MD Unavailable [phone] Yessy Faustin DO Primary Care Provider Olga Dodson MD Unavailable [phone] Yessy Faustin DO Unavailable Yessy Faustin DO Unavailable Encounter Details Date Type Department Care Team (Late st Contact Info) Description 10/14/2024 Scanned Document [facility] at Home 1290 [facility] 4B [place] [address] Provider, Generic Social History Tobacco [...] [facility] Department of Cardiology [place] 160 [facility] [address] [place] [address] Onofre Malik PA [address] [place] [address] 11/14/2025 2:00 PM EDT Office Visit [facility] Department of Internal Medicine [address] 1st [place] [address] Yessy Faustin DO [address] [address] documented as of this encounter Visit Diagnoses Not on filedocumented in this encounter Care Teams Auto Mechanic Supervisor Relationship Specialty Start Date End Date Yessy Faustin DO [address] [place] [address] PCP - General Internal Medicine 08/21/22 Yessy Faustin DO [address] [place] [address] PCP - Carson [facility] ELISHA Attributed 01/22/24 02/20/25 Yessy Faustin DO [address] [place] [address] PCP - Carson Strickland MA Attributed 02/21/25 Mehdi Nugent MD [address] [address] Physician Hematology Oncology 06/08/21 Olga Dodson MD 201 [place] [address] Surgery, General 08/24/22 documented as of this encounter
--- OUTSIDE RECORDS SUMMARY | 2025-07-14 16:36 | XMS_ITS | Encounter Summary ---
Author Organization [facility] Address 100 [place] [address] Care Team Providers Care Camera Technician Name Role Phone Mehdi Nugent MD Unavailable [phone] Yessy Faustin DO Primary Care Provider Olga Dodson MD Unavailable [phone] Yessy Faustin DO Unavailable Yessy Faustin DO Unavailable Encounter Details Date Type Department Care Team (Late st Contact Info) Description 11/21/2024 Scanned Document [facility] at Home 1290 [facility] 4B [place] [address] Provider, Generic Social [...] Office Visit [facility] Department of Cardiology [place] 160 [facility] [address] [place] [address] Onofre Malik PA [address] [place] [address] 11/14/2025 2:00 PM EDT Office Visit [facility] Department of Internal Medicine [address] 1st [place] [address] Yessy Faustin DO [address] [address] documented as of this encounter Visit Diagnoses Not on filedocumented in this encounter Care Teams Camera Technician Relationship Specialty Start Date End Date Yessy Faustin DO [address] [place] [address] PCP - General Internal Medicine 08/21/22 Yessy Faustin DO [address] [place] [address] PCP - Carson [facility] ELISHA Attributed 01/22/24 02/20/25 Yessy Faustin DO [address] [place] [address] PCP - Carson Strickland MA Attributed 02/21/25 Mehdi Nugent MD [address] [address] Physician Hematology Oncology 06/08/21 Olga Dodson MD 201 [place] [address] Surgery, General 08/24/22 documented as of this encounter
--- OUTSIDE RECORDS SUMMARY | 2025-07-14 16:36 | XMS_ITS | Encounter Summary ---
Author Organization [facility] Address [address] [place] [address] Care Team Providers Care Dyer And Washer Name Role Phone Mehdi Nugent MD Unavailable [phone] Yessy Faustin DO Primary Care Provider Olga Dodson MD Unavailable [phone] Yessy Faustin DO Unavailable Yessy Faustin DO Unavailable Encounter Details Date Type Department Care Team (Late st Contact Info) Description 10/29/2024 Scanned Document [facility] Department of Internal Medicine [address] 1st [place] [address] Yessy Faustin DO [address] [address] Social History Tobacco Use Types [...] Description 11/10/2025 11:30 AM EDT Office Visit [facility] Department of Cardiology [place] [address] [place] [address] Onofre Malik PA 289 [place] [address] 11/14/2025 2:00 PM EDT Office Visit [facility] Department of Internal Medicine [address] 1st [place] [address] Yessy Faustin DO [address] [place] [address] documented as of this encounter Visit Diagnoses Not on filedocumented in this encounter Care Teams Dyer And Washer Relationship Specialty Start Date End Date Yessy Faustin DO [address] [place] [address] PCP - General Internal Medicine 08/21/22 Yessy Faustin DO [address] [place] [address] PCP - Carson Mark TELLO Attributed 01/22/24 02/20/25 Yessy Faustin DO [address] [place] [address] PCP - Carson Strickland MA Attributed 02/21/25 Mehdi Nugent MD [address] [address] Physician Hematology Oncology 06/08/21 Olga Dodson MD 201 [place] [address] Surgery, General 08/24/22 documented as of this encounter
--- OUTSIDE RECORDS SUMMARY | 2025-07-14 16:36 | XMS_ITS | Encounter Summary ---
Author Organization [facility] Address [address] [place] [address] Care Team Providers Care Newspaper Clipper Name Role Phone Mehdi Nugent MD Unavailable [phone] Yessy Faustin DO Primary Care Provider Olga Dodson MD Unavailable [phone] Yessy Faustin DO Unavailable Yessy Faustin DO Unavailable Encounter Details Date Type Department Care Team (Late st Contact Info) Description 10/22/2024 Scanned Document [facility] at Home 1290 [facility] 4B [place] [address] Yessy Faustin DO [address] [phone] Social History Tobacco Use Types Packs/Day Years [...] Visit [facility] Department of Cardiology [place] 160 [facility] [address] [place] [address] Onofre Malik PA 289 [place] [address] 11/14/2025 2:00 PM EDT Office Visit [facility] Department of Internal Medicine [address] 1st [place] [address] Yessy Faustin DO 18 [place] [address] documented as of this encounter Procedures Procedure Name Priority Date/Time Associated Diagnosis Comments HOME CARE SIGNED ORDERS 10/22/2024 7:51 AM EDT documented in this encounter Results * HOME CARE SIGNED ORDERS (10/22/2024 7:51 AM EDT) Yessy Faustin DO HX AMB PROCEDURES NO RESULTS ROU TING Final Result documented in this encounter Visit Diagnoses Not on filedocumented in this encounter Care Teams Newspaper Clipper Relationship Specialty Start Date End Date Yessy Faustin DO [address] [place], [place] [phone] PCP - General Internal Medicine 08/21/22 Yessy Faustin DO [address] [place], [place] [phone] PCP - Carson Mark TELLO Attributed 01/22/24 02/20/25 Yessy Faustin DO [address] [place] [address] PCP - Carson Strickland MA Attributed 02/21/25 Mehdi Nugent MD [address] [place] [address] Physician Hematology Oncology 06/08/21 Olga Dodson MD [address] [place] [address] Surgery, General 08/24/22 documented as of this encounter
--- OUTSIDE RECORDS SUMMARY | 2025-07-14 16:37 | XMS_ITS | Encounter Summary ---
Author Organization [facility] Address [address] [place] [address] Care Team Providers Care Instructor Apparel Manufacture Name Role Phone Mehdi Nugent MD Unavailable [phone] Yessy Faustin DO Primary Care Provider [phone] lOga Dodson MD Unavailable [phone] Yessy Faustin DO Unavailable Yessy Faustin DO Unavailable Encounter Details Date Type Department Care Team (Late st Contact Info) Description 09/13/2024 Scanned Document [facility] Department of Internal Medicine [address] 1st [place] [address] Yessy Faustin DO [address] [address] Social History Tobacco Use Types [...] 11/10/2025 11:30 AM EDT Office Visit [facility] Department of Cardiology [place] [address] [place] [address] Onofre Malik PA 289 [place] [address] 11/14/2025 2:00 PM EDT Office Visit [facility] Department of Internal Medicine [address] 1st [place] [address] Yessy Faustin DO [address] [place] [address] documented as of this encounter Visit Diagnoses Not on filedocumented in this encounter Care Teams Instructor Apparel Manufacture Relationship Specialty Start Date End Date Yessy Faustin DO [address] [place] [address] PCP - General Internal Medicine 08/21/22 Yessy Faustin DO [address] [place] [address] PCP - Carson Mark TELLO Attributed 01/22/24 02/20/25 Yessy Faustin DO [address] [place] [address] PCP - Carson Strickland MA Attributed 02/21/25 Mehdi Nugent MD [address] [address] Physician Hematology Oncology 06/08/21 Olga Dodson MD 201 [place] [address] Surgery, General 08/24/22 documented as of this encounter
--- OUTSIDE RECORDS SUMMARY | 2025-07-14 16:37 | XMS_ITS | Encounter Summary ---
Author Organization [facility] Address 100 [place] [address] Care Team Providers Care Activity Specialist Name Role Phone Mehdi Nugent MD Unavailable [phone] Yessy Faustin DO Primary Care Provider Olga Dodson MD Unavailable [phone] Yessy Faustin DO Unavailable Yessy Faustin DO Unavailable Encounter Details Date Type Department Care Team (Late st Contact Info) Description 09/20/2024 Scanned Document [facility] at Home 1290 [facility] 4B [place] [address] Provider, Generic Social History Tobacco [...] Office Visit [facility] Department of Cardiology [place] 160 [facility] [address] [place] [address] Onofre Malik PA [address] [place] [address] 11/14/2025 2:00 PM EDT Office Visit [facility] Department of Internal Medicine [address] 1st [place] [address] Yessy Faustin DO [address] [address] documented as of this encounter Visit Diagnoses Not on filedocumented in this encounter Care Teams Activity Specialist Relationship Specialty Start Date End Date Yessy Faustin DO [address] [place] [address] PCP - General Internal Medicine 08/21/22 Yessy Faustin DO [address] [place] [address] PCP - Carson [facility] ELISHA Attributed 01/22/24 02/20/25 Yessy Faustin DO [address] [place] [address] PCP - Carson Strickland MA Attributed 02/21/25 Mehdi Nugent MD [address] [address] Physician Hematology Oncology 06/08/21 Olga Dodson MD 201 [place] [address] Surgery, General 08/24/22 documented as of this encounter
--- OUTSIDE RECORDS SUMMARY | 2025-07-14 16:37 | XMS_ITS | Clinical Summary ---
Author Organization [facility] Address [address] [place] [address] Phone Care Team Providers Care Fixed Route Operator Name Role Phone RaminYessy Primary Care Provider [phone] Social History Tobacco Use Types Packs/Day Years [...] - [place] [employer] Care Teams Fixed Route Operator Relationship Specialty Start Date End Date Yessy Faustin DO [address] [address] PCP - General Family Medicine 01/09/25
--- OUTSIDE RECORDS SUMMARY | 2025-07-14 16:37 | XMS_ITS | Encounter Summary ---
Author Organization [facility] Address [address] [place] [address] Care Team Providers Care Specialty Finishing Utility Person Name Role Phone Mehdi Nugent MD Unavailable [phone] Yessy Faustin DO Primary Care Provider [phone] Olga Dodson MD Unavailable [phone] Yessy Faustin DO Unavailable Yessy Faustin DO Unavailable Encounter Details Date Type Department Care Team (Late st Contact Info) Description 09/27/2024 Scanned Document [facility] at Home 1290 [facility] 4B [place] [address] Provider, Generic Social History Tobacco [...] Office Visit [facility] Department of Cardiology [place] 160 [facility] [address] [place] [address] Onofre Malik PA [address] [place] [address] 11/14/2025 2:00 PM EDT Office Visit [facility] Department of Internal Medicine [address] 1st [place] [address] Yessy Faustin DO [address] [address] documented as of this encounter Visit Diagnoses Not on filedocumented in this encounter Care Teams Specialty Finishing Utility Person Relationship Specialty Start Date End Date Yessy Faustin DO [address] [place] [address] PCP - General Internal Medicine 08/21/22 Yessy Faustin DO [address] [place] [address] PCP - Carson [facility] ELISHA Attributed 01/22/24 02/20/25 Yessy Faustin DO [address] [place] [address] PCP - Carson Strickland MA Attributed 02/21/25 Mehdi Nugent MD [address] [address] Physician Hematology Oncology 06/08/21 Olga Dodson MD 201 [place] [address] Surgery, General 08/24/22 documented as of this encounter
--- OUTSIDE RECORDS SUMMARY | 2025-07-14 16:37 | XMS_ITS | Encounter Summary ---
Author Organization [facility] Address [address] [place] [address] Care Team Providers Care Montessori Preschool Teacher Name Role Phone Mehdi Nugent MD Unavailable [phone] Yessy Faustin DO Primary Care Provider Olga Dodson MD Unavailable [phone] Yessy Faustin DO Unavailable Yessy Faustin DO Unavailable Encounter Details Date Type Department Care Team (Late st Contact Info) Description 10/08/2024 Scanned Document [facility] at Home 1290 [facility] 4B [place] [address] Provider, Generic Social History Tobacco [...] Office Visit [facility] Department of Cardiology [place] 160 [facility] [address] [place] [address] Onofre Malik PA [address] [place] [address] 11/14/2025 2:00 PM EDT Office Visit [facility] Department of Internal Medicine [address] 1st [place] [address] Yessy Faustin DO [address] [address] documented as of this encounter Visit Diagnoses Not on filedocumented in this encounter Care Teams Montessori Preschool Teacher Relationship Specialty Start Date End Date Yessy Faustin DO [address] [place] [address] PCP - General Internal Medicine 08/21/22 Yessy Faustin DO [address] [place] [address] PCP - Carson [facility] ELISHA Attributed 01/22/24 02/20/25 Yessy Faustin DO [address] [place] [address] PCP - Carson Strickland MA Attributed 02/21/25 Mehdi Nugent MD [address] [address] Physician Hematology Oncology 06/08/21 Olga Dodson MD 201 [place] [address] Surgery, General 08/24/22 documented as of this encounter
--- OUTSIDE RECORDS SUMMARY | 2025-07-14 16:37 | XMS_ITS | Encounter Summary ---
Author Organization [facility] Address [address] [place] [address] Care Team Providers Care Research Environmental Scientist Name Role Phone Mehdi Nugent MD Unavailable [phone] Yessy Faustin DO Primary Care Provider Olga Dodson MD Unavailable [phone] Yessy Faustin DO Unavailable Yessy Faustin DO Unavailable Encounter Details Date Type Department Care Team (Late st Contact Info) Description 09/18/2024 Scanned Document [facility] at Home 1290 [facility] 4B [place] [address] Provider, Generic Social History Tobacco [...] Office Visit [facility] Department of Cardiology [place] 160 [facility] [address] [place] [address] Onofre Malik PA [address] [place] [address] 11/14/2025 2:00 PM EDT Office Visit [facility] Department of Internal Medicine [address] 1st [place] [address] Yessy Faustin DO [address] [address] documented as of this encounter Visit Diagnoses Not on filedocumented in this encounter Care Teams Research Environmental Scientist Relationship Specialty Start Date End Date Yessy Faustin DO [address] [place] [address] PCP - General Internal Medicine 08/21/22 Yessy Faustin DO [address] [place] [address] PCP - Carson [facility] ELISHA Attributed 01/22/24 02/20/25 Yessy Faustin DO [address] [place] [address] PCP - Carson Strickland MA Attributed 02/21/25 Mehdi Nugent MD [address] [address] Physician Hematology Oncology 06/08/21 Olga Dodson MD 201 [place] [address] Surgery, General 08/24/22 documented as of this encounter
--- OUTSIDE RECORDS SUMMARY | 2025-07-14 16:37 | XMS_ITS | Encounter Summary ---
Author Organization [facility] Address [address] [place] [address] Care Team Providers Care Practice Coordinator Name Role Phone Unavailable Primary Care Provider Unavailabl e Encounter Details Date Type Department Care Team ([facility] st Contact Info) Description 12/09/2024 Scanned Document INTERFACE DEFAULT [address] [place] [phone] System, Provider Not In Social History Tobacco Use Types Packs/Day Years Used Date Smoking Tobacco: Never Alcohol Use Standard Drinks/Week Comments Never 0 (1 standard drink = 0.6 oz pur e alcohol) [facility] Utilities Answer Date Recorded In the past [...]
--- OUTSIDE RECORDS SUMMARY | 2025-07-14 16:37 | XMS_ITS | Encounter Summary ---
Author Organization [facility] Address [address] [place] [address] Care Team Providers Care Car And Yard Supervisor Name Role Phone Mehdi Nugent MD Unavailable [phone] Yessy Faustin DO Primary Care Provider Olga Dodson MD Unavailable [phone] Yessy Faustin DO Unavailable Yessy Faustin DO Unavailable Encounter Details Date Type Department Care Team (Late st Contact Info) Description 10/04/2024 Scanned Document [facility] at Home 1290 [facility] 4B [place] [phone] Yessy Faustin DO [address] [phone] Social History Tobacco Use Types Packs/Day Years [...] [facility] Department of Cardiology [place] [address] [facility] [address] [place] [address] Onofre Malik PA 289 [place] [address] 11/14/2025 2:00 PM EDT Office Visit [facility] Department of Internal Medicine [address] 1st [place] [address] Yessy Faustin DO [address] [place] 994105 documented as of this encounter Procedures Procedure Name Priority Date/Time Associated Diagnosis Comments HOME CARE SIGNED ORDERS 10/04/2024 8:02 AM EDT documented in this encounter Results * HOME CARE SIGNED ORDERS (10/04/2024 8:02 AM EDT) Yessy Faustin DO HX AMB PROCEDURES NO RESULTS ROU TING Final Result documented in this encounter Visit Diagnoses Not on filedocumented in this encounter Care Teams Car And Yard Supervisor Relationship Specialty Start Date End Date Yessy Faustin DO [address] [place], [place] [phone] PCP - General Internal Medicine 08/21/22 Yessy Faustin DO [address] [place], [place] [phone] PCP - Carson Mark TELLO Attributed 01/22/24 02/20/25 Yessy Faustin DO [address] [place] [address] PCP - [facility] Strickland MA Attributed 02/21/25 Mehdi Nugent MD [address] [place] [address] Physician Hematology Oncology 06/08/21 Olga Dodson MD [address] [place] [address] Surgery, General 08/24/22 documented as of this encounter
--- OUTSIDE RECORDS SUMMARY | 2025-07-14 16:37 | XMS_ITS | Encounter Summary ---
Author Organization [facility] Address [address] [place] [address] Care Team Providers Care Impregnator Helper Name Role Phone Mehdi Nugent MD Unavailable [phone] Yessy Faustin DO Primary Care Provider Olga Dodson MD Unavailable [phone] Yessy Faustin DO Unavailable Yessy Faustin DO Unavailable Encounter Details Date Type Department Care Team (Late st Contact Info) Description 04/25/2024 Scanned Document [facility] Department of Internal Medicine [address] 1st [place] [address] Yessy Faustin DO [address] [address] Social History Tobacco Use Types [...] Office Visit [facility] Department of Cardiology [place] [address] [place] [address] Onofre Malik PA 289 [place] [address] 11/14/2025 2:00 PM EDT Office Visit [facility] Department of Internal Medicine [address] 1st [place] [address] Yessy Faustin DO [address] [place] [address] documented as of this encounter Visit Diagnoses Not on filedocumented in this encounter Care Teams Impregnator Helper Relationship Specialty Start Date End Date Yessy Faustin DO [address] [place] [address] PCP - General Internal Medicine 08/21/22 Yessy Faustin DO [address] [place] [address] PCP - Carson Mark TELLO Attributed 01/22/24 02/20/25 Yessy Faustin DO [address] [place] [address] PCP - Carson Strickland MA Attributed 02/21/25 Mehdi Nugent MD [address] [address] Physician Hematology Oncology 06/08/21 Olga Dodson MD 201 [place] [address] Surgery, General 08/24/22 documented as of this encounter
--- OUTSIDE RECORDS SUMMARY | 2025-07-14 16:37 | XMS_ITS | Encounter Summary ---
Author Organization [facility] Address 100 [place] [address] Care Team Providers Care Implementation Director Name Role Phone Mehdi Nugent MD Unavailable [phone] Yessy Faustin DO Primary Care Provider Olga Dodson MD Unavailable [phone] Yessy Faustin DO Unavailable Yessy Faustin DO Unavailable Encounter Details Date Type Department Care Team (Late st Contact Info) Description 09/23/2024 Scanned Document [facility] at Home 1290 [facility] 4B [place] [address] Provider, Generic Social History Tobacco [...] Office Visit [facility] Department of Cardiology [place] [address] [facility] [address] [place] [address] Onofre Malik PA [address] [place] [address] 11/14/2025 2:00 PM EDT Office Visit [facility] Department of Internal Medicine [address] 1st [place] [address] Yessy Faustin DO [address] [address] documented as of this encounter Visit Diagnoses Not on filedocumented in this encounter Care Teams Implementation Director Relationship Specialty Start Date End Date Yessy Faustin DO [address] [place] [address] PCP - General Internal Medicine 08/21/22 Yessy Faustin DO [address] [place] [address] PCP - Carson [facility] ELISHA Attributed 01/22/24 02/20/25 Yessy Faustin DO [address] [place] [address] PCP - [facility] Strickland MA Attributed 02/21/25 Mehdi Nugent MD [address] [address] Physician Hematology Oncology 06/08/21 Olga Dodson MD 201 [place] [address] Surgery, General 08/24/22 documented as of this encounter
--- OUTSIDE RECORDS SUMMARY | 2025-07-14 16:37 | XMS_ITS | Encounter Summary ---
Author Organization [facility] Address 100 [place] [address] Care Team Providers Care Talent Acquisition Specialist Name Role Phone Mehdi Nugent MD Unavailable [phone] Yessy Faustin DO Primary Care Provider Olga Dodson MD Unavailable [phone] Yessy Faustin DO Unavailable Yessy Faustin DO Unavailable Encounter Details Date Type Department Care Team (Late st Contact Info) Description 09/14/2024 Scanned Document [facility] at Home 1290 [facility] 4B [place] [address] Provider, Generic Social History Tobacco [...] Office Visit [facility] Department of Cardiology [place] 160 [facility] [address] [place] [address] Onofre Malik PA [address] [place] [address] 11/14/2025 2:00 PM EDT Office Visit [facility] Department of Internal Medicine [address] 1st [place] [address] Yessy Faustin DO [address] [address] documented as of this encounter Visit Diagnoses Not on filedocumented in this encounter Care Teams Talent Acquisition Specialist Relationship Specialty Start Date End Date Yessy Faustin DO [address] [place] [address] PCP - General Internal Medicine 08/21/22 Yessy Faustin DO [address] [place] [address] PCP - Carson [facility] ELISHA Attributed 01/22/24 02/20/25 Yessy Faustin DO [address] [place] [address] PCP - [facility] Strickland MA Attributed 02/21/25 Mehdi Nugent MD [address] [address] Physician Hematology Oncology 06/08/21 Olga Dodson MD 201 [place] [address] Surgery, General 08/24/22 documented as of this encounter
--- OUTSIDE RECORDS SUMMARY | 2025-07-14 16:37 | XMS_ITS | Encounter Summary ---
Author Organization [facility] Address 100 [place] [address] Care Team Providers Care New Account Interviewer Name Role Phone Mehdi Nugent MD Unavailable [phone] Yessy Faustin DO Primary Care Provider Olga Dodson MD Unavailable [phone] Yessy Faustin DO Unavailable Yessy Faustin DO Unavailable Encounter Details Date Type Department Care Team (Late st Contact Info) Description 09/12/2024 Scanned Document [facility] at Home [address] [facility] 4B [place] [address] Provider, Generic Social History Tobacco [...] Office Visit [facility] Department of Cardiology [place] 160 [facility] [address] [place] [address] Onofre Malik PA [address] [place] [address] 11/14/2025 2:00 PM EDT Office Visit [facility] Department of Internal Medicine [address] 1st [place] [address] Yessy Faustin DO [address] [address] documented as of this encounter Visit Diagnoses Not on filedocumented in this encounter Care Teams New Account Interviewer Relationship Specialty Start Date End Date Yessy Faustin DO [address] [place] [address] PCP - General Internal Medicine 08/21/22 Yessy Faustin DO [address] [place] [address] PCP - Carson [facility] ELISHA Attributed 01/22/24 02/20/25 Yessy Faustin DO [address] [place] [address] PCP - [facility] Strickland MA Attributed 02/21/25 Mehdi Nugent MD [address] [address] Physician Hematology Oncology 06/08/21 Olga Dodson MD 201 [place] [address] Surgery, General 08/24/22 documented as of this encounter
--- OUTSIDE RECORDS SUMMARY | 2025-07-14 16:37 | XMS_ITS | Encounter Summary ---
Author Organization [facility] Address [address] [place] [address] Care Team Providers Care Piece Marker Small Arms Name Role Phone Mehdi Nugent MD Unavailable [phone] Yessy Faustin DO Primary Care Provider [phone] Olga Dodson MD Unavailable [phone] Yessy Faustin DO Unavailable Yessy Faustin DO Unavailable Encounter Details Date Type Department Care Team (Late st Contact Info) Description 11/13/2024 Scanned Document [facility] 1290 [facility] 4B [place] [address] Yessy Faustin DO [address] [phone] Social History Tobacco Use Types Packs/Day Years [...] Description 11/10/2025 11:30 AM EDT Office Visit [facility] Department of Cardiology [place] 160 [facility] [address] [place] [address] Onofre Malik PA 289 [place] [address] 11/14/2025 2:00 PM EDT Office Visit [facility] Department of Internal Medicine [address] 1st [place] [address] Yessy Faustin DO 18 [place] [phone] documented as of this encounter Procedures Procedure Name Priority Date/Time Associated Diagnosis Comments HOME CARE SIGNED ORDERS 11/13/2024 2:49 PM EDT documented in this encounter Results * HOME CARE SIGNED ORDERS (11/13/2024 2:49 PM EDT) Yessy Faustin DO HX AMB PROCEDURES NO RESULTS ROU TING Final Result documented in this encounter Visit Diagnoses Not on filedocumented in this encounter Care Teams Piece Marker Small Arms Relationship Specialty Start Date End Date Yessy Faustin DO [address] [place], [place] [phone] PCP - General Internal Medicine 08/21/22 Yessy Faustin DO [address] [place], [place] [phone] PCP - [facility] Mark TELLO Attributed 01/22/24 02/20/25 Yessy Faustin DO [address] [place] [address] PCP - [facility] Strickland MA Attributed 02/21/25 Mehdi Nugent MD [address] [place] [address] Physician Hematology Oncology 06/08/21 Olga Dodson MD [address] [place] [address] Surgery, General 08/24/22 documented as of this encounter
--- OUTSIDE RECORDS SUMMARY | 2025-07-14 16:37 | XMS_ITS | Encounter Summary ---
Author Organization [facility] Address [address] [place] [address] Care Team Providers Care Rustic Fence Builder Name Role Phone Mehdi Nugent MD Unavailable [phone] Yessy Faustin DO Primary Care Provider Olga Dodson MD Unavailable [phone] Yessy Faustin DO Unavailable Yessy Faustin DO Unavailable Encounter Details Date Type Department Care Team (Late st Contact Info) Description 09/23/[address] [facility] at Home 1290 [facility] 4B [place] [phone] Yessy Faustin DO [address] [phone] Social History Tobacco Use Types Packs/Day Years [...] [facility] Department of Cardiology [place] 160 [facility] [address] [place] [address] Onofre Malik PA 289 [place] [address] 11/14/2025 2:00 PM EDT Office Visit [facility] Department of Internal Medicine [address] 1st [place] [address] Yessy Faustin DO [address] [place] [address] documented as of this encounter Visit Diagnoses Not on filedocumented in this encounter Care Teams Rustic Fence Builder Relationship Specialty Start Date End Date Yessy Faustin DO [address] [place] [address] PCP - General Internal Medicine 08/21/22 Yessy Faustin DO [address] [place] [address] PCP - Carson Mark TELLO Attributed 01/22/24 02/20/25 Yessy Faustin DO [address] [place] [address] PCP - Carson Strickland MA Attributed 02/21/25 Mehdi Nugent MD [address] [address] Physician Hematology Oncology 06/08/21 Olga Dodson MD 201 [place] [address] Surgery, General 08/24/22 documented as of this encounter
--- OUTSIDE RECORDS SUMMARY | 2025-07-14 16:37 | XMS_ITS | Encounter Summary ---
Author Organization [facility] Address 100 [place] [address] Care Team Providers Care Broth Mixer Name Role Phone Mehdi Nugent MD Unavailable [phone] Yessy Faustin DO Primary Care Provider Olga Dodson MD Unavailable [phone] Yessy Faustin DO Unavailable Yessy Faustin DO Unavailable Encounter Details Date Type Department Care Team (Late st Contact Info) Description 10/01/2024 Scanned Document [facility] at Home 1290 [facility] 4B [place] [address] Provider, Generic Social History Tobacco [...] Office Visit [facility] Department of Cardiology [place] 160 [facility] [address] [place] [address] Onofre Malik PA [address] [place] [address] 11/14/2025 2:00 PM EDT Office Visit [facility] Department of Internal Medicine [address] 1st [place] [address] Yessy Faustin DO [address] [address] documented as of this encounter Visit Diagnoses Not on filedocumented in this encounter Care Teams Broth Mixer Relationship Specialty Start Date End Date Yessy Faustin DO [address] [place] [address] PCP - General Internal Medicine 08/21/22 Yessy Faustin DO [address] [place] [address] PCP - Carson [facility] ELISHA Attributed 01/22/24 02/20/25 Yessy Faustin DO [address] [place] [address] PCP - [facility] Strickland MA Attributed 02/21/25 Mehdi Nugent MD [address] [address] Physician Hematology Oncology 06/08/21 Olga Dodson MD 201 [place] [address] Surgery, General 08/24/22 documented as of this encounter
--- OUTSIDE RECORDS SUMMARY | 2025-07-14 16:37 | XMS_ITS | Encounter Summary ---
Author Organization [facility] Address [address] [place] [address] Care Team Providers Care Sharples Machine Operator Name Role Phone Mehdi Nugent MD Unavailable [phone] Yessy Faustin DO Primary Care Provider [phone] Olga Dodson MD Unavailable [phone] Yessy Faustin DO Unavailable Yessy Faustin DO Unavailable Encounter Details Date Type Department Care Team (Late st Contact Info) Description 11/26/2024 Scanned Document [facility] at Home 1290 [facility] 4B [place] [address] Yessy Faustin DO [address] [address] Social History Tobacco Use Types [...] [facility] Department of Cardiology [place] 160 [facility] [address] [place] [address] Onofre Malik PA 289 [place] [address] 11/14/2025 2:00 PM EDT Office Visit [facility] Department of Internal Medicine [address] 1st [place] [address] Yessy Faustin DO 18 [place] [address] documented as of this encounter Procedures Procedure [...] on filedocumented in this encounter Care Teams Sharples Machine Operator Relationship Specialty Start Date End Date Yessy Faustin DO [address] [place], [place] [address] PCP - General Internal Medicine 08/21/22 Yessy Faustin DO [address] [place] [address] PCP - Carson [facility] MA Attributed 01/22/24 02/20/25 Yessy Faustin DO [address] [place], [place] [address] PCP - [facility] Strickland MA Attributed 02/21/25 Mehdi Nugent MD 183 [place] [address] Physician Hematology Oncology 06/08/21 Olga Dodson MD 201 [place] [address] Surgery, General 08/24/22 documented as of this encounter
--- OUTSIDE RECORDS SUMMARY | 2025-07-14 16:37 | XMS_ITS | Encounter Summary ---
Author Organization [facility] Address [address] [place] [address] Care Team Providers Care Crime Victim Specialist Name Role Phone Mehdi Nugent MD Unavailable [phone] Yessy Faustin DO Primary Care Provider Olga Dodson MD Unavailable [phone] Yessy Faustin DO Unavailable Yessy Faustin DO Unavailable Encounter Details Date Type Department Care Team (Late st Contact Info) Description 11/13/2024 External Communication [facility] at Home 1290 [facility] 4B [place] [address] Yessy Faustin DO [address] [phone] Social History Tobacco Use Types Packs/Day Years [...] Description 11/10/2025 11:30 AM EDT Office Visit [facility] Department of Cardiology [place] 160 [facility] [address] [place] [address] Onofre Malik PA 289 [place] [address] 11/14/2025 2:00 PM EDT Office Visit [facility] Department of Internal Medicine [address] 1st [place] [address] Yessy Faustin DO [address] [place] [address] documented as of this encounter Visit Diagnoses Not on filedocumented in this encounter Care Teams Crime Victim Specialist Relationship Specialty Start Date End Date Yessy Faustin DO [address] [place] [address] PCP - General Internal Medicine 08/21/22 Yessy Faustin DO [address] [place] [address] PCP - Carson Mark TELLO Attributed 01/22/24 02/20/25 Yessy Faustin DO [address] [place] [address] PCP - Carson Strickland MA Attributed 02/21/25 Mehdi Nugent MD [address] [address] Physician Hematology Oncology 06/08/21 Olga Dodson MD 201 [place] [address] Surgery, General 08/24/22 documented as of this encounter
--- OUTSIDE RECORDS SUMMARY | 2025-07-14 16:37 | XMS_ITS | Encounter Summary ---
Author Organization [facility] Address 100 [place] [address] Care Team Providers Care Ultrasound Technol Name Role Phone Mehdi Nugent MD Unavailable [phone] Yessy Faustin DO Primary Care Provider Olga Dodson MD Unavailable [phone] Yessy Faustin DO Unavailable Yessy Faustin DO Unavailable Encounter Details Date Type Department Care Team (Late st Contact Info) Description 11/14/2024 Scanned Document [facility] at Home 1290 [facility] 4B [place] [address] Provider, Generic Social History Tobacco [...] Office Visit [facility] Department of Cardiology [place] 160 [facility] [address] [place] [address] Onofre Malik PA [address] [place] [address] 11/14/2025 2:00 PM EDT Office Visit [facility] Department of Internal Medicine [address] 1st [place] [address] Yessy Faustin DO [address] [address] documented as of this encounter Visit Diagnoses Not on filedocumented in this encounter Care Teams Ultrasound Technol Relationship Specialty Start Date End Date Yessy Faustin DO [address] [place] [address] PCP - General Internal Medicine 08/21/22 Yessy Faustin DO [address] [place] [address] PCP - Carson [facility] ELISHA Attributed 01/22/24 02/20/25 Yessy Faustin DO [address] [place] [address] PCP - [facility] Strickland MA Attributed 02/21/25 Mehdi Nugent MD [address] [address] Physician Hematology Oncology 06/08/21 Olga Dodson MD 201 [place] [address] Surgery, General 08/24/22 documented as of this encounter
--- OUTSIDE RECORDS SUMMARY | 2025-07-14 16:37 | XMS_ITS | Encounter Summary ---
Author Organization [facility] Address [address] [place] [address] Care Team Providers Care Leave Manager Name Role Phone Unavailable Primary Care Provider Unavailabl e Encounter Details Date Type Department Care Team ([facility] Contact Info) Description 11/01/2024 Scanned Document INTERFACE DEFAULT [address] [place] [id number] System, Provider Not In Social History Tobacco [...]
--- OUTSIDE RECORDS SUMMARY | 2025-07-14 16:37 | XMS_ITS | Encounter Summary ---
Author Organization [facility] Address 100 [place] [address] Care Team Providers Care Cyber Operator Name Role Phone Mehdi Nugent MD Unavailable [phone] Yessy Faustin DO Primary Care Provider Olga Dodson MD Unavailable [phone] Yessy Faustin DO Unavailable Yessy Faustin DO Unavailable Encounter Details Date Type Department Care Team (Late st Contact Info) Description 09/24/2024 Scanned Document [facility] at Home 1290 [facility] 4B [place] [address] Provider, Generic Social History [...] Office Visit [facility] Department of Cardiology [place] 160 [facility] [address] [place] [address] Onofre Malik PA [address] [place] [address] 11/14/2025 2:00 PM EDT Office Visit [facility] Department of Internal Medicine [address] 1st [place] [address] Yessy Faustin DO [address] [address] documented as of this encounter Visit Diagnoses Not on filedocumented in this encounter Care Teams Cyber Operator Relationship Specialty Start Date End Date Yessy Faustin DO [address] [place] [address] PCP - General Internal Medicine 08/21/22 Yessy Faustin DO [address] [place] [address] PCP - Carson [facility] ELISHA Attributed 01/22/24 02/20/25 Ysesy Faustin DO [address] [place] [address] PCP - Carson Strickland MA Attributed 02/21/25 Mehdi Nugent MD [address] [address] Physician Hematology Oncology 06/08/21 Olga Dodson MD 201 [place] [address] Surgery, General 08/24/22 documented as of this encounter
--- OUTSIDE RECORDS SUMMARY | 2025-07-14 16:37 | XMS_ITS | Encounter Summary ---
Author Organization [facility] Address [address] [place] [address] Care Team Providers Care Green Building Design Specialist Name Role Phone Mehdi Nugent MD Unavailable [phone] Yessy Faustin DO Primary Care Provider Olga Dodson MD Unavailable [phone] Yessy Faustin DO Unavailable Yessy Faustin DO Unavailable Encounter Details Date Type Department Care Team (Late st Contact Info) Description 09/06/2024 Scanned Document [facility] Department of Internal Medicine [address] 1st [place] [address] Yessy Faustin DO [address] [address] Social History Tobacco Use Types [...] Description 11/10/2025 11:30 AM EDT Office Visit [facility] Department of Cardiology [place] [address] [place] [address] Onofre Malik PA [address] [place] [address] 11/14/2025 2:00 PM EDT Office Visit [facility] Department of Internal Medicine [address] 1st [place] [address] Yessy Faustin DO [address] [place] [address] documented as of this encounter Visit Diagnoses Not on filedocumented in this encounter Care Teams Green Building Design Specialist Relationship Specialty Start Date End Date Yessy Faustin DO [address] [place] [address] PCP - General Internal Medicine 08/21/22 Yessy Faustin DO [address] [place] [address] PCP - Carson Mark TELLO Attributed 01/22/24 02/20/25 Yessy Faustin DO [address] [place] [address] PCP - Carson Strickland MA Attributed 02/21/25 Mehdi Nugent MD [address] [address] Physician Hematology Oncology 06/08/21 Olag Dodson MD 201 [place] [address] Surgery, General 08/24/22 documented as of this encounter
--- OUTSIDE RECORDS SUMMARY | 2025-07-14 16:37 | XMS_ITS | Encounter Summary ---
Author Organization [facility] Address [address] [place] [address] Care Team Providers Care Commercial Collections Specialist Name Role Phone Mehdi Nugent MD Unavailable [phone] Yessy Faustin DO Primary Care Provider [phone] Olga Dodson MD Unavailable [phone] Yessy Faustin DO Unavailable Yessy Faustin DO Unavailable Encounter Details Date Type Department Care Team (Late st Contact Info) Description 09/16/2024 Scanned Document [facility] at Home 1290 [facility] [address]B [place] [address] Provider, Generic Social History Tobacco [...] Office Visit [facility] Department of Cardiology [place] [address] [place] [address] Onofre Malik PA [address] [place] [address] 11/14/2025 2:00 PM EDT Office Visit [facility] Department of Internal Medicine [address] 1st [place] [address] Yessy Faustin DO [address] [address] documented as of this encounter Visit Diagnoses Not on filedocumented in this encounter Care Teams Commercial Collections Specialist Relationship Specialty Start Date End Date Yessy Faustin DO [address] [place] [address] PCP - General Internal Medicine 08/21/22 Yessy Faustin DO [address] [place] [address] PCP - Carson [facility] ELISHA Attributed 01/22/24 02/20/25 Yessy Faustin DO [address] [place] [address] PCP - Carson Strickland MA Attributed 02/21/25 Mehdi Nugent MD [address] [address] Physician Hematology Oncology 06/08/21 Olga Dodson MD 201 [place] [address] Surgery, General 08/24/22 documented as of this encounter
--- OUTSIDE RECORDS SUMMARY | 2025-07-14 16:37 | XMS_ITS | Encounter Summary ---
Author Organization [facility] Address [address] [place] [address] Care Team Providers Care Gas Booster Engineer Name Role Phone Mehdi Nugent MD Unavailable [phone] Yessy Faustin DO Primary Care Provider [phone] Olga Dodson MD Unavailable [phone] Yessy Faustin DO Unavailable Yessy Faustin DO Unavailable Encounter Details Date Type Department Care Team (Late st Contact Info) Description 10/04/2024 External Communication [facility] at [facility] 1290 [facility] 4B [place] [address] Yessy Faustin DO [address] [phone] Social History Tobacco Use Types Packs/Day Years [...] AM EDT Office Visit [facility] Department of Cardiology [place] 160 [facility] [address] [place] [address] Onofre Malik PA [address] [place] [address] 11/14/2025 2:00 PM EDT Office Visit [facility] Department of Internal Medicine [address] 1st [place] [address] Yessy Faustin DO [address] [place] [address] documented as of this encounter Visit Diagnoses Not on filedocumented in this encounter Care Teams Gas Booster Engineer Relationship Specialty Start Date End Date Yessy Faustin DO [address] [place] [address] PCP - General Internal Medicine 08/21/22 Yessy Faustin DO [address] [place] [address] PCP - Carson Mark TELLO Attributed 01/22/24 02/20/25 Yessy Faustin DO [address] [place] [address] PCP - Carosn Strickland MA Attributed 02/21/25 Mehdi Nugent MD [address] [address] Physician Hematology Oncology 06/08/21 Olga Dodson MD 201 [place] [address] Surgery, General 08/24/22 documented as of this encounter
--- OUTSIDE RECORDS SUMMARY | 2025-07-14 16:37 | XMS_ITS | Encounter Summary ---
Author Organization [facility] Address [address] [place] [address] Care Team Providers Care Electronics Specialist Name Role Phone Unavailable Primary Care Provider Unavailabl e Reason for Visit * Reason Onset Date Comments Medication Problem 02/18/2025 Encounter Details Date Type Department Care Team ([facility] st Contact Info) Description 02/18/2025 Telephone Palliative Care Program at [address] [address] Natividad Florentino, DELLA [address] [address] Medication Problem Social History Tobacco Use Types Packs/Day Years Used Date Smoking Tobacco: Never Alcohol Use Standard Drinks/Week Comments Never 0 (1 standard drink = 0.6 oz pur e alcohol) [facility] Utilities Answer Date Recorded In the [...] by pts insurance please call pts pharmacy [facility] [phone] documented in this encounter Plan of Treatment [...]
--- OUTSIDE RECORDS SUMMARY | 2025-07-14 16:37 | XMS_ITS | Encounter Summary ---
Author Organization [facility] Address [address] [place] [address] Care Team Providers Care Precision Layout Worker Name Role Phone Mehdi Nugent MD Unavailable [phone] Yessy Faustin DO Primary Care Provider Olga Dodson MD Unavailable [phone] Yessy Faustin DO Unavailable Yessy Faustin DO Unavailable Encounter Details Date Type Department Care Team (Late st Contact Info) Description 09/25/2024 Scanned Document [facility] at Home 1290 [facility] 4B [place] [address] Provider, Generic Social History Tobacco [...] Office Visit [facility] Department of Cardiology [place] 160 [facility] [address] [place] [address] Onofre Malik PA [address] [place] [address] 11/14/2025 2:00 PM EDT Office Visit [facility] Department of Internal Medicine [address] 1st [place] [address] Yessy Faustin DO [address] [address] documented as of this encounter Visit Diagnoses Not on filedocumented in this encounter Care Teams Precision Layout Worker Relationship Specialty Start Date End Date Yessy Faustin DO [address] [place] [address] PCP - General Internal Medicine 08/21/22 Yessy Faustin DO [address] [place] [address] PCP - Carson [facility] ELISHA Attributed 01/22/24 02/20/25 Yessy Faustin DO [address] [place] [address] PCP - Carson Strickland MA Attributed 02/21/25 Mehdi Nugent MD [address] [address] Physician Hematology Oncology 06/08/21 Olga Dodson MD 201 [place] [address] Surgery, General 08/24/22 documented as of this encounter
--- OUTSIDE RECORDS SUMMARY | 2025-07-14 16:37 | XMS_ITS | Clinical Summary ---
Author Organization [facility] Address [address] [place] [address] Care Team Providers Care Strong Nitric Operator Name Role Phone Mehdi Nugent MD Unavailable [phone] Yessy Faustin DO Primary Care Provider [phone] Olga Dodson MD Unavailable [phone] Yessy Faustin DO Unavailable Allergies Active Allergy [...] Department Care Team Description 06/10/2025 Scanned Document [facility] Department of Internal Medicine [address] 1st [place] [address] Yessy Faustin DO 05/12/2025 2:45 PM EDT Office Visit [facility] Facility of Internal Medicine [address] 1st [place] [address] Yessy Faustin, Invasive lobular carcinoma of breast in female (HCC) (Primary Dx); Nonrheumatic aortic valve stenosis; Primary hypertension; Hyponatremia; Mixed hyperlipidemia; Atherosclerosis of aorta; Statin intolerance; Compression fracture of L5 vertebra with routine healing 05/12/2025 11:00 AM EDT Office Visit [facility] Department of Cardiology [place] [address] [place] [address] Onofre Malik PA Lymphedema (Primary Dx); Aortic [...] [facility] Department of Cardiology [place] [address] [place] [address] Onofre Malik PA [address] [place] [address] 11/14/2025 2:00 PM EDT Office Visit [facility] Department of Internal Medicine [place] [address] 1st [place] [address] Yessy Faustin DO 18 [facility] 1 [place] [address] Health Maintenance Due Date Last Done Comments [...] your patient to us, Kelle Jessica MD [id number] (Electronically Signed - 11/17/2022 17:26) Narrative 11/17/2022 5:26 PM EDT EXAMINATION: BONE DENSITOMETRY CLINICAL INDICATION: Encounter for screening for osteoporosis. COMPARISON: This is the patients baseline examination. TECHNIQUE: Using a [employer] DXA system (software version: 14.10) manufactured by [employer] dual-energy x-ray absorptiometry was performed of the [...] the patients baseline examination. TECHNIQUE: Using a [employer] DXA system (software version:14.10) manufactured by [employer] dual-energy x-ray absorptiometrywas performed of the lumbar [...] your patient to us, Kelle Jessica MD [id number] (Electronically Signed - 11/17/2022 17:26) us Yessy [...] Maintenance Insurance [employer] Care Teams Strong Nitric Operator Relationship Specialty Start Date End Date Yessy Faustin DO 18 [place] [id number] PCP - General Internal Medicine 08/21/22 Yessy Faustin DO 18 [place] [id number] PCP - Carson Strickland MA Attributed 02/21/25 Mehdi Nugent MD 183 [place] [address] Physician Hematology Oncology 06/08/21 Olga Dodson MD 201 [place] [address] Surgery, General 08/24/22
--- OUTSIDE RECORDS SUMMARY | 2025-07-14 16:37 | XMS_ITS | Encounter Summary ---
Author Organization [facility] Address [address] [place] [address] Care Team Providers Care Grape Picker Name Role Phone Mehdi Nugent MD Unavailable [phone] Yessy Faustin DO Primary Care Provider Olga Dodson MD Unavailable [phone] Yessy Faustin DO Unavailable Yessy Faustin DO Unavailable Encounter Details Date Type Department Care Team (Late st Contact Info) Description 10/07/2024 Scanned Document [facility] at Home 1290 [facility] 4B [place] [address] Provider, Generic Social History Tobacco [...] [facility] Department of Cardiology [place] 160 [facility] [address] [place] [address] Onofre Malik PA [address] [place] [address] 11/14/2025 2:00 PM EDT Office Visit [facility] Department of Internal Medicine [address] 1st [place] [address] Yessy Faustin DO [address] [address] documented as of this encounter Visit Diagnoses Not on filedocumented in this encounter Care Teams Grape Picker Relationship Specialty Start Date End Date Yessy Faustin DO [address] [place] [address] PCP - General Internal Medicine 08/21/22 Yessy Faustin DO [address] [place] [address] PCP - Carson [facility] [place] ELISHA Attributed 01/22/24 02/20/25 Yessy Faustin DO [address] [place] [address] PCP - Carson Strickland MA Attributed 02/21/25 Mehdi Nugent MD [address] [address] Physician Hematology Oncology 06/08/21 Olga Dodson MD 201 [place] [address] Surgery, General 08/24/22 documented as of this encounter
--- OUTSIDE RECORDS SUMMARY | 2025-07-14 16:37 | XMS_ITS | Encounter Summary ---
Author Organization [facility] Address [address] [place] [address] Care Team Providers Care Hot Punch Press Operator Name Role Phone Mehdi Nugent MD Unavailable [phone] Yessy Faustin DO Primary Care Provider [phone] Olga Dodson MD Unavailable [phone] Yessy Faustin DO Unavailable Yessy Faustin DO Unavailable Encounter Details Date Type Department Care Team (Late st Contact Info) Description 09/23/2024 Scanned Document [facility] at Home [address] [place] [address] [place] [address] Yessy Faustin DO [address] [phone] Social History Tobacco Use Types Packs/Day Years [...] Office Visit [facility] Department of Cardiology [place] 160 [facility] [address] [place] [address] Onofre Malik PA [address] [place] [address] 11/14/2025 2:00 PM EDT Office Visit [facility] Department of Internal Medicine [address] 1st [place] [address] Yessy Faustin DO 18 [place] [address] documented as of this encounter Procedures Procedure Name Priority Date/Time Associated Diagnosis Comments HOME CARE SIGNED ORDERS 09/23/2024 2:06 PM EST documented in this encounter Results * HOME CARE SIGNED ORDERS (09/23/2024 2:06 PM EST) Yessy Faustin DO HX AMB PROCEDURES NO RESULTS ROU TING Final Result documented in this encounter Visit Diagnoses Not on filedocumented in this encounter Care Teams Hot Punch Press Operator Relationship Specialty Start Date End Date Yesys Faustin DO [address] [place] [address] PCP - General Internal Medicine 08/21/22 Yessy Faustin DO [address] [place], [place] [address] PCP - Carson Mark TELLO Attributed 01/22/24 02/20/25 Yessy Faustin DO [address] [place], [place] [address] PCP - Carson Strickland MA Attributed 02/21/25 Mehdi Nugent MD [address] [place] [address] Physician Hematology Oncology 06/08/21 Olga Dodson MD [address] [place] [address] Surgery, General 08/24/22 documented as of this encounter
--- OUTSIDE RECORDS SUMMARY | 2025-07-14 16:37 | XMS_ITS | Encounter Summary ---
Author Organization [facility] Address [address] [place] [address] Care Team Providers Care Central Office Equipment Installer Name Role Phone Mehdi Nugent MD Unavailable [phone] Yessy Faustin DO Primary Care Provider [phone] Olga Dodson MD Unavailable [phone] Yessy Faustin DO Unavailable Yessy Faustin DO Unavailable Encounter Details Date Type Department Care Team (Late st Contact Info) Description 11/16/2024 Scanned Document [facility] at Home 1290 [facility] 4B [place] [address] Provider, Generic Social History Tobacco [...] Office Visit [facility] Department of Cardiology [place] 160 [facility] [address] [place] [address] Onofre Malik PA [address] [place] [address] 11/14/2025 2:00 PM EDT Office Visit [facility] Department of Internal Medicine [address] 1st [place] [address] Yessy Faustin DO [address] [address] documented as of this encounter Visit Diagnoses Not on filedocumented in this encounter Care Teams Central Office Equipment Installer Relationship Specialty Start Date End Date Yessy Faustin DO [address] [place] [address] PCP - General Internal Medicine 08/21/22 Yessy Faustin DO [address] [place] [address] PCP - Carson [facility] ELISHA Attributed 01/22/24 02/20/25 Yessy Faustin DO [address] [place] [address] PCP - Carson Strickland MA Attributed 02/21/25 Mehdi Nugent MD [address] [address] Physician Hematology Oncology 06/08/21 Olga Dodson MD 201 [place] [address] Surgery, General 08/24/22 documented as of this encounter
--- OUTSIDE RECORDS SUMMARY | 2025-07-14 16:37 | XMS_ITS | Encounter Summary ---
Author Organization [facility] Address [address] [place] [address] Care Team Providers Care Wind Up Worker Name Role Phone Mehdi Nugent MD Unavailable [phone] Yessy Faustin DO Primary Care Provider [phone] Olga Dodson MD Unavailable [phone] Yessy Faustin DO Unavailable Yessy Faustin DO Unavailable Encounter Details Date Type Department Care Team (Late st Contact Info) Description 10/03/2024 Scanned Document [facility] at Home 1290 [facility] 4B [place] [address] Provider, Generic Social History Tobacco [...] Office Visit [facility] Department of Cardiology [place] 160 [facility] [address] [place] [address] Onofre Malik PA [address] [place] [address] 11/14/2025 2:00 PM EDT Office Visit [facility] Department of Internal Medicine [address] 1st [place] [address] Yessy Faustin DO [address] [address] documented as of this encounter Visit Diagnoses Not on filedocumented in this encounter Care Teams Wind Up Worker Relationship Specialty Start Date End Date Yessy Faustin DO [address] [place] [address] PCP - General Internal Medicine 08/21/22 Yessy Faustin DO [address] [place] [address] PCP - Carson [facility] ELISHA Attributed 01/22/24 02/20/25 Yessy Faustin DO [address] [place] [address] PCP - Carson Strickland MA Attributed 02/21/25 Mehdi Nugent MD [address] [address] Physician Hematology Oncology 06/08/21 Olga Dodson MD 201 [place] [address] Surgery, General 08/24/22 documented as of this encounter
--- OUTSIDE RECORDS SUMMARY | 2025-07-14 16:37 | XMS_ITS | Encounter Summary ---
Author Organization [facility] Address [address] [place] [address] Care Team Providers Care Academic Tutor Name Role Phone Mehdi Nugent MD Unavailable [phone] Yessy Faustin DO Primary Care Provider [phone] Olga Dodson MD Unavailable [phone] Yessy Faustin DO Unavailable Yessy Faustin DO Unavailable Encounter Details Date Type Department Care Team (Late st Contact Info) Description 09/30/2024 Scanned Document [facility] 1290 [facility] 4B [place] [address] Provider, Generic Social History Tobacco [...] Office Visit [facility] Department of Cardiology [place] 160 [facility] [address] [place] [address] Onofre Malik PA [address] [place] [address] 11/14/2025 2:00 PM EDT Office Visit [facility] Department of Internal Medicine [address] 1st [place] [address] Yessy Faustin DO [address] [address] documented as of this encounter Visit Diagnoses Not on filedocumented in this encounter Care Teams Academic Tutor Relationship Specialty Start Date End Date Yessy Faustin DO [address] [place] [address] PCP - General Internal Medicine 08/21/22 Yessy Faustin DO [address] [place] [address] PCP - Carson [facility] ELISHA Attributed 01/22/24 02/20/25 Yessy Faustin DO [address] [place] [address] PCP - Carson Strickland MA Attributed 02/21/25 Mehdi Nugent MD [address] [address] Physician Hematology Oncology 06/08/21 Olga Dodson MD 201 [place] [address] Surgery, General 08/24/22 documented as of this encounter
--- OUTSIDE RECORDS SUMMARY | 2025-07-14 16:37 | XMS_ITS | Encounter Summary ---
Author Organization [facility] Address [address] [place] [address] Care Team Providers Care Screed Operator Name Role Phone Mehdi Nugent MD Unavailable [phone] Yessy Faustin DO Primary Care Provider [phone] Olga Dodson MD Unavailable [phone] Yessy Faustin DO Unavailable Yessy Faustin DO Unavailable Encounter Details Date Type Department Care Team (Late st Contact Info) Description 09/25/2024 Scanned Document [facility] Department of Internal Medicine [address] 1st [place] [address] Yessy Faustin DO [address] [address] Social History Tobacco Use Types [...] 11/10/2025 11:30 AM EDT Office Visit [facility] Department of Cardiology [place] [address] [place] [address] Onofre Malik PA [address] [place] [address] 11/14/2025 2:00 PM EDT Office Visit [facility] Department of Internal Medicine [address] 1st [place] [address] Yessy Faustin DO [address] [place] [address] documented as of this encounter Visit Diagnoses Not on filedocumented in this encounter Care Teams Screed Operator Relationship Specialty Start Date End Date Yessy Faustin DO [address] [place] [address] PCP - General Internal Medicine 08/21/22 Yessy Faustin DO [address] [place] [address] PCP - Carson Mark TELLO Attributed 01/22/24 02/20/25 Yessy Faustin DO [address] [place] [address] PCP - Carson Strickland MA Attributed 02/21/25 Mehdi Nugent MD [address] [address] Physician Hematology Oncology 06/08/21 Olga Dodson MD 201 [place] [address] Surgery, General 08/24/22 documented as of this encounter
--- OUTSIDE RECORDS SUMMARY | 2025-07-14 16:37 | XMS_ITS | Encounter Summary ---
Author Organization [facility] Address [address] [place] [address] Care Team Providers Care Universal Grinder Operator Name Role Phone Mehdi Nugent MD Unavailable [phone] Yessy Faustin DO Primary Care Provider Olga Dodson MD Unavailable [phone] Yessy Faustin DO Unavailable Yessy Faustin DO Unavailable Encounter Details Date Type Department Care Team (Late st Contact Info) Description 10/04/2024 Scanned Document [facility] at Home 1290 [facility] 4B [place] [address] Provider, Generic Social History Tobacco [...] Office Visit [facility] Department of Cardiology [place] 160 [facility] [address] [place] [address] Onofre Malik PA [address] [place] [address] 11/14/2025 2:00 PM EDT Office Visit [facility] Department of Internal Medicine [address] 1st [place] [address] Yessy Faustin DO [address] [address] documented as of this encounter Visit Diagnoses Not on filedocumented in this encounter Care Teams Universal Grinder Operator Relationship Specialty Start Date End Date Yessy Faustin DO [address] [place] [address] PCP - General Internal Medicine 08/21/22 Yessy Faustin DO [address] [place] [address] PCP - Carson [facility] ELISHA Attributed 01/22/24 02/20/25 Yessy Faustin DO [address] [place] [address] PCP - Carson Strickland MA Attributed 02/21/25 Mehdi Nugent MD [address] [address] Physician Hematology Oncology 06/08/21 Olga Dodson MD 201 [place] [address] Surgery, General 08/24/22 documented as of this encounter
== END 2025-07-14 14:41 | disposition home or self-care (01) ==
LOC: HO.HMCWIS 13:13
PROVIDERS: PCP Student in an Organized Health Care Education/Training Program; Visit Provider Family Medicine
DX: B02.39 Other herpes zoster eye disease (principal)

== ENCOUNTER → 2025-07-14 13:13 | Outpatient (BNVA) | payer OTHER, SELFPAY | PROVIDERS: PCP Student in an Organized Health Care Education/Training Program; Visit Provider Family Medicine | DX: R21 Rash and other nonspecific skin eruption (principal); B02.39 Other herpes zoster eye disease | CPT/HCPCS: 99212 ==